=== PATIENT | female | born 1960 | race Caucasian/White ===

== ENCOUNTER 2018-05-18 17:13 | Emergency (ER) | payer OTHER, SELFPAY ==
[2018-05-18 17:30] VITALS: PULSE 84; RESP 16; TEMP 36.8; O2SAT 96
--- NOTE | 2018-05-18 17:41 | DI.REPORT_ITS ---
SYMPTOM/DIAGNOSIS: SWALLOWED FOREIGN BODY/BOTTLE CAP CHEST X-RAY: Frontal and lateral views. Heart size and pulmonary vasculature are within normal limits. The lungs are clear. No effusions or pneumothoraces are identified. No radiopaque foreign bodies are seen. There are degenerative changes in the spine. IMPRESSION: No acute abnormality. No radiopaque foreign body identified.
--- NOTE | 2018-05-18 18:08 | DI.REPORT_ITS ---
SYMPTOM/DIAGNOSIS: S/P SWALLOWED METAL TAB OF SODA CAN. R/O ACUTE FOREIGN BODY FLAT PLATE ABDOMEN: The visualized lung bases are clear. There is a moderate amount of retained stool in the colon. No evidence of bowel obstruction or organomegaly. There are surgical clips in the right upper quadrant of the abdomen. Degenerative changes are seen in the spine. No radiopaque foreign bodies are present. IMPRESSION: No evidence of an acute abdomen. No evidence of a radiopaque foreign body.
--- NOTE | 2018-05-18 18:08 | DI.REPORT_ITS ---
SYMPTOM/DIAGNOSIS: S/P SWALLOWED METAL TAB, R/O ACUTE FOREIGN BODY SOFT TISSUE NECK: Frontal and lateral views. No priors. The airway appears patent and normal in size. No radiopaque foreign bodies are seen. The epiglottis appears unremarkable. No free air is seen in the soft tissues. Moderate degenerative changes are seen in the cervical spine particularly at C5, 6 through C7-T1. IMPRESSION: No acute abnormality. No evidence of a radiopaque foreign body in the soft tissues of the neck.
--- NOTE | 2018-05-18 18:18 | DI.VRAD_ITS ---
EXAM: XR Chest, 2 Views EXAM DATE/TIME: 05/18/2018 5:42 PM CLINICAL HISTORY: 57 years old, female; Screening exam; Other screening; Patient HX: Swallowed foreign body/bottle cap TECHNIQUE: XR of the chest, 2 views. COMPARISON: CR - CHEST 2 VIEWS PA,LAT 2017-03-10 09:43 FINDINGS: Lungs: Normal. No consolidation. Pleural space: Normal. No pneumothorax. Heart/Mediastinum: Normal. No cardiomegaly. Upper abdomen: The right colon is between the right hemidiaphragm and liver consistent with colonic interposition. Bones/joints: Mild thoracic spondylosis. Soft tissues: No obvious radiopaque foreign body. IMPRESSION: No obvious radiopaque foreign body. Dictated and Authenticated by: Finn John MD. Ordering:KATHY HUNTER MD
--- NOTE | 2018-05-18 18:18 | ED.GENADUL ---
Disposition Clinical Impression: Swallowed foreign body Disposition: HOME Condition: Stable Instructions: Foreign Body Ingestion (ED) Additional Instructions: Drink plenty of fluids and get plenty of rest. Take your regular medications as directed. Follow-up with your primary care doctor within the next week. Return to the emergency department with any worsening or new concerning symptoms. Medical Decision Making - Radiology Data Radiology results: report reviewed, image reviewed Soft Tissue Neck x-ray: Negative Chest x-ray: Negative Abdomen x-ray: Negative. Mild to moderate retained feces. - Medical Decision Making 57-year-old female presents with mild irritation in throat and mild abdominal pain since swallowing a metal tab from a soda can last night at 8 PM. Patient has been eating and drinking without difficulty. Patient states she had a bowel movement this morning at 630am but did not see the foreign body. 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 Normal ENT exam. Lungs clear to auscultation. Abdomen soft and nontender. Will send for neck, chest and abdominal x-rays to rule out retained foreign body. 1930: X-rays reviewed and negative for foreign body. Patient currently is denying any sore throat, abdominal pain, nausea or vomiting. Patient states she feels good to go home. It was discussed with patient that she may have passed the metal tab this morning with her bowel movement. As patient appears nontoxic and in no acute distress, okay to discharge home. It was discussed with patient that she should return immediately if she has any worsening or new concerning symptoms. History of Present Illness - General Chief complaint: ThroatFB Stated complaint: UNKNOWN Time Seen by Provider: 05/18/18 17:40 Source: patient Mode of arrival: ambulatory Limitations: no limitations - History of Present Illness Initial comments: Patient is a 57-year-old female who presents with irritation in throat and mild abdominal pain since last night after swallowing a metal tab off a soda can. 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 She has been able to eat and drink. She denies any vomiting. - Related Data Aspirin 81 mg CH DAILY 12/15/12 Bupropion HCl [Bupropion Xl] 300 mg PO DAILY #90 tab-cap 03/25/17 Metformin HCl 850 mg PO BID #180 tab-cap 03/25/17 Proventil Hfa 2 puff IH Q4H PRN #1 inhaler 04/15/17 Magnesium Oxide [Magnesium] 400 mg PO DAILY 05/09/17 Nitroglycerin 0.4 mg SL ONCE #25 tab-cap 05/09/17 Nystatin/Triamcin [Mycolog II Ointment] 15 gm TP TID #15 gram 05/09/17 Atorvastatin Calcium 60 mg PO DAILY #135 tab-cap 05/13/17 Pantoprazole Sodium 40 mg PO DAILY AM #90 tab-cap 05/13/17 Lisinopril 5 mg PO DAILY #90 tab-cap 05/28/17 Clobetasol 0.05% Oint. [Temovate 0.05% Oint] 15 gm TP HS twice weekly #15 gm 10/18/17 Clotrimazole 1 hussain VG BID #90 script 12/30/17 Meclizine HCl 25 mg PO TID PRN #60 tab-cap 12/30/17 Estradiol [Vagifem] 10 mcg VG as directed #45 tab 01/01/18 Ibuprofen 600 mg PO TID PRN #90 tab 01/20/18 Gabapentin 300 mg PO TID #270 tab-cap 02/10/18 Sertraline HCl 25 mg PO DAILY #90 tab 02/10/18 Allergies Allergy/AdvReac Type Severity Reaction Status Date / Time Latex, Natural Rubber Allergy Intermediate Skin Rash Unverified 05/18/18 17:34 silicone Allergy Intermediate Rash Unverified 05/18/18 17:34 oxycodone AdvReac Intermediate SICK TO Unverified 05/18/18 17:34 STOMACH Review of Systems Constitutional: denies: chills, fever Eyes: denies: eye pain ENT: denies: ear pain, dental pain Respiratory: denies: cough, shortness of breath Cardiovascular: denies: chest pain, dyspnea on exertion Gastrointestinal: abdominal pain. denies: nausea, vomiting Genitourinary: denies: urgency, dysuria, frequency Musculoskeletal: denies: back pain Skin: denies: rash, lesions Neurological: denies: headache, weakness, numbness Past Medical History - Past Medical History Medical history: diabetes, GERD, hyperlipidemia, arthritis, hypertension Obesity, Kidney stone Surgical history: , hysterectomy, other, cholecystectomy - Social History Smoking status: never smoker Alcohol use: rarely Drug use: none General Exam - General Limitations: no limitations General appearance: alert, in no apparent distress - Eye Eye exam: Present: EOMI - ENT ENT exam: Present: normal orophraynx, mucous membranes moist, TM's normal bilaterally, other (no abrasions, foreign body, or bleeding noted ) - Neck Neck exam: Present: normal inspection. Absent: lymphadenopathy - Respiratory Respiratory exam: Present: normal lung sounds bilaterally. Absent: respiratory distress, wheezes, rales, rhonchi, stridor - Cardiovascular Cardiovascular Exam: Present: regular rate, normal rhythm. Absent: bradycardia, tachycardia - GI/Abdominal GI/Abdominal exam: Present: soft, normal bowel sounds, other (Morbidly obese). Absent: distended, tenderness, guarding, rebound, rigid - Neurological Exam Neurological exam: Present: alert, oriented X3 - Psychiatric Psychiatric exam: Present: normal affect - Skin Skin exam: Present: warm, dry, intact Course Vital Signs - 24 hr 05/18/18 17:30 Temperature 98.2 F Pulse 84 Respiratory 16 Rate Pulse Oximetry 96
--- NOTE | 2018-05-18 18:19 | DI.VRAD_ITS ---
EXAM: XR Soft Tissue Neck CLINICAL HISTORY: 57 years old, female; Pain; Neck pain and throat pain; Patient HX: Swallowed metal tab TECHNIQUE: Frontal and lateral views of the soft tissues of the neck. COMPARISON: No relevant prior studies available. FINDINGS: Airway: Unremarkable. No abnormal narrowing. Bones/joints: Unremarkable. Soft tissues: No radiopaque foreign body. Compression. Normal epiglottis. Other findings: Moderate to severe multilevel degenerative changes including degenerative disc disease, spondylosis and facet degenerative changes. IMPRESSION: No acute findings. Dictated and Authenticated by: Finn John MD. Ordering:GRACIELA HILL MD
--- NOTE | 2018-05-18 18:19 | DI.VRAD_ITS ---
EXAM: XR Abdomen, 1 View EXAM DATE/TIME: 05/18/2018 6:07 PM CLINICAL HISTORY: 57 years old, female; Pain; Other: Chest/neck discomfort; Patient HX: Swallowed metal tab/foreign body TECHNIQUE: Frontal supine view of the abdomen/pelvis. COMPARISON: CT - RENAL COLIC WO CONTRAST 2015-09-04 16:17 FINDINGS: Gastrointestinal tract: Mild to moderate retained feces. Organs: Surgical clips in the gallbladder fossa consistent with cholecystectomy. Vasculature: There are one or more calcified pelvic phleboliths. Bones/joints: Mild to moderate multilevel degenerative changes including degenerative disc disease, spondylosis and facet degenerative changes. IMPRESSION: Mild to moderate retained feces. Dictated and Authenticated by: Finn John MD. Ordering:GRACIELA HILL MD
== END 2018-05-18 20:30 | disposition home or self-care (01) ==
PROVIDERS: Emergency Provider Physician Assistant; PCP Nurse Practitioner
DX: T18.9XXA Foreign body of alimentary tract, part unspecified, initial encounter (principal); I10 Essential (primary) hypertension; E11.9 Type 2 diabetes mellitus without complications; Z79.84 Long term (current) use of oral hypoglycemic drugs
CPT/HCPCS: 99284; 70360; 71046; 74018; 99283

== ENCOUNTER → 2018-06-04 08:20 | Outpatient (CLI) | payer OTHER, SELFPAY ==
[2018-06-04 08:49] LABS: Abs Immature Grans 0.01 k/cumm (0.0-0.09); Absolute Basophil Count 0.02 k/cumm (0.0-0.2); Absolute Eosinophil Count 0.08 k/cumm (0.0-0.7); Absolute Lymphocyte Count 1.11 k/cumm (1.2-3.4); Absolute Monocyte Count 0.55 k/cumm (0.11-0.7); Absolute Neutrophil Count 3.22 k/cumm (1.2-6.7); Basophils % 0.4; Eosinophils % 1.6; HGB 12.6 g/dL (12.0-15.5); Immature Grans % 0.2; Lymphocytes % 22.2; Mean Corp. HGB Concentration 31.5 g/dL (32.0-36.0); Mean Corpuscular Hemoglobin 29.2 pg (27.0-33.0); Mean Corpuscular Volume 92.6 fL (80-95); Mean Platelet Volume 9.2 fL (8.0-11.0); Neutrophils % 64.6; Platelet Count 273 x1000/uL (130-400); RBC 4.32 m/cumm (4.00-5.20); RBC Distribution Width 13.9 % (11.7-14.6); White Blood Cell Count 4.99 k/cumm (4.4-10.8)
[2018-06-04 09:11] LABS: Hemoglobin A1C 6.6 % (4.5-6.2)
[2018-06-04 09:55] LABS: ALT 27 U/L (12-78); AST 26 U/L (15-37); Albumin 3.5 g/dL (3.4-5.0); Alkaline Phosphatase 186 U/L (46-116); Anion Gap 8.2 mmol/L (3-11); BUN 15 mg/dL (7-18); Bilirubin, Total 0.7 mg/dL (0.2-1.0); CO2 26.8 mmol/L (21.0-32.0); CREATININE 0.85 mg/dL (0.55-1.02); Calcium 8.8 mg/dL (8.5-10.1); Chloride 106 mmol/L (98-107); Cholesterol 160 mg/dL (50-200); Glucose 106 mg/dL (70-100); HDL Cholesterol 52 mg/dL (40-60); LDL CHOLESTEROL 90 mg/dL (<100); Potassium 4.2 mmol/L (3.5-5.1); Sodium 141 mmol/L (136-145); Total Protein 7.3 g/dL (6.4-8.2); Triglyceride 136 mg/dL (30-150)
== END ==
PROVIDERS: PCP Nurse Practitioner; Visit Provider Nurse Practitioner
DX: E11.49 Type 2 diabetes mellitus with other diabetic neurological complication (principal); E78.5 Hyperlipidemia, unspecified; I10 Essential (primary) hypertension
CPT/HCPCS: 36415; 80053; 80061; 83721; 83036; 85025

== ENCOUNTER → 2018-06-10 15:14 | Outpatient (REF) | payer OTHER, SELFPAY ==
[2018-06-10 15:40] LABS: COMMENT (LAB VIEW ONLY) 72.97 mg/dL; Microalb ug/mg Crea 4.5 ug/mg Cr
== END ==
LOC: LBN 15:14
PROVIDERS: PCP Nurse Practitioner; Visit Provider Nurse Practitioner
DX: E11.49 Type 2 diabetes mellitus with other diabetic neurological complication (principal)
CPT/HCPCS: 82043; 82570

== ENCOUNTER 2018-08-01 23:19 | Emergency (ER) | payer OTHER, SELFPAY ==
[2018-08-01 23:25] VITALS: BP 160/81; PULSE 88; RESP 20; TEMP 36.6; O2SAT 99
--- NOTE | 2018-08-01 23:53 | ED.GENADUL_ITS ---
Discharge Plan Disposition Patient Disposition: HOME Condition: Fair Discharge Details Chief Complaint: FacialProb Clinical Impression: Contact dermatitis Primary Care Provider: Dedra Arambula ED Provider: Bhavya Camarena Home Meds and New Rx's Prescriptions: Continue magnesium oxide 400 MG tablet 400 mg PO DAILY RF: 0 nystatin-triamcinolone 15 GM ointment 15 gm Topical TID Qty: 15 RF: 3 lisinopril 5 MG tablet 5 mg PO DAILY Qty: 90 RF: 3 clotrimazole 45 GM cream 1 hussain VG BID Qty: 90 RF: 3 meclizine 25 MG tablet,chewable 25 mg PO TID PRNQty: 60 RF: 1 estradiol [Vagifem] 10 MCG tablet 10 mcg VG as directed Qty: 45 RF: 2 ibuprofen 600 MG tablet 600 mg PO TID PRNQty: 90 RF: 0 gabapentin 300 MG capsule 300 mg PO TID Qty: 270 RF: 3 sertraline 25 MG tablet 25 mg PO DAILY Qty: 90 RF: 3 metformin 850 MG tablet 850 mg PO BID Qty: 180 RF: 3 pantoprazole 40 MG tablet,delayed release (DR/EC) 40 mg PO DAILY AM Qty: 90 RF: 3 atorvastatin 40 MG tablet 60 mg PO DAILY Qty: 135 RF: 3 bupropion HCl 300 MG tablet extended release 24 hr 300 mg PO DAILY Qty: 90 RF: 3 PROVENTIL HFA 18 GM HFA.AER.AD 2 puff Inhalation Q4H PRN Qty: 1 RF: 2 nitroglycerin 0.4 mg tablet, sublingual 0.4 mg Sublingual Q5M PRN (Reason: chest pain) Qty: 25 RF: 5 aspirin 81 MG tablet,chewable 81 mg CH DAILY RF: 0 Discharge Instructions Instructions: Dermatitis (ED) Additional Instructions: Exam today is consistent with contact dermatitis, appears like you have had localized reaction. Take Benadryl once home to help with symptomatic management. May try hydrocortisone cream for itch. If you develop fevers/ chills, increased pain, spreading of the rash or other new/worsening symptoms please seek care urgently once again. If symptoms have not improved next week, please follow up with PCP. Referrals: Dedra Arambula, ULISES [Primary Care Provider] - Medical Decision Making Patient presents today with c/c of erythema and swelling to the left side of her face. She reports minimal discmfort. STates that the area is itchy. Began a few hours prior to arrival. States that initially it grew in size but has slowed its growth. No known new exposures. No trauma. No TMJ pain, good ROM. Ear without abnormality. Patient has a blanchable area of skin irritation with 2 areas of focal swelling. No fluctuance. Not warm on exam. Does not appear toxic, does not appear consistent with infectious source. History and exam most consistent with contact dermatitis. No known new exposure. May also be bite but patient does not believe she was bitten, has been inside at work since the onset of symptoms. ADvised that as it is so soon since onset of symptoms, this may be just developing. She was given strict return precautions. Advised on topical options to help with itch as well as antihistamines. Discussed new/ worsening symptoms and when to seek care urgently once again. All of her questions and concerns were addressed, she is in agreement iwth this plan. Advised f/u with PCP next week if this persists. HPI General Mode of arrival: ambulatory . Date/Time Provider Initiated Documentation: 08/01/18 23:27 . Limitations to Documentation: no limitations . Information obtained by: patient . History of Present Illness 57 year old F presents to the emergency department with the chief complaint of left sided facial bumps, described as mild, with intensity rated at 3. Quality is described as aching, and is localized to the face. Patient reports no radiation. Patient started experiencing this hour(s) (7) and it has been constant. No relieving factors improve symptom(s), No exacerbating factors reported . Patient notes no other symptoms. and rash; denies cough, fever/chills and headaches. Patient did receive the following treatments prior to arrival, NSAID Related Data Home Medications Medication Instructions Recorded Confirmed aspirin 81 mg CH DAILY 12/15/12 08/01/18 magnesium oxide 400 mg PO DAILY 05/09/17 08/01/18 nystatin-triamcinolone 15 gm TOPICAL TID #15 gm 05/09/17 08/01/18 lisinopril 5 mg PO DAILY #90 tab-cap 05/28/17 08/01/18 clotrimazole 1 hussain VG BID #90 script 12/30/17 meclizine 25 mg PO TID PRN #60 tab-cap 12/30/17 08/01/18 estradiol [Vagifem] 10 mcg VG as directed #45 tab 01/01/18 08/01/18 ibuprofen 600 mg PO TID PRN #90 tab 01/20/18 08/01/18 gabapentin 300 mg PO TID #270 tab-cap 02/10/18 08/01/18 sertraline 25 mg PO DAILY #90 tab 02/10/18 08/01/18 metformin 850 mg PO BID #180 tab-cap 05/20/18 08/01/18 pantoprazole 40 mg PO DAILY AM #90 tab-cap 05/28/18 08/01/18 atorvastatin 60 mg PO DAILY #135 tab-cap 06/10/18 08/01/18 bupropion HCl 300 mg PO DAILY #90 tab-cap 06/10/18 08/01/18 nitroglycerin 0.4 mg sublingual 0.4 mg SUBLINGUAL Q5M PRN #25 07/31/18 08/01/18 tablet tab-cap Previous Rx's Medication Instructions Recorded clotrimazole 1 hussain VG BID #90 script 12/30/17 estradiol [Vagifem] 10 mcg VG as directed #45 tab 01/01/18 gabapentin 300 mg PO TID #270 tab-cap 02/10/18 sertraline 25 mg PO DAILY #90 tab 02/10/18 metformin 850 mg PO BID #180 tab-cap 05/20/18 pantoprazole 40 mg PO DAILY AM #90 tab-cap 05/28/18 atorvastatin 60 mg PO DAILY #135 tab-cap 06/10/18 bupropion HCl 300 mg PO DAILY #90 tab-cap 06/10/18 nitroglycerin 0.4 mg sublingual 0.4 mg SUBLINGUAL Q5M PRN #25 07/31/18 tablet tab-cap Allergies Allergy/AdvReac Type Severity Reaction Status Date / Time Latex, Natural Rubber Allergy Intermediate Skin Rash Unverified 08/01/18 23:29 silicone Allergy Intermediate Rash Unverified 08/01/18 23:29 oxycodone AdvReac Intermediate SICK TO Unverified 08/01/18 23:29 STOMACH General Stated Complaint: FacialProb RISHABH: 4 Review of Systems Constitutional Reports as per HPI, Denies chills, Denies fever(s) and Denies headache(s) Eyes Denies eye discharge ENT Reports as per HPI, Denies otalgia, Reports facial pain (localized facial pain on the left side of her face), Denies headache(s), Denies mouth pain, Denies nasal congestion, Denies nasal discharge, Denies sinus pressure and Denies sore throat Cardiovascular Denies chest pain Respiratory Denies cough Integumentary/Breasts Reports as per HPI Neurologic Denies headache(s) PFSH Family History Mother Neoplasm Father Myocardial infarction Medical History Asthma HTN (hypertension) Type 2 diabetes mellitus Social History Smoking/Tobacco Use Status: Never Surgical History section (~1980) Cholecystectomy Extraction of cataract Hysterectomy, Total Laparoscopic Exam Const General: cooperative, healthy appearing, comfortable, no acute distress, well developed and well groomed Nutritional Appearance: well nourished and overweight Orientation: alert and awake HENTN Head: normal to inspection, normocephalic and atraumatic Ears: hearing grossly normal bilaterally, external ears normal and TM's normal bilaterally General nose exam: external nose normal and nares normal Face and sinus: abnormal facial exam (patient has 1.5x1 cm area of mild erythema. Blanchable. Two small raised areas. No fluctuance. No discomfort with palpation. TMJ normal), sinuses nontender, face symmetric, no abrasions, no tenderness and No dry mucous membranes Mouth: oral mucosae normal, lip normal, tongue normal, oropharynx normal, moist mucous membranes, normal lip, No mouth trauma and no muffled voice Throat: posterior oropharynx normal Eyes General: appearance normal, both eyes and all related structures Resp Effort & Inspection: normal respiratory effort, able to speak in complete sentences and no respiratory distress Auscultation: clear to auscultation bilaterally, no rales, no rhonchi and no wheezes Cardio Rate: regular rate Rhythm: regular rhythm Heart Sounds: S1 normal and S2 normal Skin General skin exam: erythema (as above) Neuro General: alert and awake Cognition: normal cognition Speech: speech normal Gait: normal gait Psych Appearance: grossly normal and well kempt Mental Status: mental status grossly normal Speech and Movement: speech and movement normal Course Vital Signs Temperature 36.6 C 08/01/18 23:25 Pulse 88 08/01/18 23:25 Respiratory Rate 20 10/19/18 23:25 Blood Pressure 160/81 H 08/01/18 23:25 Pulse Oximetry 99 08/01/18 23:25 Temperature 36.6 C 08/01/18 23:25 Temperature Source Temporal Artery Scan 08/01/18 23:25 Pulse 88 08/01/18 23:25 Respiratory Rate 20 08/01/18 23:25 Respiratory Effort Non-Labored 08/01/18 23:32 Blood Pressure 160/81 H 08/01/18 23:25 Blood Pressure Position Sitting 08/01/18 23:25 Pulse Oximetry 99 08/01/18 23:25 Oxygen Delivery Method Room Air 08/01/18 23:25 Oxygen Flow Rate 0 08/01/18 23:25 Pain Level 3 08/01/18 23:32
[2018-08-01 23:54] VITALS: PULSE 88; RESP 20; TEMP 36.6; O2SAT 99
== END 2018-08-01 23:56 | disposition home or self-care (01) ==
LOC: ER 23:55
PROVIDERS: Emergency Provider Physician Assistant; PCP Nurse Practitioner
DX: L25.9 Unspecified contact dermatitis, unspecified cause (principal); E11.9 Type 2 diabetes mellitus without complications; Z79.84 Long term (current) use of oral hypoglycemic drugs; I10 Essential (primary) hypertension
CPT/HCPCS: 99282

== ENCOUNTER 2018-10-15 16:17 | Observation (INO) | payer OTHER, SELFPAY ==
[2018-10-15] VITALS (59 sets, daily range): BP systolic 114–205; BP diastolic 70–133; PULSE 70–105; RESP 14–30; TEMP 36.6–36.8; O2SAT 93–98
--- NOTE | 2018-10-15 16:40 | DI.RAD_ITS ---
SYMPTOM/DIAGNOSIS: CHEST PRESSURE PA AND LATERAL CHEST: Comparison is made with 05/18/18. The heart size and pulmonary vasculature are within normal limits and stable. The lungs are clear and well expanded. No effusions or pneumothoraces are identified. The bones are intact. IMPRESSION: No acute pulmonary process.
--- NOTE | 2018-10-15 16:40 | W.ED.GENAD ---
Discharge Plan Disposition Patient Disposition: [facility] INPATIENT Condition: Good Discharge Details Chief Complaint: Chest Pain Clinical Impression: Chest pain Primary Care Provider: Dedra Arambula ED Provider: Elmer Amaral Home Meds and New Rx's Prescriptions: No Action methylprednisolone [Medrol (Sigifredo)] 4 mg tablets,dose pack See Rx Instructions .Route .COMPLEX Qty: 21 RF: 0 cyclobenzaprine 10 mg tablet 10 mg PO TID PRN (Reason: muscle spasm) Qty: 30 RF: 0 magnesium oxide 400 MG tablet 400 mg PO DAILY RF: 0 nystatin-triamcinolone 15 GM ointment 15 gm Topical TID Qty: 15 RF: 3 lisinopril 5 MG tablet 5 mg PO DAILY Qty: 90 RF: 3 clotrimazole 45 GM cream 1 hussain VG BID Qty: 90 RF: 3 meclizine 25 MG tablet,chewable 25 mg PO TID PRNQty: 60 RF: 1 estradiol [Vagifem] 10 MCG tablet 10 mcg VG as directed Qty: 45 RF: 2 ibuprofen 600 MG tablet 600 mg PO TID PRNQty: 90 RF: 0 gabapentin 300 MG capsule 300 mg PO TID Qty: 270 RF: 3 sertraline 25 MG tablet 25 mg PO DAILY Qty: 90 RF: 3 metformin 850 MG tablet 850 mg PO BID Qty: 180 RF: 3 pantoprazole 40 MG tablet,delayed release (DR/EC) 40 mg PO DAILY AM Qty: 90 RF: 3 atorvastatin 40 MG tablet 60 mg PO DAILY Qty: 135 RF: 3 bupropion HCl 300 MG tablet extended release 24 hr 300 mg PO DAILY Qty: 90 RF: 3 PROVENTIL HFA 18 GM HFA.AER.AD 2 puff Inhalation Q4H PRN Qty: 1 RF: 2 nitroglycerin 0.4 mg tablet, sublingual 0.4 mg Sublingual Q5M PRN (Reason: chest pain) Qty: 25 RF: 5 aspirin 81 MG tablet,chewable 81 mg CH DAILY RF: 0 Medical Decision Making <Tylor Gallagher MD - Last Filed: 10/15/18 19:47> 57-year-old female presents from inpatient [employer] where she was working and developed substernal chest pressure. She has had a history of same in the past, and has had unremarkable workups. She states to me that she has been under great deal of stress due to recent illness of her and some other stressors in the home. Differential diagnosis includes acute stress reaction, esophageal spasm, acute coronary syndrome. She is afebrile, well-appearing but anxious. Exam is reassuring. She is given a small amount of Ativan Screening EKG, chest x-ray, laboratory obtained. Initial CBC and chemistries with troponin are reassuring. Will observe on a playground monitor with repeat troponin at [address] see Dr[address] Amaral's note regarding final impression and disposition once the repeat troponin has been resulted. Lab Data Lab results reviewed: Yes I reviewed the patient's lab results. Laboratory Results - last 24 hr 10/15/18 10/15/18 16:50 16:50 WBC 6.44 RBC 4.48 Hgb 13.4 Hct 40.9 MCV 91.3 MCH 29.9 MCHC 32.8 RDW 13.9 Plt Count 292 MPV 9.4 Immature Gran % 0.0 Neutrophils % 54.6 Lymphocytes % 33.2 Monocytes % 7.8 Eosinophils % 3.6 Basophils % 0.8 Absolute Neutrophils 3.52 Absolute Lymphocytes 2.14 Absolute Monocytes 0.50 Absolute Eosinophils 0.23 Absolute Basophils 0.05 Sodium 144 Potassium 3.3 L Chloride 105 Carbon Dioxide 27.5 Anion Gap 11.5 H BUN 14 Creatinine 0.88 Estimated GFR/1.73 m2 >= 60.00 Glucose 115 H Calcium 9.4 Magnesium 1.7 L Total Bilirubin 0.8 AST 26 ALT 30 Alkaline Phosphatase 178 H Troponin I 0.02 Total Protein 7.8 Albumin 3.6 ECG Data Attestation: I personally reviewed and interpreted this ECG (s) as follows: Interpretation: Normal sinus rhythm, rate of 95, QRS is narrow, no ST segment elevation <Elmer Amaral, - Last Filed: 10/15/18 21:11> The case was signed out to me my my colleague Dr. Iker Gallagher. We are pending second troponin at that time. Repeat troponin has come back at 0.03, which is within normal limits, however an increase from her initial troponin 0 0.02. I did go in and review again with the patient, she has a past medical history of diabetes, hypertension, obesity, strong family history of cardiac disease at 60 for her father which is 1 year away from her. She does not smoke though. With her clinical symptoms, and her troponin her heart score is in the moderate risk category with recommendation for further cardiac evaluation. I did go back and discuss the situation with the patient, I discussed potential third troponin versus admission, and the patient does feel very nervous and would like to stay overnight. I think this is very reasonable as the patient is an employee of [employer], she has a heart score of 5 putting her in the moderate risk category, and has a mild increase in her troponin. I discussed the case with Dr. Yasir chris, he agrees with the assessment and plan. The patient will be admitted for continued serial troponins, provocative stress testing tomorrow and further workup. I have extensively reviewed the treatment plan with the patient. I have addressed all patient concerns at this time. I have also discussed the plan with the admitting physician and they agree with the current assessment and plan and have agreed to assume responsibility for the patient. All parties demonstrate verbal understanding and agreement with our assessment and plan at this time. HPI <Tylor Gallagher MD - Last Filed: 10/15/18 19:47> General Mode of arrival: wheelchair. Date/Time Provider Initiated Documentation: 10/15/18 16:27. Limitations to Documentation: no limitations. Information obtained by: patient. History of Present Illness 57 year old F presents to the emergency department with the chief complaint of Substernal chest pressure, described as moderate, Quality is described as dull, and is localized to the chest. Patient reports no radiation. Patient started experiencing this minute(s) and it has been other (Improving). No relieving factors improve symptom(s), No exacerbating factors reported . Patient notes no other symptoms. and cough; denies fever/chills. 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 She did not have diaphoresis, no syncope, no shortness of breath. She admits to a great deal of personal and social stress due to recent illness of her . No lower extremity pain or swelling. No prolonged travel. Related Data Home Medications Medication Instructions Recorded Confirmed aspirin 81 mg CH DAILY 12/15/12 10/15/18 magnesium oxide 400 mg PO DAILY 05/09/17 10/15/18 nystatin-triamcinolone 15 gm TOPICAL TID #15 gm 05/09/17 10/15/18 lisinopril 5 mg PO DAILY #90 tab-cap 05/28/17 10/15/18 clotrimazole 1 hussain VG BID #90 script 12/30/17 10/15/18 meclizine 25 mg PO TID PRN #60 tab-cap 12/30/17 10/15/18 estradiol [Vagifem] 10 mcg VG as directed #45 tab 01/01/18 10/15/18 ibuprofen 600 mg PO TID PRN #90 tab 01/20/18 10/15/18 gabapentin 300 mg PO TID #270 tab-cap 02/10/18 10/15/18 sertraline 25 mg PO DAILY #90 tab 02/10/18 10/15/18 metformin 850 mg PO BID #180 tab-cap 05/20/18 10/15/18 pantoprazole 40 mg PO DAILY AM #90 tab-cap 05/28/18 10/15/18 atorvastatin 60 mg PO DAILY #135 tab-cap 06/10/18 10/15/18 bupropion HCl 300 mg PO DAILY #90 tab-cap 06/10/18 10/15/18 nitroglycerin 0.4 mg sublingual 0.4 mg SUBLINGUAL Q5M PRN #25 07/31/18 10/15/18 tablet tab-cap cyclobenzaprine 10 mg tablet 10 mg PO TID PRN #30 tab 08/04/18 10/15/18 methylprednisolone 4 mg tablets in See Rx Instructions .ROUTE 08/04/18 10/15/18 a dose pack .COMPLEX #21 dose pk Previous Rx's Medication Instructions Recorded clotrimazole 1 hussain VG BID #90 script 12/30/17 estradiol [Vagifem] 10 mcg VG as directed #45 tab 01/01/18 gabapentin 300 mg PO TID #270 tab-cap 02/10/18 sertraline 25 mg PO DAILY #90 tab 02/10/18 metformin 850 mg PO BID #180 tab-cap 05/20/18 pantoprazole 40 mg PO DAILY AM #90 tab-cap 05/28/18 atorvastatin 60 mg PO DAILY #135 tab-cap 06/10/18 bupropion HCl 300 mg PO DAILY #90 tab-cap 06/10/18 nitroglycerin 0.4 mg sublingual 0.4 mg SUBLINGUAL Q5M PRN #25 07/31/18 tablet tab-cap cyclobenzaprine 10 mg tablet 10 mg PO TID PRN #30 tab 08/04/18 methylprednisolone 4 mg tablets in See Rx Instructions .ROUTE 08/04/18 a dose pack .COMPLEX #21 dose pk Allergies Allergy/AdvReac Type Severity Reaction Status Date / Time Latex, Natural Rubber Allergy Intermediate Skin Rash Verified 10/15/18 16:39 silicone Allergy Intermediate Rash Verified 10/15/18 16:39 oxycodone AdvReac Intermediate SICK TO Verified 10/15/18 16:39 STOMACH General Stated Complaint: Chest Pain RISHABH: 2 Review of Systems <Tylor Gallagher MD - Last Filed: 10/15/18 19:47> Review of Systems 8 systems reviewed and otherwise - [facility] <Tylor Gallagher MD - Last Filed: 10/15/18 19:47> Medical History Asthma HTN (hypertension) Type 2 diabetes mellitus Surgical History section (~1980) Cholecystectomy Extraction of cataract Hysterectomy, Total Laparoscopic Family History Mother Neoplasm Father Myocardial infarction Social History Smoking/Tobacco Use Status: Never Exam <Tylor Gallagher MD - Last Filed: 10/15/18 19:47> Narrative Exam Narrative: GEN: awake, alert, oriented 3. Pleasant, well groomed, interactive, anxious. HEAD: Normocephalic, atraumatic ENT: Mucous membranes moist, oropharynx unremarkable, External ear exam unremarkable EYES: PERRL, EOMI NECK: Full ROM, no GAYLA, no menigismus CHEST/RESP: Nontender, clear to auscultation bilateral, no wheeze/rhonchi/rales CARDIOVASCULAR: RRR, no murmur, rub pramod. 2+ Rad pulse bilateral ABDOMEN: Soft, obese, nontender, no mass. +Bowel sounds EXT: Full ROM, no edema, no rash Neuro: Grossly normal neurologic exam, conversant, interactive. Psych: Speech fluent, thoughts congruent, affect is Course <Tylor Gallagher MD - Last Filed: 10/15/18 19:47> Vital Signs Temperature 36.6 C 10/15/18 16:23 Pulse 96 H 10/15/18 16:23 Respiratory Rate 18 10/15/18 16:23 Blood Pressure 171/104 H 10/15/18 16:23 Pulse Oximetry 97 10/15/18 16:23 Temperature 36.6 C 10/15/18 16:23 Temperature Source Temporal Artery Scan 10/15/18 16:23 Pulse 96 H 10/15/18 16:23 Respiratory Rate 18 10/15/18 16:23 Respiratory Effort Non-Labored 10/15/18 16:23 Blood Pressure 171/104 H 10/15/18 16:23 Blood Pressure Position Supine 10/15/18 16:23 Pulse Oximetry 97 10/15/18 16:23 Oxygen Delivery Method Room Air 10/15/18 16:23 Oxygen Flow Rate 0 10/15/18 16:23
--- NOTE | 2018-10-15 16:44 | ED.GENADUL_ITS ---
Discharge Plan Disposition Patient Disposition: [facility] INPATIENT Condition: Good Discharge Details Chief Complaint: Chest Pain Clinical Impression: Chest pain Primary Care Provider: Dedra Arambula ED Provider: Elmer Amaral Home Meds and New Rx's Prescriptions: No Action methylprednisolone [Medrol (Sigifredo)] 4 mg tablets,dose pack See Rx Instructions .Route .COMPLEX Qty: 21 RF: 0 cyclobenzaprine 10 mg tablet 10 mg PO TID PRN (Reason: muscle spasm) Qty: 30 RF: 0 magnesium oxide 400 MG tablet 400 mg PO DAILY RF: 0 nystatin-triamcinolone 15 GM ointment 15 gm Topical TID Qty: 15 RF: 3 lisinopril 5 MG tablet 5 mg PO DAILY Qty: 90 RF: 3 clotrimazole 45 GM cream 1 hussain VG BID Qty: 90 RF: 3 meclizine 25 MG tablet,chewable 25 mg PO TID PRNQty: 60 RF: 1 estradiol [Vagifem] 10 MCG tablet 10 mcg VG as directed Qty: 45 RF: 2 ibuprofen 600 MG tablet 600 mg PO TID PRNQty: 90 RF: 0 gabapentin 300 MG capsule 300 mg PO TID Qty: 270 RF: 3 sertraline 25 MG tablet 25 mg PO DAILY Qty: 90 RF: 3 metformin 850 MG tablet 850 mg PO BID Qty: 180 RF: 3 pantoprazole 40 MG tablet,delayed release (DR/EC) 40 mg PO DAILY AM Qty: 90 RF: 3 atorvastatin 40 MG tablet 60 mg PO DAILY Qty: 135 RF: 3 bupropion HCl 300 MG tablet extended release 24 hr 300 mg PO DAILY Qty: 90 RF: 3 PROVENTIL HFA 18 GM HFA.AER.AD 2 puff Inhalation Q4H PRN Qty: 1 RF: 2 nitroglycerin 0.4 mg tablet, sublingual 0.4 mg Sublingual Q5M PRN (Reason: chest pain) Qty: 25 RF: 5 aspirin 81 MG tablet,chewable 81 mg CH DAILY RF: 0 Medical Decision Making <Tylor Gallagher MD - Last Filed: 10/15/18 19:47> 57-year-old female presents from inpatient [employer] where she was working and developed substernal chest pressure. She has had a history of same in the past, and has had unremarkable workups. She states to me that she has been under great deal of stress due to recent illness of her and some other stressors in the home. Differential diagnosis includes acute stress reaction, esophageal spasm, acute coronary syndrome. She is afebrile, well-appearing but anxious. Exam is reassuring. She is given a small amount of Ativan Screening EKG, chest x-ray, laboratory obtained. Initial CBC and chemistries with troponin are reassuring. Will observe on a cardiac cath technologist with repeat troponin at [address] Please see Dr. Amaral's note regarding final impression and disposition once the repeat troponin has been resulted. Lab Data Lab results reviewed: Yes I reviewed the patient's lab results. Laboratory Results - last 24 hr 10/15/18 10/15/18 16:50 16:50 WBC 6.44 RBC 4.48 Hgb 13.4 Hct 40.9 MCV 91.3 MCH 29.9 MCHC 32.8 RDW 13.9 Plt Count 292 MPV 9.4 Immature Gran % 0.0 Neutrophils % 54.6 Lymphocytes % 33.2 Monocytes % 7.8 Eosinophils % 3.6 Basophils % 0.8 Absolute Neutrophils 3.52 Absolute Lymphocytes 2.14 Absolute Monocytes 0.50 Absolute Eosinophils 0.23 Absolute Basophils 0.05 Sodium 144 Potassium 3.3 L Chloride 105 Carbon Dioxide 27.5 Anion Gap 11.5 H BUN 14 Creatinine 0.88 Estimated GFR/1.73 m2 >= 60.00 Glucose 115 H Calcium 9.4 Magnesium 1.7 L Total Bilirubin 0.8 AST 26 ALT 30 Alkaline Phosphatase 178 H Troponin I 0.02 Total Protein 7.8 Albumin 3.6 ECG Data Attestation: I personally reviewed and interpreted this ECG (s) as follows: Interpretation: Normal sinus rhythm, rate of 95, QRS is narrow, no ST segment elevation <Elmer Amaral, - Last Filed: 10/15/18 21:11> The case was signed out to me my my colleague Dr. Iker Gallagher. We are pending second troponin at that time. Repeat troponin has come back at 0.03, which is within normal limits, however an increase from her initial troponin 0 0.02. I did go in and review again with the patient, she has a past medical history of diabetes, hypertension, obesity, strong family history of cardiac disease at 60 for her father which is 1 year away from her. She does not smoke though. With her clinical symptoms, and her troponin her heart score is in the moderate risk category with recommendation for further cardiac evaluation. I did go back and discuss the situation with the patient, I discussed potential third troponin versus admission, and the patient does feel very nervous and would like to stay overnight. I think this is very reasonable as the patient is an employee of [employer], she has a heart score of 5 putting her in the moderate risk category, and has a mild increase in her troponin. I discussed the case with Dr. Yasir chris, he agrees with the assessment and plan. The patient will be admitted for continued serial troponins, provocative stress testing tomorrow and further workup. I have extensively reviewed the treatment plan with the patient. I have addressed all patient concerns at this time. I have also discussed the plan with the admitting physician and they agree with the current assessment and plan and have agreed to assume responsibility for the patient. All parties demonstrate verbal understanding and agreement with our assessment and plan at this time. HPI <Tylor Gallagher MD - Last Filed: 10/15/18 19:47> General Mode of arrival: wheelchair . Date/Time Provider Initiated Documentation: 10/15/18 16:27 . Limitations to Documentation: no limitations . Information obtained by: patient . History of Present Illness 57 year old F presents to the emergency department with the chief complaint of Substernal chest pressure, described as moderate, Quality is described as dull, and is localized to the chest. Patient reports no radiation. Patient started experiencing this minute(s) and it has been other (Improving). No relieving factors improve symptom(s), No exacerbating factors reported . Patient notes no other symptoms. and cough; denies fever/chills. 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 She did not have diaphoresis, no syncope, no shortness of breath. She admits to a great deal of personal and social stress due to recent illness of her . No lower extremity pain or swelling. No prolonged travel. Related Data Home Medications Medication Instructions Recorded Confirmed aspirin 81 mg CH DAILY 12/15/12 10/15/18 magnesium oxide 400 mg PO DAILY 05/09/17 10/15/18 nystatin-triamcinolone 15 gm TOPICAL TID #15 gm 05/09/17 10/15/18 lisinopril 5 mg PO DAILY #90 tab-cap 05/28/17 10/15/18 clotrimazole 1 hussain VG BID #90 script 12/30/17 10/15/18 meclizine 25 mg PO TID PRN #60 tab-cap 12/30/17 10/15/18 estradiol [Vagifem] 10 mcg VG as directed #45 tab 01/01/18 10/15/18 ibuprofen 600 mg PO TID PRN #90 tab 01/20/18 10/15/18 gabapentin 300 mg PO TID #270 tab-cap 02/10/18 10/15/18 sertraline 25 mg PO DAILY #90 tab 02/10/18 10/15/18 metformin 850 mg PO BID #180 tab-cap 05/20/18 10/15/18 pantoprazole 40 mg PO DAILY AM #90 tab-cap 05/28/18 10/15/18 atorvastatin 60 mg PO DAILY #135 tab-cap 06/10/18 10/15/18 bupropion HCl 300 mg PO DAILY #90 tab-cap 06/10/18 10/15/18 nitroglycerin 0.4 mg sublingual 0.4 mg SUBLINGUAL Q5M PRN #25 07/31/18 10/15/18 tablet tab-cap cyclobenzaprine 10 mg tablet 10 mg PO TID PRN #30 tab 08/04/18 10/15/18 methylprednisolone 4 mg tablets in See Rx Instructions .ROUTE 08/04/18 10/15/18 a dose pack .COMPLEX #21 dose pk Previous Rx's Medication Instructions Recorded clotrimazole 1 hussain VG BID #90 script 12/30/17 estradiol [Vagifem] 10 mcg VG as directed #45 tab 01/01/18 gabapentin 300 mg PO TID #270 tab-cap 02/10/18 sertraline 25 mg PO DAILY #90 tab 02/10/18 metformin 850 mg PO BID #180 tab-cap 05/20/18 pantoprazole 40 mg PO DAILY AM #90 tab-cap 05/28/18 atorvastatin 60 mg PO DAILY #135 tab-cap 06/10/18 bupropion HCl 300 mg PO DAILY #90 tab-cap 06/10/18 nitroglycerin 0.4 mg sublingual 0.4 mg SUBLINGUAL Q5M PRN #25 07/31/18 tablet tab-cap cyclobenzaprine 10 mg tablet 10 mg PO TID PRN #30 tab 08/04/18 methylprednisolone 4 mg tablets in See Rx Instructions .ROUTE 08/04/18 a dose pack .COMPLEX #21 dose pk Allergies Allergy/AdvReac Type Severity Reaction Status Date / Time Latex, Natural Rubber Allergy Intermediate Skin Rash Verified 10/15/18 16:39 silicone Allergy Intermediate Rash Verified 10/15/18 16:39 oxycodone AdvReac Intermediate SICK TO Verified 10/15/18 16:39 STOMACH General Stated Complaint: Chest Pain RISHABH: 2 Review of Systems <Tylor Gallagher MD - Last Filed: 10/15/18 19:47> Review of Systems 8 systems reviewed and otherwise - [facility] <Tylor Gallagher MD - Last Filed: 10/15/18 19:47> Medical History Asthma HTN (hypertension) Type 2 diabetes mellitus Surgical History section (~1980) Cholecystectomy Extraction of cataract Hysterectomy, Total Laparoscopic Family History Mother Neoplasm Father Myocardial infarction Social History Smoking/Tobacco Use Status: Never Exam <Tylor Gallagher MD - Last Filed: 10/15/18 19:47> Narrative Exam Narrative: GEN: awake, alert, oriented 3. Pleasant, well groomed, interactive, anxious. HEAD: Normocephalic, atraumatic ENT: Mucous membranes moist, oropharynx unremarkable, External ear exam unremarkable EYES: PERRL, EOMI NECK: Full ROM, no GAYLA, no menigismus CHEST/RESP: Nontender, clear to auscultation bilateral, no wheeze/rhonchi/rales CARDIOVASCULAR: RRR, no murmur, rub pramod. 2+ Rad pulse bilateral ABDOMEN: Soft, obese, nontender, no mass. +Bowel sounds EXT: Full ROM, no edema, no rash Neuro: Grossly normal neurologic exam, conversant, interactive. Psych: Speech fluent, thoughts congruent, affect is Course <Tylor Gallagher MD - Last Filed: 10/15/18 19:47> Vital Signs Temperature 36.6 C 10/15/18 16:23 Pulse 96 H 10/15/18 16:23 Respiratory Rate 18 10/15/18 16:23 Blood Pressure 171/104 H 10/15/18 16:23 Pulse Oximetry 97 10/15/18 16:23 Temperature 36.6 C 10/15/18 16:23 Temperature Source Temporal Artery Scan 10/15/18 16:23 Pulse 96 H 10/15/18 16:23 Respiratory Rate 18 10/15/18 16:23 Respiratory Effort Non-Labored 10/15/18 16:23 Blood Pressure 171/104 H 10/15/18 16:23 Blood Pressure Position Supine 10/15/18 16:23 Pulse Oximetry 97 10/15/18 16:23 Oxygen Delivery Method Room Air 10/15/18 16:23 Oxygen Flow Rate 0 10/15/18 16:23
[2018-10-15] MEDS: Normal Saline 1,000 ML 125 ML IV ×2 (17:00→22:11)
[2018-10-15] MEDS: LORazepam 2 MG/ML VIAL 0.5 MG IVP (17:00)
[2018-10-15 17:03] LABS: Absolute Basophil Count 0.05 k/cumm (0.0-0.2); Absolute Eosinophil Count 0.23 k/cumm (0.0-0.7); Absolute Lymphocyte Count 2.14 k/cumm (1.2-3.4); Absolute Neutrophil Count 3.52 k/cumm (1.2-6.7); Basophils % 0.8; Eosinophils % 3.6; HCT 40.9 % (36.0-46.0); HGB 13.4 g/dL (12.0-15.5); Lymphocytes % 33.2; Mean Corp. HGB Concentration 32.8 g/dL (32.0-36.0); Mean Corpuscular Hemoglobin 29.9 pg (27.0-33.0); Mean Corpuscular Volume 91.3 fL (80-95); Mean Platelet Volume 9.4 fL (8.0-11.0); Monocytes % 7.8; Neutrophils % 54.6; Platelet Count 292 x1000/uL (130-400); RBC 4.48 m/cumm (4.00-5.20); RBC Distribution Width 13.9 % (11.7-14.6); White Blood Cell Count 6.44 k/cumm (4.4-10.8)
[2018-10-15 17:17] LABS: ALT 30 U/L (12-78); AST 26 U/L (15-37); Albumin 3.6 g/dL (3.4-5.0); Alkaline Phosphatase 178 U/L (46-116); Anion Gap 11.5 mmol/L (3-11); BUN 14 mg/dL (7-18); Bilirubin, Total 0.8 mg/dL (0.2-1.0); CO2 27.5 mmol/L (21.0-32.0); CREATININE 0.88 mg/dL (0.55-1.02); Calcium 9.4 mg/dL (8.5-10.1); Chloride 105 mmol/L (98-107); Glucose 115 mg/dL (70-100); Magnesium 1.7 mg/dL (1.8-2.4); Potassium 3.3 mmol/L (3.5-5.1); Sodium 144 mmol/L (136-145); Total Protein 7.8 g/dL (6.4-8.2); Troponin I 0.02 ng/mL (0.00-0.06)
--- NOTE | 2018-10-15 17:20 | DI.VRAD_ITS ---
EXAM: XR Chest, 2 Views EXAM DATE/TIME: 10/15/2018 5:05 PM CLINICAL HISTORY: 57 years old, female; Signs and symptoms; Other: Chest pressure TECHNIQUE: XR of the chest, 2 views. COMPARISON: [place] CHEST 2 VIEWS PA,LAT 05/18/2018 5:49 PM FINDINGS: Lungs: There is mild elevation of the right hemidiaphragm. Pleural space: Unremarkable. No pleural effusion. No pneumothorax. Heart/Mediastinum: The cardiomediastinal contours are unchanged. There is bilateral hilar prominence. However, this is unchanged from 2017. Upper abdomen: Loops of gas-filled bowel are seen under the right hemidiaphragm, similar to prior exam. Bones/joints: Skeletal degenerative changes. IMPRESSION: 1. No focal consolidation or pneumothorax. Other unchanged findings as above. If symptoms remain concerning, consider alternative imaging modalities. Dictated and Authenticated by: Trish Nance MD. Ordering:TRACEY Snider MD
[2018-10-15 20:27] LABS: Troponin I 0.03 ng/mL (0.00-0.06)
[2018-10-15] MEDS: Potassium Chloride 10 MEQ TABCR 40 MEQ PO (22:24)
--- NOTE | 2018-10-15 22:26 | W.PM.HP.N ---
Date of service: 10/15/18 Time of Service: 22:27 Assessment and Plan (1) Chest pain: Current visit: No Status: Acute Atypical chest pain in that her discomfort is not precipitated by physical exertion. Although she admits that she gets dyspneic with moderate physical activity. Chest pain was temporally associated with elevations in her blood pressure and symptoms of palpitations. Given her multiple risk factors for coronary artery disease unstable angina needs to be ruled out. If her final troponins are negative and I will plan for her to proceed with a chemical stress test in the morning. If this is negative then I think primary risk factors need to be worked on including better blood pressure control as well as control of her diabetes mellitus. I will check a glycohemoglobin A1c and lipid profile in the morning. I have ordered potassium and magnesium supplementation and will repeat her levels in the morning to see if her potassium and magnesium have been corrected prior to proceeding with the stress test. I also think that she has significant anxiety factors that may need further evaluation and treatment as an outpatient. Also GI workup would be considered if her stress test is negative. History of Present Illness Chief Complaint: chest pain Narrative: 57-year-old female with a past medical history significant for hypertension, diabetes mellitus type 2, hyperlipidemia as well as previous negative stress test 2 years ago. 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 She also described feelings of palpitations. This occurred while she was at work however at the time she was not doing any physical labor but was playing on her tablet computer. She admits that she has been under a lot of stress lately due to her 's recent hospitalization for pneumonia as well as a number of stressors at work. She states that she had a workup couple years ago that included a chemical stress test which was negative. She states that usually her blood pressures under good control but today while she was having discomfort blood pressure went up to a systolic pressure 200 but ordinarily her blood pressure is well controlled. She has multiple risk factors for coronary artery disease including family history of coronary artery disease and her father had a massive heart attack in his 60s, personal history of hypertension diabetes mellitus and hyperlipidemia. She is a non-smoker. Evaluation in the emergency room included serial troponin levels which were negative at 0.02 and a repeat level of 0.03. Initial EKG showed no acute ischemic changes. Rhythm is been sinus rhythm. She says the chest discomfort was improved after taking a sublingual nitroglycerin tablet that had previously been prescribed to her by the emergency room. She is now admitted to a telemetry bed for overnight monitoring and repeat troponin levels and chemical stress testing in the morning with Lexiscan if her enzymes are negative. 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 (Chronic) Asthma (Chronic) Osteoarthritis of knee (Chronic 07/21/14) Chronic hypertension (Chronic) Morbid obesity with body mass index of 40.0-49.9 (Chronic) GERD (gastroesophageal reflux disease) (Chronic) Anxiety disorder (Chronic) Asthma HTN (hypertension) Type 2 diabetes mellitus Surgical History History of surgery (Chronic) 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) History of total bilateral knee replacement (TKR) (Resolved) section (~1980) Cholecystectomy Extraction of cataract Hysterectomy, Total Laparoscopic Social History Smoking/Tobacco Use Status: Never History History 1 Para 1 Hx # Term Pregnancies 1 Multiple births Hx # Pregnancies Ectopic pregnancies AB induced Hx Number of Living Children AB spontaneous Meds Home Medications Medication Instructions Recorded Confirmed Type aspirin 81 mg CH DAILY 12/15/12 10/15/18 History magnesium oxide 400 mg PO DAILY 05/09/17 10/15/18 History nystatin-triamcinolone 15 gm TOPICAL TID #15 gm 05/09/17 10/15/18 History lisinopril 5 mg PO DAILY #90 tab-cap 05/28/17 10/15/18 History clotrimazole 1 hussain VG BID #90 script 12/30/17 10/15/18 Rx meclizine 25 mg PO TID PRN #60 tab-cap 12/30/17 10/15/18 History estradiol [Vagifem] 10 mcg VG as directed #45 tab 01/01/18 10/15/18 Rx ibuprofen 600 mg PO TID PRN #90 tab 01/20/18 10/15/18 History gabapentin 300 mg PO TID #270 tab-cap 02/10/18 10/15/18 Rx sertraline 25 mg PO DAILY #90 tab 02/10/18 10/15/18 Rx metformin 850 mg PO BID #180 tab-cap 05/20/18 10/15/18 Rx pantoprazole 40 mg PO DAILY AM #90 tab-cap 05/28/18 10/15/18 Rx Proventil Hfa 2 puff INHALATION Q4H PRN #1 06/10/18 10/15/18 Clinic inhaler atorvastatin 60 mg PO DAILY #135 tab-cap 06/10/18 10/15/18 Rx bupropion HCl 300 mg PO DAILY #90 tab-cap 06/10/18 10/15/18 Rx nitroglycerin 0.4 mg sublingual 0.4 mg SUBLINGUAL Q5M PRN #25 07/31/18 10/15/18 Rx tablet tab-cap cyclobenzaprine 10 mg tablet 10 mg PO TID PRN #30 tab 08/04/18 10/15/18 Rx Allergies Allergy/AdvReac Type Severity Reaction Status Date / Time Latex, Natural Rubber Allergy Intermediate Skin Rash Verified 10/15/18 16:39 silicone Allergy Intermediate Rash Verified 10/15/18 16:39 oxycodone AdvReac Intermediate SICK TO Verified 10/15/18 16:39 STOMACH Exam Const General: cooperative, no acute distress and well developed Nutritional Appearance: obese Orientation: alert, awake and oriented x3 Neck Neck: normal visual inspection, full ROM, no lymphadenopathy, trachea midline and no JVD Thyroid: thyroid normal Carotids: normal carotid upstroke Lymphatic: no lymphadenopathy noted Chest Chest: normal inspection of the chest and normal palpation of entire chest wall Resp Effort & Inspection: normal respiratory effort and able to speak in complete sentences Auscultation: clear to auscultation bilaterally Cardio Jugular venous pressure: no JVD Palpation: normal PMI Rate: regular rate Rhythm: regular rhythm Heart Sounds: S1 normal, S2 normal, normal, physiologic split S2, no gallops, no murmurs and no rubs Bruits: no abdominal aortic bruits and no carotid bruits Pulses: normal peripheral pulses GI Inspection: normal to inspection and obesity Palpation: soft, no hepatosplenomegaly, no guarding, no masses and tender in the epigastrum (mild w/out rebound tenderness nor guarding) Percussion: normal to percussion Auscultation: normal bowel sounds Skin General skin exam: no rashes or lesions noted Neuro General: alert, awake and oriented x3 Cognition: normal cognition Speech: speech normal Motor: muscle tone normal throughout, strength 5/5 throughout and no movement abnormalities noted Extrem General: normal to inspection, full ROM and normal capillary refill Psych Appearance: grossly normal and well kempt Mental Status: mental status grossly normal Speech and Movement: speech and movement normal Mood: congruent mood Affect: normal affect Attitude: cooperative Thought Process: normal Thought Content: normal Insight: insight good Judgment: judgment good Results Imaging Chest x-ray: report reviewed and image reviewed EKG: image reviewed (Normal sinus rhythm at a rate of 95 bpm with no acute ischemic ST or T wave changes) Labs : 10/15/18 16:50 10/16/18 06:55 Laboratory Results - last 24 hr 10/15/18 10/15/18 10/15/18 16:50 16:50 20:00 WBC 6.44 RBC 4.48 Hgb 13.4 Hct 40.9 MCV 91.3 MCH 29.9 MCHC 32.8 RDW 13.9 Plt Count 292 MPV 9.4 Immature Gran % 0.0 Neutrophils % 54.6 Lymphocytes % 33.2 Monocytes % 7.8 Eosinophils % 3.6 Basophils % 0.8 Absolute Neutrophils 3.52 Absolute Lymphocytes 2.14 Absolute Monocytes 0.50 Absolute Eosinophils 0.23 Absolute Basophils 0.05 Sodium 144 Potassium 3.3 L Chloride 105 Carbon Dioxide 27.5 Anion Gap 11.5 H BUN 14 Creatinine 0.88 Estimated GFR/1.73 m2 >= 60.00 Glucose 115 H Calcium 9.4 Magnesium 1.7 L Total Bilirubin 0.8 AST 26 ALT 30 Alkaline Phosphatase 178 H Troponin I 0.02 0.03 Total Protein 7.8 Albumin 3.6 Last Vital Signs Temp 36.8 C 10/15/18 21:52 Pulse 90 10/15/18 22:15 Resp 20 10/15/18 22:02 BP 147/89 H 10/15/18 22:15 Pulse Ox 94 L 10/15/18 22:15
[2018-10-15] MEDS: MAGNESIUM SULFATE 2 GM/50 ML BAG IVPB (22:27)
[2018-10-15] MEDS: Enoxaparin 40 MG/0.4 ML SYR SC (22:28)
[2018-10-15] MEDS: Mylanta Suspension 30 ML CUP PO ×2 (22:36→23:17)
[2018-10-16] VITALS (8 sets, daily range): BP systolic 111–139; BP diastolic 63–88; PULSE 66–76; RESP 17–20; TEMP 36.4–37.1; O2SAT 94–99
[2018-10-16 00:32] LABS: Troponin I < 0.02 ng/mL (0.00-0.06)
[2018-10-16] MEDS: Pantoprazole 40 MG TABCR PO (05:26)
[2018-10-16 07:33] LABS: Anion Gap 8.8 mmol/L (3-11); BUN 11 mg/dL (7-18); CO2 24.2 mmol/L (21.0-32.0); CREATININE 0.69 mg/dL (0.55-1.02); Calcium 8.1 mg/dL (8.5-10.1); Chloride 109 mmol/L (98-107); Glucose 94 mg/dL (70-100); Sodium 142 mmol/L (136-145)
--- NOTE | 2018-10-16 08:23 | PDOC.CMIN ---
- If Service Date Differs Date of service: 10/16/18 Time of Service: 08:23 Care Management Initial Assess REASON FOR HOSPITALIZATION:: Chest pain. PAST MEDICAL HISTORY/PAST SURGICAL HISTORY:: Anxiety disorder, asthma, diabetic peripheral neuropathy associated with type II DM, HTN. Surgical hx: section, cholecystectomy, extraction of cataract, bilateral knee replacement, hysterectomy. PREVIOUS FUNCTIONAL STATUS/SOCIAL/FAMILY SUPPORTS:: Kathrine resides in [place] with her , Reggie, and their adult daughter and grand daughter. She is employed at [employer]. Kathrine is independent with her ADLs and transportation and has no reservations about returning home when medically ready. CURRENT FUNCTIONAL STATUS:: Kathrine is sitting in bed eating lunch when CM visits. Her , Reggie, is at bedside. Reggie was just recently discharged from [facility] on 10/10 following an admission for COPD exacerbation and CAP. Kathrine denies chest pain and pressure and does not appear to be in any distress. She is scheduled for a stress test, and as cardiology is unavailable at the hospital today, she will have the test on Saturday and then discharge home. ADVANCE DIRECTIVES:: On file at [facility]. Health Care Agent: Beverly Moreno. Has patient been provided with information about the portal?: Yes Did the patient sign up for the portal?: Yes CODE STATUS:: Full Code INSURANCE COVERAGE / FINANCIAL ISSUES:: [employer] CURRENT HOME/COMMUNITY SERVICES/EQUIPMENT:: No current home or community services. No equipment. PRIMARY CARE PHYSICIAN:: Dedra Arambula NP. POTENTIAL DISCHARGE NEEDS:: Follow up appointment with PCP. PATIENT/FAMILY EDUCATION NEEDS:: Discharge education, any limitations, and follow up plan of care. Ask Me Three discussion. ANTICIPATED BARRIERS TO DISCHARGE:: No anticipated barriers to discharge. TRANSPORTATION:: Kathrine will transport via private vehicle with her , Reggie. PLAN:: Kathrine will discharge home when medically ready per MD. Anticipate patient will discharge with no services and follow up with her PCP. CM will continue to offer support to patient, family, and care team regarding discharge planning and disposition.
--- NOTE | 2018-10-16 08:30 | RESPIRATORY ---
Patient declines MDI, denies SOB
--- NOTE | 2018-10-16 08:30 | INITIAL_ITS ---
- If Service Date Differs Date of service: 10/16/18 Time of Service: 08:23 Care Management Initial Assess REASON FOR HOSPITALIZATION:: Chest pain. PAST MEDICAL HISTORY/PAST SURGICAL HISTORY:: Anxiety disorder, asthma, diabetic peripheral neuropathy associated with type II DM, HTN. Surgical hx: section, cholecystectomy, extraction of cataract, bilateral knee replacement, hysterectomy. PREVIOUS FUNCTIONAL STATUS/SOCIAL/FAMILY SUPPORTS:: Kathrine resides in [place] with her , Reggie, and their adult daughter and grand daughter. She is employed at [employer]. Kathrine is independent with her ADLs and transportation and has no reservations about returning home when medically ready. CURRENT FUNCTIONAL STATUS:: Kathrine is sitting in bed eating lunch when CM visits. Her , Reggie, is at bedside. Reggie was just recently discharged from [facility] on 10/10 following an admission for COPD exacerbation and CAP. Kathrine denies chest pain and pressure and does not appear to be in any distress. She is scheduled for a stress test, and as cardiology is unavailable at the hospital today, she will have the test on Saturday and then discharge home. ADVANCE DIRECTIVES:: On file at [facility]. Health Care Agent: Beverly Moreno. Has patient been provided with information about the portal?: Yes Did the patient sign up for the portal?: Yes CODE STATUS:: Full Code INSURANCE COVERAGE / FINANCIAL ISSUES:: [employer] CURRENT HOME/COMMUNITY SERVICES/EQUIPMENT:: No current home or community services. No equipment. PRIMARY CARE PHYSICIAN:: Dedra Arambula NP. POTENTIAL DISCHARGE NEEDS:: Follow up appointment with PCP. PATIENT/FAMILY EDUCATION NEEDS:: Discharge education, any limitations, and follow up plan of care. Ask Me Three discussion. ANTICIPATED BARRIERS TO DISCHARGE:: No anticipated barriers to discharge. TRANSPORTATION:: Kathrine will transport via private vehicle with her , Reggie. PLAN:: Kathrine will discharge home when medically ready per MD. Anticipate patient will discharge with no services and follow up with her PCP. CM will continue to offer support to patient, family, and care team regarding discharge planning and disposition.
[2018-10-16] MEDS: Normal Saline 1,000 ML 125 ML IV ×2 (08:31→16:26)
[2018-10-16] MEDS: buPROPion-XL 150 MG TABCR 300 MG PO (09:00)
[2018-10-16] MEDS: Sertraline 25 MG TAB PO (09:00)
[2018-10-16] MEDS: Aspirin 81 MG CHEW CH (09:00)
[2018-10-16] MEDS: Lisinopril 5 MG TAB PO (09:00)
[2018-10-16] MEDS: Gabapentin 300 MG CAP PO ×3 (09:00→20:24)
[2018-10-16] MEDS: Magnesium Oxide 400 MG TAB PO ×2 (09:00→20:24)
[2018-10-16 13:59] LABS: Cholesterol 178 mg/dL (50-200); HDL Cholesterol 37 mg/dL (40-60); LDL CHOLESTEROL 119 mg/dL (<100); Magnesium 2.1 mg/dL (1.8-2.4); TSH (W/Ref FT4) 1.78 uIU/mL (0.358-3.74); Triglyceride 166 mg/dL (30-150)
--- NOTE | 2018-10-16 14:54 | W.PM.PROGNOT ---
Date of Service Date of service: 10/16/18 Time of Service: 14:54 Assessment and Plan (1) Chest pressure: Current visit: Yes Status: Acute Essentially ruled out with serial CBM's. Stress testing not available today - will ensure this test is performed tomorrow. Further plans pending results. (2) Hyperlipidemia: Current visit: Yes Status: Chronic Continue high potency statin. (3) Diabetes mellitus: Current visit: Yes Status: Chronic Hold Metformin. Continue ISS. (4) GERD (gastroesophageal reflux disease): Current visit: Yes Status: Chronic Continue PPI. (5) DVT prophylaxis: Current visit: Yes Status: Acute Continue SC Lovenox. Subjective Interval history since last seen: 57-year-old woman with a past medical history significant for hypertension, DM, obesity, and dyslipidemia, admitted from [facility] Emergency Department on 10/15 with complaint of chest pain. 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 She was on her tablet computer and at lunch when she saw a coworker pass by that she has had prior personal issues with. She began experiencing tightness in her chest. There was no reported radiation to her neck jaw or arms, and no exertional component to her symptoms. She also described feelings of palpitations. She admits that she has been under a lot of stress lately due to her 's recent hospitalization for pneumonia as well as a number of stressors at work. She reports a nuclear stress test that was interpreted as negative approximately 2 years ago. She has multiple risk factors for CAD including family history of coronary artery disease and her father who had an MT in his 60s, as well as personal history of HTN, DM, and dyslipidemia. She is a non-smoker. The patient has had no abnormalities on telemetry overnight. She ruled out for ACS with serial Cardiac Biomarkers. She has also remained asymptomatic. She was scheduled for a nuclear stress test, but unfortunately this test is not available today. The patient would prefer to wait until stress testing is completed prior to leaving the hospital. No other events reported. She remains afebrile Exam Narrative Exam Narrative: General: Patient appears comfortable, AAOX3, NAD Neck: Supple CV: Regular, nontachycardic, S1S2, No rubs, murmurs, or gallops. Pulmonary: Clear to auscultation bilaterally, no crackles, wheezing, or rhonchi Abdomen: + Bowel Sounds, soft, nontender, nondistended Vascular: No lower extremity edema Neurologic: CN II-XII grossly intact. No focal deficits. Psych: Normal mood and affect. Objective Objective Clinical Data: Abnormal lab results 10/15/18 10/16/18 10/16/18 Range/Units 16:50 06:55 06:55 Potassium 3.3 L (3.5-5.1) mmol/L Chloride 109 H (98-107) mmol/L Anion Gap 11.5 H (3-11) mmol/L Glucose 115 H (70-100) mg/dL Calcium 8.1 L (8.5-10.1) mg/dL Magnesium 1.7 L (1.8-2.4) mg/dL Alkaline Phosphatase 178 H (46-116) U/L Triglycerides 166 H (30-150) mg/dL LDL Cholesterol Direct 119 H (<100) mg/dL HDL Cholesterol 37 L (40-60) mg/dL Vital Signs Temperature 36.7 C 10/16/18 12:05 Temperature Source Tympanic 10/16/18 12:05 Pulse 70 10/16/18 12:05 Pulse Rhythm Regular 10/16/18 08:05 Pulse 85 10/15/18 21:20 Respiratory Rate 20 10/16/18 12:05 Respiratory Effort Non-Labored 10/16/18 08:05 Respiratory Depth Normal 10/16/18 08:05 Respiratory Pattern Normal 10/16/18 08:05 Blood Pressure 135/88 10/16/18 12:05 Blood Pressure Mean 114 10/15/18 21:16 Blood Pressure Position Supine 10/15/18 16:23 Pulse Oximetry 97 10/16/18 12:05 Oxygen Delivery Method Room Air 10/16/18 12:05 Oxygen Flow Rate 0 10/16/18 12:05 Pain Level 0 10/16/18 12:05 Intake & Output 10/15/18 10/16/18 10/16/18 23:59 11:59 23:59 Intake Total 677.084 / 430.611 1941.833 / 1900.833 240 / 1900.833 Output Total 1500 / 2350 850 / 2350 Balance 677.084 / 677.084 160.833 / -449.167 -610 / -449.167 Weight 110.2 kg 110.3 kg Intake: IV 677.084 / 076.794 3937.833 / 1020.833 Oral 640 / 880 240 / 880 Output: Urine 1500 / 2350 850 / 2350 Other: Urine Color Yellow Pale Straw Urine Appearance Clear Clear Urine Odor Normal Stool Size Large Stool Characteristics Liquid Brown Voiding Methods Toilet Toilet Laboratory Results WBC 6.44 k/cumm (4.4-10.8) 10/15/18 16:50 RBC 4.48 m/cumm (4.00-5.20) 10/15/18 16:50 Hgb 13.4 g/dL (12.0-15.5) 10/15/18 16:50 Hct 40.9 % (36.0-46.0) 10/15/18 16:50 MCV 91.3 fL (80-95) 10/15/18 16:50 MCH 29.9 pg (27.0-33.0) 10/15/18 16:50 MCHC 32.8 g/dL (32.0-36.0) 10/15/18 16:50 RDW 13.9 % (11.7-14.6) 10/15/18 16:50 Plt Count 292 x1000/uL (130-400) 10/15/18 16:50 MPV 9.4 fL (8.0-11.0) 10/15/18 16:50 Immature Gran % 0.0 10/15/18 16:50 Neutrophils % 54.6 10/15/18 16:50 Lymphocytes % 33.2 10/15/18 16:50 Monocytes % 7.8 10/15/18 16:50 Eosinophils % 3.6 10/15/18 16:50 Basophils % 0.8 10/15/18 16:50 Absolute Neutrophils 3.52 k/cumm (1.2-6.7) 10/15/18 16:50 Absolute Lymphocytes 2.14 k/cumm (1.2-3.4) 10/15/18 16:50 Absolute Monocytes 0.50 k/cumm (0.11-0.7) 10/15/18 16:50 Absolute Eosinophils 0.23 k/cumm (0.0-0.7) 10/15/18 16:50 Absolute Basophils 0.05 k/cumm (0.0-0.2) 10/15/18 16:50 Sodium 142 mmol/L (136-145) 10/16/18 06:55 Potassium 4.0 mmol/L (3.5-5.1) D 10/16/18 06:55 Chloride 109 mmol/L (98-107) H 10/16/18 06:55 Carbon Dioxide 24.2 mmol/L (21.0-32.0) 10/16/18 06:55 Anion Gap 8.8 mmol/L (3-11) 10/16/18 06:55 BUN 11 mg/dL (7-18) 10/16/18 06:55 Creatinine 0.69 mg/dL (0.55-1.02) 10/16/18 06:55 Estimated GFR/1.73 m2 >= 60.00 (mL/min/1.73m2) 10/16/18 06:55 Glucose 94 mg/dL (70-100) 10/16/18 06:55 Calcium 8.1 mg/dL (8.5-10.1) L 10/16/18 06:55 Magnesium 2.1 mg/dL (1.8-2.4) 10/16/18 06:55 Total Bilirubin 0.8 mg/dL (0.2-1.0) 10/15/18 16:50 AST 26 U/L (15-37) 10/15/18 16:50 ALT 30 U/L (12-78) 10/15/18 16:50 Alkaline Phosphatase 178 U/L (46-116) H 10/15/18 16:50 Troponin I < 0.02 ng/mL (0.00-0.06) 10/16/18 00:10 Total Protein 7.8 g/dL (6.4-8.2) 10/15/18 16:50 Albumin 3.6 g/dL (3.4-5.0) 10/15/18 16:50 Triglycerides 166 mg/dL (30-150) H 10/16/18 06:55 Total Cholesterol 178 mg/dL (50-200) 10/16/18 06:55 LDL Cholesterol Direct 119 mg/dL (<100) H 10/16/18 06:55 HDL Cholesterol 37 mg/dL (40-60) L 10/16/18 06:55 TSH 1.78 uIU/mL (0.358-3.74) 10/16/18 06:55 Objective Narrative Objective Narrative: C age 3 years XR Chest, 2 Views EXAM DATE/TIME: 10/15/2018 5:05 PM CLINICAL HISTORY: 57 years old, female; Signs and symptoms; Other: Chest pressure TECHNIQUE: XR of the chest, 2 views. COMPARISON: SC CHEST 2 VIEWS PA,LAT 05/18/2018 5:49 PM FINDINGS: Lungs: There is mild elevation of the right hemidiaphragm. Pleural space: Unremarkable. No pleural effusion. No pneumothorax. Heart/Mediastinum: The cardiomediastinal contours are unchanged. There is bilateral hilar prominence. However, this is unchanged from 2017. Upper abdomen: Loops of gas-filled bowel are seen under the right hemidiaphragm, similar to prior exam. Bones/joints: Skeletal degenerative changes. IMPRESSION: 1. No focal consolidation or pneumothorax. Other unchanged findings as above. If symptoms remain concerning, consider alternative imaging modalities.
--- NOTE | 2018-10-16 15:00 | PGE_ITS ---
Date of Service Date of service: 10/16/18 Time of Service: 14:54 Assessment and Plan (1) Chest pressure: Current visit: Yes Status: Acute Essentially ruled out with serial CBM's. Stress testing not available today - will ensure this test is performed tomorrow. Further plans pending results. (2) Hyperlipidemia: Current visit: Yes Status: Chronic Continue high potency statin. (3) Diabetes mellitus: Current visit: Yes Status: Chronic Hold Metformin. Continue ISS. (4) GERD (gastroesophageal reflux disease): Current visit: Yes Status: Chronic Continue PPI. (5) DVT prophylaxis: Current visit: Yes Status: Acute Continue SC Lovenox. Subjective Interval history since last seen: 57-year-old woman with a past medical history significant for hypertension, DM, obesity, and dyslipidemia, admitted from [facility] Emergency Department on 10/15 with complaint of chest pain. 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 She was on her tablet computer and at lunch when she saw a coworker pass by that she has had prior personal issues with. She began experiencing tightness in her chest. There was no reported radiation to her neck jaw or arms, and no exertional component to her symptoms. She also described feelings of palpitations. She admits that she has been under a lot of stress lately due to her 's recent hospitalization for pneumonia as well as a number of stressors at work. She reports a nuclear stress test that was interpreted as negative approximately 2 years ago. She has multiple risk factors for CAD including family history of coronary artery disease and her father who had an OR in his 60s, as well as personal history of HTN, DM, and dyslipidemia. She is a non-smoker. The patient has had no abnormalities on telemetry overnight. She ruled out for ACS with serial Cardiac Biomarkers. She has also remained asymptomatic. She was scheduled for a nuclear stress test, but unfortunately this test is not available today. The patient would prefer to wait until stress testing is compl eted prior to leaving the hospital. No other events reported. She remains afebrile Exam Narrative Exam Narrative: General: Patient appears comfortable, AAOX3, NAD Neck: Supple CV: Regular, nontachycardic, S1S2, No rubs, murmurs, or gallops. Pulmonary: Clear to auscultation bilaterally, no crackles, wheezing, or rhonchi Abdomen: + Bowel Sounds, soft, nontender, nondistended Vascular: No lower extremity edema Neurologic: CN II-XII grossly intact. No focal deficits. Psych: Normal mood and affect. Objective Objective Clinical Data: Abnormal lab results 10/15/18 10/16/18 10/16/18 Range/Units 16:50 06:55 06:55 Potassium 3.3 L (3.5-5.1) mmol/L Chloride 109 H (98-107) mmol/L Anion Gap 11.5 H (3-11) mmol/L Glucose 115 H (70-100) mg/dL Calcium 8.1 L (8.5-10.1) mg/dL Magnesium 1.7 L (1.8-2.4) mg/dL Alkaline Phosphatase 178 H (46-116) U/L Triglycerides 166 H (30-150) mg/dL LDL Cholesterol Direct 119 H (<100) mg/dL HDL Cholesterol 37 L (40-60) mg/dL Vital Signs Temperature 36.7 C 10/16/18 12:05 Temperature Source Tympanic 10/16/18 12:05 Pulse 70 10/16/18 12:05 Pulse Rhythm Regular 10/16/18 08:05 Pulse 85 10/15/18 21:20 Respiratory Rate 20 10/16/18 12:05 Respiratory Effort Non-Labored 10/16/18 08:05 Respiratory Depth Normal 10/16/18 08:05 Respiratory Pattern Normal 10/16/18 08:05 Blood Pressure 135/88 10/16/18 12:05 Blood Pressure Mean 114 10/15/18 21:16 Blood Pressure Position Supine 10/15/18 16:23 Pulse Oximetry 97 10/16/18 12:05 Oxygen Delivery Method Room Air 10/16/18 12:05 Oxygen Flow Rate 0 10/16/18 12:05 Pain Level 0 10/16/18 12:05 Intake & Output 10/15/18 10/16/18 10/16/18 23:59 11:59 23:59 Intake Total 677.084 / 756.105 7542.833 / 1900.833 240 / 1900.833 Output Total 1500 / 2350 850 / 2350 Balance 677.084 / 677.084 160.833 / -449.167 -610 / -449.167 Weight 110.2 kg 110.3 kg Intake: IV 677.084 / 629.061 4422.833 / 1020.833 Oral 640 / 880 240 / 880 Output: Urine 1500 / 2350 850 / 2350 Other: Urine Color Yellow Pale Straw Urine Appearance Clear Clear Urine Odor Normal Stool Size Large Stool Characteristics Liquid Brown Voiding Methods Toilet Toilet Laboratory Results WBC 6.44 k/cumm (4.4-10.8) 10/15/18 16:50 RBC 4.48 m/cumm (4.00-5.20) 10/15/18 16:50 Hgb 13.4 g/dL (12.0-15.5) 10/15/18 16:50 Hct 40.9 % (36.0-46.0) 10/15/18 16:50 MCV 91.3 fL (80-95) 10/15/18 16:50 MCH 29.9 pg (27.0-33.0) 10/15/18 16:50 MCHC 32.8 g/dL (32.0-36.0) 10/15/18 16:50 RDW 13.9 % (11.7-14.6) 10/15/18 16:50 Plt Count 292 x1000/uL (130-400) 10/15/18 16:50 MPV 9.4 fL (8.0-11.0) 10/15/18 16:50 Immature Gran % 0.0 10/15/18 16:50 Neutrophils % 54.6 10/15/18 16:50 Lymphocytes % 33.2 10/15/18 16:50 Monocytes % 7.8 10/15/18 16:50 Eosinophils % 3.6 10/15/18 16:50 Basophils % 0.8 10/15/18 16:50 Absolute Neutrophils 3.52 k/cumm (1.2-6.7) 10/15/18 16:50 Absolute Lymphocytes 2.14 k/cumm (1.2-3.4) 10/15/18 16:50 Absolute Monocytes 0.50 k/cumm (0.11-0.7) 10/15/18 16:50 Absolute Eosinophils 0.23 k/cumm (0.0-0.7) 10/15/18 16:50 Absolute Basophils 0.05 k/cumm (0.0-0.2) 10/15/18 16:50 Sodium 142 mmol/L (136-145) 10/16/18 06:55 Potassium 4.0 mmol/L (3.5-5.1) D 10/16/18 06:55 Chloride 109 mmol/L (98-107) H 10/16/18 06:55 Carbon Dioxide 24.2 mmol/L (21.0-32.0) 10/16/18 06:55 Anion Gap 8.8 mmol/L (3-11) 10/16/18 06:55 BUN 11 mg/dL (7-18) 10/16/18 06:55 Creatinine 0.69 mg/dL (0.55-1.02) 10/16/18 06:55 Estimated GFR/1.73 m2 >= 60.00 (mL/min/1.73m2) 10/16/18 06:55 Glucose 94 mg/dL (70-100) 10/16/18 06:55 Calcium 8.1 mg/dL (8.5-10.1) L 10/16/18 06:55 Magnesium 2.1 mg/dL (1.8-2.4) 10/16/18 06:55 Total Bilirubin 0.8 mg/dL (0.2-1.0) 10/15/18 16:50 AST 26 U/L (15-37) 10/15/18 16:50 ALT 30 U/L (12-78) 10/15/18 16:50 Alkaline Phosphatase 178 U/L (46-116) H 10/15/18 16:50 Troponin I < 0.02 ng/mL (0.00-0.06) 10/16/18 00:10 Total Protein 7.8 g/dL (6.4-8.2) 10/15/18 16:50 Albumin 3.6 g/dL (3.4-5.0) 10/15/18 16:50 Triglycerides 166 mg/dL (30-150) H 10/16/18 06:55 Total Cholesterol 178 mg/dL (50-200) 10/16/18 06:55 LDL Cholesterol Direct 119 mg/dL (<100) H 10/16/18 06:55 HDL Cholesterol 37 mg/dL (40-60) L 10/16/18 06:55 TSH 1.78 uIU/mL (0.358-3.74) 10/16/18 06:55 Objective Narrative Objective Narrative: C age 3 years XR Chest, 2 Views EXAM DATE/TIME: 10/15/2018 5:05 PM CLINICAL HISTORY: 57 years old, female; Signs and symptoms; Other: Chest pressure TECHNIQUE: XR of the chest, 2 views. COMPARISON: SC CHEST 2 VIEWS PA,LAT 05/18/2018 5:49 PM FINDINGS: Lungs: There is mild elevation of the right hemidiaphragm. Pleural space: Unremarkable. No pleural effusion. No pneumothorax. Heart/Mediastinum: The cardiomediastinal contours are unchanged. There is bilateral hilar prominence. However, this is unchanged from 2017. Upper abdomen: Loops of gas-filled bowel are seen under the right hemidiaphragm, similar to prior exam. Bones/joints: Skeletal degenerative changes. IMPRESSION: 1. No focal consolidation or pneumothorax. Other unchanged findings as above. If symptoms remain concerning, consider alternative imaging modalities.
--- NOTE | 2018-10-16 15:26 | CHAPLAIN ---
Kathrine told me she'll be staying tonight to have follow up stress tests tomorrow. She states that she has been under stress at home and at work. She was here last night, and said she slept well. She lives with her , Reggie, who was recently a patient here for COPD exacerbation, her daughter and her daughter's twin sons. I will visit again tomorrow.
[2018-10-16] MEDS: Acetaminophen 325 MG TAB 650 MG PO (17:58)
[2018-10-16] MEDS: Atorvastatin 20 MG TAB 60 MG PO (20:23)
[2018-10-16] MEDS: Enoxaparin 40 MG/0.4 ML SYR SC (20:24)
[2018-10-17] VITALS (8 sets, daily range): BP systolic 161–164; BP diastolic 80–93; PULSE 59–81; RESP 16–18; TEMP 36.4–36.6; O2SAT 95–97
[2018-10-17] MEDS: Normal Saline 1,000 ML 125 ML IV ×2 (01:15→07:43)
--- NOTE | 2018-10-17 07:35 | RESPIRATORY ---
Patient declines MDI, Denies SOB
[2018-10-17 07:37] LABS: Hemoglobin A1C 6.7 % (4.5-6.2)
[2018-10-17] MEDS: buPROPion-XL 150 MG TABCR 300 MG PO (07:41)
[2018-10-17] MEDS: Gabapentin 300 MG CAP PO (07:41)
[2018-10-17] MEDS: Magnesium Oxide 400 MG TAB PO (07:42)
[2018-10-17] MEDS: Pantoprazole 40 MG TABCR PO (07:42)
[2018-10-17] MEDS: metFORMIN 850 MG TAB PO (07:42)
[2018-10-17] MEDS: Sertraline 25 MG TAB PO (07:42)
[2018-10-17] MEDS: Aspirin 81 MG CHEW CH (07:42)
--- NOTE | 2018-10-17 08:25 | PDOC.CMPRO ---
- If Service Date Differs Date of service: 10/17/18 Time of Service: 08:25 Care Management Progress Note S/O: Kathrine was sitting in bed eating breakfast when CM visits this morning. She is engaged in conversation, makes good eye contact, and is talkative. Kathrine is scheduled for a stress test this morning and is awaiting her family who would like to be here for her test. Kathrine denies chest pain and pressure. Her BP is elevated in comparison with her baseline though Kathrine believes it is due to anxiety related to her upcoming test. A: 57 year old female admitted with chest pain. P: Kathrine will discharge home when medically ready per MD. Anticipate patient will discharge with no services and follow up with her PCP. Kathrine will transport via private vehicle with her , Reggie. CM will continue to offer support to patient, family, and care team regarding discharge planning and disposition.
--- NOTE | 2018-10-17 11:15 | MERGEMPI_ITS ---
*[facility]* *[facility]* [address] [place] [address] Myocardial Perfusion Imaging - SPECT Regadenosgarry Date of study: 10/17/2018 *PATIENT PRESENTATION* Height: 154.9cm (61in) Blood Pressure: Weight: 106.4kg (234lb) BSA: 2.2m^2 Referring physician: Flavio Bates Ordering physician: Flavio Bates Impressions: Normal study after pharmacologic stress. Summary: 1. Myocardial perfusion imaging: No myocardial perfusion defects noted. 2. The calculated left ventricular ejection fraction after stress: 69%. LV global systolic function is normal. No left ventricular regional motion abnormality. Indication: R07.9. History: PMH: Asthma. Risk factors: FATHER FROM A HEART ATTACK. Family history of coronary artery disease. Hypertension. Diabetes mellitus. Obesity. Dyslipidemia. ALLERGIES: LATEX. OXYCODONE. MEDICATIONS: ASPIRIN 81 MG DAILY. ATORVASTATIN 60 MG DAILY. BUPROPION HCL 300 MG DAILY. CLYCLOBENZAPRINE 10 MG TID PRN. GABAPENTIN 300 MG TID. LISINOPRIL 5 MG DAILY. MAGNESIUM OXIDE 400 MG DAILY. MECLIZINE 25 MG TID PRN. METFORMIN 850 MG TWICE A DAY. NITROGLYCERIN 0.4 MG PRN. PANTOPRAZOLE 40 MG DAILY. PROVENTIL HFA 2 PUFFS Q 4 HOURS PRN. SERTRALINE 25 MG DAILY. Imaging Technique: Protocol: Regadenoson. Acquisition: Gated SPECT; 1 day - rest/stress. The patient was imaged in the supine position. Attenuation correction used. Isotope administration: - Rest. Tc[99m]-sestamibi. Dose: 10.6mCi. Injection time: 11:20 AM. Injection to stress time: 00:45. - Stress. Tc[99m]-sestamibi. Dose: 30.1mCi. Injection time: 03:30 PM. 1-2 min before end of exercise Baseline ECG: SINUS RHYTHM. HR 73 BPM. Stress protocol: +--------+---+ + + !Stage !HR !BP (mmHg) !Comments ! +--------+---+ + + !Baseline!73 !150/82 (105)! ! +--------+---+ + + !1 min !103!152/80 (104)!Inject Regadenoson.! +--------+---+ + + !2 min !102! ! ! +--------+---+ + + !3 min !94 !148/76 (100)! ! +--------+---+ + + !6 min !86 !152/78 (103)! ! +--------+---+ + + * Stress results: The rate-pressure product for the peak heart rate and blood pressure was 16836yn Hg/min. Stress ECG: STRESS TEST ENDED IN 6 MINUTES & 45 SECONDS. PT EXPERIENCED NO SIGNIFICANT SIDE EFFECTS FROM LEXISCAN. NORMAL HEART RATE AND NORMAL BLOOD PRESSURE RESPONSE TO LEXISCAN INJECTION. NO ECTOPY NO ANGINA NO SIGNIFICANT ST SEGMENT CHANGES. Myocardial perfusion: Imaging information: gated. Left ventricular size is normal. No myocardial perfusion defects noted. Ventricular Function (Wall Motion): The calculated left ventricular ejection fraction after stress: 69%. LV global systolic function is normal. No left ventricular regional motion abnormality. Study data: Lali Trammell MD supervised and was readily available during the procedure. This study was interpreted by [facility]. Study status: Routine. Consent: The risks, benefits, and alternatives to the procedure were explained to the patient and informed consent was obtained. Procedure: Initial setup. A baseline ECG was recorded. Surface ECG leads and manual cuff blood pressure measurements were monitored. Heart sounds: Normal. Lung sounds: Normal. Regadenoson stress test. Stress testing was performed, with regadenoson by intravenous bolus, for a total dose of 0.4mgover 10.00sec, followed by a 5ml saline flush. The infusion was terminated due to per protocol. Study completion: All catheters inserted during the procedure were removed. The patient tolerated the procedure well and was discharged from the lab. Discharge: The patient left the laboratory in stable condition. Birthdate: Patient birthdate: 1960. Sex: Gender: female. Study date: Study date: 10/17/2018. Study time: 11:15 AM. Signature Documentation: - The imaging portion of this study was interpreted by Nuclear Shade Maker Lali Trammell MD. - The imaging portion of this study was interpreted by Nuclear Radiologist Celio Toledo MD. - The Stress ECG portion of this study was interpreted by Lali Trammell MD. Electronically signed by Lali Trammell 10/17/2018 16:10
[2018-10-17] MEDS: Nystatin POWDER 60 GM JAR TP (13:28)
[2018-10-17] MEDS: Regadenoson 0.4 MG/5 ML SYR IVP (15:23)
--- NOTE | 2018-10-17 15:38 | CHAPLAIN ---
Kathrine was resting in bed when I visited. She is waiting to have more tests today, and is anxious about this. The tests are delayed which makes her more anxious. 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 She hopes this will decrease her stress.
--- NOTE | 2018-10-17 17:21 | PHARADMIT ---
Admission Pharmacy Clinical Review CHEST PAIN Code Status Full Code Current Weight Wgt-110.5 kg Renally Cleared and Narrow Therapeutic Index Meds CrCl~ 57.13 m/min Meds-OK QTc Value / Action Taken QTC-440 NA BP Control, Fever BP-161/80 Tmax- 36.8C Electrolytes reviewed Na- 142 K+4.0 Mag- 2.1 DVT Prophylaxis Lovenox,ASA Opiate Usage / Scheduled Bowel Regimen Ordered No Yes Plt/SCr for Heparin / Enoxaparin Plts-292 SCr-0.69 INR for Warfarin NA H/H stable, WBC/Bands H&H-13.9/40.9 WBC- 6.44 Antibiotic appropriateness NONE Cultures and Sensitivities NONE Surgical ABX d/c within 24 hr na DM control / Insulin Dosing BG-94 WsA4b-2.7 Metformin,Aspart Heart Failure (Check EF%) (WELLINGTON's, B-Block, Diuretics) Lisinopril, NTG IV to PO Switch No Home Meds Reviewed Yes Home Meds Not Ordered PatOwn-Vagifem,Lotrimin Comments [id number] ALD-119 TRIG-166 Troponins-negative
--- NOTE | 2018-10-17 17:26 | DSE_ITS ---
Date of service: 10/17/18 Time of Service: 17:22 DS: Diagnosis Discharge Diagnosis (1) Chest pain: Status: Acute Discharge Plan Disposition Patient Disposition: HOME Condition: Good Discharge Details Reason For Visit: CHEST PAIN Admit Date/Time: 10/15/18 21:12 Admit Provider: Gilson Mac Attending Provider: Gilson Mac Primary Care Provider: Dedra Arambula Hospital Course Hospital Course: Kathrine Zaragoza is a 57-year-old female with a past medical history significant for hypertension, diabetes mellitus type 2, hyperlipidemia as well as previous negative stress test 2 years ago. 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 She developed acute substernal chest pain that she described as sharp burning in quality without radiation to her neck jaw or arms. She also described feelings of palpitations. This occurred while she was at work but not during physical exertion. She admits that she has been under a lot of stress lately due to her 's recent hospitalization for pneumonia as well as a number of stressors at work. She reported that she typically has good blood pressure control but she did have some elevated blood pressures while in the hospital. It was decided not to change her blood pressure medications at this time, however, she will need to follow up with her PCP and have her blood pressure reassessed. She does have multiple risk factors for coronary artery disease including family history of coronary artery disease and her father had a massive heart attack in his 60s, personal history of hypertension diabetes mellitus and hyperlipidemia. She is a non-smoker. In the ED, she had a normal chest x-ray. Her troponins were 0.02-0.03 and <0.02. Her electrolytes were replaced. She went on to have a stress test which was normal. LVEF after exercise was 69%. She remained in NSR with occasional PVCs with rates in the 60s on telemetry. She feels that this episode of chest discomfort is directly related to her stress at work. She has been in touch with Human Resources who will continue to work with her after discharge. She will follow up with her PCP. Home Meds and New Rx's Prescriptions: New nystatin 100,000 unit/gram Powder 60 g Topical BID Qty: 0 RF: 0 Continued cyclobenzaprine 10 mg tablet 10 mg PO TID PRN (Reason: muscle spasm) Qty: 30 RF: 0 magnesium oxide 400 MG tablet 400 mg PO DAILY RF: 0 nystatin-triamcinolone 15 GM ointment 15 gm Topical TID Qty: 15 RF: 3 lisinopril 5 MG tablet 5 mg PO DAILY Qty: 90 RF: 3 clotrimazole 45 GM cream 1 hussain VG BID Qty: 90 RF: 3 meclizine 25 MG tablet,chewable 25 mg PO TID PRNQty: 60 RF: 1 estradiol [Vagifem] 10 MCG tablet 10 mcg VG as directed Qty: 45 RF: 2 ibuprofen 600 MG tablet 600 mg PO TID PRNQty: 90 RF: 0 gabapentin 300 MG capsule 300 mg PO TID Qty: 270 RF: 3 sertraline 25 MG tablet 25 mg PO DAILY Qty: 90 RF: 3 metformin 850 MG tablet 850 mg PO BID Qty: 180 RF: 3 pantoprazole 40 MG tablet,delayed release (DR/EC) 40 mg PO DAILY AM Qty: 90 RF: 3 atorvastatin 40 MG tablet 60 mg PO DAILY Qty: 135 RF: 3 bupropion HCl 300 MG tablet extended release 24 hr 300 mg PO DAILY Qty: 90 RF: 3 PROVENTIL HFA 18 GM HFA.AER.AD 2 puff Inhalation Q4H PRN Qty: 1 RF: 2 nitroglycerin 0.4 mg tablet, sublingual 0.4 mg Sublingual Q5M PRN (Reason: chest pain) Qty: 25 RF: 5 aspirin 81 MG tablet,chewable 81 mg CH DAILY RF: 0 Discharge Instructions Instructions: Chest Pain (DC) Additional Instructions: Take it easy when you go home. Continue to work with HR. Take your usual medications. Your blood pressure has been high at times, follow up with your PCP about your hypertension. Take care! Stand Alone Forms: Nursing Discharge Form Referrals: Dedra Arambula NP [Primary Care Provider] - 10/28/18 11:30 am Activity:: Activity as Tolerated Equipment/Supplies:: No Equipment Needed Diet:: Heart healthy and carb counting diet Discharge Orders Discharge Orders: Discharge Order (Routine); Ordered 10/17/18 Ordered By: Nadiya Simmons Exam Narrative Exam Narrative: General: sitting up in bed, eating dinner, in no acute distress. HEENT: normocephalic, atraumatic. Pupils equal and round. Neck: supple. Cardiovascular: regular rate and rhythm. Respiratory: Respirations even and unlabored. Extremities: No clubbing, cyanosis, or edema. DS: Data Vitals/I&O Vitals and I&O: Vital Signs Temperature 36.6 C 10/17/18 17:14 Temperature Source Tympanic 10/17/18 17:14 Pulse 63 10/17/18 17:14 Pulse Rhythm Regular 10/17/18 07:50 Pulse 85 10/15/18 21:20 Respiratory Rate 18 10/17/18 17:14 Respiratory Effort Non-Labored 10/17/18 07:50 Respiratory Depth Normal 10/17/18 07:50 Respiratory Pattern Normal 10/17/18 07:50 Blood Pressure 161/80 H 10/17/18 17:14 Blood Pressure Mean 114 10/15/18 21:16 Blood Pressure Position Supine 10/15/18 16:23 Pulse Oximetry 95 10/17/18 17:14 Oxygen Delivery Method Room Air 10/17/18 17:14 Oxygen Flow Rate 0 10/17/18 17:14 Pain Level 1 10/16/18 18:58 Intake & Output 10/16/18 10/17/18 10/17/18 23:59 11:59 23:59 Intake Total 2280.416 / 3941.249 2746.251 / 3510.834 764.583 / 3510.834 Output Total 3100 / 4600 2450 / 2450 Balance -819.584 / -658.751 296.251 / 1060.834 764.583 / 1060.834 Weight 110.5 kg Intake: IV 1560.416 / 2581.249 1156.251 / 1920.834 764.583 / 1920.834 Oral 720 / 1360 1590 / 1590 Output: Urine 3100 / 4600 2450 / 2450 Other: Urine Color Yellow Pale Yellow Urine Appearance Clear Clear Urine Odor Normal Stool Characteristics Formed Voiding Methods Toilet Toilet Completed studies during hospitalization [Text1]: 10/15/18: PA AND LATERAL CHEST: Comparison is made with 05/18/18. The heart size and pulmonary vasculature are within normal limits and stable. The lungs are clear and well expanded. No effusions or pneumothoraces are identified. The bones are intact. IMPRESSION: No acute pulmonary process. Impressions: Normal study after pharmacologic stress. Summary: 1. Myocardial perfusion imaging: No myocardial perfusion defects noted. 2. The calculated left ventricular ejection fraction after stress: 69%. LV global systolic function is normal. No left ventricular regional motion abnormality. 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 (Chronic) Asthma (Chronic) Osteoarthritis of knee (Chronic 07/21/14) Chronic hypertension (Chronic) Morbid obesity with body mass index of 40.0-49.9 (Chronic) GERD (gastroesophageal reflux disease) (Chronic) Anxiety disorder (Chronic) Asthma HTN (hypertension) Type 2 diabetes mellitus Surgical History History of surgery (Chronic) 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) History of total bilateral knee replacement (TKR) (Resolved) section (~1980) Cholecystectomy Extraction of cataract Hysterectomy, Total Laparoscopic Social History Smoking/Tobacco Use Status: Never History History 1 Para 1 Hx # Term Pregnancies 1 Multiple births Hx # Pregnancies Ectopic pregnancies AB induced Hx Number of Living Children AB spontaneous
== END 2018-10-17 15:27 | disposition home or self-care (01) ==
LOC: ER 21:11 → MS 10-16 09:08
PROVIDERS: Emergency Medicine; Admitting Provider Internal Medicine; Emergency Provider Student in an Organized Health Care Education/Training Program; PCP Nurse Practitioner; Visit Provider Internal Medicine
DX: I10 Essential (primary) hypertension; E11.9 Type 2 diabetes mellitus without complications; E78.5 Hyperlipidemia, unspecified; R07.89 Other chest pain; Z79.84 Long term (current) use of oral hypoglycemic drugs
CPT/HCPCS: 36415; 78452; 80048; 80053; 80061; 83721; 93005; 96361; 96374; 99219; 99232; 99239; 99285; J1650; 71046; 83036; 83735; 84443; 84484; 85025; 93010; 93017; 99217; 99225; G0378; J2060; J2785; J7509

== ENCOUNTER 2018-10-28 13:04 | Outpatient (CLI) | payer OTHER, SELFPAY ==
[2018-10-28 14:51] LABS: ESR 47 MM/HR (0-30)
[2018-10-29 15:39] LABS: Rheumatoid Factor <8 IU/mL (<12.5)
[2018-10-30 13:54] LABS: ANA Interpretation Negative (NEGAT)
== END 2018-10-28 13:24 ==
PROVIDERS: PCP Nurse Practitioner; Visit Provider Nurse Practitioner
DX: M25.549 Pain in joints of unspecified hand (principal)
CPT/HCPCS: 36415; 85652; 86038; 86431

== ENCOUNTER 2018-11-02 17:46 | Emergency (ER) | payer OTHER, SELFPAY ==
[2018-11-02 17:48] VITALS: BP 155/80; PULSE 85; RESP 12; TEMP 36.6; O2SAT 97
--- NOTE | 2018-11-02 18:13 | W.ED.GENAD ---
Discharge Plan Disposition Patient Disposition: HOME Condition: Stable Discharge Details Chief Complaint: FlankPain Clinical Impression: UTI (urinary tract infection), Lumbar strain Primary Care Provider: Dedra Arambula ED Provider: Estefani Pan Home Meds and New Rx's Prescriptions: New cephalexin [Keflex] 500 mg capsule 500 mg PO BID 7 Days Qty: 14 RF: 0 Continued cyanocobalamin (vitamin B-12) 1,000 mcg capsule 1,000 mcg PO DAILY RF: 0 cholecalciferol (vitamin D3) 1,000 unit capsule 1,000 unit PO DAILY RF: 0 magnesium oxide 400 MG tablet 400 mg PO DAILY RF: 0 lisinopril 5 MG tablet 5 mg PO DAILY Qty: 90 RF: 3 meclizine 25 MG tablet,chewable 25 mg PO TID PRNQty: 60 RF: 1 estradiol [Vagifem] 10 MCG tablet 10 mcg VG as directed Qty: 45 RF: 2 ibuprofen 600 MG tablet 600 mg PO TID PRNQty: 90 RF: 0 gabapentin 300 MG capsule 300 mg PO TID Qty: 270 RF: 3 sertraline 25 MG tablet 25 mg PO DAILY Qty: 90 RF: 3 metformin 850 MG tablet 850 mg PO BID Qty: 180 RF: 3 pantoprazole 40 MG tablet,delayed release (DR/EC) 40 mg PO DAILY AM Qty: 90 RF: 3 atorvastatin 40 MG tablet 60 mg PO DAILY Qty: 135 RF: 3 bupropion HCl 300 MG tablet extended release 24 hr 300 mg PO DAILY Qty: 90 RF: 3 PROVENTIL HFA 18 GM HFA.AER.AD 2 puff Inhalation Q4H PRN Qty: 1 RF: 2 nitroglycerin 0.4 mg tablet, sublingual 0.4 mg Sublingual Q5M PRN (Reason: chest pain) Qty: 25 RF: 5 aspirin 81 MG tablet,chewable 81 mg CH DAILY RF: 0 nystatin 100,000 unit/gram Powder 60 g Topical BID Qty: 0 RF: 0 Discharge Instructions Instructions: Urinary Tract Infection in Women (ED), Low Back Strain (ED) Additional Instructions: Take the antibiotics until finished. Alternate Tylenol and Motrin as needed and directed for pain. Take your muscle relaxer that you have at home for pain. Alternate ice and heat to the affected area several times daily for 20 minutes at a time. Follow-up with your primary care doctor in 1 week for reevaluation. Return immediately to emergency department any worsening or new concerning symptoms. Discharge Data Discharge Physician: Estefani Pan Medical Decision Making 57-year-old female with history of diabetes, GERD, hypertension, high cholesterol, obesity and depression who presents with right-sided lower back pain, urinary frequency, urgency and hesitancy with some nausea for the past 2 weeks. She does admit to a history of fall onto her back 2 weeks ago. No cauda equina symptoms. No fever or abdominal pain. She has a history of kidney stones but states this does not feel similar. Vitals within normal limits. Afebrile. Patient appears nontoxic and in no acute distress. Abdomen soft nontender. No CVA tenderness. Patient of the right lumbar paraspinal region. No focal deficits. Neurovascularly intact. Differential diagnosis includes lumbar muscle strain/spasm and also secondary UTI versus pyelonephritis. As her right lower back pain is worse with movement and tender to the touch and present since a fall, this appears more musculoskeletal rather than associated with a kidney infection. Patient was offered lumbar spine x-ray or CT abdomen and pelvis but she declines at this time. Will check a urinalysis, and lab work due to patient's comorbidities to assess kidney function. Patient is currently working on her shift here at the hospital. We will give a dose of ibuprofen. 1920 --labs reviewed. Normal white blood cell count and renal function. Urinalysis notes 3-5 WBCs, trace leukocyte esterase but no nitrite and moderate epithelial cells with rare bacteria. Sample may be contaminated, however with patient's urinary symptoms, will treat with antibiotics. As patient has no CVA tenderness, her back pain appears muscular skeletal, she has no fever, white blood cell count and a urine sample that may be contaminated, I do not feel like this is pyelonephritis. Pt states she feels better after motrin. Will give 1 dose of Keflex here and prescription for home. Patient instructed to follow-up with primary care doctor return here at any time if worse. Medical Records Medical records reviewed: Yes I reviewed the patient's medical records. Lab Data Lab results reviewed: Yes I reviewed the patient's lab results. Laboratory Tests Range/Units 11/02/18 11/02/18 11/02/18 17:53 18:27 18:27 WBC (4.4-10.8) k/cumm 5.70 RBC (4.00-5.20) m/cumm 4.09 Hgb (12.0-15.5) g/dL 12.3 Hct (36.0-46.0) % 38.1 MCV (80-95) fL 93.2 MCH (27.0-33.0) pg 30.1 MCHC (32.0-36.0) g/dL 32.3 RDW (11.7-14.6) % 13.8 Plt Count (130-400) x1000/uL 268 MPV (8.0-11.0) fL 9.2 Immature Gran % 0.4 Neutrophils % 47.6 Lymphocytes % 37.5 Monocytes % 9.3 Eosinophils % 4.7 Basophils % 0.5 Absolute Neutrophils (1.2-6.7) k/cumm 2.71 Absolute Lymphocytes (1.2-3.4) k/cumm 2.14 Absolute Monocytes (0.11-0.7) k/cumm 0.53 Absolute Eosinophils (0.0-0.7) k/cumm 0.27 Absolute Basophils (0.0-0.2) k/cumm 0.03 Sodium (136-145) mmol/L 143 Potassium (3.5-5.1) mmol/L 3.5 Chloride (98-107) mmol/L 106 Carbon Dioxide (21.0-32.0) mmol/L 25.6 Anion Gap (3-11) mmol/L 11.4 H BUN (7-18) mg/dL 14 Creatinine (0.55-1.02) mg/dL 0.86 Estimated GFR/1.73 m2 (mL/min/1.73m2) >= 60.00 Glucose (70-100) mg/dL 142 H Calcium (8.5-10.1) mg/dL 9.1 Total Bilirubin (0.2-1.0) mg/dL 0.7 AST (15-37) U/L 25 ALT (12-78) U/L 23 Alkaline Phosphatase (46-116) U/L 162 H Total Protein (6.4-8.2) g/dL 7.3 Albumin (3.4-5.0) g/dL 3.3 L Urine Color (Yellow) Yellow Urine Clarity Clear Urine pH (5-8) 5.5 Ur Specific [place] (1.005-1.025) >= 1.030 H Urine Protein (Negative) mg/dL Negative Urine Ketones (Negative) mg/dL Trace H Urine Blood (Negative) Negative Urine Nitrite (Negative) Negative Urine Bilirubin (Negative) Negative Urine Urobilinogen (Up TO 0.2) EU/dL 1.0 H Ur Leukocyte Esterase (Negative) Trace H Urine RBC (0-2) 0-2 Urine WBC (0-5) HPF 3-5 Ur Epithelial Cells (Negative) HPF Moderate Urine Crystals (Negative) HPF Mod calcium oxalate Urine Bacteria (Negative) HPF Rare Urine Casts (Negative) LPF Negative Urine Mucus (Negative) Negative Ur Culture Indicated? No/sq. contamination Urine Glucose (Negative) mg/dL Negative HPI General Mode of arrival: ambulatory. Date/Time Provider Initiated Documentation: 11/02/18 17:53. Limitations to Documentation: no limitations. Information obtained by: patient. HPI Narrative: Pt is a 57yo F w/ a h/o DM, HTN, HLD, obesity, depression, GERD who presents for R sided lower back pain, urinary frequency, urgency and hesitancy for the past 2 weeks. Pt states she did have a fall approximately 3 weeks ago when she slipped and fell at home onto her right buttock. She states she has had some right-sided lower back pain since then. She states her back pain is worse with movement and tender to the touch. Patient also admits to some nausea but denies any vomiting. She denies any fever, abdominal pain, urinary or fecal incontinence, saddle anesthesia, leg weakness or numbness. Patient states she has a history of kidney infection and states this may be similar. She also states she has a history of kidney stones but states this does not feel like that. Patient states she has been taking ibuprofen for pain in the last dose was this morning. Related Data Home Medications Medication Instructions Recorded Confirmed aspirin 81 mg CH DAILY 12/15/12 11/02/18 magnesium oxide 400 mg PO DAILY 05/09/17 11/02/18 lisinopril 5 mg PO DAILY #90 tab-cap 05/28/17 11/02/18 meclizine 25 mg PO TID PRN #60 tab-cap 12/30/17 11/02/18 estradiol [Vagifem] 10 mcg VG as directed #45 tab 01/01/18 11/02/18 ibuprofen 600 mg PO TID PRN #90 tab 01/20/18 11/02/18 gabapentin 300 mg PO TID #270 tab-cap 02/10/18 11/02/18 sertraline 25 mg PO DAILY #90 tab 02/10/18 11/02/18 metformin 850 mg PO BID #180 tab-cap 05/20/18 11/02/18 pantoprazole 40 mg PO DAILY AM #90 tab-cap 05/28/18 11/02/18 atorvastatin 60 mg PO DAILY #135 tab-cap 06/10/18 11/02/18 bupropion HCl 300 mg PO DAILY #90 tab-cap 06/10/18 11/02/18 nitroglycerin 0.4 mg sublingual 0.4 mg SUBLINGUAL Q5M PRN #25 07/31/18 11/02/18 tablet tab-cap nystatin 60 g TOPICAL BID #0 g 10/17/18 11/02/18 cholecalciferol (vitamin D3) 1,000 1,000 unit PO DAILY 10/28/18 11/02/18 unit capsule cyanocobalamin (vitamin B-12) 1,000 mcg PO DAILY 10/28/18 11/02/18 1,000 mcg capsule cephalexin [Keflex] 500 mg PO BID 7 Days #14 cap 11/02/18 Previous Rx's Medication Instructions Recorded estradiol [Vagifem] 10 mcg VG as directed #45 tab 01/01/18 gabapentin 300 mg PO TID #270 tab-cap 02/10/18 sertraline 25 mg PO DAILY #90 tab 02/10/18 metformin 850 mg PO BID #180 tab-cap 05/20/18 pantoprazole 40 mg PO DAILY AM #90 tab-cap 05/28/18 atorvastatin 60 mg PO DAILY #135 tab-cap 06/10/18 bupropion HCl 300 mg PO DAILY #90 tab-cap 06/10/18 nitroglycerin 0.4 mg sublingual 0.4 mg SUBLINGUAL Q5M PRN #25 07/31/18 tablet tab-cap nystatin 60 g TOPICAL BID #0 g 10/17/18 cephalexin [Keflex] 500 mg PO BID 7 Days #14 cap 11/02/18 Allergies Allergy/AdvReac Type Severity Reaction Status Date / Time Latex, Natural Rubber Allergy Intermediate Skin Rash Verified 11/02/18 17:51 silicone Allergy Intermediate Rash Verified 11/02/18 17:51 oxycodone AdvReac Intermediate SICK TO Verified 11/02/18 17:51 STOMACH General Stated Complaint: FlankPain RISHABH: 3 Review of Systems Review of Systems All systems reviewed & are unremarkable except as noted in HPI and below Constitutional Reports as per HPI, Denies chills and Denies fever(s) Eyes Denies blurry vision ENT Denies dizziness, Denies sore throat and Denies throat swelling Cardiovascular Denies chest pain and Denies dyspnea Respiratory Denies dyspnea Gastrointestinal Denies abdominal pain, Denies diarrhea, Reports nausea and Denies vomiting Genitourinary Denies hematuria, Reports urinary frequency, Denies dysuria, Reports flank pain, Reports urinary hesitancy and Reports urinary urgency Musculoskeletal Reports back pain and Denies numbness Integumentary/Breasts Denies lesions and Denies rash Neurologic Denies dizziness and Denies numbness Allergic/Immunologic Denies throat swelling PFSH Medical History Adult BMI > 30 (Chronic) Atypical squamous cells of undetermined significance (ASC-US) on cervical Pap smear (Chronic 07/30/16) Depressive disorder (Chronic 05/02/12) Hyperlipidemia (Chronic 11/29/11) Papanicolaou smear of cervix with positive high risk human papilloma virus (HPV) test (Chronic 07/30/16) Recurrent UTI (Chronic 10/01/17) 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 (Chronic) Asthma (Chronic) Osteoarthritis of knee (Chronic 07/21/14) Chronic hypertension (Chronic) Morbid obesity with body mass index of 40.0-49.9 (Chronic) GERD (gastroesophageal reflux disease) (Chronic) Anxiety disorder (Chronic) Asthma HTN (hypertension) Type 2 diabetes mellitus Surgical History History of surgery (Chronic) 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) History of total bilateral knee replacement (TKR) (Resolved) section (~1980) Cholecystectomy Extraction of cataract Hysterectomy, Total Laparoscopic Social History Smoking/Tobacco Use Status: Never History History 1 Para 1 Hx # Term Pregnancies 1 Multiple births Hx # Pregnancies Ectopic pregnancies AB induced Hx Number of Living Children AB spontaneous Exam Const General: cooperative, healthy appearing and no acute distress [facility] Head: normal to inspection Face and sinus: normal facial exam Eyes General: appearance normal, both eyes and all related structures EOM: EOM intact bilaterally Neck Neck: normal visual inspection and No submandibular swelling Lymphatic: no lymphadenopathy noted Chest Chest: normal inspection of the chest and no tenderness Resp Effort & Inspection: normal respiratory effort and able to speak in complete sentences Auscultation: clear to auscultation bilaterally Cardio Rate: regular rate Rhythm: regular rhythm GI Inspection: normal to inspection Palpation: soft, not firm, not rigid and nontender Auscultation: normal bowel sounds Back/Spine/Pelvis Back: no CVA tenderness Thoracic/Lumbar Spine: straight leg raise negative bilaterally, paraspinal tenderness (R lumbar paraspinal region ) and lumbar spinal tenderness (minimal tenderness, w/o evidence of trauma) Skin General skin exam: no rashes or lesions noted Neuro General: alert, awake and oriented x3 Cognition: normal cognition Speech: speech normal Motor: muscle tone normal throughout and strength 5/5 throughout Sensory Exam: no sensory deficits noted DTR's: Rt Patellar: 0, Lt Patellar: 0, Rt Ankle: 1+ and Lt Ankle: 1+ Plantar Reflexes: Equivocal: bilateral Extrem General: normal to inspection, full ROM, normal capillary refill, no calf tenderness bilaterally and no edema Right lower extremity: foot Details: vascular exam Details: dorsalis pedis pulse present and posterior tibial pulse present Left lower extremity: foot Details: vascular exam Details: dorsalis pedis pulse present and posterior tibial pulse present Psych Appearance: grossly normal Mental Status: mental status grossly normal Speech and Movement: speech and movement normal Affect: normal affect Course Vital Signs Temperature 97.9 F 11/02/18 17:48 Pulse 85 11/02/18 17:48 Respiratory Rate 12 11/02/18 17:48 Blood Pressure 155/80 H 11/02/18 17:48 Pulse Oximetry 97 11/02/18 17:48 Temperature 97.9 F 11/02/18 17:48 Temperature Source Temporal Artery Scan 11/02/18 17:48 Pulse 85 11/02/18 17:48 Respiratory Rate 12 11/02/18 17:48 Respiratory Effort Non-Labored 11/02/18 17:50 Blood Pressure 155/80 H 11/02/18 17:48 Blood Pressure Position Sitting 11/02/18 17:48 Pulse Oximetry 97 11/02/18 17:48 Oxygen Delivery Method Room Air 11/02/18 17:48 Oxygen Flow Rate 0 11/02/18 17:48 Pain Level 9 11/02/18 17:48
[2018-11-02] MEDS: Ibuprofen 600 MG TAB PO (18:28)
[2018-11-02 18:41] LABS: Abs Immature Grans 0.02 k/cumm (0.0-0.09); Absolute Basophil Count 0.03 k/cumm (0.0-0.2); Absolute Eosinophil Count 0.27 k/cumm (0.0-0.7); Absolute Lymphocyte Count 2.14 k/cumm (1.2-3.4); Absolute Monocyte Count 0.53 k/cumm (0.11-0.7); Absolute Neutrophil Count 2.71 k/cumm (1.2-6.7); Basophils % 0.5; Eosinophils % 4.7; HCT 38.1 % (36.0-46.0); HGB 12.3 g/dL (12.0-15.5); Immature Grans % 0.4; Lymphocytes % 37.5; Mean Corp. HGB Concentration 32.3 g/dL (32.0-36.0); Mean Corpuscular Hemoglobin 30.1 pg (27.0-33.0); Mean Corpuscular Volume 93.2 fL (80-95); Mean Platelet Volume 9.2 fL (8.0-11.0); Monocytes % 9.3; Neutrophils % 47.6; Platelet Count 268 x1000/uL (130-400); RBC 4.09 m/cumm (4.00-5.20); RBC Distribution Width 13.8 % (11.7-14.6)
[2018-11-02 18:44] LABS: Bilirubin Negative (Negative); Blood Negative (Negative); Clarity Clear; Glucose Negative (Negative); Ketones Trace mg/dL (Negative); Leukocyte Esterase Trace (Negative); Nitrite Negative (Negative); Specific Gravity >= 1.030 (1.005-1.025); pH 5.5 (5-8)
[2018-11-02 18:48] LABS: ALT 23 U/L (12-78); AST 25 U/L (15-37); Albumin 3.3 g/dL (3.4-5.0); Alkaline Phosphatase 162 U/L (46-116); Anion Gap 11.4 mmol/L (3-11); BUN 14 mg/dL (7-18); Bilirubin, Total 0.7 mg/dL (0.2-1.0); CO2 25.6 mmol/L (21.0-32.0); CREATININE 0.86 mg/dL (0.55-1.02); Calcium 9.1 mg/dL (8.5-10.1); Chloride 106 mmol/L (98-107); Glucose 142 mg/dL (70-100); Potassium 3.5 mmol/L (3.5-5.1); Sodium 143 mmol/L (136-145); Total Protein 7.3 g/dL (6.4-8.2)
[2018-11-02 19:09] LABS: Epithelial Cells Moderate HPF (Negative); RBC 0-2 (0-2)
[2018-11-02 19:10] LABS: Bacteria Rare HPF (Negative); C & S Indicated? No/Sq. Contamination; Casts Negative LPF (Negative); Crystals Mod Calcium Oxalate HPF (Negative); Mucus Negative (Negative)
--- NOTE | 2018-11-02 19:24 | NUR.NOTE ---
Nursing Note: Pertinent report given to irving Osborne evening shift RN.
[2018-11-02] MEDS: Cephalexin 500 MG CAP PO (19:35)
[2018-11-02 20:00] VITALS: BP 155/80; PULSE 85; RESP 12; TEMP 36.6; O2SAT 97
== END 2018-11-02 19:36 | disposition home or self-care (01) ==
PROVIDERS: Emergency Provider Physician Assistant; PCP Nurse Practitioner
DX: N39.0 Urinary tract infection, site not specified (principal); S39.012A Strain of muscle, fascia and tendon of lower back, initial encounter; X58.XXXA Exposure to other specified factors, initial encounter; E11.9 Type 2 diabetes mellitus without complications; Z79.84 Long term (current) use of oral hypoglycemic drugs; I10 Essential (primary) hypertension
CPT/HCPCS: 36415; 80053; 99283; 81003; 81015; 85025

== ENCOUNTER 2018-11-14 14:21 | Outpatient (CLI) | payer OTHER, SELFPAY ==
[2018-11-14] MEDS: Inhaler, Assist Device 1 EACH MC (17:19)
[2018-11-14] MEDS: Albuterol HFA 18 GM 200 PUFF INH IH (17:19)
--- NOTE | 2018-11-18 14:37 | PFT_ITS ---
PULMONARY FUNCTION TEST DATE OF SERVICE: November 14, 2018 REQUESTING PROVIDER: Dedra Arambula N.P. Spirometry shows no evidence of obstructive airways disease. There is some, but not significant, bronchodilator response. Lung volumes show no evidence of restriction. Diffusion capcacity minimally elevated, which is elevated when corrected to alveolar volume. Airways resistance normal. IMPRESSION: While there is no evidence of obstructive or restrictive lung disease, there is almost significant bronchodilator response and there is also elevated diffusion capacity. This constellation of findings can be seen with asthma, therefore if the diagnosis of asthma is in question, proceeding with methacholine challenge testing may prove to be useful. When this study was compared to previous ones from 07/21/15 and 08/04/15, the patient has an overall 300 cc's decline in FVC, but there was a marked improvement from 07/21/15 to 08/04/15 and from that time there is an overall 680 cc's decline in FVC. FEV1 has undergone the same pattern and there is an overall 550 cc's decline from the best measurement, which occurred on 08/04/15. PATITO/adele
== END 2018-11-14 14:41 ==
PROVIDERS: PCP Nurse Practitioner; Visit Provider Nurse Practitioner
DX: J45.909 Unspecified asthma, uncomplicated (principal)

== ENCOUNTER 2018-12-02 23:21 | Emergency (ER) | payer OTHER, SELFPAY ==
[2018-12-02 23:25] VITALS: BP 149/79; PULSE 93; RESP 20; TEMP 36.1; O2SAT 96
[2018-12-02] MEDS: Lidocaine 5% Patch 1 PATCH TP (23:40)
--- NOTE | 2018-12-02 23:46 | ED.GENADUL_ITS ---
Discharge Plan Disposition Patient Disposition: HOME Condition: Good Discharge Details Chief Complaint: Nk/Back Pain Clinical Impression: Right sided sciatica Primary Care Provider: Dedra Arambula ED Provider: Celio Stout Marshall Meds and New Rx's Prescriptions: Continued cyanocobalamin (vitamin B-12) 1,000 mcg capsule 1,000 mcg PO DAILY RF: 0 cholecalciferol (vitamin D3) 1,000 unit capsule 1,000 unit PO DAILY RF: 0 lisinopril 5 mg tablet 5 mg PO DAILY Qty: 90 RF: 3 meclizine 25 mg tablet,chewable 25 mg PO TID PRN (Reason: dizziness) Qty: 60 RF: 3 magnesium oxide 400 MG tablet 400 mg PO DAILY RF: 0 estradiol [Vagifem] 10 MCG tablet 10 mcg VG as directed Qty: 45 RF: 2 ibuprofen 600 MG tablet 600 mg PO TID PRNQty: 90 RF: 0 gabapentin 300 MG capsule 300 mg PO TID Qty: 270 RF: 3 sertraline 25 MG tablet 25 mg PO DAILY Qty: 90 RF: 3 metformin 850 MG tablet 850 mg PO BID Qty: 180 RF: 3 pantoprazole 40 MG tablet,delayed release (DR/EC) 40 mg PO DAILY AM Qty: 90 RF: 3 atorvastatin 40 MG tablet 60 mg PO DAILY Qty: 135 RF: 3 bupropion HCl 300 MG tablet extended release 24 hr 300 mg PO DAILY Qty: 90 RF: 3 PROVENTIL HFA 18 GM HFA.AER.AD 2 puff Inhalation Q4H PRN Qty: 1 RF: 2 nitroglycerin 0.4 mg tablet, sublingual 0.4 mg Sublingual Q5M PRN (Reason: chest pain) Qty: 25 RF: 5 aspirin 81 MG tablet,chewable 81 mg CH DAILY RF: 0 nystatin 100,000 unit/gram Powder 60 g Topical BID Qty: 0 RF: 0 Discharge Instructions Instructions: Sciatica (ED) Additional Instructions: Contact your primary care for follow-up and possibly earlier referral to physical therapy. Return to emergency department for any neurologic changes, inability to ambulate, other concerns. Referrals: Dedra Arambula, [employer] [Primary Care Provider] - Medical Decision Making Patient presenting with sciatic pain which she has had previously. She is already on nonsteroidals, gabapentin and per her report muscle relaxer although it is not in her med list. She has been referred to physical therapy. She is neurologically intact. There has been no new injury. Can offer a Lidoderm patch and see if this helps at all. Follow-up with primary care and possibly get earlier referral to physical therapy. Return to ED if neurologic changes, inability to ambulate, other concerns. HPI General Mode of arrival: ambulatory . Date/Time Provider Initiated Documentation: 12/02/18 23:26 . Limitations to Documentation: no limitations . Information obtained by: patient . HPI Narrative: Patient presents to ED after her shift here at the hospital to be evaluated for right back pain that radiates down her leg. She has had this previously. She has been diagnosed with sciatica. She has been referred to physical therapy which she goes to in December. It had not been bothering her that much until the last couple of days. She has not had any new symptoms. She has not had any new injuries. She has no bladder or bowel dysfunction. She has no numbness or weakness. She is already on ibuprofen and gabapentin and reports having muscle relaxer at home as well. She was just wondering if there was anything else that could be done for her before going home after her shift. Related Data Home Medications Medication Instructions Recorded Confirmed aspirin 81 mg CH DAILY 12/15/12 12/02/18 magnesium oxide 400 mg PO DAILY 05/09/17 12/02/18 estradiol [Vagifem] 10 mcg VG as directed #45 tab 01/01/18 12/02/18 ibuprofen 600 mg PO TID PRN #90 tab 01/20/18 12/02/18 gabapentin 300 mg PO TID #270 tab-cap 02/10/18 12/02/18 sertraline 25 mg PO DAILY #90 tab 02/10/18 12/02/18 metformin 850 mg PO BID #180 tab-cap 05/20/18 12/02/18 pantoprazole 40 mg PO DAILY AM #90 tab-cap 05/28/18 12/02/18 atorvastatin 60 mg PO DAILY #135 tab-cap 06/10/18 12/02/18 bupropion HCl 300 mg PO DAILY #90 tab-cap 06/10/18 12/02/18 nitroglycerin 0.4 mg sublingual 0.4 mg SUBLINGUAL Q5M PRN #25 07/31/18 12/02/18 tablet tab-cap nystatin 60 g TOPICAL BID #0 g 10/17/18 12/02/18 cholecalciferol (vitamin D3) 1,000 1,000 unit PO DAILY 10/28/18 12/02/18 unit capsule cyanocobalamin (vitamin B-12) 1,000 mcg PO DAILY 10/28/18 12/02/18 1,000 mcg capsule lisinopril 5 mg tablet 5 mg PO DAILY #90 tab-cap 11/12/18 12/02/18 meclizine 25 mg chewable tablet 25 mg PO TID PRN #60 tab-cap 11/12/18 12/02/18 Previous Rx's Medication Instructions Recorded estradiol [Vagifem] 10 mcg VG as directed #45 tab 01/01/18 gabapentin 300 mg PO TID #270 tab-cap 02/10/18 sertraline 25 mg PO DAILY #90 tab 02/10/18 metformin 850 mg PO BID #180 tab-cap 05/20/18 pantoprazole 40 mg PO DAILY AM #90 tab-cap 05/28/18 atorvastatin 60 mg PO DAILY #135 tab-cap 06/10/18 bupropion HCl 300 mg PO DAILY #90 tab-cap 06/10/18 nitroglycerin 0.4 mg sublingual 0.4 mg SUBLINGUAL Q5M PRN #25 07/31/18 tablet tab-cap nystatin 60 g TOPICAL BID #0 g 10/17/18 lisinopril 5 mg tablet 5 mg PO DAILY #90 tab-cap 11/12/18 meclizine 25 mg chewable tablet 25 mg PO TID PRN #60 tab-cap 11/12/18 Allergies Allergy/AdvReac Type Severity Reaction Status Date / Time Latex, Natural Rubber Allergy Intermediate Skin Rash Verified 12/02/18 23:27 silicone Allergy Intermediate Rash Verified 12/02/18 23:27 oxycodone AdvReac Intermediate SICK TO Verified 12/02/18 23:27 STOMACH General Stated Complaint: Nk/Back Pain RISHABH: 4 Review of Systems Constitutional Denies weakness Gastrointestinal Denies abdominal pain, Denies diarrhea, Denies nausea and Denies vomiting Genitourinary Denies dysuria, Denies pelvic pain, Denies urinary incontinence, Denies urinary hesitancy and Denies urinary urgency Musculoskeletal Reports back pain, Denies numbness, Reports radiating pain into limb and Denies tingling Neurologic Denies focal weakness, Denies numbness, Reports radicular pain, Denies sensory deficit, Denies tingling, Denies paresthesias and Denies weakness [facility] Medical History Adult BMI > 30 (Chronic) Atypical squamous cells of undetermined significance (ASC-US) on cervical Pap smear (Chronic 07/30/16) Depressive disorder (Chronic 05/02/12) Hyperlipidemia (Chronic 11/29/11) Papanicolaou smear of cervix with positive high risk human papilloma virus (HPV) test (Chronic 07/30/16) Recurrent UTI (Chronic 10/01/17) 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 (Chronic) Asthma (Chronic) Osteoarthritis of knee (Chronic 07/21/14) Chronic hypertension (Chronic) Morbid obesity with body mass index of 40.0-49.9 (Chronic) GERD (gastroesophageal reflux disease) (Chronic) Anxiety disorder (Chronic) Asthma HTN (hypertension) Type 2 diabetes mellitus Surgical History History of surgery (Chronic) 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) History of total bilateral knee replacement (TKR) (Resolved) section (~1980) Cholecystectomy Extraction of cataract Hysterectomy, Total Laparoscopic Social History Smoking and Tabacco status: Never History History 1 Para 1 Hx # Term Pregnancies 1 Multiple births Hx # Pregnancies Ectopic pregnancies AB induced Hx Number of Living Children AB spontaneous Exam Const General: cooperative, comfortable and no acute distress Nutritional Appearance: obese morbidly obese Orientation: alert and oriented x3 Back/Spine/Pelvis Thoracic/Lumbar Spine: pain with thoraco-lumbar ROM, No thoracic spinal tenderness, No lumbar spinal tenderness and other (muscle tenderness right low lumbar area) Neuro General: alert, oriented x3, gait normal, no focal motor deficits and CN's II-XI intact bilaterally Sensory Exam: no sensory deficits noted Course Vital Signs Temperature 97 F L 12/02/18 23:25 Pulse 93 H 12/02/18 23:25 Respiratory Rate 20 12/02/18 23:25 Blood Pressure 149/79 H 12/02/18 23:25 Pulse Oximetry 96 12/02/18 23:25 Temperature 97 F L 12/02/18 23:25 Temperature Source Skin 12/02/18 23:25 Pulse 93 H 12/02/18 23:25 Respiratory Rate 20 12/02/18 23:25 Respiratory Effort Non-Labored 12/02/18 23:27 Blood Pressure 149/79 H 12/02/18 23:25 Blood Pressure Position Sitting 12/02/18 23:25 Pulse Oximetry 96 12/02/18 23:25 Oxygen Delivery Method Room Air 12/02/18 23:25 Oxygen Flow Rate 0 12/02/18 23:25 Pain Level 8 12/02/18 23:30
== END 2018-12-02 23:51 | disposition home or self-care (01) ==
PROVIDERS: Emergency Provider Emergency Medicine; PCP Nurse Practitioner
DX: M54.41 Lumbago with sciatica, right side (principal)
CPT/HCPCS: 99283

== ENCOUNTER 2018-12-08 01:38 | Outpatient (CLI) | payer OTHER, SELFPAY ==
[2018-12-08 10:30] LABS: ALT 23 U/L (12-78); AST 26 U/L (15-37); Albumin 3.5 g/dL (3.4-5.0); Alkaline Phosphatase 163 U/L (46-116); Anion Gap 8.5 mmol/L (3-11); BUN 14 mg/dL (7-18); Bilirubin, Total 0.7 mg/dL (0.2-1.0); CO2 27.5 mmol/L (21.0-32.0); CREATININE 0.73 mg/dL (0.55-1.02); Calcium 8.5 mg/dL (8.5-10.1); Chloride 106 mmol/L (98-107); Cholesterol 171 mg/dL (50-200); Glucose 124 mg/dL (70-100); HDL Cholesterol 42 mg/dL (40-60); LDL CHOLESTEROL 84 mg/dL (<100); Sodium 142 mmol/L (136-145); Total Protein 6.9 g/dL (6.4-8.2); Triglyceride 265 mg/dL (30-150)
== END 2018-12-08 01:58 ==
PROVIDERS: PCP Nurse Practitioner; Visit Provider Nurse Practitioner
DX: E78.5 Hyperlipidemia, unspecified (principal); I10 Essential (primary) hypertension
CPT/HCPCS: 36415; 80053; 80061; 83721

== ENCOUNTER 2018-12-09 08:38 | Outpatient (RCR) | payer SELFPAY | END 2018-12-11 23:59 | disposition home or self-care (01) | LOC: CR 08:38 | PROVIDERS: PCP Nurse Practitioner; Visit Provider Family Medicine | DX: Z51.89 Encounter for other specified aftercare (principal) ==

== ENCOUNTER 2018-12-17 09:44 | Emergency (ER) | payer OTHER, SELFPAY ==
[2018-12-17 09:53] VITALS: BP 163/87; PULSE 80; RESP 16; TEMP 36.7; O2SAT 97
--- NOTE | 2018-12-17 10:21 | DI.RAD_ITS ---
SYMPTOMS/DIAGNOSIS: TRAUMA, RT RIB PAIN RIGHT RIBS AND PA AND LATERAL CHEST: Comparison 10/15/18. The heart size and pulmonary vasculature are within normal limits. The lungs are clear and well expanded. No effusions or pneumothoraces are identified. Degenerative changes are seen in the spine. There is no evidence of a right rib fracture. No pneumothorax or pleural effusion is present. IMPRESSION: No acute pulmonary process. No evidence of a right rib fracture or pneumothorax.
--- NOTE | 2018-12-17 10:36 | ED.GENADUL_ITS ---
Discharge Plan Disposition Patient Disposition: HOME Condition: Stable Discharge Details Chief Complaint: Chest/Rib Clinical Impression: Contusion of rib Primary Care Provider: Dedra Arambula ED Provider: Garima Altamirano Home Meds and New Rx's Prescriptions: New lidocaine [Lidoderm] 5 % adhesive patch,medicated 1 patch TP DAILY Qty: 15 RF: 0 Continued Lyrica 50 mg capsule 50 mg PO BID Qty: 60 RF: 0 clotrimazole 1 % cream 1 applic TP TID Qty: 28.35 RF: 1 cyanocobalamin (vitamin B-12) 1,000 mcg capsule 1,000 mcg PO DAILY RF: 0 cholecalciferol (vitamin D3) 1,000 unit capsule 1,000 unit PO DAILY RF: 0 lisinopril 5 mg tablet 5 mg PO DAILY Qty: 90 RF: 3 meclizine 25 mg tablet,chewable 25 mg PO TID PRN (Reason: dizziness) Qty: 60 RF: 3 magnesium oxide 400 MG tablet 400 mg PO DAILY RF: 0 estradiol [Vagifem] 10 MCG tablet 10 mcg VG as directed Qty: 45 RF: 2 ibuprofen 600 MG tablet 600 mg PO TID PRNQty: 90 RF: 0 sertraline 25 MG tablet 25 mg PO DAILY Qty: 90 RF: 3 metformin 850 MG tablet 850 mg PO BID Qty: 180 RF: 3 pantoprazole 40 MG tablet,delayed release (DR/EC) 40 mg PO DAILY AM Qty: 90 RF: 3 atorvastatin 40 MG tablet 60 mg PO DAILY Qty: 135 RF: 3 bupropion HCl 300 MG tablet extended release 24 hr 300 mg PO DAILY Qty: 90 RF: 3 PROVENTIL HFA 18 GM HFA.AER.AD 2 puff Inhalation Q4H PRN Qty: 1 RF: 2 nitroglycerin 0.4 mg tablet, sublingual 0.4 mg Sublingual Q5M PRN (Reason: chest pain) Qty: 25 RF: 5 aspirin 81 MG tablet,chewable 81 mg CH DAILY RF: 0 nystatin 100,000 unit/gram Powder 60 g Topical BID Qty: 0 RF: 0 Discharge Instructions Instructions: How to Use an Incentive Spirometer (ED), Rib Contusion (ED) Additional Instructions: Please return immediately to the emergency department if you develop any new or worsening symptoms or if you become otherwise concerned. It is extremely important that you make an appointment to be seen in follow-up for this visit as soon as possible by your primary care doctor. Referrals: Dedra Arambula NP [Primary Care Provider] - Discharge Data Discharge Date/Time-TO BE ENTERED AT DEPARTURE: 12/17/18 13:32 Medical Decision Making Kathrine Zaragoza is a 58 y/o woman with history of diabetes, hypertension, hyperlipidemia, obesity, asthma who presented to the emergency department with right-sided chest pain after falling forward from one step to the ground 5 days ago. On exam patient is well and nontoxic appearing, walking about the ED without issue, reproducible pain from second to fourth rib anteriorly on the right. Normal work of breathing, lungs clear to auscultation bilaterally. Concern for rib contusion versus fracture, possible pneumothorax. Exam otherwise unremarkable. Exam/history is not consistent with ACS, PE, pneumonia, sepsis, acute aortic pathology, other acute emergent life-threatening pathology. Plan for chest x-ray, rib films, screening EKG, lidocaine patch. EKG interpreted by myself, shows SR at 77, nl axis, no acute ischemic changes, non-diagnostic EKG. Chest x-ray visualized and interpreted by myself in conjunction with radiology: RIGHT RIBS AND PA AND LATERAL CHEST: Comparison 10/15/18. The heart size and pulmonary vasculature are within normal limits. The lungs are clear and well expanded. No effusions or pneumothoraces are identified. Degenerative changes are seen in the spine. There is no evidence of a right rib fracture. No pneumothorax or pleural effusion is present. IMPRESSION: No acute pulmonary process. No evidence of a right rib fracture or pneumothorax. Suspect rib contusion. I had a lengthy discussion with the patient regarding return to emergency department precautions, home care including use of incentive spirometer, and importance of outpatient follow-up with her PCP. Patient verbalized understanding of the plan and was amenable. All questions were answered. Medical Records Medical records reviewed: Yes I reviewed the patient's medical records. Imaging Data Radiologic Study: Attestation: I personally reviewed and interpreted this imaging study as follows: HPI General Mode of arrival: ambulatory . Date/Time Provider Initiated Documentation: 12/17/18 09:55 . Limitations to Documentation: no limitations . Information obtained by: patient, family, RN notes reviewed and old records reviewed . HPI Narrative: Kathrine Zaragoza is a 58 year-old woman with history of asthma, hypertension, diabetes, hyperlipidemia, obesity presenting to the emergency department with chest pain. Patient reports that she fell 5 days ago, after tripping on a step and falling to the floor (fell from one step onto the ground). Patient reports that she fell forward landing on her forearms, but also hit her right chest on the ground. Patient reports that since the fall she has had right anterior chest pain that is worse with deep breathing, or rotation of her torso, or palpation. Pain is not changed by exertion. She has had a feeling of not being all to take a deep breath secondary to pain but no shortness of breath. No cough. No other pain or injury. Patient reports that otherwise she feels well in her usual state of health. No recent illness. No rash or skin wound. Has been eating and drinking as usual. Related Data Home Medications Medication Instructions Recorded Confirmed aspirin 81 mg CH DAILY 12/15/12 12/17/18 magnesium oxide 400 mg PO DAILY 05/09/17 12/17/18 estradiol [Vagifem] 10 mcg VG as directed #45 tab 01/01/18 12/17/18 ibuprofen 600 mg PO TID PRN #90 tab 01/20/18 12/17/18 sertraline 25 mg PO DAILY #90 tab 02/10/18 12/17/18 metformin 850 mg PO BID #180 tab-cap 05/20/18 12/17/18 pantoprazole 40 mg PO DAILY AM #90 tab-cap 05/28/18 12/17/18 atorvastatin 60 mg PO DAILY #135 tab-cap 06/10/18 12/17/18 bupropion HCl 300 mg PO DAILY #90 tab-cap 06/10/18 12/17/18 nitroglycerin 0.4 mg sublingual 0.4 mg SUBLINGUAL Q5M PRN #25 07/31/18 12/17/18 tablet tab-cap nystatin 60 g TOPICAL BID #0 g 10/17/18 12/17/18 cholecalciferol (vitamin D3) 1,000 1,000 unit PO DAILY 10/28/18 12/17/18 unit capsule cyanocobalamin (vitamin B-12) 1,000 mcg PO DAILY 10/28/18 12/17/18 1,000 mcg capsule lisinopril 5 mg tablet 5 mg PO DAILY #90 tab-cap 11/12/18 12/17/18 meclizine 25 mg chewable tablet 25 mg PO TID PRN #60 tab-cap 11/12/18 12/17/18 clotrimazole 1 % topical cream 1 applic TP TID #28.35 gm 12/09/18 12/17/18 pregabalin 50 mg capsule 50 mg PO BID #60 cap 12/09/18 12/17/18 lidocaine [Lidoderm] 1 patch TP DAILY #15 each 12/17/18 Previous Rx's Medication Instructions Recorded estradiol [Vagifem] 10 mcg VG as directed #45 tab 01/01/18 sertraline 25 mg PO DAILY #90 tab 02/10/18 metformin 850 mg PO BID #180 tab-cap 05/20/18 pantoprazole 40 mg PO DAILY AM #90 tab-cap 05/28/18 atorvastatin 60 mg PO DAILY #135 tab-cap 06/10/18 bupropion HCl 300 mg PO DAILY #90 tab-cap 06/10/18 nitroglycerin 0.4 mg sublingual 0.4 mg SUBLINGUAL Q5M PRN #25 07/31/18 tablet tab-cap nystatin 60 g TOPICAL BID #0 g 10/17/18 lisinopril 5 mg tablet 5 mg PO DAILY #90 tab-cap 11/12/18 meclizine 25 mg chewable tablet 25 mg PO TID PRN #60 tab-cap 11/12/18 clotrimazole 1 % topical cream 1 applic TP TID #28.35 gm 12/09/18 pregabalin 50 mg capsule 50 mg PO BID #60 cap 12/09/18 lidocaine [Lidoderm] 1 patch TP DAILY #15 each 12/17/18 Allergies Allergy/AdvReac Type Severity Reaction Status Date / Time Latex, Natural Rubber Allergy Intermediate Skin Rash Verified 12/17/18 09:56 silicone Allergy Intermediate Rash Verified 12/17/18 09:56 oxycodone AdvReac Intermediate SICK TO Verified 12/17/18 09:56 STOMACH General Stated Complaint: Chest/Rib RISHABH: 3 Review of Systems Review of Systems Constitutional: denies fevers Eyes: denies eye pain ENT: denies facial pain, dental pain, sore throat Cardiovascular: Reports chest pain Respiratory: denies SOB, cough GI: denies abdominal pain, vomiting, diarrhea : denies flank pain MSK: denies back pain, neck pain, myalgias, reports chronic sciatic leg pain unchanged from baseline Skin: denies rash Neuro: denies headaches, numbness, weakness PFSH Medical History Adult BMI > 30 (Chronic) Atypical squamous cells of undetermined significance (ASC-US) on cervical Pap smear (Chronic 07/30/16) Depressive disorder (Chronic 05/02/12) Hyperlipidemia (Chronic 11/29/11) Papanicolaou smear of cervix with positive high risk human papilloma virus (HPV) test (Chronic 07/30/16) Recurrent UTI (Chronic 10/01/17) 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 (Chronic) Asthma (Chronic) Osteoarthritis of knee (Chronic 07/21/14) Chronic hypertension (Chronic) Morbid obesity with body mass index of 40.0-49.9 (Chronic) GERD (gastroesophageal reflux disease) (Chronic) Anxiety disorder (Chronic) Asthma HTN (hypertension) Type 2 diabetes mellitus Social History Smoking/Tobacco Use Status: Never Alcohol Intake: never Drug use: Never Household members: spouse, children and other Number of Children: 1 number of grandchildren: 2 Seatbelt use: always Do you feel safe in your relationship?: Yes History History 1 Para 1 Hx # Term Pregnancies 1 Multiple births Hx # Pregnancies Ectopic pregnancies AB induced Hx Number of Living Children AB spontaneous Exam Narrative Exam Narrative: Constitutional: well and [id number], pleasant, conversing normally HENT: head atraumatic/normocephalic/normal inspection, mucous membranes moist Eyes: conjunctiva normal, sclera normal, pupils 3mm b/l Neck: no stridor, normal ROM, trachea midline Chest: normal inspection, tenderness to palpation right anterior chest second through fourth rib, reproduces pain, no crepitus, no deformity, no overlying skin changes Resp: normal work of breathing, LCTAB Cardio: normal rate, normal rhythm, no murmur appreciated Back: normal inspection, no rash Skin: warm, dry, normal color, no rash Neuro: alert, not altered, grossly non-focal, normal tone Ext: no edema, no posterior calf tenderness palpation Psych: normal mood, normal affect, normal behavior Course Vital Signs Temperature 36.7 C 12/17/18 09:53 Pulse 80 12/17/18 09:53 Respiratory Rate 16 12/17/18 09:53 Blood Pressure 163/87 H 12/17/18 09:53 Pulse Oximetry 97 12/17/18 09:53 Temperature 36.7 C 12/17/18 09:53 Temperature Source Temporal Artery Scan 12/17/18 09:53 Pulse 80 12/17/18 09:53 Respiratory Rate 16 12/17/18 09:53 Respiratory Effort Non-Labored 12/17/18 09:55 Blood Pressure 163/87 H 12/17/18 09:53 Blood Pressure Position Sitting 12/17/18 09:53 Pulse Oximetry 97 12/17/18 09:53 Pain Level 8 12/17/18 09:53
[2018-12-17] MEDS: Lidocaine 5% Patch 1 PATCH (10:53)
[2018-12-17 13:34] VITALS: BP 163/87; PULSE 80; RESP 16; TEMP 36.7; O2SAT 97
== END 2018-12-17 13:32 | disposition home or self-care (01) ==
PROVIDERS: Emergency Provider Student in an Organized Health Care Education/Training Program; PCP Nurse Practitioner
DX: S20.211A Contusion of right front wall of thorax, initial encounter (principal); W10.8XXA Fall (on) (from) other stairs and steps, initial encounter; E11.9 Type 2 diabetes mellitus without complications; I10 Essential (primary) hypertension
CPT/HCPCS: 93005; 99285; 71046; 71100; 93010; 99284

== ENCOUNTER 2018-12-25 13:19 | Outpatient (RCR) | payer OTHER, SELFPAY | END 2019-01-11 23:59 | disposition home or self-care (01) | LOC: CR 13:19 | PROVIDERS: PCP Nurse Practitioner; Visit Provider Family Medicine | DX: Z51.89 Encounter for other specified aftercare (principal) ==

== ENCOUNTER 2019-01-13 03:28 | Outpatient (RCR) | payer SELFPAY ==
--- NOTE | 2019-03-10 09:50 | PR3E_ITS ---
58 year old female referred to our 8 week diabetes exercise program in November 2018 by primary care provider. Patient was scheduled for 8 exercise sessions from 12/16/18 - 01/08/19, of which she attended 3 sessions, then did not return. Patient had joined program and started same time as her daughter. Both attended 3 sessions together; both stopped attending thereafter. The patient is being discharged from the Diabetes Program. We will assist her again in the future, with a physicians referral, should she need more structure in developing an exercise routine/habits
== END 2019-02-10 23:59 | disposition home or self-care (01) ==
LOC: CR 03:28
PROVIDERS: PCP Nurse Practitioner; Visit Provider Family Medicine
DX: Z51.89 Encounter for other specified aftercare (principal)

== ENCOUNTER 2019-03-07 21:38 | Emergency (ER) | payer OTHER, SELFPAY ==
[2019-03-07 21:52] VITALS: BP 162/94; PULSE 88; RESP 18; TEMP 36.5; O2SAT 98
--- NOTE | 2019-03-07 22:01 | ED.GENADUL_ITS ---
Discharge Plan Disposition Patient Disposition: HOME Condition: Improving Discharge Details Chief Complaint: RashLesion Clinical Impression: Hives Primary Care Provider: Dedra Arambula ED Provider: Tylor Gallagher Home Meds and New Rx's Prescriptions: New prednisone 20 mg tablet 40 mg PO DAILY 4 Days Qty: 8 RF: 0 ranitidine HCl 150 mg capsule 150 mg PO DAILY Qty: 14 RF: 0 Continued Lyrica 50 mg capsule 50 mg PO BID Qty: 60 RF: 0 meclizine 25 mg tablet,chewable 25 mg PO TID PRN (Reason: dizziness) Qty: 60 RF: 3 sertraline 25 MG tablet 25 mg PO DAILY Qty: 90 RF: 3 metformin 850 MG tablet 850 mg PO BID Qty: 180 RF: 3 pantoprazole 40 MG tablet,delayed release (DR/EC) 40 mg PO DAILY AM Qty: 90 RF: 3 nitroglycerin 0.4 mg tablet, sublingual 0.4 mg Sublingual Q5M PRN (Reason: chest pain) Qty: 25 RF: 5 nystatin 100,000 unit/gram Powder 60 g Topical BID Qty: 0 RF: 0 No Action clotrimazole 1 % cream 1 applic TP TID Qty: 28.35 RF: 1 estradiol [Vagifem] 10 mcg tablet 10 mcg VG as directed Qty: 45 RF: 2 cyanocobalamin (vitamin B-12) 1,000 mcg capsule 1,000 mcg PO DAILY RF: 0 cholecalciferol (vitamin D3) 1,000 unit capsule 1,000 unit PO DAILY RF: 0 lisinopril 5 mg tablet 5 mg PO DAILY Qty: 90 RF: 3 cetirizine [Zyrtec] 10 mg tablet 10 mg PO DAILY Qty: 30 RF: 2 magnesium oxide 400 MG tablet 400 mg PO DAILY RF: 0 ibuprofen 600 MG tablet 600 mg PO TID PRNQty: 90 RF: 0 atorvastatin 40 MG tablet 60 mg PO DAILY Qty: 135 RF: 3 bupropion HCl 300 MG tablet extended release 24 hr 300 mg PO DAILY Qty: 90 RF: 3 PROVENTIL HFA 18 GM HFA.AER.AD 2 puff Inhalation Q4H PRN Qty: 1 RF: 2 aspirin 81 MG tablet,chewable 81 mg CH DAILY RF: 0 Discharge Instructions Instructions: Urticaria (ED) Additional Instructions: Add Zantac 150 mg daily while you have a rash. Prednisone as prescribed. Follow-up with regular doctor for recheck. Return for any acute concerns Continue all regular medications. Medical Decision Making 58-year-old female presents with recurrent urticarial type lesions that are pruritic and present on both upper extremities. States she did have similar rash previously which improved with prednisone. She does have diabetes. She is otherwise stable. There is no clear inciting agent. We will place her on the low-dose of prednisone for 5 days. We will add Zantac as I believe this antihistamine properties will be of some help. She is stable for discharge to home. HPI General Mode of arrival: ambulatory . Date/Time Provider Initiated Documentation: 03/07/19 21:43 . Limitations to Documentation: no limitations . Information obtained by: patient . History of Present Illness 58 year old F presents to the emergency department with the chief complaint of Hives, recurrent, described as moderate and similar to prior episodes, Quality is described as dull and constant, and is localized to the left, right and upper extremity. Patient reports no radiation. Patient started experiencing this day(s) and it has been intermittent. No relieving factors improve symptom(s), No exacerbating factors reported . Patient notes no other symptoms.. Patient did receive the following treatments prior to arrival, other (Benadryl cream) Related Data Home Medications Medication Instructions Recorded Confirmed aspirin 81 mg CH DAILY 12/15/12 02/26/19 magnesium oxide 400 mg PO DAILY 05/09/17 02/26/19 ibuprofen 600 mg PO TID PRN #90 tab 01/20/18 02/26/19 sertraline 25 mg PO DAILY #90 tab 02/10/18 03/07/19 metformin 850 mg PO BID #180 tab-cap 05/20/18 03/07/19 pantoprazole 40 mg PO DAILY AM #90 tab-cap 05/28/18 03/07/19 atorvastatin 60 mg PO DAILY #135 tab-cap 06/10/18 02/26/19 bupropion HCl 300 mg PO DAILY #90 tab-cap 06/10/18 02/26/19 nitroglycerin 0.4 mg sublingual 0.4 mg SUBLINGUAL Q5M PRN #25 07/31/18 03/07/19 tablet tab-cap nystatin 60 g TOPICAL BID #0 g 10/17/18 03/07/19 cholecalciferol (vitamin D3) 1,000 1,000 unit PO DAILY 10/28/18 02/26/19 unit capsule cyanocobalamin (vitamin B-12) 1,000 mcg PO DAILY 10/28/18 02/26/19 1,000 mcg capsule lisinopril 5 mg tablet 5 mg PO DAILY #90 tab-cap 11/12/18 02/26/19 meclizine 25 mg chewable tablet 25 mg PO TID PRN #60 tab-cap 11/12/18 03/07/19 clotrimazole 1 % topical cream 1 applic TP TID #28.35 gm 12/09/18 02/26/19 pregabalin 50 mg capsule 50 mg PO BID #60 cap 12/09/18 03/07/19 estradiol 10 mcg vaginal tablet 10 mcg VG as directed #45 tab 01/20/19 02/26/19 cetirizine 10 mg tablet 10 mg PO DAILY #30 tab 02/10/19 02/26/19 prednisone 40 mg PO DAILY 4 Days #8 tab 03/07/19 ranitidine HCl 150 mg PO DAILY #14 cap 03/07/19 Previous Rx's Medication Instructions Recorded sertraline 25 mg PO DAILY #90 tab 02/10/18 metformin 850 mg PO BID #180 tab-cap 05/20/18 pantoprazole 40 mg PO DAILY AM #90 tab-cap 05/28/18 atorvastatin 60 mg PO DAILY #135 tab-cap 06/10/18 bupropion HCl 300 mg PO DAILY #90 tab-cap 06/10/18 nitroglycerin 0.4 mg sublingual 0.4 mg SUBLINGUAL Q5M PRN #25 07/31/18 tablet tab-cap nystatin 60 g TOPICAL BID #0 g 10/17/18 lisinopril 5 mg tablet 5 mg PO DAILY #90 tab-cap 11/12/18 meclizine 25 mg chewable tablet 25 mg PO TID PRN #60 tab-cap 11/12/18 clotrimazole 1 % topical cream 1 applic TP TID #28.35 gm 12/09/18 pregabalin 50 mg capsule 50 mg PO BID #60 cap 12/09/18 estradiol 10 mcg vaginal tablet 10 mcg VG as directed #45 tab 01/20/19 cetirizine 10 mg tablet 10 mg PO DAILY #30 tab 04/30/19 prednisone 40 mg PO DAILY 4 Days #8 tab 03/07/19 ranitidine HCl 150 mg PO DAILY #14 cap 03/07/19 Allergies Allergy/AdvReac Type Severity Reaction Status Date / Time Latex, Natural Rubber Allergy Intermediate Skin Rash Verified 03/07/19 21:51 silicone Allergy Intermediate Rash Verified 03/07/19 21:51 oxycodone AdvReac Intermediate SICK TO Verified 03/07/19 21:51 STOMACH General Stated Complaint: RashLesion RISHABH: 5 Review of Systems Review of Systems No difficulty with breathing, change to voice, drooling. 8 systems reviewed and otherwise negative. 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 (Chronic) Asthma (Chronic) Osteoarthritis of knee (Chronic 07/21/14) Chronic hypertension (Chronic) Morbid obesity with body mass index of 40.0-49.9 (Chronic) GERD (gastroesophageal reflux disease) (Chronic) Anxiety disorder (Chronic) Asthma HTN (hypertension) Type 2 diabetes mellitus Surgical History History of surgery (Chronic) 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) History of total bilateral knee replacement (TKR) (Resolved) section (~1980) Cholecystectomy Extraction of cataract Hysterectomy, Total Laparoscopic Family History Mother Neoplasm Stroke Father Myocardial infarction Social History Smoking/Tobacco Use Status: Never Alcohol Intake: never Drug use: Never Household members: spouse, children and other Number of Children: 1 number of grandchildren: 2 Seatbelt use: always Do you feel safe at home: Yes Do you feel safe in your relationship?: Yes History History 1 Para 1 Hx # Term Pregnancies 1 Multiple births Hx # Pregnancies Ectopic pregnancies AB induced Hx Number of Living Children AB spontaneous Exam Narrative Exam Narrative: GEN: awake, alert, oriented 3. Pleasant, well groomed, interactive. HEAD: Normocephalic, atraumatic ENT: Mucous membranes moist, oropharynx unremarkable, External ear exam unremarkable EYES: PERRL, EOMI NECK: Full ROM, no GAYLA, no menigismus CHEST/RESP: Nontender, clear to auscultation bilateral, no wheeze/rhonchi/rales CARDIOVASCULAR: RRR, no murmur, rub pramod. 2+ Rad pulse bilateral ABDOMEN: Soft, nontender, no mass. +Bowel sounds EXT: Full ROM, no edema, blanching, erythematous wheals present on bilateral upper extremity volar surface Neuro: Grossly normal neurologic exam, conversant, interactive. Psych: Speech fluent, thoughts congruent, affect normal Course Vital Signs Temperature 36.5 C 03/07/19 21:52 Pulse 88 03/07/19 21:52 Respiratory Rate 18 03/07/19 21:52 Blood Pressure 162/94 H 03/07/19 21:52 Pulse Oximetry 98 03/07/19 21:52 Temperature 36.5 C 03/07/19 21:52 Pulse 88 03/07/19 21:52 Respiratory Rate 18 03/07/19 21:52 Blood Pressure 162/94 H 03/07/19 21:52 Blood Pressure Position Sitting 03/07/19 21:52 Pulse Oximetry 98 03/07/19 21:52 Oxygen Delivery Method Room Air 03/07/19 21:52 Oxygen Flow Rate 0 03/07/19 21:52
[2019-03-07] MEDS: predniSONE 20 MG TAB 40 MG PO (22:31)
== END 2019-03-07 22:34 | disposition home or self-care (01) ==
PROVIDERS: Emergency Provider Emergency Medicine; PCP Nurse Practitioner
DX: L50.8 Other urticaria (principal); E11.40 Type 2 diabetes mellitus with diabetic neuropathy, unspecified; Z79.84 Long term (current) use of oral hypoglycemic drugs; I10 Essential (primary) hypertension
CPT/HCPCS: 99283; J7512

== ENCOUNTER 2019-03-20 09:13 | Emergency (ER) | payer OTHER, SELFPAY ==
[2019-03-20 09:17] VITALS: BP 180/87; PULSE 76; RESP 18; TEMP 36.6; O2SAT 97
--- NOTE | 2019-03-20 09:43 | ED.GENADUL_ITS ---
Discharge Plan Disposition Patient Disposition: HOME Condition: Stable Discharge Details Chief Complaint: Nk/Back Pain Clinical Impression: Back pain Primary Care Provider: Dedra Arambula ED Provider: Prasad Pelaez Home Meds and New Rx's Prescriptions: Continued Lyrica 50 mg capsule 50 mg PO BID Qty: 60 RF: 0 clotrimazole 1 % cream 1 applic TP TID Qty: 28.35 RF: 1 estradiol [Vagifem] 10 mcg tablet 10 mcg VG as directed Qty: 45 RF: 2 cyanocobalamin (vitamin B-12) 1,000 mcg capsule 1,000 mcg PO DAILY RF: 0 cholecalciferol (vitamin D3) 1,000 unit capsule 1,000 unit PO DAILY RF: 0 lisinopril 5 mg tablet 5 mg PO DAILY Qty: 90 RF: 3 meclizine 25 mg tablet,chewable 25 mg PO TID PRN (Reason: dizziness) Qty: 60 RF: 3 cetirizine [Zyrtec] 10 mg tablet 10 mg PO DAILY Qty: 30 RF: 2 ranitidine HCl 150 mg capsule 150 mg PO DAILY Qty: 30 RF: 3 magnesium oxide 400 MG tablet 400 mg PO DAILY RF: 0 ibuprofen 600 MG tablet 600 mg PO TID PRNQty: 90 RF: 0 sertraline 25 MG tablet 25 mg PO DAILY Qty: 90 RF: 3 metformin 850 MG tablet 850 mg PO BID Qty: 180 RF: 3 pantoprazole 40 MG tablet,delayed release (DR/EC) 40 mg PO DAILY AM Qty: 90 RF: 3 atorvastatin 40 MG tablet 60 mg PO DAILY Qty: 135 RF: 3 bupropion HCl 300 MG tablet extended release 24 hr 300 mg PO DAILY Qty: 90 RF: 3 PROVENTIL HFA 18 GM HFA.AER.AD 2 puff Inhalation Q4H PRN Qty: 1 RF: 2 nitroglycerin 0.4 mg tablet, sublingual 0.4 mg Sublingual Q5M PRN (Reason: chest pain) Qty: 25 RF: 5 aspirin 81 MG tablet,chewable 81 mg CH DAILY RF: 0 nystatin 100,000 unit/gram Powder 60 g Topical BID Qty: 0 RF: 0 Discharge Instructions Instructions: Back Pain (ED) Additional Instructions: Please follow-up with your primary care provider at 315 today for reassessment of your back pain. Referrals: Dedra Arambula NP [Primary Care Provider] - 03/20/19 3:15 pm (Please follow-up with your primary care provider for further treatment of your back pain) Discharge Data Discharge Date/Time-TO BE ENTERED AT DEPARTURE: 03/20/19 10:02 Medical Decision Making Patient presenting to the emergency department for chief complaint of back pain. Patient states that she woke up yesterday morning and noted some lower back pain and discomfort. Due to her being at the hospital for a another issue she decided to come to the emergency department for evaluation. Patient denies any symptoms of emergent back pain and states that she has had similar pain in the past. Physical exam is unremarkable except for some lumbar tenderness to both the spine and soft tissue without any step-off deformity mass erythema or other specific findings. Patient is a high utilizer of the emergency department and prior to my evaluation patient was identified and care plan states that she should call her primary care provider first. Patient had not contacted her primary care provider so staff had contacted them again prior to my evaluation and primary care provider stated that they could see patient later this afternoon. Patient was evaluated for emergency back pain and no signs of cauda equina, central cord syndrome, epidural abscess, or other emergency findings. Given this I feel the patient is safe to follow-up with primary care for treatment of back pain. Given that they were able to see her this afternoon she was given a lidocaine patch and 650 of acetaminophen. HPI General Mode of arrival: ambulatory . Date/Time Provider Initiated Documentation: 03/20/19 09:20 . Limitations to Documentation: no limitations . Information obtained by: patient and RN notes reviewed . History of Present Illness 58 year old F presents to the emergency department with the chief complaint of back pain, described as severe, with intensity rated at 9. Quality is described as sharp, and is localized to the back. Patient reports no radiation. Patient started experiencing this day(s) (1) and it has been constant. No relieving factors improve symptom(s), No exacerbating factors reported . Patient notes no other symptoms.. Patient did receive the following treatments prior to arrival, NSAID (IBU 600 mg @0630) Related Data Home Medications Medication Instructions Recorded Confirmed aspirin 81 mg CH DAILY 12/15/12 03/20/19 magnesium oxide 400 mg PO DAILY 05/09/17 03/20/19 ibuprofen 600 mg PO TID PRN #90 tab 01/20/18 03/20/19 sertraline 25 mg PO DAILY #90 tab 02/10/18 03/20/19 metformin 850 mg PO BID #180 tab-cap 05/20/18 03/20/19 pantoprazole 40 mg PO DAILY AM #90 tab-cap 05/28/18 03/20/19 atorvastatin 60 mg PO DAILY #135 tab-cap 06/10/18 03/20/19 bupropion HCl 300 mg PO DAILY #90 tab-cap 06/10/18 03/20/19 nitroglycerin 0.4 mg sublingual 0.4 mg SUBLINGUAL Q5M PRN #25 07/31/18 03/20/19 tablet tab-cap nystatin 60 g TOPICAL BID #0 g 10/17/18 03/20/19 cholecalciferol (vitamin D3) 1,000 1,000 unit PO DAILY 10/28/18 03/20/19 unit capsule cyanocobalamin (vitamin B-12) 1,000 mcg PO DAILY 10/28/18 03/20/19 1,000 mcg capsule lisinopril 5 mg tablet 5 mg PO DAILY #90 tab-cap 11/12/18 03/20/19 meclizine 25 mg chewable tablet 25 mg PO TID PRN #60 tab-cap 11/12/18 03/20/19 clotrimazole 1 % topical cream 1 applic TP TID #28.35 gm 12/09/18 03/20/19 pregabalin 50 mg capsule 50 mg PO BID #60 cap 12/09/18 03/20/19 estradiol 10 mcg vaginal tablet 10 mcg VG as directed #45 tab 01/20/19 03/20/19 cetirizine 10 mg tablet 10 mg PO DAILY #30 tab 02/10/19 03/20/19 ranitidine 150 mg capsule 150 mg PO DAILY #30 cap 03/17/19 03/20/19 Previous Rx's Medication Instructions Recorded sertraline 25 mg PO DAILY #90 tab 02/10/18 metformin 850 mg PO BID #180 tab-cap 05/20/18 pantoprazole 40 mg PO DAILY AM #90 tab-cap 05/28/18 atorvastatin 60 mg PO DAILY #135 tab-cap 06/10/18 bupropion HCl 300 mg PO DAILY #90 tab-cap 06/10/18 nitroglycerin 0.4 mg sublingual 0.4 mg SUBLINGUAL Q5M PRN #25 07/31/18 tablet tab-cap nystatin 60 g TOPICAL BID #0 g 10/17/18 lisinopril 5 mg tablet 5 mg PO DAILY #90 tab-cap 11/12/18 meclizine 25 mg chewable tablet 25 mg PO TID PRN #60 tab-cap 11/12/18 clotrimazole 1 % topical cream 1 applic TP TID #28.35 gm 12/09/18 pregabalin 50 mg capsule 50 mg PO BID #60 cap 12/09/18 estradiol 10 mcg vaginal tablet 10 mcg VG as directed #45 tab 01/20/19 cetirizine 10 mg tablet 10 mg PO DAILY #30 tab 02/10/19 ranitidine 150 mg capsule 150 mg PO DAILY #30 cap 03/17/19 Allergies Allergy/AdvReac Type Severity Reaction Status Date / Time Latex, Natural Rubber Allergy Intermediate Skin Rash Verified 03/20/19 09:21 silicone Allergy Intermediate Rash Verified 03/20/19 09:21 oxycodone AdvReac Intermediate SICK TO Verified 03/20/19 09:21 STOMACH General Stated Complaint: Nk/Back Pain RISHABH: 4 Review of Systems Constitutional Denies chills and Denies fever(s) Cardiovascular Denies chest pain and Denies dyspnea on exertion Respiratory Denies cough and Denies dyspnea on exertion Gastrointestinal Denies abdominal pain, Denies change in bowel habits, Denies diarrhea, Denies nausea and Denies vomiting Genitourinary Denies urinary incontinence Musculoskeletal Reports as per HPI and Reports back pain Neurologic Denies sensory deficit [facility] Medical History Adult BMI > 30 (Chronic) Atypical squamous cells of undetermined significance (ASC-US) on cervical Pap smear (Chronic 07/30/16) Depressive disorder (Chronic 05/02/12) Hyperlipidemia (Chronic 11/29/11) Papanicolaou smear of cervix with positive high risk human papilloma virus (HPV) test (Chronic 07/30/16) Recurrent UTI (Chronic 10/01/17) 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 (Ch ronic) Asthma (Chronic) Osteoarthritis of knee (Chronic 07/21/14) Chronic hypertension (Chronic) Morbid obesity with body mass index of 40.0-49.9 (Chronic) GERD (gastroesophageal reflux disease) (Chronic) Anxiety disorder (Chronic) Asthma HTN (hypertension) Type 2 diabetes mellitus Surgical History History of surgery (Chronic) 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) History of total bilateral knee replacement (TKR) (Resolved) section (~1980) Cholecystectomy Extraction of cataract Hysterectomy, Total Laparoscopic Family History Mother Neoplasm Stroke Father Myocardial infarction Social History Smoking/Tobacco Use Status: Never Alcohol Intake: current Alcohol Intake frequency: holidays/special occasions only Drug use: Never Household members: spouse, children and other Number of Children: 1 number of grandchildren: 2 Seatbelt use: always Do you feel safe at home: Yes Do you feel safe in your relationship?: Yes History History 1 Para 1 Hx # Term Pregnancies 1 Multiple births Hx # Pregnancies Ectopic pregnancies AB induced Hx Number of Living Children AB spontaneous Exam Const General: cooperative and no acute distress Nutritional Appearance: obese Orientation: alert, awake and oriented x3 Neck Neck: normal visual inspection, full ROM and no meningeal signs Resp Effort & Inspection: normal respiratory effort Auscultation: clear to auscultation bilaterally Cardio Rate: regular rate Rhythm: regular rhythm Heart Sounds: S1 normal and S2 normal GI Palpation: no hepatosplenomegaly, no aortic enlargement, no masses and no pulsatile masses Back/Spine/Pelvis Back: no CVA tenderness Thoracic/Lumbar Spine: No mass, pain with thoraco-lumbar ROM, paraspinal tenderness, thoraco-lumbar ROM limited, No thoraco-lumbar spasm, No thoracic spinal tenderness and lumbar spinal tenderness Pelvis: no pain with anterior-posterior compression and no pain with lateral compression Neuro General: alert, awake and oriented x3 DTR's: Rt Patellar: 2+, Lt Patellar: 2+, Rt Ankle: 2+ and Lt Ankle: 2+ Course Vital Signs Temperature 36.6 C 03/20/19 09:17 Pulse 76 03/20/19 09:17 Respiratory Rate 18 03/20/19 09:17 Blood Pressure 180/87 H 03/20/19 09:17 Pulse Oximetry 97 03/20/19 09:17 Temperature 36.6 C 03/20/19 09:17 Temperature Source Skin 03/20/19 09:17 Pulse 76 03/20/19 09:17 Respiratory Rate 18 03/20/19 09:17 Blood Pressure 180/87 H 03/20/19 09:17 Blood Pressure Position Sitting 03/20/19 09:17 Pulse Oximetry 97 03/20/19 09:17 Oxygen Delivery Method Room Air 03/20/19 09:17 Oxygen Flow Rate 0 03/20/19 09:17 Pain Level 9 03/20/19 09:26
[2019-03-20] MEDS: Acetaminophen 325 MG TAB 650 MG PO (09:55)
[2019-03-20] MEDS: Lidocaine 5% Patch 1 PATCH TP (09:55)
[2019-03-20 09:58] VITALS: BP 162/84; PULSE 74; RESP 16; TEMP 37; O2SAT 97
== END 2019-03-20 10:02 | disposition home or self-care (01) ==
PROVIDERS: Emergency Provider Nurse Practitioner Family; PCP Nurse Practitioner
DX: M54.5 Low back pain (principal); E11.40 Type 2 diabetes mellitus with diabetic neuropathy, unspecified; Z79.84 Long term (current) use of oral hypoglycemic drugs; I10 Essential (primary) hypertension
CPT/HCPCS: 99283

== ENCOUNTER 2019-05-26 07:39 | Day surgery (SDC) | payer OTHER, SELFPAY ==
[2019-05-26 08:08] VITALS: BP 158/103; PULSE 81; RESP 16; TEMP 36; O2SAT 99
[2019-05-26] MEDS: Lactated Ringers 1,000 ML 80 ML IV (08:25)
--- NOTE | 2019-05-26 10:49 | W.PM.DSUDISC ---
Discharge Plan Disposition Patient Disposition: HOME Condition: Good Discharge Details Reason For Visit: Colonoscopy Attending Provider: Yisel Garnett Primary Care Provider: Dedra Arambula Home Meds and New Rx's Prescriptions: Continued Lyrica 50 mg capsule 50 mg PO BID Qty: 60 RF: 0 clotrimazole 1 % cream 1 applic TP TID Qty: 28.35 RF: 1 estradiol [Vagifem] 10 mcg tablet 10 mcg VG as directed Qty: 45 RF: 2 cyanocobalamin (vitamin B-12) 1,000 mcg capsule 1,000 mcg PO DAILY RF: 0 cholecalciferol (vitamin D3) 1,000 unit capsule 1,000 unit PO DAILY RF: 0 lisinopril 5 mg tablet 5 mg PO DAILY Qty: 90 RF: 3 meclizine 25 mg tablet,chewable 25 mg PO TID PRN (Reason: dizziness) Qty: 60 RF: 3 cetirizine [Zyrtec] 10 mg tablet 10 mg PO DAILY Qty: 30 RF: 2 ranitidine HCl 150 mg capsule 150 mg PO DAILY Qty: 30 RF: 3 magnesium oxide 400 MG tablet 400 mg PO DAILY RF: 0 ibuprofen 600 MG tablet 600 mg PO TID PRNQty: 90 RF: 0 sertraline 25 MG tablet 25 mg PO DAILY Qty: 90 RF: 3 metformin 850 MG tablet 850 mg PO BID Qty: 180 RF: 3 pantoprazole 40 MG tablet,delayed release (DR/EC) 40 mg PO DAILY AM Qty: 90 RF: 3 atorvastatin 40 MG tablet 60 mg PO DAILY Qty: 135 RF: 3 bupropion HCl 300 MG tablet extended release 24 hr 300 mg PO DAILY Qty: 90 RF: 3 PROVENTIL HFA 18 GM HFA.AER.AD 2 puff Inhalation Q4H PRN Qty: 1 RF: 2 nitroglycerin 0.4 mg tablet, sublingual 0.4 mg Sublingual Q5M PRN (Reason: chest pain) Qty: 25 RF: 5 aspirin 81 MG tablet,chewable 81 mg CH DAILY RF: 0 nystatin 100,000 unit/gram Powder 60 g Topical BID PRNQty: 0 RF: 0 Discharge Instructions Additional Instructions: Findings: Your colonoscopy looked normal. Random biopsies were performed. My office will contact you with results. Follow up: If the biopsies are normal, we will proceed with testing for celiac disease. Several of your medication may cause loose stool including the magnesium, metformin and pantoprazole. Plan for routine screening colonoscopy in 10 years or sooner if symptoms occur. Please call if you develop: fevers >101.5 Nausea or Vomiting Abdominal pain that is not transient DAY SURGERY UNIT POST COLONOSCOPY INSTRUCTIONS 1. Because there will be medication in your system for the next 24 hours, you may feel a little sleepy. Your coordination will be affected. Therefore: a. Do not drive or operate dangerous equipment for 24 hours. b. Do not drink alcohol beverages for 24 hours (not even beer). c. Plan to go home and rest for the day. 2. Generally there are no restrictions on your activity after a day or so has gone by, but you may feel a bit fatigued for a few days. 3 After you arrive home you may have a light meal and return to a normal diet as you can tolerate it without feeling sick to your stomach. 4. After surgery, you may feel pain or discomfort. This should be only transient, but if it persists please contact your doctor. 5. If there are any questions regarding the findings of your procedure, please feel free to contact your doctor. 6. If you are unable to contact your doctor with a problem, contact the hospital at [phone]. 7. Continue all your regular medications unless directed otherwise. I understand the above instructions and have no questions. Signature of Patient or Responsible Adult Escort Date/Time Name of Responsible Adult Escort Signature of Nurse Date/Time Activity:: Activity as Tolerated Diet:: As Tolerated Discharge Orders Discharge Orders: Discharge Order (Routine); Ordered 05/26/19 Ordered By: Yisel Garnett DS: Diagnosis Discharge Diagnosis (1) Normal colonoscopy: Status: Acute (2) S/P colonoscopy:
--- NOTE | 2019-05-26 11:08 | BOWEL_PTH ---
PATIENT: Kathrine Zaragoza LOC: [facility] U#:[id number] AGE/SX: 58/F ROOM: RE05/26/[address]: Yisel Garnett MD : 1960 BED: DIS: 05/26/2019 SPEC #: [id number] RECD: 05/26/19 12:39 STATUS: SAVANNAH REQ #: [id number] HOLLAND: 05/26/19 11:[address]: Yisel Garnett DEPT: Surgical Specimen RECD BY: Payal Espino ENTERED: 05/26/19 12:39 SP TYPE: Bowel OTHR DR: Dedra Arambula APRN Tissues: 1 - BIOPSY BOWEL Procedures: GROSS AND MICRO LEVEL 4 Comments: [id number]
[2019-05-26 12:00] VITALS: BP 141/77; PULSE 74; RESP 16; TEMP 36.1; O2SAT 97
--- NOTE | 2019-05-26 14:44 | COLE_ITS ---
DATE OF PROCEDURE: May 26, 2019 PREOPERATIVE DIAGNOSIS: Fecal incontinence. POSTOPERATIVE DIAGNOSIS: Normal colon. PROCEDURE: Colonoscopy with random biopsies. SURGEON: Yisel Garnett M.D. ANESTHESIA: Monitored Anesthesia Care. INDICATIONS: This is a 58-year-old woman who presents with about a month history of difficulty contr olling her stools. She has not had a prior colonoscopy. She will have leakage about 3 to 4 times a day without warning. She has a maternal aunt with colon cancer and a sister with Crohn's disease. PROCEDURE: She was placed in the left lateral decubitus position. Propofol was titrated to sedation . Digital rectal examination revealed no abnormalities. The scope was advanced to the cecum with a small amount of abdominal pressure required. The ileocecal valve and appendiceal orifice were clearl y identified. Her prep was good. The scope was slowly withdrawn with no abnormalities seen within t he ascending, transverse, descending, sigmoid colon or rectum, including on retroflex view. The cade ent had average-appearing internal and external hemorrhoids. Random biopsies were performed througho ut to evaluate for microscopic colitis. She tolerated the procedure well and was stable to recovery. She will need a follow-up screening colonoscopy in ten years or sooner if symptoms indicate. If he r biopsies are normal we will proceed with testing for Celiac disease. Medication side effect could also be a factor, as well as post cholecystectomy status. My office will contact her with biopsy res ults. cc: Dedra Arambula N.P.
== END 2019-05-26 12:16 | disposition home or self-care (01) ==
PROVIDERS: PCP Nurse Practitioner; Visit Provider Surgery
PROC: 0DJD8ZZ Inspection of Lower Intestinal Tract, Via Natural or Artificial Opening Endoscopic (ICD-10-PCS; CPT 45378; principal; 2019-05-26 09:45)
DX: R15.9 Full incontinence of feces (principal); Z80.0 Family history of malignant neoplasm of digestive organs; K64.4 Residual hemorrhoidal skin tags; K64.8 Other hemorrhoids; Z83.79 Family history of other diseases of the digestive system; I10 Essential (primary) hypertension; E11.42 Type 2 diabetes mellitus with diabetic polyneuropathy
CPT/HCPCS: 45380; 88305

== ENCOUNTER 2019-06-02 07:02 | Outpatient (CLI) | payer OTHER, SELFPAY ==
[2019-06-03 13:21] LABS: IgA 214 mg/dL (85-499); Interpretation SEE COMMENTS; Tissue Transglutaminase IgA <1.2 U/mL (<4.0)
== END 2019-06-02 07:22 ==
PROVIDERS: PCP Nurse Practitioner; Visit Provider Surgery
DX: R19.7 Diarrhea, unspecified (principal)
CPT/HCPCS: 36415; 82784; 83516

== ENCOUNTER 2019-06-22 11:10 | Outpatient (REF) | payer OTHER, SELFPAY ==
--- NOTE | 2019-06-22 10:15 | PAPFT_PTH ---
PATIENT: Kathrine Zaragoza LOC: [facility] U#:[id number] AGE/SX: 58/F ROOM: RE06/22/[address]: Dominic Nunez MD : 1960 BED: DIS: 06/22/2019 SPEC #: [id number] RECD: 06/22/19 12:46 STATUS: SAVANNAH REQ #: [id number] HOLLAND: 06/22/19 10:[address]: Dominic Nunez DEPT: [facility] Cytology RECD BY: Payal Espino ENTERED: 06/22/19 12:46 SP TYPE: PAPFT GISSELLE DR: Dedra Arambula APRN Tissues: 1 - CX/ENDOCX FOR PAP SMEARS Procedures: PAP THIN PREP/UVM Screening Comments: [id number] (UNSATISFACTORY FOR EVALUATION
== END 2019-06-22 11:30 ==
LOC: LBN 11:10
PROVIDERS: PCP Nurse Practitioner; Visit Provider Obstetrics & Gynecology
DX: Z12.4 Encounter for screening for malignant neoplasm of cervix (principal); Z11.51 Encounter for screening for human papillomavirus (HPV); R87.615 Unsatisfactory cytologic smear of cervix
CPT/HCPCS: 88142; 87624

== ENCOUNTER 2019-07-01 00:54 | Outpatient (CLI) | payer OTHER, SELFPAY ==
--- NOTE | 2019-07-01 15:00 | DI.MAMMO_ITS ---
EXAM: MG MAMMO SCREENING CLINICAL HISTORY: Screening,z12.39 TECHNIQUE: Bilateral full field digital CC and MLO mammographic images were obtained with 3D tomosyn thesis and utilizing computer aided detection (CAD). COMPARISON: Screening Bilat Mammo from 07/08/2017 FINDINGS: The breasts are of moderate density with fairly symmetrical distribution of fibroglandular tissue. N o dominant mass or clumped microcalcification is identified in either breast. Current examination is compared with previous examinations including June 2017 and there has been no gross interval ch gurmeet in comparison with the previous studies. No specific evidence of malignancy at this time. IMPRESSION: Routine screening examinations are suggested at yearly intervals in this age group according to the A CS ACR guidelines. Category 1. Breast density,category B. BI-RADS Cat 1 - Negative Breast Density - Category B - Scattered areas of fibroglandular density
== END 2019-07-01 01:14 ==
PROVIDERS: PCP Nurse Practitioner; Visit Provider Obstetrics & Gynecology
DX: Z12.31 Encounter for screening mammogram for malignant neoplasm of breast (principal)
CPT/HCPCS: 77063; 77067

== ENCOUNTER 2019-07-28 21:43 | Outpatient (REF) | payer OTHER, SELFPAY ==
[2019-07-28 18:38] LABS: HCT 41.1 % (36.0-46.0); HGB 13.5 g/dL (12.0-15.5); Mean Corp. HGB Concentration 32.8 g/dL (32.0-36.0); Mean Corpuscular Volume 91.3 fL (80-95); Platelet Count 290 x1000/uL (130-400); RBC Distribution Width 13.3 % (11.7-14.6); White Blood Cell Count 4.55 k/cumm (4.4-10.8)
[2019-07-28 19:01] LABS: Hemoglobin A1C 6.8 % (4.5-6.2)
[2019-07-28 19:23] LABS: ALT 32 U/L (14-59); AST 33 U/L (15-37); Albumin 3.6 g/dL (3.4-5.0); Alkaline Phosphatase 168 U/L (46-116); Anion Gap 13.3 mmol/L (3-11); BUN 16 mg/dL (7-18); CO2 22.7 mmol/L (21.0-32.0); Calcium 8.5 mg/dL (8.5-10.1); Chloride 107 mmol/L (98-107); Glucose 153 mg/dL (70-100); Sodium 143 mmol/L (136-145); Total Protein 7.1 g/dL (6.4-8.2)
[2019-07-28 23:36] LABS: Calculated LDL 137 mg/dL; Cholesterol 214 mg/dL (50-200); HDL Cholesterol 49 mg/dL (40-60); Triglyceride 141 mg/dL (30-150)
== END 2019-07-28 22:03 ==
LOC: LBN 21:43
PROVIDERS: PCP Nurse Practitioner; Visit Provider Nurse Practitioner
DX: I10 Essential (primary) hypertension (principal); E11.9 Type 2 diabetes mellitus without complications; R07.9 Chest pain, unspecified; E66.01 Morbid (severe) obesity due to excess calories
CPT/HCPCS: 80053; 80061; 85027; 83036

== ENCOUNTER 2019-12-25 13:28 | Emergency (ER) | payer OTHER, SELFPAY ==
[2019-12-25] VITALS (51 sets, daily range): BP systolic 117–196; BP diastolic 55–109; PULSE 70–119; RESP 9–25; TEMP 37; O2SAT 85–99
--- NOTE | 2019-12-25 13:26 | W.ED.GENAD ---
Discharge Plan Disposition Patient Disposition: HOME Condition: Good Discharge Details Chief Complaint: Chest Pain Clinical Impression: Chest wall pain, Stress Primary Care Provider: Unknown,Unknown ED Provider: Estefani Pan Home Meds and New Rx's Prescriptions: Continued pregabalin [Lyrica] 50 mg capsule 50 mg PO BID Qty: 60 RF: 0 clotrimazole 1 % cream 1 applic TP TID Qty: 28.35 RF: 1 estradiol [Vagifem] 10 mcg tablet 10 mcg VG as directed Qty: 45 RF: 2 cyanocobalamin (vitamin B-12) 1,000 mcg capsule 1,000 mcg PO DAILY RF: 0 cholecalciferol (vitamin D3) 1,000 unit capsule 1,000 unit PO DAILY RF: 0 lisinopril 5 mg tablet 5 mg PO DAILY Qty: 90 RF: 3 meclizine 25 mg tablet,chewable 25 mg PO TID PRN (Reason: dizziness) Qty: 60 RF: 3 cetirizine [Zyrtec] 10 mg tablet 10 mg PO DAILY Qty: 30 RF: 2 ibuprofen 600 MG tablet 600 mg PO TID PRNQty: 90 RF: 0 sertraline 25 MG tablet 25 mg PO DAILY Qty: 90 RF: 3 metformin 850 MG tablet 850 mg PO BID Qty: 180 RF: 3 pantoprazole 40 MG tablet,delayed release (DR/EC) 40 mg PO DAILY AM Qty: 90 RF: 3 atorvastatin 40 MG tablet 60 mg PO DAILY Qty: 135 RF: 3 bupropion HCl 300 MG tablet extended release 24 hr 300 mg PO DAILY Qty: 90 RF: 3 PROVENTIL HFA 18 GM HFA.AER.AD 2 puff Inhalation Q4H PRN Qty: 1 RF: 2 nitroglycerin 0.4 mg tablet, sublingual 0.4 mg Sublingual Q5M PRN (Reason: chest pain) Qty: 25 RF: 5 nystatin 100,000 unit/gram powder 1 applic TP TID Qty: 30 RF: 0 aspirin 81 MG tablet,chewable 81 mg CH DAILY RF: 0 nystatin 100,000 unit/gram Powder 60 g Topical BID PRNQty: 0 RF: 0 Discharge Instructions Instructions: Anxiety (ED), Chest Wall Pain (ED) Additional Instructions: Alternate tylenol and motrin as needed and directed for pain. Use your Lidoderm patch they have at home as needed and directed. Call your primary care doctor on Saturday to schedule a follow-up appointment for reevaluation in the next 1 to 2 weeks. Return to the emergency department if you develop any worsening or new concerning symptoms. Stand Alone Forms: Work Release Discharge Data Discharge Date/Time-TO BE ENTERED AT DEPARTURE: 12/25/19 16:10 Discharge Physician: Estefani Pan Medical Decision Making 1315 -- 59-year-old female with history of morbid obesity, asthma, diabetes, hypertension, anxiety, vertigo, GERD who presents with intermittent chest pressure, shortness of breath and dizziness since last night. She states the episode started again today while she was mopping upstairs. BP at home last night and today elevated. Review of records note that patient had a very similar episode in July associated with anxiety. Patient has a lot of stressors at home. EKG on arrival notes a rate of 113, sinus with no acute ST ischemic changes. She has anterior chest tenderness which she states is due to mopping on the floor. She appears tearful at times. Heart rate 100s. Differential diagnosis includes anxiety, musculoskeletal, ACS, pneumonia, PE. History and presentation not consistent with dissection. We will check screening labs and CT chest. Will give a dose of Ativan, Lidoderm patch and Toradol and reassess. 1445 --labs and imaging reviewed and unremarkable. CT chest negative. Patient reassessed -she states she feels much better. She now states her symptoms started after a coworker said something to make her feel bad . She states that soon as she asked a coworker check her blood pressure, another coworker said to her now she is probably not coming to work tomorrow . Patient and daughter state that this does appear consistent with her previous anxiety and panic attack before. Vitals within normal limits including heart rate and blood pressure. 1800 --repeat troponin negative. Repeat EKG unchanged. Heart score 3 which is low risk. Patient denies any acute complaints and feels good to go home. She requests a work note for the weekend. Advised to follow up with the primary care doctor for re-evaluation. Usual and customary return precautions given prior to discharge. Medical Records Medical records reviewed: Yes I reviewed the patient's medical records. Imaging Data Radiologic Study: Radiologist's impression: CT CHEST PE CTA CLINICAL HISTORY: TACHYCARDIA, CP, SOB, R/O PE. TECHNIQUE: Imaging Protocol: Axial CT angiography was performed with multislice acquisition and multiplanar and/or 3D reconstructions. CONTRAST MATERIAL: Intravenous: Omnipaque 350 Contrast volume:100 mL COMPARISON: CHEST FOR PE, ABD PELVIS W from 03/10/2017 FINDINGS: Pulmonary Arteries: No evidence of filling defect to suggest pulmonary emboli. Tracheobronchial tree: Patent where visualized. Mediastinum and Snow: No dominant adenopathy or fluid collection. Pulmonary parenchyma: No consolidation or dominant measurable mass. No architectural distortion. Pleura: No effusion or pneumothorax. Heart: The heart is not dilated. Mild coronary artery calcification. No pericardial effusion. Aorta: Thoracic aorta non-dilated. Atherosclerosis. Upper abdomen: Unremarkable. Bones: Degenerative changes. IMPRESSION: No evidence of pulmonary embolism, thoracic aortic dissection or aneurysm. Lab Data Lab results reviewed: Yes I reviewed the patient's lab results. ECG Data Attestation: I personally reviewed and interpreted this ECG (s) as follows: Interpretation: #1 -- Rate of 113, sinus, questionable less than [address] elevation in V2 which is seen in previous EKG. MN 168. QTc 439. QRS 86. #2 -- Rate of 81, sinus, less than [address] elevation in V2 which is seen in previous EKG. T wave inversion in lead III seen in previous EKG. MN 196. QTc 439. QRS 84. HPI General Mode of arrival: ambulatory. Date/Time Provider Initiated Documentation: 12/25/19 13:41. Limitations to Documentation: no limitations. Information obtained by: patient. HPI Narrative: Patient is a 59-year-old female with a history of morbid obesity, diabetes, GERD, hypertension, hyperlipidemia presents to the ED for chest pain, shortness of breath and dizziness since last night. Patient states she was in the shower last night when she felt lightheaded with chest tightness and shortness of breath. She states her daughter took her blood pressure and it was elevated. She states she took a puff of her inhaler as well as a nitro and her symptoms improved. 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 A staff member took her blood pressure and it was elevated. Patient states her chest pressure was initially 9/10 and is currently 4/10. She denies any fever, cough, abdominal pain, nausea, vomiting. She does admit to occasional right leg pain but denies any recent surgery or travel. Related Data Home Medications Medication Instructions Recorded Confirmed aspirin 81 mg CH DAILY 12/15/12 12/25/19 ibuprofen 600 mg PO TID PRN #90 tab 01/20/18 12/25/19 sertraline 25 mg PO DAILY #90 tab 02/10/18 12/25/19 metformin 850 mg PO BID #180 tab-cap 05/20/18 12/25/19 pantoprazole 40 mg PO DAILY AM #90 tab-cap 05/28/18 12/25/19 atorvastatin 60 mg PO DAILY #135 tab-cap 06/10/18 12/25/19 bupropion HCl 300 mg PO DAILY #90 tab-cap 06/10/18 12/25/19 nitroglycerin 0.4 mg sublingual 0.4 mg SUBLINGUAL Q5M PRN #25 07/31/18 12/25/19 tablet tab-cap cholecalciferol (vitamin D3) 25 1,000 unit PO DAILY 10/28/18 12/25/19 mcg (1,000 unit) capsule cyanocobalamin (vitamin B-12) 1,000 mcg PO DAILY 10/28/18 12/25/19 1,000 mcg capsule lisinopril 5 mg tablet 5 mg PO DAILY #90 tab-cap 11/12/18 12/25/19 meclizine 25 mg chewable tablet 25 mg PO TID PRN #60 tab-cap 11/12/18 12/25/19 clotrimazole 1 % topical cream 1 applic TP TID #28.35 gm 12/09/18 12/25/19 pregabalin 50 mg capsule 50 mg PO BID #60 cap 12/09/18 12/25/19 estradiol 10 mcg vaginal tablet 10 mcg VG as directed #45 tab 01/20/19 12/25/19 cetirizine 10 mg tablet 10 mg PO DAILY #30 tab 02/10/19 12/25/19 nystatin 60 g TOPICAL BID PRN #0 g 05/22/19 12/25/19 nystatin 100,000 unit/gram topical 1 applic TP TID #30 gm 07/02/19 12/25/19 powder Previous Rx's Medication Instructions Recorded sertraline 25 mg PO DAILY #90 tab 02/10/18 metformin 850 mg PO BID #180 tab-cap 05/20/18 pantoprazole 40 mg PO DAILY AM #90 tab-cap 05/28/18 atorvastatin 60 mg PO DAILY #135 tab-cap 06/10/18 bupropion HCl 300 mg PO DAILY #90 tab-cap 06/10/18 nitroglycerin 0.4 mg sublingual 0.4 mg SUBLINGUAL Q5M PRN #25 07/31/18 tablet tab-cap lisinopril 5 mg tablet 5 mg PO DAILY #90 tab-cap 11/12/18 meclizine 25 mg chewable tablet 25 mg PO TID PRN #60 tab-cap 11/12/18 clotrimazole 1 % topical cream 1 applic TP TID #28.35 gm 12/09/18 pregabalin 50 mg capsule 50 mg PO BID #60 cap 12/09/18 estradiol 10 mcg vaginal tablet 10 mcg VG as directed #45 tab 01/20/19 cetirizine 10 mg tablet 10 mg PO DAILY #30 tab 02/10/19 nystatin 60 g TOPICAL BID PRN #0 g 05/22/19 nystatin 100,000 unit/gram topical 1 applic TP TID #30 gm 07/02/19 powder Allergies Allergy/AdvReac Type Severity Reaction Status Date / Time Latex, Natural Rubber Allergy Intermediate Skin Rash Verified 12/25/19 13:19 silicone Allergy Intermediate Rash Verified 12/25/19 13:19 oxycodone AdvReac Intermediate SICK TO Verified 12/25/19 13:19 STOMACH General Stated Complaint: Chest Pain RISHABH: 3 Review of Systems All systems reviewed & are unremarkable except as noted in HPI and below Constitutional Constitutional: Reports as per HPI, Denies chills and Denies fever(s) Eyes Eyes: Denies blurry vision ENT Ears, Nose, Mouth, and Throat: Denies dizziness, Denies sore throat and Denies throat swelling Cardiovascular Cardiovascular: Reports chest pain and Reports dyspnea Respiratory Respiratory: Denies cough and Reports dyspnea Gastrointestinal Gastrointestinal: Denies abdominal pain, Denies diarrhea and Denies vomiting Genitourinary Genitourinary: Denies hematuria and Denies dysuria Musculoskeletal Musculoskeletal: Denies back pain and Denies numbness Integumentary/Breasts Skin/Breast: Denies lesions and Denies rash Neurologic Neurologic: Denies dizziness, Denies localized weakness and Denies numbness Allergic/Immunologic Allergic/Immunologic: Denies throat swelling FOR[facility]LY [facility] Medical History Adult BMI > 30 (Chronic) Anxiety disorder (Chronic) Asthma (Chronic) Asthma Atypical squamous cells of undetermined significance (ASC-US) on cervical Pap smear (Chronic 07/30/16) Chronic hypertension (Chronic) Depressive disorder (Chronic 05/02/12) Diabetic peripheral neuropathy associated with type 2 diabetes mellitus (Chronic) GERD (gastroesophageal reflux disease) (Chronic) HTN (hypertension) Hyperlipidemia (Chronic 11/29/11) LIPITOR 80MG CAUSED MUSCLE CRAMPS, 40MG NOT AT GOAL, TRYING 60MG 02/2013 Morbid obesity with body mass index of 40.0-49.9 (Chronic) Osteoarthritis of knee (Chronic 07/21/14) Papanicolaou smear of cervix with positive high risk human papilloma virus (HPV) test (Chronic 07/30/16) Recurrent UTI (Chronic 10/01/17) 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 Naresh Cooper Social History Smoking/Tobacco Use Status: Never Alcohol Intake: current Alcohol Intake frequency: holidays/special occasions only Alcohol type: wine Drug use: Never Substance use type: does not use Details: t-3, one glass of wine Household members: spouse, children and other Number of Children: 1 number of grandchildren: 2 Seatbelt use: always Do you feel safe at home: Yes Do you feel safe in your relationship?: Yes History History 1 Para 1 Hx # Term Pregnancies 1 Multiple births Hx # Pregnancies Ectopic pregnancies AB induced Hx Number of Living Children AB spontaneous Exam Const General: cooperative, no acute distress and other (tearful at times) Orientation: alert, awake and oriented x3 HENMT Head: normal to inspection Face and sinus: normal facial exam Eyes General: appearance normal, both eyes and all related structures EOM: EOM intact bilaterally Neck Neck: normal visual inspection and No submandibular swelling Lymphatic: no lymphadenopathy noted Chest Chest: normal inspection of the chest and no tenderness Resp Effort & Inspection: normal respiratory effort and able to speak in complete sentences Auscultation: clear to auscultation bilaterally Cardio Rate: regular rate Rhythm: regular rhythm GI Inspection: normal to inspection and obesity Palpation: soft, not firm, not rigid and nontender Auscultation: normal bowel sounds Skin General skin exam: no rashes or lesions noted Neuro General: patient alert, patient awake and patient oriented x3 Cognition: normal cognition Speech: speech normal Motor: muscle tone normal throughout Sensory Exam: no sensory deficits noted Extrem General: normal to inspection, full ROM, capillary refill normal, no calf tenderness bilaterally and no edema Psych Appearance: grossly normal Mental Status: mental status grossly normal Speech and Movement: speech and movement normal Affect: normal affect Course Vital Signs Vital signs: Vital Signs Temperature 98.6 F 12/25/19 13:12 Pulse 119 H 12/25/19 13:12 Respiratory Rate 18 12/25/19 13:12 Blood Pressure 196/109 H 12/25/19 13:12 Pulse Oximetry 96 12/25/19 13:12 Temperature 98.6 F 12/25/19 13:12 Temperature Source Temporal Artery Scan 12/25/19 13:12 Pulse 119 H 12/25/19 13:12 Respiratory Rate 18 12/25/19 13:15 Respiratory Effort 12/25/19 13:15 Respiratory Depth Normal 12/25/19 13:15 Respiratory Pattern Normal 12/25/19 13:15 Blood Pressure 196/109 H 12/25/19 13:12 Blood Pressure Position Supine 12/25/19 13:12 Pulse Oximetry 96 12/25/19 13:12 Oxygen Delivery Method Room Air 12/25/19 13:12 Oxygen Flow Rate 0 12/25/19 13:12 Pain Level 4 12/25/19 13:12
--- NOTE | 2019-12-25 13:30 | DI.CT_ITS ---
EXAM: CT CHEST PE CTA CLINICAL HISTORY: TACHYCARDIA, CP, SOB, R/O PE. TECHNIQUE: Imaging Protocol: Axial CT angiography was performed with multislice acquisition and mul tiplanar and/or 3D reconstructions. CONTRAST MATERIAL: Intravenous: Omnipaque 350 Contrast volume:100 mL COMPARISON: CHEST FOR PE, ABD PELVIS W from 03/10/2017 FINDINGS: Pulmonary Arteries: No evidence of filling defect to suggest pulmonary emboli. Tracheobronchial tree: Patent where visualized. Mediastinum and Snow: No dominant adenopathy or fluid collection. Pulmonary parenchyma: No consolidation or dominant measurable mass. No architectural distortion. Pleura: No effusion or pneumothorax. Heart: The heart is not dilated. Mild coronary artery calcification. No pericardial effusion. Aorta: Thoracic aorta non-dilated. Atherosclerosis. Upper abdomen: Unremarkable. Bones: Degenerative changes. IMPRESSION: No evidence of pulmonary embolism, thoracic aortic dissection or aneurysm. Findings were discussed with the Emergency Department on the date of the examination. DATA REPOSITORY: All CT scans at this facility are submitted to the National Radiology Data Registry (NRDR) Dose Index Registry (DIR) with the [employer] (A[employer]). RADIATION OPTIMIZATION: All CT scans at this facility use at least one of these dose optimization te chniques: automated exposure control; mA and/or kV adjustment per patient size (includes targeted exa ms where dose is matched to clinical indication); or iterative reconstruction.
[2019-12-25 13:34] LABS: Abs Immature Grans 0.04 k/cumm (0.0-0.09); Absolute Basophil Count 0.03 k/cumm (0.0-0.2); Absolute Eosinophil Count 0.09 k/cumm (0.0-0.7); Absolute Lymphocyte Count 1.82 k/cumm (1.2-3.4); Absolute Monocyte Count 0.76 k/cumm (0.11-0.7); Absolute Neutrophil Count 6.49 k/cumm (1.2-6.7); Basophils % 0.3; HCT 44.8 % (36.0-46.0); HGB 14.9 g/dL (12.0-15.5); Immature Grans % 0.4 %; Lymphocytes % 19.7; Mean Corp. HGB Concentration 33.3 g/dL (32.0-36.0); Mean Corpuscular Hemoglobin 30.7 pg (27.0-33.0); Mean Corpuscular Volume 92.2 fL (80-95); Mean Platelet Volume 9.1 fL (8.0-11.0); Monocytes % 8.2; Neutrophils % 70.4; Platelet Count 352 x1000/uL (130-400); RBC 4.86 m/cumm (4.00-5.20); RBC Distribution Width 13.3 % (11.7-14.6); White Blood Cell Count 9.23 k/cumm (4.4-10.8)
[2019-12-25 13:50] LABS: ALT 46 U/L (14-59); AST 37 U/L (15-37); Albumin 3.7 g/dL (3.4-5.0); Alkaline Phosphatase 181 U/L (46-116); Anion Gap 10.3 mmol/L (3-11); BUN 19 mg/dL (7-18); CO2 25.7 mmol/L (21.0-32.0); CREATININE 0.98 mg/dL (0.55-1.02); Calcium 9.2 mg/dL (8.5-10.1); Chloride 102 mmol/L (98-107); Glucose 223 mg/dL (74-106); Magnesium 1.8 mg/dL (1.8-2.4); Potassium 3.8 mmol/L (3.5-5.1); Sodium 138 mmol/L (136-145); Total Protein 8.1 g/dL (6.4-8.2)
[2019-12-25 13:52] LABS: Troponin I < 0.05 ng/Ml (<0.06)
[2019-12-25] MEDS: Normal Saline 1,000 ML 1000 ML IV (13:57)
[2019-12-25] MEDS: Lidocaine 5% Patch 1 PATCH TP (13:58)
[2019-12-25] MEDS: Ketorolac 30 MG/ML VIAL IVP (13:58)
[2019-12-25] MEDS: LORazepam 2 MG/ML VIAL 0.5 MG IVP (13:58)
[2019-12-25 14:17] LABS: PTT Activated 22.4 sec (21.0-31.4); Prothrombin Time 9.9 sec (9.3-11.0)
[2019-12-25] MEDS: Omnipaque 350 MG/ML 100 ML BTL IJ (14:38)
[2019-12-25 17:15] LABS: Troponin I < 0.05 ng/Ml (<0.06)
== END 2019-12-25 16:10 | disposition home or self-care (01) ==
PROVIDERS: Emergency Provider Physician Assistant
DX: R07.89 Other chest pain (principal); R43.9 Unspecified disturbances of smell and taste; I10 Essential (primary) hypertension; E11.9 Type 2 diabetes mellitus without complications; Z79.84 Long term (current) use of oral hypoglycemic drugs; F41.9 Anxiety disorder, unspecified
CPT/HCPCS: 36415; 71275; 80053; 93005; 96361; 96374; 96375; 99285; 83735; 84484; 85025; 85610; 85730; 93010; J1885; J2060; J3490

== ENCOUNTER 2020-02-19 10:27 | Emergency (ER) | payer OTHER, SELFPAY ==
[2020-02-19 10:31] VITALS: BP 179/84; PULSE 79; RESP 20; TEMP 36.4; O2SAT 97
[2020-02-19 10:35] VITALS: RESP 16
--- NOTE | 2020-02-19 10:37 | ED.GENADUL_ITS ---
Discharge Plan Disposition Patient Disposition: HOME Condition: Improving Discharge Details Chief Complaint: Chest Pain Clinical Impression: GERD (gastroesophageal reflux disease) Primary Care Provider: Dedra Arambula ED Provider: Tylor Gallagher Home Meds and New Rx's Prescriptions: New sucralfate [Carafate] 1 gram tablet 1 gm PO BID 21 Days Qty: 42 RF: 0 Continued pregabalin [Lyrica] 50 mg capsule 50 mg PO BID Qty: 60 RF: 0 clotrimazole 1 % cream 1 applic TP TID Qty: 28.35 RF: 1 estradiol [Vagifem] 10 mcg tablet 10 mcg VG as directed Qty: 45 RF: 2 cyanocobalamin (vitamin B-12) 1,000 mcg capsule 1,000 mcg PO DAILY RF: 0 cholecalciferol (vitamin D3) 1,000 unit capsule 1,000 unit PO DAILY RF: 0 lisinopril 5 mg tablet 5 mg PO DAILY Qty: 90 RF: 3 meclizine 25 mg tablet,chewable 25 mg PO TID PRN (Reason: dizziness) Qty: 60 RF: 3 cetirizine [Zyrtec] 10 mg tablet 10 mg PO DAILY Qty: 30 RF: 2 ibuprofen 600 MG tablet 600 mg PO TID PRNQty: 90 RF: 0 sertraline 25 MG tablet 25 mg PO DAILY Qty: 90 RF: 3 metformin 850 MG tablet 850 mg PO BID Qty: 180 RF: 3 pantoprazole 40 MG tablet,delayed release (DR/EC) 40 mg PO DAILY AM Qty: 90 RF: 3 atorvastatin 40 MG tablet 60 mg PO DAILY Qty: 135 RF: 3 bupropion HCl 300 MG tablet extended release 24 hr 300 mg PO DAILY Qty: 90 RF: 3 PROVENTIL HFA 18 GM HFA.AER.AD 2 puff Inhalation Q4H PRN Qty: 1 RF: 2 nitroglycerin 0.4 mg tablet, sublingual 0.4 mg Sublingual Q5M PRN (Reason: chest pain) Qty: 25 RF: 5 nystatin 100,000 unit/gram powder 1 applic TP TID Qty: 30 RF: 0 aspirin 81 MG tablet,chewable 81 mg CH DAILY RF: 0 nystatin 100,000 unit/gram Powder 60 g Topical BID PRNQty: 0 RF: 0 Discharge Instructions Instructions: Gastroesophageal Reflux Disease (ED) Additional Instructions: Out of an abundance of caution we will refer you for outpatient coronavirus testing at 1:15 PM in the ER parking lot tent. Results will be sent to your primary care, Dedra Arambula. Continue your regularly prescribed medications and please take Carafate as prescribed for 3 weeks. Avoid fatty, fried, tomato-based sauces in foods towards the afternoon and evening hours. Avoid eating 2 hours prior to bedtime and you may benefit from sleeping with the head of the bed elevated 2-3 pillows. Return if you develop a fever, difficulty breathing, or any other acute concerns. 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 She states that after eating a meatball cinnamon grinder last night for dinner, while recumbent in bed she developed intermittent episodes of sharp left-sided chest discomfort. Persisted through the night intermittently. She notes that she developed a cough yesterday while at work has seemed to improve. She is not had a fever, production of sputum, no recent travel or known sick contacts. She currently is without any discomfort. Her exam reveals left upper quadrant to epigastric tenderness on exam. She has had a cholecystectomy in the past. Differential diagnosis includes gastritis, must exclude ACS, would consider duodenal ulcer, and consideration of pancreatitis. Records reviewed and including essentially normal stress test in October 2018. Patient IV access established, screening laboratories obtained referred for chest x-ray, given GI cocktail by mouth. Laboratories are reassuring. Magnesium is slightly low and supplemented in ER. Chest x-ray without acute findings. Following period of observation, administration of the GI cocktail, the patient was improved. As she had a cough yesterday, worse in the hospital, out of an abundance of caution we will proceed with outpatient COVID-[address] her on 3 weeks of Carafate in addition to her prescribed Protonix. She understands homecare. Lab Data Lab results reviewed: Yes I reviewed the patient's lab results. Labs: Laboratory Results - last 24 hr 02/19/20 02/19/20 10:49 10:49 WBC 5.16 RBC 4.16 Hgb 13.0 Hct 39.3 MCV 94.5 MCH 31.3 MCHC 33.1 RDW 13.1 Plt Count 297 MPV 9.4 Immature Gran % 0.4 Neutrophils % 53.3 Lymphocytes % 31.6 Monocytes % 8.3 Eosinophils % 5.8 Basophils % 0.6 Absolute Neutrophils 2.75 Absolute Lymphocytes 1.63 Absolute Monocytes 0.43 Absolute Eosinophils 0.30 Absolute Basophils 0.03 Sodium 139 Potassium 3.8 Chloride 104 Carbon Dioxide 27.0 Anion Gap 8.0 BUN 15 Creatinine 0.71 Estimated GFR/1.73 m2 >= 60.00 Glucose 124 H Calcium 8.8 Magnesium 1.7 L Total Bilirubin 0.8 AST 36 ALT 43 Alkaline Phosphatase 173 H Troponin I < 0.05 Total Protein 7.2 Albumin 3.3 L Lipase 157 ECG Data Attestation: I personally reviewed and interpreted this ECG (s) as follows: Interpretation: Normal sinus rhythm, rate of 74, the QRS is narrow, there is nonspecific ST segment flattening in inferior leads, no ST segment elevation, QTc 430. HPI General Mode of arrival: ambulatory . Date/Time Provider Initiated Documentation: 02/19/20 10:31 . Limitations to Documentation: no limitations . Information obtained by: patient . History of Present Illness 59 year old F presents to the emergency department with the chief complaint of Intermittent left-sided chest pain since last night after dinner, described as moderate, Quality is described as sharp, and is localized to the chest and left. Patient reports no radiation. Patient started experiencing this minute(s) and it has been intermittent and now resolved. No relieving factors improve symptom(s), No exacerbating factors reported . Patient notes cough and other (No vomiting); denies shortness of breath and syncope. Related Data Home Medications Medication Instructions Recorded Confirmed aspirin 81 mg CH DAILY 12/15/12 12/25/19 ibuprofen 600 mg PO TID PRN #90 tab 01/20/18 02/19/20 sertraline 25 mg PO DAILY #90 tab 02/10/18 02/19/20 metformin 850 mg PO BID #180 tab-cap 05/20/18 02/19/20 pantoprazole 40 mg PO DAILY AM #90 tab-cap 05/28/18 02/19/20 atorvastatin 60 mg PO DAILY #135 tab-cap 06/10/18 02/19/20 bupropion HCl 300 mg PO DAILY #90 tab-cap 06/10/18 02/19/20 nitroglycerin 0.4 mg sublingual 0.4 mg SUBLINGUAL Q5M PRN #25 07/31/18 02/19/20 tablet tab-cap cholecalciferol (vitamin D3) 25 1,000 unit PO DAILY 10/28/18 02/19/20 mcg (1,000 unit) capsule cyanocobalamin (vitamin B-12) 1,000 mcg PO DAILY 10/28/18 02/19/20 1,000 mcg capsule lisinopril 5 mg tablet 5 mg PO DAILY #90 tab-cap 11/12/18 02/19/20 meclizine 25 mg chewable tablet 25 mg PO TID PRN #60 tab-cap 11/12/18 02/19/20 clotrimazole 1 % topical cream 1 applic TP TID #28.35 gm 12/09/18 02/19/20 pregabalin 50 mg capsule 50 mg PO BID #60 cap 12/09/18 02/19/20 estradiol 10 mcg vaginal tablet 10 mcg VG as directed #45 tab 01/20/19 02/19/20 cetirizine 10 mg tablet 10 mg PO DAILY #30 tab 02/10/19 02/19/20 nystatin 60 g TOPICAL BID PRN #0 g 05/22/19 02/19/20 nystatin 100,000 unit/gram topical 1 applic TP TID #30 gm 07/02/19 02/19/20 powder sucralfate [Carafate] 1 gm PO BID 21 Days #42 tab 02/19/20 Previous Rx's Medication Instructions Recorded sertraline 25 mg PO DAILY #90 tab 02/10/18 metformin 850 mg PO BID #180 tab-cap 05/20/18 pantoprazole 40 mg PO DAILY AM #90 tab-cap 05/28/18 atorvastatin 60 mg PO DAILY #135 tab-cap 06/10/18 bupropion HCl 300 mg PO DAILY #90 tab-cap 06/10/18 nitroglycerin 0.4 mg sublingual 0.4 mg SUBLINGUAL Q5M PRN #25 07/31/18 tablet tab-cap lisinopril 5 mg tablet 5 mg PO DAILY #90 tab-cap 11/12/18 meclizine 25 mg chewable tablet 25 mg PO TID PRN #60 tab-cap 11/12/18 clotrimazole 1 % topical cream 1 applic TP TID #28.35 gm 12/09/18 pregabalin 50 mg capsule 50 mg PO BID #60 cap 12/09/18 estradiol 10 mcg vaginal tablet 10 mcg VG as directed #45 tab 01/20/19 cetirizine 10 mg tablet 10 mg PO DAILY #30 tab 02/10/19 nystatin 60 g TOPICAL BID PRN #0 g 05/22/19 nystatin 100,000 unit/gram topical 1 applic TP TID #30 gm 07/02/19 powder sucralfate [Carafate] 1 gm PO BID 21 Days #42 tab 02/19/20 Allergies Allergy/AdvReac Type Severity Reaction Status Date / Time Latex, Natural Rubber Allergy Intermediate Skin Rash Verified 02/19/20 10:36 silicone Allergy Intermediate Rash Verified 02/19/20 10:36 oxycodone AdvReac Intermediate SICK TO Verified 02/19/20 10:36 STOMACH General Stated Complaint: Chest Pain RISHABH: 3 Review of Systems Narrative: 6 systems reviewed and otherwise negative [facility] Medical History Adult BMI > 30 (Chronic) Anxiety disorder (Chronic) Asthma (Chronic) Asthma Atypical squamous cells of undetermined significance (ASC-US) on cervical Pap smear (Chronic 07/30/16) Chronic hypertension (Chronic) Depressive disorder (Chronic 05/02/12) Diabetic peripheral neuropathy associated with type 2 diabetes mellitus (Chronic) GERD (gastroesophageal reflux disease) (Chronic) HTN (hypertension) Hyperlipidemia (Chronic 11/29/11) LIPITOR 80MG CAUSED MUSCLE CRAMPS, 40MG NOT AT GOAL, TRYING 60MG 02/2013 Morbid obesity with body mass index of 40.0-49.9 (Chronic) Osteoarthritis of knee (Chronic 07/21/14) Papanicolaou smear of cervix with positive high risk human papilloma virus (HPV) test (Chronic 07/30/16) Recurrent UTI (Chronic 10/01/17) 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 Naresh Cooper Surgical History section (~1980) Cholecystectomy Extraction of cataract B/L History of surgery (Chronic) 1980. Lap cholecystectomy iin 2004. Left TKA iun Sept 2010 Bilateral cataract extraction and rell implantation. History of total bilateral knee replacement (TKR) (Resolved) bilateral Hysterectomy, Total Laparoscopic 2017 S/P colonoscopy (Acute) 05/26/19 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) Family History Mother Neoplasm Stroke Father , [place] Myocardial infarction Social History Smoking/Tobacco Use Status: Never Alcohol Intake: current Alcohol Intake frequency: holidays/special occasions only Alcohol type: wine Drug use: Never Substance use type: does not use Details: t-3, one glass of wine Household members: spouse, children and other Number of Children: 1 number of grandchildren: 2 Seatbelt use: always Do you feel safe at home: Yes Do you feel safe in your relationship?: Yes History History 1 Para 1 Hx # Term Pregnancies 1 Multiple births Hx # Pregnancies Ectopic pregnancies AB induced Hx Number of Living Children AB spontaneous Exam Narrative Exam Narrative: GEN: awake, alert, oriented 3. Pleasant, well groomed, interactive. HEAD: Normocephalic, atraumatic ENT: Mucous membranes moist, oropharynx unremarkable, External ear exam unremarkable EYES: PERRL, EOMI NECK: Full ROM, no GAYLA, no menigismus CHEST/RESP: Nontender, clear to auscultation bilateral, no wheeze/rhonchi/rales CARDIOVASCULAR: RRR, no murmur, rub pramod. 2+ Rad pulse bilateral ABDOMEN: Soft, tender in the left upper quadrant to mid abdomen, no mass. +Bowel sounds EXT: Full ROM, no edema, no rash Neuro: Grossly normal neurologic exam, conversant, interactive. Psych: Speech fluent, thoughts congruent, affect normal Course Vital Signs Vital signs: Vital Signs Temperature 36.4 C L 02/19/20 10:31 Pulse 79 02/19/20 10:31 Respiratory Rate 20 02/19/20 10:31 Blood Pressure 179/84 H 02/19/20 10:31 Pulse Oximetry 97 02/19/20 10:31 Temperature 36.4 C L 02/19/20 10:31 Temperature Source Temporal Artery Scan 02/19/20 10:31 Pulse 79 02/19/20 10:31 Respiratory Rate 20 02/19/20 10:31 Blood Pressure 179/84 H 02/19/20 10:31 Blood Pressure Position Sitting 02/19/20 10:31 Pulse Oximetry 97 02/19/20 10:31 Oxygen Delivery Method Room Air 02/19/20 10:31 Oxygen Flow Rate 0 02/19/20 10:31 Pain Level 3 02/19/20 10:31
--- NOTE | 2020-02-19 10:45 | DI.RAD_ITS ---
EXAM: XR PORTABLE CHEST AP CLINICAL HISTORY: Slight cough, left-sided chest pain TECHNIQUE: 2D digital imaging was performed. COMPARISON: CR Ribs R w/ Chest from 12/17/2018 FINDINGS: The heart size is within normal limits. The aorta is mildly tortuous but not dilated. Leads overlie the chest. The lungs are well inflated and clear. No infiltrate, effusion or pneumothorax is seen. There are degenerative changes of both shoulders. Degenerative disc changes are seen in the spine. IMPRESSION: No acute abnormality.
[2020-02-19 11:07] LABS: Abs Immature Grans 0.02 k/cumm (0.0-0.09); Absolute Basophil Count 0.03 k/cumm (0.0-0.2); Absolute Lymphocyte Count 1.63 k/cumm (1.2-3.4); Absolute Monocyte Count 0.43 k/cumm (0.11-0.7); Absolute Neutrophil Count 2.75 k/cumm (1.2-6.7); Basophils % 0.6; Eosinophils % 5.8; HCT 39.3 % (36.0-46.0); Immature Grans % 0.4 %; Lymphocytes % 31.6; Mean Corp. HGB Concentration 33.1 g/dL (32.0-36.0); Mean Corpuscular Hemoglobin 31.3 pg (27.0-33.0); Mean Corpuscular Volume 94.5 fL (80-95); Mean Platelet Volume 9.4 fL (8.0-11.0); Monocytes % 8.3; Neutrophils % 53.3; Platelet Count 297 x1000/uL (130-400); RBC 4.16 m/cumm (4.00-5.20); RBC Distribution Width 13.1 % (11.7-14.6); White Blood Cell Count 5.16 k/cumm (4.4-10.8)
[2020-02-19 11:20] LABS: ALT 43 U/L (14-59); AST 36 U/L (15-37); Albumin 3.3 g/dL (3.4-5.0); Alkaline Phosphatase 173 U/L (46-116); BUN 15 mg/dL (7-18); Bilirubin, Total 0.8 mg/dL (0.2-1.0); CREATININE 0.71 mg/dL (0.55-1.02); Calcium 8.8 mg/dL (8.5-10.1); Chloride 104 mmol/L (98-107); Glucose 124 mg/dL (74-106); Lipase 157 U/L (73-393); Magnesium 1.7 mg/dL (1.8-2.4); Potassium 3.8 mmol/L (3.5-5.1); Sodium 139 mmol/L (136-145); Total Protein 7.2 g/dL (6.4-8.2)
[2020-02-19 11:21] LABS: Troponin I < 0.05 ng/Ml (<0.06)
[2020-02-19] MEDS: MAGNESIUM SULFATE 1 GM/100 ML BAG IVPB (11:38)
[2020-02-19 12:42] VITALS: BP 160/76; PULSE 78; RESP 16; TEMP 36.8; O2SAT 97
== END 2020-02-19 12:43 | disposition home or self-care (01) ==
PROVIDERS: Emergency Provider Emergency Medicine; PCP Nurse Practitioner Family
DX: K21.9 Gastro-esophageal reflux disease without esophagitis (principal); R10.13 Epigastric pain; E83.42 Hypomagnesemia; E11.9 Type 2 diabetes mellitus without complications; Z79.84 Long term (current) use of oral hypoglycemic drugs; I10 Essential (primary) hypertension
CPT/HCPCS: 36415; 80053; 83690; 93005; 96365; 99285; 71045; 83735; 84484; 85025; 93010; 99284; J3475

== ENCOUNTER 2020-02-19 11:55 | Outpatient (CLI) | payer OTHER, SELFPAY ==
[2020-02-22 15:44] LABS: COVID-19 RT-PCR UVMMC Result Negative (Negative)
== END 2020-02-19 12:15 ==
PROVIDERS: Emergency Medicine; PCP Nurse Practitioner Family; Visit Provider Nurse Practitioner
DX: Z11.59 Encounter for screening for other viral diseases (principal)
CPT/HCPCS: U0003

== ENCOUNTER 2020-04-04 01:32 | Outpatient (CLI) | payer OTHER, SELFPAY ==
--- NOTE | 2020-04-04 14:00 | DIABASSESS_ITS ---
DESCRIPTION/ASSESSMENT: Ktahrine has been referred for MNT for diabetes/weight management. Wt today 244 lbs, 62 inches, BMI 45. Has lost 15 lbs in last month by decreasing caloric intake. PMH: morbid obesity, HTN. Meds include metformin 1000 mg BID. Blood sugars reported as <130 mg/dl post prandial. She checks her BS twice daily. Diet recall indicates well balanced diet but high reliance on high glycemic foods such as potatoes, white bread, waffles, pasta She does not have consistent exercise program but has started to walk with her daughter. Kathrine would like to continue to lose weight, goal weight is 195 lbs. Estimated Needs: 1500 kcal, 80-90 g protein, 60-70 g fat Intervention: Provided education on DM including Hyper/hypoglycemia s/s with action plan for each scenario. Definition and types of CHO with examples, CHO counting, DASH diet materials, 1500 kcal DM meal planning and label reading literature. Provided a blood sugar and food record chart and materials to reiterate CHO counting techniques. Reviewed desirable BG levels with patient with food choices and portions for optimal outcomes. For weight management, educated Kathrine on how to follow lower carb, higher protein diet with focus on lean protein, non starchy vegetables, complex carbs. Encouraged use of [employer] hussain to log meal plan, calculate nutrient intake. Also, recommended walking 7 miles per week if allowed by PCP. Plan: follow up monthly with goal weight loss of 5 lbs/4 weeks- next appt to be scheduled by Kathrine follow 1500 kcal ADA diet- use [employer]USSA[employer] to log meals follow up weekly with group underwriter via email re: concerns/questions Individual DSME/T 1 units billed TIME IN:1400 OUT: 1430 No DM group education series being offered at this time.
== END 2020-04-04 01:52 ==
PROVIDERS: PCP Nurse Practitioner Family; Visit Provider Nurse Practitioner Family
DX: E11.9 Type 2 diabetes mellitus without complications (principal); I10 Essential (primary) hypertension; E66.8 Other obesity; Z71.3 Dietary counseling and surveillance
CPT/HCPCS: G0108

== ENCOUNTER 2020-05-18 16:58 | Emergency (ER) | payer OTHER, SELFPAY ==
--- NOTE | 2020-05-18 17:02 | W.ED.GENAD ---
Discharge Plan Disposition Patient Disposition: HOME Condition: Good Discharge Details Chief Complaint: Orthopedic Clinical Impression: Injury of great toe Primary Care Provider: Kia Hassan ED Provider: Bhavya Camarena Home Meds and New Rx's Prescriptions: Continued pregabalin [Lyrica] 50 mg capsule 50 mg PO BID Qty: 60 RF: 0 cyanocobalamin (vitamin B-12) 1,000 mcg capsule 1,000 mcg PO DAILY RF: 0 cholecalciferol (vitamin D3) 1,000 unit capsule 1,000 unit PO DAILY RF: 0 lisinopril 5 mg tablet 5 mg PO DAILY Qty: 90 RF: 3 meclizine 25 mg tablet,chewable 25 mg PO TID PRN (Reason: dizziness) Qty: 60 RF: 3 ibuprofen 600 MG tablet 600 mg PO TID PRNQty: 90 RF: 0 sertraline 25 MG tablet 25 mg PO DAILY Qty: 90 RF: 3 metformin 850 MG tablet 850 mg PO BID Qty: 180 RF: 3 pantoprazole 40 MG tablet,delayed release (DR/EC) 40 mg PO DAILY AM Qty: 90 RF: 3 atorvastatin 40 MG tablet 60 mg PO DAILY Qty: 135 RF: 3 bupropion HCl 300 MG tablet extended release 24 hr 300 mg PO DAILY Qty: 90 RF: 3 PROVENTIL HFA 18 GM HFA.AER.AD 2 puff Inhalation Q4H PRN Qty: 1 RF: 2 nitroglycerin 0.4 mg tablet, sublingual 0.4 mg Sublingual Q5M PRN (Reason: chest pain) Qty: 25 RF: 5 nystatin 100,000 unit/gram powder 1 applic TP TID Qty: 30 RF: 0 aspirin 81 MG tablet,chewable 81 mg CH DAILY RF: 0 cetirizine [Zyrtec] 10 mg tablet 10 mg PO DAILY PRNRF: 0 nystatin 100,000 unit/gram Powder 60 g Topical BID PRNQty: 0 RF: 0 Discharge Instructions Instructions: Arthralgia (ED) Additional Instructions: Your x-rays are reassuring today. No evidence of fracture. Encourage rest, ice, elevation. Tylenol and/or ibuprofen as needed for discomfort. Please follow-up with primary care in the next 2 weeks if pain is not improving. If you develop other new or worsening symptoms please seek care urgently once again. 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 She reports approximate 3 hours prior to arrival she stubbed her toe on a tent stake and since that time is been having pain. Noted ecchymosis and swelling. States that she has been elevating and took ibuprofen. States her pain is maximal with movement. She denies other injury extremity incident. On exam, patient is resting comfortably. Was able to ambulate into the department without difficulty. She does have ecchymosis and discomfort with palpation over the proximal aspect of the great toe. She has brisk capillary refill and sensation is intact. We will augment her ibuprofen with Tylenol and obtain x-ray to evaluate for potential fracture. XR reviewed by radiologist: FINDINGS: Bones/joints: Osseous anatomic alignment is well preserved. No acutely displaced fracture or dislocation. Joint spaces are well preserved. Soft tissues: No significant soft tissue swelling. IMPRESSION: Negative for acute skeletal pathology. Discussed this findings with the patient. Advised likely contusion. Encourage rest, ice, elevation. Tylenol and ibuprofen as needed for discomfort. I advised she wear a hard soled shoe as this should help with her discomfort. She is given return precautions. Advise follow-up with primary care in 2 weeks if pain is not improving. All her questions and concerns were addressed and she is agreement this plan. She will return with any new or worsening symptoms. HPI General Mode of arrival: ambulatory. Date/Time Provider Initiated Documentation: 05/18/20 17:02. Limitations to Documentation: no limitations. Information obtained by: patient and RN notes reviewed. History of Present Illness 59 year old F presents to the emergency department with the chief complaint of left great toe pain after stubbing on tent stake, described as moderate, with intensity rated at 7. Quality is described as aching, and is localized to the lower extremity. Patient reports no radiation. Patient started experiencing this hour(s) (3) and it has been constant. Immobilization improves symptom(s), Movement worsens symptoms . Patient notes no other symptoms.. Patient did receive the following treatments prior to arrival, NSAID Related Data Home Medications Medication Instructions Recorded Confirmed aspirin 81 mg CH DAILY 12/15/12 05/18/20 ibuprofen 600 mg PO TID PRN #90 tab 01/20/18 05/18/20 sertraline 25 mg PO DAILY #90 tab 02/10/18 05/18/20 metformin 850 mg PO BID #180 tab-cap 05/20/18 05/18/20 pantoprazole 40 mg PO DAILY AM #90 tab-cap 05/28/18 05/18/20 atorvastatin 60 mg PO DAILY #135 tab-cap 06/10/18 05/18/20 bupropion HCl 300 mg PO DAILY #90 tab-cap 06/10/18 05/18/20 nitroglycerin 0.4 mg sublingual 0.4 mg SUBLINGUAL Q5M PRN #25 07/31/18 05/18/20 tablet tab-cap cholecalciferol (vitamin D3) 25 1,000 unit PO DAILY 10/28/18 05/18/20 mcg (1,000 unit) capsule cyanocobalamin (vitamin B-12) 1,000 mcg PO DAILY 10/28/18 05/18/20 1,000 mcg capsule lisinopril 5 mg tablet 5 mg PO DAILY #90 tab-cap 11/12/18 05/18/20 meclizine 25 mg chewable tablet 25 mg PO TID PRN #60 tab-cap 11/12/18 05/18/20 pregabalin 50 mg capsule 50 mg PO BID #60 cap 12/09/18 05/18/20 nystatin 60 g TOPICAL BID PRN #0 g 05/22/19 05/18/20 nystatin 100,000 unit/gram topical 1 applic TP TID #30 gm 07/02/19 05/18/20 powder cetirizine [Zyrtec] 10 mg PO DAILY PRN 05/18/20 05/18/20 Previous Rx's Medication Instructions Recorded sertraline 25 mg PO DAILY #90 tab 02/10/18 metformin 850 mg PO BID #180 tab-cap 05/20/18 pantoprazole 40 mg PO DAILY AM #90 tab-cap 05/28/18 atorvastatin 60 mg PO DAILY #135 tab-cap 06/10/18 bupropion HCl 300 mg PO DAILY #90 tab-cap 06/10/18 nitroglycerin 0.4 mg sublingual 0.4 mg SUBLINGUAL Q5M PRN #25 07/31/18 tablet tab-cap lisinopril 5 mg tablet 5 mg PO DAILY #90 tab-cap 11/12/18 meclizine 25 mg chewable tablet 25 mg PO TID PRN #60 tab-cap 11/12/18 pregabalin 50 mg capsule 50 mg PO BID #60 cap 12/09/18 nystatin 60 g TOPICAL BID PRN #0 g 05/22/19 nystatin 100,000 unit/gram topical 1 applic TP TID #30 gm 07/02/19 powder Allergies Allergy/AdvReac Type Severity Reaction Status Date / Time Latex, Natural Rubber Allergy Intermediate Skin Rash Verified 05/18/20 17:09 silicone Allergy Intermediate Rash Verified 05/18/20 17:09 oxycodone AdvReac Intermediate SICK TO Verified 05/18/20 17:09 STOMACH General RISHABH: 3 Review of Systems Constitutional Constitutional: Reports as per HPI, Denies chills, Denies fever(s), Denies headache(s) and Denies weakness ENT Ears, Nose, Mouth, and Throat: Denies headache(s) Cardiovascular Cardiovascular: Reports as per HPI Respiratory Respiratory: Reports as per HPI and Denies cough Musculoskeletal Musculoskeletal: Reports as per HPI and Denies tingling Integumentary/Breasts Skin/Breast: Reports as per HPI, Denies rash and Denies wounds Neurologic Neurologic: Reports as per HPI, Denies headache(s), Denies tingling, Denies paresthesias and Denies weakness [facility] Medical History Adult BMI > 30 (Chronic) Anxiety disorder (Chronic) Asthma (Chronic) Asthma Atypical squamous cells of undetermined significance (ASC-US) on cervical Pap smear (Chronic 07/30/16) Chronic hypertension (Chronic) Depressive disorder (Chronic 05/02/12) Diabetic peripheral neuropathy associated with type 2 diabetes mellitus (Chronic) GERD (gastroesophageal reflux disease) (Chronic) HTN (hypertension) Hyperlipidemia (Chronic 11/29/11) LIPITOR 80MG CAUSED MUSCLE CRAMPS, 40MG NOT AT GOAL, TRYING 60MG 02/2013 Morbid obesity with body mass index of 40.0-49.9 (Chronic) Osteoarthritis of knee (Chronic 07/21/14) Papanicolaou smear of cervix with positive high risk human papilloma virus (HPV) test (Chronic 07/30/16) Recurrent UTI (Chronic 10/01/17) 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 Naresh Cooper Surgical History section (~1980) Cholecystectomy Extraction of cataract B/L History of surgery (Chronic) 1980. Lap cholecystectomy iin 2004. Left TKA iun Jun 2010 Bilateral cataract extraction and rell implantation. History of total bilateral knee replacement (TKR) (Resolved) bilateral Hysterectomy, Total Laparoscopic 2017 S/P colonoscopy (Acute) 05/26/19 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) Family History Mother Neoplasm Stroke Father , [place] Myocardial infarction Social History Smoking/Tobacco Use Status: Never Alcohol Intake: current Alcohol Intake frequency: holidays/special occasions only Alcohol type: wine Drug use: Never Substance use type: does not use Household members: spouse, children and other Number of Children: 1 number of grandchildren: 2 Seatbelt use: always Do you feel safe at home: Yes Do you feel safe in your relationship?: Yes History History 1 Para 1 Hx # Term Pregnancies 1 Multiple births Hx # Pregnancies Ectopic pregnancies AB induced Hx Number of Living Children AB spontaneous Exam Const General: cooperative, healthy appearing, comfortable, no acute distress, well developed and well groomed Nutritional Appearance: well nourished and obese Orientation: alert and awake Resp Effort & Inspection: normal respiratory effort, able to speak in complete sentences and no respiratory distress Cardio Rate: regular rate Rhythm: regular rhythm Skin General skin exam: ecchymosis (left great toe) Neuro General: patient alert and patient awake Cognition: normal cognition Speech: speech normal Gait: normal gait Motor: muscle tone normal throughout Sensory Exam: no sensory deficits noted Extrem Left lower extremity: normal capillary refill, ankle Details: normal to inspection and foot Details: normal capillary refill, tenderness Location: of the great toe Location: at the MTP joint and at the proximal phalanx; not of any other digit, not of the calcaneus, not of the lateral foot, not of the medial foot, not of the mid foot and not of the base of the 5th metatarsal, no edema, ecchymosis (great toe) and vascular exam Details: dorsalis pedis pulse present and normal capillary refill; ROM of toes abnormal (limited ROM of great toe secondary to pain), no unusual warmth, no abrasions, no lacerations, no crepitus and no puncture wound Psych Appearance: grossly normal and well kempt Mental Status: mental status grossly normal Speech and Movement: speech and movement normal
[2020-05-18 17:04] VITALS: BP 164/90; PULSE 88; RESP 16; TEMP 36.5; O2SAT 98
[2020-05-18] MEDS: Acetaminophen 500 MG TAB 1000 MG PO (17:21)
--- NOTE | 2020-05-18 17:30 | DI.RAD_ITS ---
EXAM: XR TOE LT GREAT CLINICAL HISTORY: caught tent stake TECHNIQUE: COMPARISON: CR RIGHT FOOT COMPLETE from 05/10/2013 FINDINGS: Three views were obtained. There are degenerative changes of the joints of the midfoot and forefoot. No acute fracture is seen. IMPRESSION:
--- NOTE | 2020-05-18 17:38 | DI.VRAD_ITS ---
PROCEDURE INFORMATION: Exam: XR Left Toe(s) Exam date and time: 05/18/2020 5:26 PM Age: 59 years old Clinical indication: Other: Caught tent stake TECHNIQUE: Imaging protocol: XR Left toes. Views: Minimum 2 views. COMPARISON: CR LEFT FOOT COMPLETE 01/03/2017 2:17 PM FINDINGS: Bones/joints: Osseous anatomic alignment is well preserved. No acutely displaced fracture or dislocation. Joint spaces are well preserved. Soft tissues: No significant soft tissue swelling. IMPRESSION: Negative for acute skeletal pathology. Dictated and Authenticated by: Rafi Caraballo MD. Ordering:EASTON Latif MD
== END 2020-05-18 17:50 | disposition home or self-care (01) ==
PROVIDERS: Emergency Provider Physician Assistant; PCP Nurse Practitioner Family
DX: S90.112A Contusion of left great toe without damage to nail, initial encounter (principal); W22.8XXA Striking against or struck by other objects, initial encounter; E11.9 Type 2 diabetes mellitus without complications; Z79.84 Long term (current) use of oral hypoglycemic drugs; I10 Essential (primary) hypertension
CPT/HCPCS: 99284; 73660; 99283

== ENCOUNTER 2020-06-03 01:08 | Outpatient (CLI) | payer OTHER, SELFPAY ==
[2020-06-03 08:43] LABS: COMMENT (LAB VIEW ONLY) 233.32 mg/dL; Microalb ug/mg Crea 5.9 ug/mg Cr
[2020-06-03 08:49] LABS: Anion Gap 10.8 mmol/L (3-11); BUN 21 mg/dL (7-18); CO2 24.2 mmol/L (21.0-32.0); CREATININE 0.75 mg/dL (0.55-1.02); Calculated LDL 172 mg/dL (<100); Chloride 105 mmol/L (98-107); Cholesterol 248 mg/dL (<200); Glucose 170 mg/dL (74-106); HDL Cholesterol 51 mg/dL (40-60); Potassium 4.4 mmol/L (3.5-5.1); Sodium 140 mmol/L (136-145); Triglyceride 128 mg/dL (<150)
[2020-06-03 09:01] LABS: Hemoglobin A1C 6.9 % (3.8-5.6)
== END 2020-06-03 01:28 ==
PROVIDERS: PCP Nurse Practitioner Family; Visit Provider Nurse Practitioner Family
DX: Z00.00 Encounter for general adult medical examination without abnormal findings (principal); E11.9 Type 2 diabetes mellitus without complications; I10 Essential (primary) hypertension; R25.2 Cramp and spasm; F32.9 Major depressive disorder, single episode, unspecified; J45.40 Moderate persistent asthma, uncomplicated
CPT/HCPCS: 36415; 80048; 80061; 82043; 82570; 83036

== ENCOUNTER 2020-06-06 09:51 | Emergency (ER) | payer OTHER, SELFPAY ==
[2020-06-06 09:59] VITALS: BP 178/95; PULSE 96; RESP 20; TEMP 37; O2SAT 96
[2020-06-06 10:54] LABS: Abs Immature Grans 0.02 10^3/uL (0.0-0.06); Absolute Basophil Count 0.03 10^3/uL (0.0-0.2); Absolute Eosinophil Count 0.08 10^3/uL (0.0-0.7); Absolute Lymphocyte Count 1.17 10^3/uL (1.2-3.4); Absolute Monocyte Count 0.52 10^3/uL (0.1-0.8); Absolute Neutrophil Count 2.56 10^3/uL (1.2-6.7); Basophils % 0.7; Eosinophils % 1.8; HCT 44.2 % (36.0-46.0); HGB 14.3 g/dL (11.2-15.7); Immature Grans % 0.5; Lymphocytes % 26.7; MCH 30.6 pg (27.0-33.0); MCHC 32.4 % (32.0-36.0); MCV 94.4 fL (80-95); MPV 9.5 fL (8.0-11.0); Monocytes % 11.9; Neutrophils % 58.4; Nucleated RBC 0 %; Platelet Count 243 10^3/uL (130-400); RBC 4.68 10^6/uL (3.93-5.22); RDW 12.5 % (11.7-14.6); RDW-SD 43.3 fL; WBC 4.38 10^3/uL (4.4-10.8)
--- NOTE | 2020-06-06 11:21 | ED.GENADUL_ITS ---
Discharge Plan Disposition Patient Disposition: HOME Condition: Stable Discharge Details Chief Complaint: RespSymp Clinical Impression: Upper respiratory infection, acute Primary Care Provider: Kia Hassan ED Provider: Johnathon Altamirano Home Meds and New Rx's Prescriptions: Continued pregabalin [Lyrica] 50 mg capsule 50 mg PO BID Qty: 60 RF: 0 cyanocobalamin (vitamin B-12) 1,000 mcg capsule 1,000 mcg PO DAILY RF: 0 cholecalciferol (vitamin D3) 1,000 unit capsule 1,000 unit PO DAILY RF: 0 lisinopril 5 mg tablet 5 mg PO DAILY Qty: 90 RF: 3 meclizine 25 mg tablet,chewable 25 mg PO TID PRN (Reason: dizziness) Qty: 60 RF: 3 ibuprofen 600 MG tablet 600 mg PO TID PRNQty: 90 RF: 0 sertraline 25 MG tablet 25 mg PO DAILY Qty: 90 RF: 3 metformin 850 MG tablet 850 mg PO BID Qty: 180 RF: 3 pantoprazole 40 MG tablet,delayed release (DR/EC) 40 mg PO DAILY AM Qty: 90 RF: 3 atorvastatin 40 MG tablet 60 mg PO DAILY Qty: 135 RF: 3 bupropion HCl 300 MG tablet extended release 24 hr 300 mg PO DAILY Qty: 90 RF: 3 PROVENTIL HFA 18 GM HFA.AER.AD 2 puff Inhalation Q4H PRN Qty: 1 RF: 2 nitroglycerin 0.4 mg tablet, sublingual 0.4 mg Sublingual Q5M PRN (Reason: chest pain) Qty: 25 RF: 5 nystatin 100,000 unit/gram powder 1 applic TP TID Qty: 30 RF: 0 aspirin 81 MG tablet,chewable 81 mg CH DAILY RF: 0 cetirizine [Zyrtec] 10 mg tablet 10 mg PO DAILY PRNRF: 0 nystatin 100,000 unit/gram Powder 60 g Topical BID PRNQty: 0 RF: 0 Discharge Instructions Additional Instructions: Please allow for plenty of rest and drink plenty of fluids to stay hydrated. Quarantine at home until COVID-19 test results are negative and you are able to discuss with your primary care physician. Please contact your primary care physician to arrange follow-up. Return to the ER for any worsening or new concerning symptoms. Stand Alone Forms: PENDING COVID-19 TESTING Referrals: Occupational Medicine [Outside] Kia Hassan [Primary Care Provider] - Discharge Data Discharge Date/Time-TO BE ENTERED AT DEPARTURE: 06/06/20 12:00 Medical Decision Making 1125 --59-year-old female here with fever and upper respiratory illness including cough and sore throat since yesterday. Patient also with loss of sense of smell and taste. 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 is sick with similar symptoms since yesterday and recent exposure to grandchild who had respiratory illness. Consider COVID-19. Will send COVID-19 screening. Patient advised of need to quarantine. Patient borderline tachycardic. Saturating well. IV fluid bolus was given. Screening labs reviewed and nondiagnostic. HPI General Mode of arrival: ambulatory . Date/Time Provider Initiated Documentation: 06/06/20 10:08 . Limitations to Documentation: no limitations . Information obtained by: patient . HPI Narrative: 49-year-old female with history of multiple medical problems including asthma, presents with chief complaint of fever. Patient notes febrile illness started yesterday. Fevers have been mild to moderate. She did have some associated chills. Patient took ibuprofen which helped his fever. She has associated sore throat and loss of taste and smell. Symptoms started yesterday and have persisted. is sick with similar also started yesterday. Grandchild was sick with respiratory illness recently. No recent travel or exposure to known COVID-19 positive patient. 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 No shortness of breath. Related Data Home Medications Medication Instructions Recorded Confirmed aspirin 81 mg CH DAILY 12/15/12 06/06/20 ibuprofen 600 mg PO TID PRN #90 tab 01/20/18 06/06/20 sertraline 25 mg PO DAILY #90 tab 02/10/18 06/06/20 metformin 850 mg PO BID #180 tab-cap 05/20/18 06/06/20 pantoprazole 40 mg PO DAILY AM #90 tab-cap 05/28/18 06/06/20 atorvastatin 60 mg PO DAILY #135 tab-cap 06/10/18 06/06/20 bupropion HCl 300 mg PO DAILY #90 tab-cap 06/10/18 06/06/20 nitroglycerin 0.4 mg sublingual 0.4 mg SUBLINGUAL Q5M PRN #25 07/31/18 06/06/20 tablet tab-cap cholecalciferol (vitamin D3) 25 1,000 unit PO DAILY 10/28/18 06/06/20 mcg (1,000 unit) capsule cyanocobalamin (vitamin B-12) 1,000 mcg PO DAILY 10/28/18 06/06/20 1,000 mcg capsule lisinopril 5 mg tablet 5 mg PO DAILY #90 tab-cap 11/12/18 06/06/20 meclizine 25 mg chewable tablet 25 mg PO TID PRN #60 tab-cap 11/12/18 06/06/20 pregabalin 50 mg capsule 50 mg PO BID #60 cap 12/09/18 06/06/20 nystatin 60 g TOPICAL BID PRN #0 g 05/22/19 06/06/20 nystatin 100,000 unit/gram topical 1 applic TP TID #30 gm 07/02/19 06/06/20 powder cetirizine [Zyrtec] 10 mg PO DAILY PRN 05/18/20 06/06/20 Previous Rx's Medication Instructions Recorded sertraline 25 mg PO DAILY #90 tab 02/10/18 metformin 850 mg PO BID #180 tab-cap 05/20/18 pantoprazole 40 mg PO DAILY AM #90 tab-cap 05/28/18 atorvastatin 60 mg PO DAILY #135 tab-cap 06/10/18 bupropion HCl 300 mg PO DAILY #90 tab-cap 06/10/18 nitroglycerin 0.4 mg sublingual 0.4 mg SUBLINGUAL Q5M PRN #25 07/31/18 tablet tab-cap lisinopril 5 mg tablet 5 mg PO DAILY #90 tab-cap 11/12/18 meclizine 25 mg chewable tablet 25 mg PO TID PRN #60 tab-cap 11/12/18 pregabalin 50 mg capsule 50 mg PO BID #60 cap 12/09/18 nystatin 60 g TOPICAL BID PRN #0 g 05/22/19 nystatin 100,000 unit/gram topical 1 applic TP TID #30 gm 07/02/19 powder Allergies Allergy/AdvReac Type Severity Reaction Status Date / Time Latex, Natural Rubber Allergy Intermediate Skin Rash Verified 06/06/20 10:02 silicone Allergy Intermediate Rash Verified 06/06/20 10:02 oxycodone AdvReac Intermediate SICK TO Verified 06/06/20 10:02 STOMACH General Stated Complaint: RespSymp RISHABH: 2 Review of Systems All systems reviewed & are unremarkable except as noted in HPI and below Constitutional Constitutional: Reports fever(s) ENT Ears, Nose, Mouth, and Throat: Reports sore throat Cardiovascular Cardiovascular: Denies dyspnea Respiratory Respiratory: Reports cough and Denies dyspnea [facility] Medical History Adult BMI > 30 (Chronic) Anxiety disorder (Chronic) Asthma (Chronic) Asthma Atypical squamous cells of undetermined significance (ASC-US) on cervical Pap smear (Chronic 07/30/16) Chronic hypertension (Chronic) Depressive disorder (Chronic 05/02/12) Diabetic peripheral neuropathy associated with type 2 diabetes mellitus (Chronic) GERD (gastroesophageal reflux disease) (Chronic) HTN (hypertension) Hyperlipidemia (Chronic 11/29/11) LIPITOR 80MG CAUSED MUSCLE CRAMPS, 40MG NOT AT GOAL, TRYING 60MG 02/2013 Morbid obesity with body mass index of 40.0-49.9 (Chronic) Osteoarthritis of knee (Chronic 07/21/14) Papanicolaou smear of cervix with positive high risk human papilloma virus (HPV) test (Chronic 07/30/16) Recurrent UTI (Chronic 10/01/17) 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 Naresh Cooper Surgical History section (~1980) Cholecystectomy Extraction of cataract B/L History of surgery (Chronic) 1980. Lap cholecystectomy iin [place] 2004. Left TKA iun Jun 2010 Bilateral cataract extraction and rell implantation. History of total bilateral knee replacement (TKR) (Resolved) bilateral Hysterectomy, Total Laparoscopic 2017 S/P colonoscopy (Acute) 05/26/19 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) Family History Mother Neoplasm Stroke Father , [place] Myocardial infarction Social History Smoking/Tobacco Use Status: Never Alcohol Intake: current Alcohol Intake frequency: holidays/special occasions only Alcohol type: wine Drug use: Never Substance use type: does not use Household members: spouse, children and other Number of Children: 1 number of grandchildren: 2 Seatbelt use: always Do you feel safe at home: Yes Do you feel safe in your relationship?: Yes History History 1 Para 1 Hx # Term Pregnancies 1 Multiple births Hx # Pregnancies Ectopic pregnancies AB induced Hx Number of Living Children AB spontaneous Exam Const General: cooperative and no acute distress HENMT Mouth: moist mucous membranes Throat: posterior oropharynx abnormal erythema (Mild); no edema and no exudates Eyes Conjunctivae: normal conjunctivae Sclera: normal sclerae Neck Neck: trachea midline and supple Resp Auscultation: clear to auscultation bilaterally, no rales, no rhonchi and no wheezes Cardio Rate: regular rate and not tachycardic Rhythm: regular rhythm GI Palpation: soft, not firm, no guarding, no masses, not rigid and nontender Skin General skin exam: no rashes or lesions noted Neuro General: patient alert, patient awake and tone normal Extrem General: no edema Psych Appearance: grossly normal Mental Status: mental status grossly normal Course Vital Signs Vital signs: Vital Signs Temperature 37 C 06/06/20 09:59 Pulse 96 H 06/06/20 09:59 Respiratory Rate 20 06/06/20 09:59 Blood Pressure 178/95 H 06/06/20 09:59 Pulse Oximetry 96 06/06/20 09:59 Temperature 37 C 06/06/20 09:59 Temperature Source Skin 06/06/20 09:59 Pulse 96 H 06/06/20 09:59 Respiratory Rate 20 06/06/20 09:59 Respiratory Effort Non-Labored 06/06/20 10:56 Respiratory Depth Normal 06/06/20 10:56 Blood Pressure 178/95 H 06/06/20 09:59 Blood Pressure Position Sitting 06/06/20 09:59 Pulse Oximetry 96 06/06/20 09:59 Oxygen Delivery Method Room Air 06/06/20 09:59 Oxygen Flow Rate 0 06/06/20 09:59 Pain Level 5 06/06/20 09:59 Lab/Test Results Lab/Test Results: 06/06/20 10:56 Tonsil - Left Streptococcus Screen (ELPIDIO) - Pending Laboratory Tests Range/Units 06/06/20 06/06/20 10:15 10:27 WBC (4.4-10.8) 10^3/uL 4.38 L RBC (3.93-5.22) 10^6/uL 4.68 Hgb (11.2-15.7) g/dL 14.3 Hct (36.0-46.0) % 44.2 MCV (80-95) fL 94.4 MCH (27.0-33.0) pg 30.6 MCHC (32.0-36.0) % 32.4 RDW (11.7-14.6) % 12.5 Plt Count (130-400) 10^3/uL 243 MPV (8.0-11.0) fL 9.5 Immature Gran % 0.5 Neutrophils % 58.4 Lymphocytes % 26.7 Monocytes % 11.9 Eosinophils % 1.8 Basophils % 0.7 Nucleated RBC % % 0 Absolute Neutrophils (1.2-6.7) 10^3/uL 2.56 Absolute Lymphocytes (1.2-3.4) 10^3/uL 1.17 L Absolute Monocytes (0.1-0.8) 10^3/uL 0.52 Absolute Eosinophils (0.0-0.7) 10^3/uL 0.08 Absolute Basophils (0.0-0.2) 10^3/uL 0.03 COVID-19 PCR Cancelled Nasopharyn COVID-19 PCR Cancelled Ref Test Perform Site Cancelled POC Strep Test-JOAN(Rapid) Start: 06/06/20 10:18 Freq: .Rapid Strep Test Status: Active Protocol: Document 06/06/20 10:55 (Rec: 06/06/20 10:56 [id number]) Strep test-JOAN(Rapid)-POC POC-Strep test-JOAN (Rapid) Negative POC-Strep test-JOAN (Rapid) Negative
[2020-06-06 11:25] LABS: ALT 37 U/L (14-59); AST 30 U/L (15-37); Albumin 3.6 g/dL (3.4-5.0); Alkaline Phosphatase 155 U/L (46-116); Anion Gap 7.8 mmol/L (3-11); BUN 9 mg/dL (7-18); CO2 28.2 mmol/L (21.0-32.0); CREATININE 0.64 mg/dL (0.55-1.02); Calcium 8.8 mg/dL (8.5-10.1); Chloride 104 mmol/L (98-107); Glucose 134 mg/dL (74-106); Sodium 140 mmol/L (136-145); Total Protein 7.8 g/dL (6.4-8.2)
[2020-06-06 11:45] VITALS: BP 151/73; PULSE 79; RESP 18; TEMP 36.7; O2SAT 98
[2020-06-08 05:50] LABS: SARS-CoV-2 RNA Undetected (Undetected); SARS-CoV-2 Specimen Source Nasopharynx
--- NOTE | 2020-06-08 09:06 | NUR.NOTE ---
message left for pt to call regarding test results Nursing Note:
== END 2020-06-06 12:00 | disposition home or self-care (01) ==
PROVIDERS: Emergency Provider Student in an Organized Health Care Education/Training Program; PCP Nurse Practitioner Family
DX: J06.9 Acute upper respiratory infection, unspecified (principal); Z03.818 Encounter for observation for suspected exposure to other biological agents ruled out; I10 Essential (primary) hypertension; E11.42 Type 2 diabetes mellitus with diabetic polyneuropathy; Z79.84 Long term (current) use of oral hypoglycemic drugs
CPT/HCPCS: 80053; 87880; 99282; U0003; 85025; 87081

== ENCOUNTER 2021-01-04 09:11 | Emergency (ER) | payer OTHER, SELFPAY ==
[2021-01-04] VITALS (22 sets, daily range): BP systolic 134–189; BP diastolic 65–99; PULSE 70–90; RESP 16; TEMP 36.4; O2SAT 97–100
--- NOTE | 2021-01-04 09:45 | RT.EKG_ITS ---
APPROVED REPORT Exam: Resting ECG Patient Location: E HR:74 bpm ECG Measurements Heart Rate 74 AXIS VT 178 P 20 QRSd 74 QRS 8 QT 387 T 14 QTc 432 Conclusion Sinus rhythm...normal P axis, V-rate 60- 99 Low voltage, precordial leads...precordial leads <1.0mV
[2021-01-04 10:05] LABS: Abs Immature Grans 0.02 10^3/uL (0.0-0.06); Absolute Basophil Count 0.05 10^3/uL (0.0-0.2); Absolute Lymphocyte Count 1.45 10^3/uL (1.2-3.4); Absolute Monocyte Count 0.35 10^3/uL (0.1-0.8); Absolute Neutrophil Count 2.33 10^3/uL (1.2-6.7); Basophils % 1.1; Eosinophils % 4.5; HCT 40.4 % (36.0-46.0); HGB 13.3 g/dL (11.2-15.7); Immature Grans % 0.5; MCH 30.9 pg (27.0-33.0); MCHC 32.9 % (32.0-36.0); MPV 9.3 fL (8.0-11.0); Neutrophils % 52.9; Nucleated RBC 0 %; Platelet Count 248 10^3/uL (130-400); RDW 12.7 % (11.7-14.6); RDW-SD 43.9 fL
--- NOTE | 2021-01-04 10:07 | W.ED.GENAD ---
Discharge Plan Disposition Patient Disposition: HOME Condition: Stable Discharge Details Clinical Impression: Pleuritic chest pain Primary Care Provider: Kia Hassan ED Provider: Johnathon Altamirano Home Meds and New Rx's Prescriptions: Continued pregabalin [Lyrica] 50 mg capsule 50 mg PO BID Qty: 60 RF: 0 cyanocobalamin (vitamin B-12) 1,000 mcg capsule 1,000 mcg PO DAILY RF: 0 cholecalciferol (vitamin D3) 1,000 unit capsule 1,000 unit PO DAILY RF: 0 lisinopril 5 mg tablet 5 mg PO DAILY Qty: 90 RF: 3 meclizine 25 mg tablet,chewable 25 mg PO TID PRN (Reason: dizziness) Qty: 60 RF: 3 ibuprofen 600 MG tablet 600 mg PO TID PRNQty: 90 RF: 0 sertraline 25 MG tablet 25 mg PO DAILY Qty: 90 RF: 3 metformin 850 MG tablet 850 mg PO BID Qty: 180 RF: 3 pantoprazole 40 MG tablet,delayed release (DR/EC) 40 mg PO DAILY AM Qty: 90 RF: 3 atorvastatin 40 MG tablet 60 mg PO DAILY Qty: 135 RF: 3 bupropion HCl 300 MG tablet extended release 24 hr 300 mg PO DAILY Qty: 90 RF: 3 PROVENTIL HFA 18 GM HFA.AER.AD 2 puff Inhalation Q4H PRN Qty: 1 RF: 2 nitroglycerin 0.4 mg tablet, sublingual 0.4 mg Sublingual Q5M PRN (Reason: chest pain) Qty: 25 RF: 5 nystatin 100,000 unit/gram powder 1 applic TP TID Qty: 30 RF: 0 aspirin 81 MG tablet,chewable 81 mg CH DAILY RF: 0 cetirizine [Zyrtec] 10 mg tablet 10 mg PO DAILY PRNRF: 0 nystatin 100,000 unit/gram Powder 60 g Topical BID PRNQty: 0 RF: 0 Discharge Instructions Instructions: Chest Pain (ED) Additional Instructions: Please take ibuprofen over the counter. Take 600mg by mouth every 6 hours as needed for pain over the next 3 days. Please take acetaminophen (tylenol) - 650mg every 6 hours by mouth as needed for pain. Please contact your primary care physician to arrange follow-up. Return to the ER for any worsening or new concerning symptoms. Referrals: Kia Hassan [Primary Care Provider] - Discharge Data Discharge Date/Time-TO BE ENTERED AT DEPARTURE: 01/04/21 13:24 Medical Decision Making 1015?60-year-old female with history of diabetes, hypertension, here with pleuritic chest pain that started 2 days ago and has persisted. Patient saturating well in no respiratory distress. Lungs are clear to auscultation bilaterally. She does have elevated blood pressure today. Consider acute life-threatening pulmonary embolism versus pneumothorax versus musculoskeletal etiology. Plan to obtain CT of the chest. Screening ECG was reviewed and interpreted by me: Please see report, sinus rhythm 74 bpm, no STEMI, ECG is nondiagnostic. Presentation is not consistent with typical ACS but will send troponin. 1311 --CT of the chest was interpreted by radiology: IMPRESSION: 1. Suboptimal bolus contrast injection. No obvious pulmonary emboli. No evidence of pulmonary infarction.. 2. No pulmonary infiltrates nor pleural effusions. No intrathoracic adenopathy. Sign rib I spoke to Dr. Ta who noted he was sending studies to [facility] for second opinion given contrast limitation. Dr. Ta called back emergency department and noted CT was negative after reviewed by [facility]. Results were reviewed with the patient. Plan for outpatient follow-up. Suspect musculoskeletal etiology. Disposition decision was made weighing the risks and benefits of hospitalization versus outpatient treatment, the risk for further decompensation, and the patient's wishes. The patient was stable and requested discharge. Prior to discharge, my usual and customary return precautions were reviewed with the patient - this included follow-up instructions and reason to return to the emergency department if condition worsens, does not improve as expected, or other new concerns arise. HPI General Mode of arrival: ambulatory. Date/Time Provider Initiated Documentation: 01/04/21 09:48. Limitations to Documentation: no limitations. Information obtained by: patient. HPI Narrative: 50-year-old female with history of hypertension, diabetes, obesity, here with chief complaint of chest pain. Patient notes pleuritic left posterior chest pain persistent over the past 2 days. Pain is only present when she takes a deep breath. Pain is moderate. Sharp. No associated shortness of breath. No associated leg swelling or calf pain. No associated nausea or diaphoresis. Related Data Home Medications Medication Instructions Recorded Confirmed aspirin 81 mg CH DAILY 12/15/12 01/04/21 ibuprofen 600 mg PO TID PRN #90 tab 01/20/18 01/04/21 sertraline 25 mg PO DAILY #90 tab 02/10/18 01/04/21 metformin 850 mg PO BID #180 tab-cap 05/20/18 01/04/21 pantoprazole 40 mg PO DAILY AM #90 tab-cap 05/28/18 01/04/21 atorvastatin 60 mg PO DAILY #135 tab-cap 06/10/18 01/04/21 bupropion HCl 300 mg PO DAILY #90 tab-cap 06/10/18 01/04/21 nitroglycerin 0.4 mg sublingual 0.4 mg SUBLINGUAL Q5M PRN #25 07/31/18 01/04/21 tablet tab-cap cholecalciferol (vitamin D3) 25 1,000 unit PO DAILY 10/28/18 01/04/21 mcg (1,000 unit) capsule cyanocobalamin (vitamin B-12) 1,000 mcg PO DAILY 10/28/18 01/04/21 1,000 mcg capsule lisinopril 5 mg tablet 5 mg PO DAILY #90 tab-cap 11/12/18 01/04/21 meclizine 25 mg chewable tablet 25 mg PO TID PRN #60 tab-cap 11/12/18 01/04/21 pregabalin 50 mg capsule 50 mg PO BID #60 cap 12/09/18 01/04/21 nystatin 60 g TOPICAL BID PRN #0 g 05/22/19 01/04/21 nystatin 100,000 unit/gram topical 1 applic TP TID #30 gm 07/02/19 01/04/21 powder cetirizine [Zyrtec] 10 mg PO DAILY PRN 05/18/20 06/06/20 Previous Rx's Medication Instructions Recorded sertraline 25 mg PO DAILY #90 tab 02/10/18 metformin 850 mg PO BID #180 tab-cap 05/20/18 pantoprazole 40 mg PO DAILY AM #90 tab-cap 05/28/18 atorvastatin 60 mg PO DAILY #135 tab-cap 06/10/18 bupropion HCl 300 mg PO DAILY #90 tab-cap 06/10/18 nitroglycerin 0.4 mg sublingual 0.4 mg SUBLINGUAL Q5M PRN #25 07/31/18 tablet tab-cap lisinopril 5 mg tablet 5 mg PO DAILY #90 tab-cap 11/12/18 meclizine 25 mg chewable tablet 25 mg PO TID PRN #60 tab-cap 11/12/18 pregabalin 50 mg capsule 50 mg PO BID #60 cap 12/09/18 nystatin 60 g TOPICAL BID PRN #0 g 05/22/19 nystatin 100,000 unit/gram topical 1 applic TP TID #30 gm 07/02/19 powder Allergies Allergy/AdvReac Type Severity Reaction Status Date / Time Latex, Natural Rubber Allergy Intermediate Skin Rash Verified 01/04/21 09:20 silicone Allergy Intermediate Rash Verified 01/04/21 09:20 oxycodone AdvReac Intermediate SICK TO Verified 01/04/21 09:20 STOMACH General Stated Complaint: Nk/Back Pain RISHABH: 3 Review of Systems All systems reviewed & are unremarkable except as noted in HPI and below Constitutional Constitutional: Denies fever(s) Cardiovascular Cardiovascular: Reports as per HPI Respiratory Respiratory: Reports as per HPI [facility] Medical History (Updated 01/04/21 @ 13:13 by Johnathon Altamirano MD) Adult BMI > 30 Anxiety disorder Asthma Asthma Atypical squamous cells of undetermined significance (ASC-US) on cervical Pap smear (07/30/16) Chronic hypertension Depressive disorder (05/02/12) Diabetic peripheral neuropathy associated with type 2 diabetes mellitus GERD (gastroesophageal reflux disease) HTN (hypertension) Hyperlipidemia (11/29/11) LIPITOR 80MG CAUSED MUSCLE CRAMPS, 40MG NOT AT GOAL, TRYING 60MG 02/2013 Morbid obesity with body mass index of 40.0-49.9 Osteoarthritis of knee (07/21/14) Papanicolaou smear of cervix with positive high risk human papilloma virus (HPV) test (07/30/16) Recurrent UTI (10/01/17) Type 2 diabetes mellitus Type II diabetes mellitus with neurological manifestations HbA1c goal 7 12/15/[address] Naresh Cooper Surgical History section (~1980) Cholecystectomy Extraction of cataract B/L History of surgery 1980. Lap cholecystectomy iin [place] 2004. Left TKA iun Jun 2010 Bilateral cataract extraction and rell implantation. History of total bilateral knee replacement (TKR) bilateral Hysterectomy, Total Laparoscopic 2017 S/P colonoscopy 05/26/19 Status post total knee replacement using cement (07/21/14) Family History Mother Neoplasm Stroke Father , [place] Myocardial infarction Social History Smoking/Tobacco Use Status: Never Smoking risk assessment performed?: Yes Alcohol Intake: current Alcohol Intake frequency: holidays/special occasions only Alcohol type: wine Drug use: Never Substance use type: does not use Household members: spouse, children and other Number of Children: 1 number of grandchildren: 2 Seatbelt use: always Do you feel safe at home: Yes Do you feel safe in your relationship?: Yes History History 1 Para 1 Hx # Term Pregnancies 1 Multiple births Hx # Pregnancies Ectopic pregnancies AB induced Hx Number of Living Children AB spontaneous Exam Const General: cooperative and no acute distress HENMT Mouth: moist mucous membranes Eyes Conjunctivae: normal conjunctivae Sclera: normal sclerae Neck Neck: trachea midline and supple Resp Auscultation: clear to auscultation bilaterally, no rales, no rhonchi and no wheezes Cardio Rate: regular rate and not tachycardic Rhythm: regular rhythm GI Palpation: soft, not firm, no guarding, no masses, not rigid and nontender Skin General skin exam: no rashes or lesions noted Neuro General: patient alert, patient awake, patient oriented x3 and tone normal Extrem General: no calf tenderness and no edema Psych Appearance: grossly normal Mental Status: mental status grossly normal Speech and Movement: speech and movement normal Course Vital Signs Vital signs: Vital Signs Temperature 36.4 C L 01/04/21 09:17 Pulse 90 01/04/21 09:17 Respiratory Rate 16 01/04/21 09:17 Blood Pressure 175/99 H 01/04/21 09:17 Pulse Oximetry 98 01/04/21 09:17 Temperature 36.4 C L 01/04/21 09:17 Temperature Source Skin 01/04/21 09:17 Pulse 90 01/04/21 09:17 Respiratory Rate 16 01/04/21 09:17 Respiratory Effort Non-Labored 01/04/21 09:17 Blood Pressure 175/99 H 01/04/21 09:17 Blood Pressure Position Sitting 01/04/21 09:17 Pulse Oximetry 98 01/04/21 09:17 Pain Level 8 01/04/21 09:24 Lab/Test Results Lab/Test Results: Laboratory Tests Range/Units 01/04/21 10:00 WBC (4.4-10.8) 10^3/uL 4.40 RBC (3.93-5.22) 10^6/uL 4.30 Hgb (11.2-15.7) g/dL 13.3 Hct (36.0-46.0) % 40.4 MCV (80-95) fL 94.0 MCH (27.0-33.0) pg 30.9 MCHC (32.0-36.0) % 32.9 RDW (11.7-14.6) % 12.7 Plt Count (130-400) 10^3/uL 248 MPV (8.0-11.0) fL 9.3 Immature Gran % 0.5 Neutrophils % 52.9 Lymphocytes % 33.0 Monocytes % 8.0 Eosinophils % 4.5 Basophils % 1.1 Nucleated RBC % % 0 Absolute Neutrophils (1.2-6.7) 10^3/uL 2.33 Absolute Lymphocytes (1.2-3.4) 10^3/uL 1.45 Absolute Monocytes (0.1-0.8) 10^3/uL 0.35 Absolute Eosinophils (0.0-0.7) 10^3/uL 0.20 Absolute Basophils (0.0-0.2) 10^3/uL 0.05
[2021-01-04 10:27] LABS: ALT 33 U/L (14-59); AST 23 U/L (15-37); Albumin 3.2 g/dL (3.4-5.0); Alkaline Phosphatase 176 U/L (46-116); Anion Gap 8.5 mmol/L (3-11); BUN 16 mg/dL (7-18); Bilirubin, Total 0.7 mg/dL (0.2-1.0); CO2 25.5 mmol/L (21.0-32.0); CREATININE 0.7 mg/dL (0.55-1.02); Calcium 8.6 mg/dL (8.5-10.1); Chloride 106 mmol/L (98-107); Glucose 159 mg/dL (74-106); Magnesium 1.9 mg/dL (1.8-2.4); Potassium 3.9 mmol/L (3.5-5.1); Sodium 140 mmol/L (136-145); Total Protein 7.4 g/dL (6.4-8.2)
[2021-01-04 10:28] LABS: Troponin I < 0.05 ng/mL (<0.06)
[2021-01-04] MEDS: Normal Saline - Diluent 50 ML VIAL IV (10:55)
[2021-01-04] MEDS: Omnipaque 350 MG/ML 100 ML BTL IJ (10:56)
--- NOTE | 2021-01-04 10:58 | DI.CT_ITS ---
EXAM: CT CHEST PE CTA CLINICAL HISTORY: pleuritic chest pain left since yesterday. TECHNIQUE: Imaging Protocol: CT angiography of the chest was performed using pulmonary embolus danny col. Multi planar reconstructions were performed. CONTRAST MATERIAL: Intravenous: Omnipaque 350 Contrast volume: 100 cc COMPARISON: CT CT CHEST PE CTA from 12/25/2019 FINDINGS: CHEST: PULMONARY ARTERIES: Suboptimal injection. However, there are no obvious intraluminal filling defects to suggest acute pulmonary emboli. LUNGS: There are no infiltrates nor evidence of pulmonary infarction.. There are no pleural effusions . MEDIASTINUM: There is no hilar nor mediastinal adenopathy. Visualized thyroid unremarkable. CARDIAC: Heart size is normal. There is no pericardial effusion.Caliber thoracic aorta is within nor mal limits. The left vertebral artery is noted to be originating as an independent vessel off of the aortic arch in this patient.. No evidence of aortic dissection. There is no evidence of shift of the interventricular septum. PARTIALLY VISUALIZED UPPERMOST ABDOMEN: No obvious findings OSSEOUS: No significant osseous lesions.. IMPRESSION: 1. Suboptimal bolus contrast injection. No obvious pulmonary emboli. No evidence of pulmonary infarct ion.. 2. No pulmonary infiltrates nor pleural effusions. No intrathoracic adenopathy. Sign rib RADIATION DOSE DELIVERED: LINK-TO-SR Total DLP DATA REPOSITORY: All CT scans at this facility are submitted to the National Radiology Data Registry (NRDR) Dose Index Registry (DIR) with the [employer] (ACR). RADIATION OPTIMIZATION: All CT scans at this facility use at least one of these dose optimization te chniques: automated exposure control; mA and/or kV adjustment per patient size (includes targeted exa ms where dose is matched to clinical indication); or iterative reconstruction.
--- NOTE | 2021-01-04 12:14 | DI.VRAD_ITS ---
PROCEDURE INFORMATION: Exam: CT Angiography Chest With Contrast Exam date and time: 01/04/2021 10:55 AM Age: 60 years old Clinical indication: Patient HX: Chest pain with SOB, left thoracic pain upon breathing. TECHNIQUE: Imaging protocol: Computed tomographic angiography of the chest with contrast. 3D rendering (Not supervised by radiologist): MIP and/or 3D reconstructed images were created by the technologist. Radiation optimization: All CT scans at this facility use at least one of these dose optimization techniques: automated exposure control; mA and/or kV adjustment per patient size (includes targeted exams where dose is matched to clinical indication); or iterative reconstruction. Contrast material: OMNIPAQUE 350; Contrast volume: 100 ml; Contrast route: INTRAVENOUS (IV); COMPARISON: CT CHEST PE CTA 12/25/2019 2:42 PM FINDINGS: Pulmonary arteries: No pulmonary emboli. Aorta: No aortic aneurysm. No aortic dissection. Lungs: Unremarkable. No consolidation. No masses. Pleural spaces: Unremarkable. No pneumothorax. No pleural effusion. Heart: No cardiomegaly. No pericardial effusion. Lymph nodes: No significant adenopathy. Bones/joints: No acute findings. Soft tissues: Unremarkable. IMPRESSION: No acute findings. Dictated and Authenticated by: Alex Jacob MD. Ordering:WILLIE Diego MD
== END 2021-01-04 13:24 | disposition home or self-care (01) ==
PROVIDERS: Emergency Provider Student in an Organized Health Care Education/Training Program; PCP Nurse Practitioner Family
DX: R07.1 Chest pain on breathing (principal)
CPT/HCPCS: 71275; 80053; 93005; 99285; 83735; 84484; 85025; 93010; 99283; J3490

== ENCOUNTER 2021-04-21 13:30 | Outpatient (REF) | payer MEDICAID, SELFPAY ==
[2021-04-21 15:49] LABS: Abs Immature Grans 0.04 10^3/uL (0.0-0.06); Absolute Basophil Count 0.05 10^3/uL (0.0-0.2); Absolute Eosinophil Count 0.44 10^3/uL (0.0-0.7); Absolute Lymphocyte Count 1.64 10^3/uL (1.2-3.4); Absolute Monocyte Count 0.44 10^3/uL (0.1-0.8); Eosinophils % 8.8; HGB 13.8 g/dL (11.2-15.7); Immature Grans % 0.8; Lymphocytes % 32.7; MCH 30.3 pg (27.0-33.0); MCHC 32.1 % (32.0-36.0); MCV 94.5 fL (80-95); MPV 9.6 fL (8.0-11.0); Monocytes % 8.8; Neutrophils % 47.9; Nucleated RBC 0 %; Platelet Count 281 10^3/uL (130-400); RBC 4.55 10^6/uL (3.93-5.22); RDW 12.7 % (11.7-14.6); RDW-SD 44.1 fL; WBC 5.01 10^3/uL (4.4-10.8)
[2021-04-21 15:53] LABS: Bilirubin Negative (Negative); Blood Negative (Negative); Clarity Clear (Clear); Glucose Negative (Negative); Ketones Negative (Negative); Leukocyte Esterase Small (Negative); Nitrite Negative (Negative)
[2021-04-21 16:07] LABS: Bacteria Few HPF (Negative); C & S Indicated? Yes; Casts Negative LPF (Negative); Crystals Negative HPF (Negative); Epithelial Cells Negative HPF (Negative); Mucus Negative (Negative); RBC 0-2 HPF (0-2)
[2021-04-21 16:14] LABS: ALT 53 U/L (14-59); AST 41 U/L (15-37); Albumin 3.7 g/dL (3.4-5.0); Alkaline Phosphatase 178 U/L (46-116); Anion Gap 10.4 mmol/L (3-11); BUN 10 mg/dL (7-18); Bilirubin, Total 1.1 mg/dL (0.2-1.0); CO2 26.6 mmol/L (21.0-32.0); CREATININE 0.8 mg/dL (0.55-1.02); Calcium 9.1 mg/dL (8.5-10.1); Chloride 106 mmol/L (98-107); Glucose 124 mg/dL (74-106); Potassium 4.6 mmol/L (3.5-5.1); Sodium 143 mmol/L (136-145); Total Protein 7.1 g/dL (6.4-8.2)
== END 2021-04-21 13:31 | disposition home or self-care (01) ==
LOC: LBN 13:30
PROVIDERS: PCP Nurse Practitioner Family; Visit Provider Physician Assistant Medical
DX: R23.3 Spontaneous ecchymoses (principal); R82.998 Other abnormal findings in urine
CPT/HCPCS: 80053; 81003; 81015; 85025; 87086

== ENCOUNTER 2021-05-09 03:38 | Outpatient (CLI) | payer MEDICAID, SELFPAY ==
[2021-05-09 12:26] LABS: Bilirubin Negative (Negative); Blood Negative (Negative); Clarity Clear (Clear); Glucose Negative (Negative); Ketones Negative (Negative); Leukocyte Esterase Negative (Negative); Nitrite Negative (Negative); Specific Gravity 1.015 (1.005-1.025); pH 6.5 (5-8)
[2021-05-09 12:32] LABS: Abs Immature Grans 0.04 10^3/uL (0.0-0.06); Absolute Basophil Count 0.06 10^3/uL (0.0-0.2); Absolute Eosinophil Count 0.35 10^3/uL (0.0-0.7); Absolute Monocyte Count 0.46 10^3/uL (0.1-0.8); Absolute Neutrophil Count 2.63 10^3/uL (1.2-6.7); Basophils % 1.1; Eosinophils % 6.7; HCT 42.4 % (36.0-46.0); HGB 13.9 g/dL (11.2-15.7); Immature Grans % 0.8; Lymphocytes % 32.4; MCH 30.6 pg (27.0-33.0); MCHC 32.8 % (32.0-36.0); MCV 93.4 fL (80-95); MPV 8.8 fL (8.0-11.0); Monocytes % 8.8; Neutrophils % 50.2; Nucleated RBC 0 %; Platelet Count 300 10^3/uL (130-400); RBC 4.54 10^6/uL (3.93-5.22); RDW 12.3 % (11.7-14.6); RDW-SD 42.5 fL; WBC 5.24 10^3/uL (4.4-10.8)
[2021-05-09 13:34] LABS: Albumin 3.6 g/dL (3.4-5.0); BUN 8 mg/dL (7-18); CREATININE 0.8 mg/dL (0.55-1.02); Calcium 8.7 mg/dL (8.5-10.1); Glucose 129 mg/dL (74-106); Total Protein 7.3 g/dL (6.4-8.2)
[2021-05-09 13:35] LABS: ALT 45 U/L (14-59); AST 31 U/L (15-37); Alkaline Phosphatase 204 U/L (46-116); Anion Gap 8.6 mmol/L (3-11); Bilirubin, Total 0.8 mg/dL (0.2-1.0); CO2 27.4 mmol/L (21.0-32.0); Chloride 105 mmol/L (98-107); Potassium 4.3 mmol/L (3.5-5.1); Sodium 141 mmol/L (136-145)
== END 2021-05-09 03:39 | disposition home or self-care (01) ==
PROVIDERS: PCP Nurse Practitioner Family; Visit Provider Physician Assistant Medical
DX: R23.3 Spontaneous ecchymoses (principal); R82.998 Other abnormal findings in urine
CPT/HCPCS: 36415; 80053; 81003; 85025

== ENCOUNTER 2021-06-21 02:00 | Outpatient (CLI) | payer MEDICAID, SELFPAY ==
--- NOTE | 2021-06-21 | DI.US_ITS ---
Exam(s) US ABDOMEN EXAM: US ABDOMEN CLINICAL HISTORY: ELEVATED LIVER FUNCTION TESTS,R94.5 TECHNIQUE: Ultrasound of complete upper abdomen performed using standard protocol. COMPARISON: Prior chest CT scans were reviewed FINDINGS: There is no ascites evident. LIVER: Liver is hyperechoic indicating steatosis. No obvious discrete focal hepatic lesions identifi ed GALLBLADDER/BILIARY: Gallbladder surgically absent. The common hepatic duct isslightly dilated, measuring 7mm at the level of hanane hepatis. PANCREAS: There is no evidence of pancreatic mass nor dilatation of the pancreatic duct. SPLEEN: The spleen is not enlarged and there are no intrasplenic lesions evident. KIDNEYS:Kidneys exhibit normal size with no evidence of solid mass, calculus, nor hydronephrosis. No cortical cysts evident. ABDOMINAL AORTA: Not visualized due to overlying bowel gas. IVC: Not well visualized due to overlying bowel gas. IMPRESSION: 1. The gallbladder surgically absent. Common hepatic duct is slightly prominent in size, probably r elated to post cholecystectomy status 2. Hepatic steatosis. Correlation with appropriate hepatic blood work is recommended 3. There is no ascites. IVC and aorta were not able to be visualized on this study. DATA REPOSITORY:
== END 2021-06-21 02:20 ==
PROVIDERS: PCP Physician Assistant; Visit Provider Physician Assistant
DX: R94.5 Abnormal results of liver function studies (principal); Z90.49 Acquired absence of other specified parts of digestive tract; K76.0 Fatty (change of) liver, not elsewhere classified
CPT/HCPCS: 76700

== ENCOUNTER 2021-11-14 20:17 | Outpatient (REF) | payer MEDICAID, SELFPAY ==
[2021-11-14 16:35] LABS: Hemoglobin A1C 8.5 % (<5.7)
[2021-11-14 16:41] LABS: ALT 38 U/L (14-59); AST 26 U/L (15-37); Albumin 3.6 g/dL (3.4-5.0); Alkaline Phosphatase 187 U/L (46-116); Anion Gap 8.6 mmol/L (3-11); BUN 15 mg/dL (7-18); Bilirubin, Total 1.5 mg/dL (0.2-1.0); CO2 27.4 mmol/L (21.0-32.0); CREATININE 0.9 mg/dL (0.55-1.02); Calcium 8.7 mg/dL (8.5-10.1); Calculated LDL 115 mg/dL (<100); Chloride 102 mmol/L (98-107); Cholesterol 195 mg/dL (<200); Glucose 184 mg/dL (74-106); HDL Cholesterol 50 mg/dL (40-60); Potassium 4.1 mmol/L (3.5-5.1); Sodium 138 mmol/L (136-145); Total Protein 7.4 g/dL (6.4-8.2); Triglyceride 151 mg/dL (<150)
== END 2021-11-14 20:18 | disposition home or self-care (01) ==
LOC: NCHCN 20:17
PROVIDERS: PCP Physician Assistant; Visit Provider Physician Assistant
DX: E78.5 Hyperlipidemia, unspecified (principal); E11.9 Type 2 diabetes mellitus without complications
CPT/HCPCS: 80053; 80061; 83036

== ENCOUNTER 2021-12-09 10:50 | Emergency (ER) | payer MEDICAID, SELFPAY ==
[2021-12-09 11:08] VITALS: BP 158/99; PULSE 103; RESP 14; TEMP 36.4; O2SAT 97
--- NOTE | 2021-12-09 11:15 | DI.CT_ITS ---
Exam(s) CT THORACIC SPINE RECONS CT CHEST WO EXAM: CT CHEST WO and CT thoracic spine recons CLINICAL HISTORY: chest pain post fall, anterior and posterior. TECHNIQUE: Imaging protocol: Axial computed tomography images were obtained and coronal and sagittal reformatted images were created and reviewed. COMPARISON: CT CT CHEST PE CTA from 01/04/2021 FINDINGS: Tracheobronchial tree: Patent where visualized. Pulmonary parenchyma: No consolidation or dominant measurable mass. No architectural distortion. Mediastinum and Snow: No dominant adenopathy or fluid collection. The esophagus is unremarkable.Small hiatal hernia. Thyroid gland: Unremarkable. Pleura: No effusion or pneumothorax. Heart: The heart is not dilated. No coronary artery calcifications are seen. No pericardial effusion. Aorta: Thoracic aorta non-dilated. Atherosclerosis. Upper abdomen: Status post cholecystectomy. Diffuse fatty infiltration of the liver. Lymph nodes: Within normal limits. Soft tissues: Unremarkable. Bones:Within normal limits for the patient's age. CT reconstructions of the thoracic spine: No acute fractures or subluxations are seen in the thoracic spine. Degenerative changes are seen throughout the thoracic spine. IMPRESSION: 1. No acute pulmonary process. 2. No acute fractures or subluxations in the thoracic spine. RADIATION DOSE DELIVERED: Total DLP Total DLP Total DLP DATA REPOSITORY: All CT scans at this facility are submitted to the National Radiology Data Registry (NRDR) Dose Index Registry (DIR) with the [employer] (ACR). RADIATION OPTIMIZATION: All CT scans at this facility use at least one of these dose optimization te chniques: automated exposure control; mA and/or kV adjustment per patient size (includes targeted exa ms where dose is matched to clinical indication); or iterative reconstruction.
--- NOTE | 2021-12-09 11:15 | DI.CT_ITS ---
Exam(s) CT HEAD CERVICAL SPINE WO EXAM: CT HEAD CERVICAL SPINE WO CLINICAL HISTORY: fall, c6-7 pain. TECHNIQUE: Imaging Protocol: Axial computed tomography images with coronal and sagittal reformatted images were created and reviewed COMPARISON: No exams were available for comparison FINDINGS: CT Head: Ventricles and Extra axial spaces: Normal in size and morphology for the patient's age. Hemorrhage: None. Cerebral parenchyma: No acute territorial infarct. There are areas of decreased attenuation in the w kylah matter most consistent with small vessel ischemic disease. Midline shift: None. Brainstem/Cerebellum: Normal. Calvarium: Normal. Visualized Paranasal sinuses/Mastoids: There is a mucous retention cyst or polyp in the right maxilla ry sinus. The remaining visualized paranasal sinuses and mastoid air cells are clear. Soft Tissues: Unremarkable. CT Cervical Spine: Bones: No acute fracture or subluxation. Degenerative changes are seen in the spine. There is straig htening of the normal cervical lordosis. This may be due to muscle spasm or patient positioning. Soft Tissues: Unremarkable. Lung Apices: Clear. IMPRESSION: 1. No acute intracranial process. 2. No acute fracture or subluxation in the cervical spine. RADIATION DOSE DELIVERED: 1,308.64mGy.cm Total DLP DATA REPOSITORY: All CT scans at this facility are submitted to the National Radiology Data Registry (NRDR) Dose Index Registry (DIR) with the [employer] (ACR). RADIATION OPTIMIZATION: All CT scans at this facility use at least one of these dose optimization te chniques: automated exposure control; mA and/or kV adjustment per patient size (includes targeted exa ms where dose is matched to clinical indication); or iterative reconstruction.
[2021-12-09] MEDS: Cyclobenzaprine 10 MG TAB 5 MG PO (11:33)
[2021-12-09] MEDS: Acetaminophen 325 MG TAB 650 MG PO (11:33)
--- NOTE | 2021-12-09 12:30 | RT.EKG_ITS ---
APPROVED REPORT Exam: Resting ECG Reason for Exam: chest pain Patient Location: E HR:94 bpm ECG Measurements Heart Rate 94 AXIS CA 154 P 31 QRSd 91 QRS 0 QT 376 T 32 QTc 471 Conclusion Sinus rhythm...normal P axis, V-rate 60- 99 normal sinus rhythm, normal axis, non ischemic
--- NOTE | 2021-12-09 12:34 | DI.VRAD_ITS ---
PROCEDURE INFORMATION: Exam: CT Head Without Contrast Exam date and time: 12/09/2021 11:28 AM Age: 61 years old Clinical indication: Other: Fall, c6-c7 pain TECHNIQUE: Imaging protocol: Computed tomography of the head without contrast. Radiation optimization: All CT scans at this facility use at least one of these dose optimization techniques: automated exposure control; mA and/or kV adjustment per patient size (includes targeted exams where dose is matched to clinical indication); or iterative reconstruction. COMPARISON: No relevant prior studies available. FINDINGS: Brain: There is mild ventricular and cortical sulcal prominence consistent with mild central and cortical atrophy. There is no acute hemorrhage mass or shift.There is some nonspecific low attenuation involving the periventricular and subcortical white matter likely representing remote small vessel ischemic change/microangiopathy. There is no evidence of an acute cortical or major vascular territory infarct. No abnormal extra-axial collections are identified. Cerebral ventricles: Mild ventricular prominence likely central atrophy Paranasal sinuses: Small retention cyst inferiorly in the right maxillary antrum. No other significant sinus opacification or fluid level Mastoid air cells: No significant mastoid or middle ear opacification Orbital cavity: No significant orbital abnormality Bones/joints: No acute bony abnormality is identified Soft tissues: Subcutaneous soft tissues are unremarkable IMPRESSION: No acute intracranial findings. PROCEDURE INFORMATION: Exam: CT Cervical Spine Without Contrast Exam date and time: 12/09/2021 11:28 AM Age: 61 years old Clinical indication: Other: Fall, c6-c7 pain TECHNIQUE: Imaging protocol: Computed tomography images of the cervical spine without contrast. Radiation optimization: All CT scans at this facility use at least one of these dose optimization techniques: automated exposure control; mA and/or kV adjustment per patient size (includes targeted exams where dose is matched to clinical indication); or iterative reconstruction. COMPARISON: No relevant prior studies available. FINDINGS: Bones/joints: There is straightening of the cervical lordosis which may be positional or due to spasm. There is no evidence of an acute fracture in the cervical spine. There is no decrease of vertebral body height. There is no acute or destructive bony abnormality Discs/Spinal canal/Neural foramina: There is disc space narrowing in the cervical spine. This is present at multiple levels but appears most prominent at C5-C6, C6-C7, C7-T1. There are disc osteophyte complexes spondylitic changes of the endplates, uncovertebral and facet arthropathy. There is narrowing of the canal/stenosis most prominent at C5-C6. Degenerative changes lead to foraminal narrowing which appears most prominent at C5-C6, and is present to a lesser extent at C6-C7, C7-T1. Vacuum phenomenon is noted laterally on the right at C6-C7. Lungs: No significant abnormality is identified at the visualized lung apices. Soft tissues: There is no evidence of a discrete soft tissue mass in the neck. IMPRESSION: No acute fracture in the cervical spine. Findings consistent with cervical spondylosis, degenerative disc disease. Dictated and Authenticated by: Yisel Shields MD. Ordering:ALEXANDRE Moe MD
--- NOTE | 2021-12-09 12:38 | DI.VRAD_ITS ---
PROCEDURE INFORMATION: Exam: CT Chest Without Contrast; Diagnostic Exam date and time: 12/09/2021 11:28 AM Age: 61 years old Clinical indication: Other: Chest pain post fall, anterior and posterior TECHNIQUE: Imaging protocol: Diagnostic computed tomography of the chest without contrast. 3D rendering (Not supervised by radiologist): MIP and/or 3D reconstructed images were created by the technologist. Radiation optimization: All CT scans at this facility use at least one of these dose optimization techniques: automated exposure control; mA and/or kV adjustment per patient size (includes targeted exams where dose is matched to clinical indication); or iterative reconstruction. COMPARISON: CT CHEST PE CTA 01/04/2021 10:53 AM FINDINGS: Lungs: Unremarkable. No consolidation. No masses. Pleural spaces: Unremarkable. No pneumothorax. No pleural effusion. Heart: The heart is not enlarged. There is calcification of the coronary arteries. Aorta: Unremarkable. No aortic aneurysm. Lymph nodes: Unremarkable. No enlarged lymph nodes. Liver: Fatty liver. Gallbladder and bile ducts: Cholecystectomy. Normal bile ducts. Bones/joints: Chronic degenerative changes are present in the spine. No acute bony abnormality. Soft tissues: Unremarkable. IMPRESSION: No acute abnormalities are seen in the chest. Dictated and Authenticated by: Boogie Gallo MD. Ordering:ALEXANDRE Moe MD
--- NOTE | 2021-12-09 12:42 | DI.VRAD_ITS ---
PROCEDURE INFORMATION: Exam: CT Thoracic Spine Without Contrast Exam date and time: 12/09/2021 11:54 AM Age: 61 years old Clinical indication: Pain in thoracic spine; Patient HX: Fall, thoracic pain TECHNIQUE: Imaging protocol: Computed tomography images of the thoracic spine without contrast. Radiation optimization: All CT scans at this facility use at least one of these dose optimization techniques: automated exposure control; mA and/or kV adjustment per patient size (includes targeted exams where dose is matched to clinical indication); or iterative reconstruction. COMPARISON: CT HEAD CERVICAL SPINE WO 12/09/2021 11:52 AM FINDINGS: Vertebrae: Chronic degenerative changes are present with scattered sclerosis and osteophytes. acute fracture. Normal alignment. Discs/Spinal canal/Neural foramina: No significant disc protrusion. No severe spinal canal stenosis. No significant neural foraminal narrowing. Soft tissues: Unremarkable. IMPRESSION: No acute abnormality. Dictated and Authenticated by: Boogie Gallo MD. Ordering:ALEXANDRE Moe MD
--- NOTE | 2021-12-09 12:43 | ED.GENADUL_ITS ---
Discharge Plan Disposition Patient Disposition: HOME Condition: Stable Discharge Details Clinical Impression: Chest wall muscle strain Primary Care Provider: Foster Belle ED Provider: Payal Granda Home Meds and New Rx's Prescriptions: New cyclobenzaprine 5 mg tablet 5 mg PO TID PRNQty: 10 0RF Continued pregabalin [Lyrica] 50 mg capsule 50 mg PO BID Qty: 60 0RF cyanocobalamin (vitamin B-12) 1,000 mcg capsule 1,000 mcg PO DAILY 0RF cholecalciferol (vitamin D3) 1,000 unit capsule 1,000 unit PO DAILY 0RF lisinopril 5 mg tablet 5 mg PO DAILY Qty: 90 3RF meclizine 25 mg tablet,chewable 25 mg PO TID PRN (Reason: dizziness) Qty: 60 3RF ibuprofen 600 MG tablet 600 mg PO TID PRNQty: 90 0RF Rx Instructions: 1 tab q6 hours PRN. sertraline 25 MG tablet 25 mg PO DAILY Qty: 90 3RF metformin 850 MG tablet 850 mg PO BID Qty: 180 3RF Rx Instructions: FOR DIABETES pantoprazole 40 MG tablet,delayed release (DR/EC) 40 mg PO DAILY AM Qty: 90 3RF Rx Instructions: FOR GERD Take 1 pill daily in the morning at least 30 minutes before first meal atorvastatin 40 MG tablet 60 mg PO DAILY Qty: 135 3RF Rx Instructions: 1.5 tabs daily of 40 mg to total 60 mg for cholesterol bupropion HCl 300 MG tablet extended release 24 hr 300 mg PO DAILY Qty: 90 3RF PROVENTIL HFA 18 GM HFA.AER.AD 2 puff Inhalation Q4H PRN Qty: 1 2RF nitroglycerin 0.4 mg tablet, sublingual 0.4 mg Sublingual Q5M PRN (Reason: chest pain) Qty: 25 5RF aspirin 81 MG tablet,chewable 81 mg CH DAILY 0RF cetirizine [Zyrtec] 10 mg tablet 10 mg PO DAILY PRN0RF nystatin 100,000 unit/gram Powder 60 g Topical BID PRNQty: 0 0RF Discharge Instructions Instructions: Muscle Strain (ED) Additional Instructions: Take Tylenol 650 mg every 6 hours as needed for pain Take Flexeril as needed for muscle discomfort Please continue to take deep inspiration, at least one full inhalation and complete exhalation every 1/2 hour while awake if you do not develop pneumonia Please return earlier should you have new or worsening complaints Your CAT scan today did not show any abnormality which is reassuring Please be reassessed on Saturday or Saturday should you have persistent or worsening symptoms you should return to the emergency room earlier Referrals: Foster Belle [Primary Care Provider] - Discharge Data Discharge Date/Time-TO BE ENTERED AT DEPARTURE: 12/09/21 13:[address] scan of the chest, cervical spine, thoracic spine, head do not show evidence of acute abnormality, no fracture, new pneumothorax, no intracranial injury Patient ambulatory with steady gait, reports mild improvement with 5 mg of Flexeril and Tylenol We will continue to use medications Incentive spirometry recommended does not develop pneumonia Recheck with primary care physician in 24 to 48 hours recommended Early return precautions discussed and patient expressed understanding Medical Records Medical records reviewed: Yes I reviewed the patient's medical records. Lab Data Lab results reviewed: Yes I reviewed the patient's lab results. HPI General Date/Time Provider Initiated Documentation: 12/09/21 11:13 . HPI Narrative: this 61-year-old female presents s/p slip and fall on ice. She landed on her back. She had chest pain, largely pleuritic since that time. She states that she has pain with movement. She denies known head injury or loss of consciousness. She takes a baby aspirin daily. She denies any abdominal pain, nausea, vomiting, lower extremity discomfort. She denies any dizziness or weakness. She denies chest pain in the absence of deep inspiration Related Data Home Medications Medication Instructions Recorded Confirmed aspirin 81 mg chewable tablet 81 mg CH DAILY 12/15/12 12/09/21 ibuprofen 600 mg tablet 600 mg PO TID PRN #90 tab 01/20/18 12/09/21 sertraline 25 mg tablet 25 mg PO DAILY #90 tab 02/10/18 12/09/21 metformin 850 mg tablet 850 mg PO BID #180 tab-cap 05/20/18 12/09/21 pantoprazole 40 mg tablet,delayed 40 mg PO DAILY AM #90 tab-cap 05/28/18 12/09/21 release atorvastatin 40 mg tablet 60 mg PO DAILY #135 tab-cap 06/10/18 12/09/21 bupropion HCl 300 mg 24 hr tablet, 300 mg PO DAILY #90 tab-cap 06/10/18 12/09/21 extended release nitroglycerin 0.4 mg sublingual 0.4 mg SUBLINGUAL Q5M PRN #25 07/31/18 12/09/21 tablet tab-cap cholecalciferol (vitamin D3) 25 1,000 unit PO DAILY 10/28/18 12/09/21 mcg (1,000 unit) capsule cyanocobalamin (vitamin B-12) 1,000 mcg PO DAILY 10/28/18 12/09/21 1,000 mcg capsule lisinopril 5 mg tablet 5 mg PO DAILY #90 tab-cap 11/12/18 12/09/21 meclizine 25 mg chewable tablet 25 mg PO TID PRN #60 tab-cap 11/12/18 12/09/21 pregabalin 50 mg capsule (Lyrica) 50 mg PO BID #60 cap 12/09/18 12/09/21 nystatin 100,000 unit/gram topical 60 g TOPICAL BID PRN #0 g 05/22/19 12/09/21 powder cetirizine 10 mg tablet (Zyrtec) 10 mg PO DAILY PRN 05/18/20 12/09/21 cyclobenzaprine 5 mg tablet 5 mg PO TID PRN #10 tab 12/09/21 Previous Rx's Medication Instructions Recorded sertraline 25 mg tablet 25 mg PO DAILY #90 tab 02/10/18 metformin 850 mg tablet 850 mg PO BID #180 tab-cap 05/20/18 pantoprazole 40 mg tablet,delayed 40 mg PO DAILY AM #90 tab-cap 05/28/18 release atorvastatin 40 mg tablet 60 mg PO DAILY #135 tab-cap 06/10/18 bupropion HCl 300 mg 24 hr tablet, 300 mg PO DAILY #90 tab-cap 06/10/18 extended release nitroglycerin 0.4 mg sublingual 0.4 mg SUBLINGUAL Q5M PRN #25 07/31/18 tablet tab-cap lisinopril 5 mg tablet 5 mg PO DAILY #90 tab-cap 11/12/18 meclizine 25 mg chewable tablet 25 mg PO TID PRN #60 tab-cap 11/12/18 pregabalin 50 mg capsule (Lyrica) 50 mg PO BID #60 cap 12/09/18 nystatin 100,000 unit/gram topical 60 g TOPICAL BID PRN #0 g 05/22/19 powder cyclobenzaprine 5 mg tablet 5 mg PO TID PRN #10 tab 12/09/21 Allergies Allergy/AdvReac Type Severity Reaction Status Date / Time Latex, Natural Rubber Allergy Intermediate Skin Rash Verified 12/09/21 11:11 silicone Allergy Intermediate Rash Verified 12/09/21 11:11 oxycodone AdvReac Intermediate SICK TO Verified 12/09/21 11:11 STOMACH General Stated Complaint: Chest/Rib RISHABH: 3 Review of Systems All systems reviewed & are unremarkable except as noted in HPI and below PFSH All Active Problems Pleuritic chest pain (Acute) Chest wall muscle strain (Acute) Encounter for screening for other viral diseases (Acute) Anxiety disorder (Chronic) Chronic urticaria (Acute) Rash (Acute) History of abnormal cervical Pap smear (Acute) Women's annual routine gynecological examination (Acute) Normal colonoscopy (Acute) Chest pain (Acute) Chest pressure (Acute) DVT prophylaxis (Acute) Middle insomnia (Chronic 04/28/15) Diabetes mellitus (Chronic) Osteoarthritis of knee (Acute 12/21/13) Mixed incontinence (Acute 10/01/17) Menopausal symptoms (Acute 04/28/15) Morbid obesity (Acute 03/12/13) Heartburn (Acute 03/12/13) Essential hypertension (Acute 03/12/13) Disease related peripheral neuropathy (Acute 11/03/13) DM--with intact sensation Candidal skin infection (Acute 12/30/17) Benign paroxysmal positional vertigo (Acute 02/25/13) Meclizine & PT Asthma (Acute 06/02/15) ACT 07/2015 = 15 PFTs with methacholine challenge 07/2015 showed decreased FEV1 with challenge HPV (human papilloma virus) anogenital infection (Acute 07/13/13) Women's Wellness/Rl: 06/2013 Large breasts (Chronic) Viral URI (Acute) Adult BMI > 30 (Chronic) Atypical squamous cells of undetermined significance (ASC-US) on cervical Pap smear (Chronic 07/30/16) Depressive disorder (Chronic 05/02/12) Hyperlipidemia (Chronic 11/29/11) LIPITOR 80MG CAUSED MUSCLE CRAMPS, 40MG NOT AT GOAL, TRYING 60MG 02/2013 Papanicolaou smear of cervix with positive high risk human papilloma virus (HPV) test (Chronic 07/30/16) Recurrent UTI (Chronic 10/01/17) 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 Naresh Cooper Diabetic peripheral neuropathy associated with type 2 diabetes mellitus (Chronic) Asthma (Chronic) Osteoarthritis of knee (Chronic 07/21/14) Chronic hypertension (Chronic) Morbid obesity with body mass index of 40.0-49.9 (Chronic) GERD (gastroesophageal reflux disease) (Chronic) History of surgery (Chronic) 1980. Lap cholecystectomy iin 2004. Left TKA iun Jun 2010 Bilateral cataract extraction and rell implantation. 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) Medical History (Updated 12/09/21 @ 12:46 by LISY Mccollum) Asthma HTN (hypertension) Type 2 diabetes mellitus Surgical History section (~1980) Cholecystectomy Extraction of cataract B/L History of total bilateral knee replacement (TKR) bilateral Hysterectomy, Total Laparoscopic 2017 S/P colonoscopy 05/26/19 Family History Mother Neoplasm Stroke Father , [place] Myocardial infarction Social History Smoking/Tobacco Use Status: Never Smoking risk assessment performed?: Yes Alcohol Intake: current Alcohol Intake frequency: holidays/special occasions only Alcohol type: wine Drug use: Never Substance use type: does not use Household members: spouse, children and other Number of Children: 1 number of grandchildren: 2 Seatbelt use: always Do you feel safe at home: Yes Do you feel safe in your relationship?: Yes History History 1 Para 1 Hx # Term Pregnancies 1 Multiple births Hx # Pregnancies Ectopic pregnancies AB induced Hx Number of Living Children AB spontaneous Exam Const General: cooperative, comfortable and no acute distress HENMT Head: normal to inspection Eyes Pupils: PERRL Neck Other: Paraspinal tenderness without midline tenderness Chest Other: Palpable anterior chest wall tenderness without crepitance Resp Effort & Inspection: normal respiratory effort Auscultation: clear to auscultation bilaterally Cardio Rate: regular rate Rhythm: regular rhythm GI Other: No abdominal tenderness, no CVA tenderness Back/Spine/Pelvis Other: Thoracic spine tenderness, paraspinal, no crepitus, no rashes or visible evidence of trauma Skin General skin exam: no rashes or lesions noted Neuro General: patient alert and patient oriented x3 Cranial Nerves: CN's II-XI intact bilaterally and PERRL Cognition: normal cognition Speech: speech normal Gait: normal gait Motor: strength 5/5 throughout Other: Sensation intact distally Extrem Other: No tenderness to palpation to bilateral lower extremities Neurovascularly intact Psych Appearance: grossly normal and well kempt Course Vital Signs Vital signs: Vital Signs Temperature 36.4 C L 12/09/21 11:08 Pulse 103 H 12/09/21 11:08 Respiratory Rate 14 12/09/21 11:08 Blood Pressure 158/99 H 12/09/21 11:08 Pulse Oximetry 97 12/09/21 11:08 Temperature 36.4 C L 12/09/21 11:08 Temperature Source Temporal Artery Scan 12/09/21 11:08 Pulse 103 H 12/09/21 11:08 Respiratory Rate 14 12/09/21 11:08 Respiratory Effort Non-Labored 12/09/21 11:13 Blood Pressure 158/99 H 12/09/21 11:08 Blood Pressure Position Sitting 12/09/21 11:08 Pulse Oximetry 97 12/09/21 11:08 Oxygen Delivery Method Room Air 12/09/21 11:08 Oxygen Flow Rate 0 12/09/21 11:08 Pain Level 9 12/09/21 11:33
[2021-12-09 13:03] VITALS: BP 136/77; PULSE 98; RESP 16; TEMP 36.6; O2SAT 98
[2021-12-09 13:13] VITALS: BP 136/77; PULSE 98; RESP 16; TEMP 36.6; O2SAT 98
== END 2021-12-09 13:15 | disposition home or self-care (01) ==
PROVIDERS: Emergency Provider Physician Assistant; PCP Physician Assistant
DX: S29.011A Strain of muscle and tendon of front wall of thorax, initial encounter (principal); R07.1 Chest pain on breathing
CPT/HCPCS: 71250; 93005; 99284; 70450; 72125; 93010

== ENCOUNTER 2022-02-05 15:09 | Emergency (ER) | payer MEDICAID, SELFPAY ==
[2022-02-05 15:30] VITALS: BP 126/81; PULSE 99; RESP 16; TEMP 36.8; O2SAT 95
--- NOTE | 2022-02-05 15:45 | DI.RAD_ITS ---
Exam(s) XR KNEE LT 3V AP,LAT,CRISTAL EXAM: XR KNEE LT 3V AP,LAT,CRISTAL CLINICAL HISTORY: fall. TECHNIQUE: 2D digital imaging was performed of the left knee. Three images were obtained. AP, late ral and PA tunnel views were obtained. COMPARISON: CR LEFT KNEE LIMITED 1 OR 2 VIEWS from 06/27/2011 FINDINGS: BONES: No acute fracture is present. No bony destructive lesion is seen. JOINTS: The knee is normally aligned. No joint effusion is seen. The patient has a left total knee re placement. Orthopedic hardware appears stable. SOFT TISSUE: Normal. IMPRESSION: No acute fracture or dislocation. DATA REPOSITORY: RADIATION DOSE DELIVERED:
--- NOTE | 2022-02-05 15:45 | DI.RAD_ITS ---
Exam(s) XR KNEE RT 4V AP,LAT,CRISTAL,PAT EXAM: XR KNEE RT 4V AP,LAT,CRISTAL,PAT CLINICAL HISTORY: fall pain to anterior knee. TECHNIQUE: 2D digital imaging was performed of the right knee. Four views obtained. AP, lateral, Me rchant and PA tunnel views were obtained. COMPARISON: CR RIGHT KNEE 3 VIEWS from 10/11/2016 CR XR KNEE LT 3V AP,LAT,CRISTAL from 02/05/2022 FINDINGS: BONES: No acute fracture is present. No bony destructive lesion is seen. JOINTS: The knee is normally aligned. No joint effusion is seen. The patient has a right total knee r eplacement which appears intact. SOFT TISSUE: Atherosclerosis. IMPRESSION: No acute fracture or dislocation. DATA REPOSITORY: RADIATION DOSE DELIVERED:
--- NOTE | 2022-02-05 16:41 | ED.GENADUL_ITS ---
Discharge Plan Disposition Patient Disposition: HOME Condition: Stable Discharge Details Clinical Impression: Knee injuries Primary Care Provider: Foster Belle ED Provider: Prasad Pelaez Home Meds and New Rx's Prescriptions: No Action pregabalin [Lyrica] 50 mg capsule 50 mg PO BID Qty: 60 0RF cyanocobalamin (vitamin B-12) 1,000 mcg capsule 1,000 mcg PO DAILY 0RF cholecalciferol (vitamin D3) 1,000 unit capsule 1,000 unit PO DAILY 0RF lisinopril 5 mg tablet 5 mg PO DAILY Qty: 90 3RF meclizine 25 mg tablet,chewable 25 mg PO TID PRN (Reason: dizziness) Qty: 60 3RF ibuprofen 600 MG tablet 600 mg PO TID PRNQty: 90 0RF Rx Instructions: 1 tab q6 hours PRN. sertraline 25 MG tablet 25 mg PO DAILY Qty: 90 3RF metformin 850 MG tablet 850 mg PO BID Qty: 180 3RF Rx Instructions: FOR DIABETES pantoprazole 40 MG tablet,delayed release (DR/EC) 40 mg PO DAILY AM Qty: 90 3RF Rx Instructions: FOR GERD Take 1 pill daily in the morning at least 30 minutes before first meal atorvastatin 40 MG tablet 60 mg PO DAILY Qty: 135 3RF Rx Instructions: 1.5 tabs daily of 40 mg to total 60 mg for cholesterol bupropion HCl 300 MG tablet extended release 24 hr 300 mg PO DAILY Qty: 90 3RF PROVENTIL HFA 18 GM HFA.AER.AD 2 puff Inhalation Q4H PRN Qty: 1 2RF nitroglycerin 0.4 mg tablet, sublingual 0.4 mg Sublingual Q5M PRN (Reason: chest pain) Qty: 25 5RF aspirin 81 MG tablet,chewable 81 mg CH DAILY 0RF cetirizine [Zyrtec] 10 mg tablet 10 mg PO DAILY PRN0RF nystatin 100,000 unit/gram Powder 60 g Topical BID PRNQty: 0 0RF cyclobenzaprine 5 mg tablet 5 mg PO TID PRNQty: 10 0RF Discharge Instructions Instructions: Swollen Knee Joint (ED), R.I.C.E. Treatment (ED) Additional Instructions: Please continue to take [id number] pain medication or your normally prescribed medications for pain control. Please rest over the next couple days but continue to perform weightbearing activities then after 2 to 3 days increase your activities to restrengthen your knees. If not improving in the next 1 to 2 weeks follow-up with primary care provider for reassessment. Referrals: Foster Belle [Primary Care Provider] - Discharge Data Discharge Date/Time-TO BE ENTERED AT DEPARTURE: 02/05/22 17:15 Medical Decision Making Patient presenting to the emergency department with chief complaint of mechanical fall. Approximately 2 hours prior to arrival she fell landing mostly on her right anterior knee but also did strike her left knee against the floor. Patient denies any other injury or trauma. Physical exam shows pain to palpation of anterior right patella otherwise diffuse pain bilateral. Patient is obese making exam difficult. Patient does have history of bilateral knee replacement. We will plan on performing radiological imaging for further evaluation given difficult physical exam due to body habitus. Patient does state that she took acetaminophen prior to arrival. Review of imaging along with radiologist interpretation shows no acute signs of fracture or dislocation bilateral. Patient is able to weight-bear with walking sticks. Patient offered Akil bandages which she denied at this point. Patient encouraged to continue conservative management as discussed and follow-up if not improving. After discussion of diagnosis and plan of care patient has no further needs, questions, or concerns and states clear understanding to return to the emergency department for any worsening symptoms. HPI General Mode of arrival: ambulatory . Date/Time Provider Initiated Documentation: 02/05/22 15:59 . Limitations to Documentation: no limitations . Information obtained by: patient and RN notes reviewed . History of Present Illness 61 year old F presents to the emergency department with the chief complaint of Fall with knee injury, described as moderate, with intensity rated at 5. Quality is described as aching, and is localized to the lower extremity. Patient reports no radiation. Patient started experiencing this minute(s) (30) and it has been constant. improves with No relieving factors improve symptom(s), No exacerbating factors reported . Patient notes no other symptoms.. Patient did receive the following treatments prior to arrival, NSAID Related Data Home Medications Medication Instructions Recorded Confirmed aspirin 81 mg chewable tablet 81 mg CH DAILY 12/15/12 02/05/22 ibuprofen 600 mg tablet 600 mg PO TID PRN #90 tab 01/20/18 02/05/22 sertraline 25 mg tablet 25 mg PO DAILY #90 tab 02/10/18 02/05/22 metformin 850 mg tablet 850 mg PO BID #180 tab-cap 05/20/18 02/05/22 pantoprazole 40 mg tablet,delayed 40 mg PO DAILY AM #90 tab-cap 05/28/18 02/05/22 release atorvastatin 40 mg tablet 60 mg PO DAILY #135 tab-cap 06/10/18 02/05/22 bupropion HCl 300 mg 24 hr tablet, 300 mg PO DAILY #90 tab-cap 06/10/18 02/05/22 extended release nitroglycerin 0.4 mg sublingual 0.4 mg SUBLINGUAL Q5M PRN #25 07/31/18 02/05/22 tablet tab-cap cholecalciferol (vitamin D3) 25 1,000 unit PO DAILY 10/28/18 02/05/22 mcg (1,000 unit) capsule cyanocobalamin (vitamin B-12) 1,000 mcg PO DAILY 10/28/18 02/05/22 1,000 mcg capsule lisinopril 5 mg tablet 5 mg PO DAILY #90 tab-cap 11/12/18 02/05/22 meclizine 25 mg chewable tablet 25 mg PO TID PRN #60 tab-cap 11/12/18 02/05/22 pregabalin 50 mg capsule (Lyrica) 50 mg PO BID #60 cap 12/09/18 02/05/22 nystatin 100,000 unit/gram topical 60 g TOPICAL BID PRN #0 g 05/22/19 02/05/22 powder cetirizine 10 mg tablet (Zyrtec) 10 mg PO DAILY PRN 05/18/20 02/05/22 cyclobenzaprine 5 mg tablet 5 mg PO TID PRN #10 tab 12/09/21 02/05/22 Previous Rx's Medication Instructions Recorded sertraline 25 mg tablet 25 mg PO DAILY #90 tab 02/10/18 metformin 850 mg tablet 850 mg PO BID #180 tab-cap 05/20/18 pantoprazole 40 mg tablet,delayed 40 mg PO DAILY AM #90 tab-cap 05/28/18 release atorvastatin 40 mg tablet 60 mg PO DAILY #135 tab-cap 06/10/18 bupropion HCl 300 mg 24 hr tablet, 300 mg PO DAILY #90 tab-cap 06/10/18 extended release nitroglycerin 0.4 mg sublingual 0.4 mg SUBLINGUAL Q5M PRN #25 07/31/18 tablet tab-cap lisinopril 5 mg tablet 5 mg PO DAILY #90 tab-cap 11/12/18 meclizine 25 mg chewable tablet 25 mg PO TID PRN #60 tab-cap 11/12/18 pregabalin 50 mg capsule (Lyrica) 50 mg PO BID #60 cap 12/09/18 nystatin 100,000 unit/gram topical 60 g TOPICAL BID PRN #0 g 05/22/19 powder cyclobenzaprine 5 mg tablet 5 mg PO TID PRN #10 tab 12/09/21 Allergies Allergy/AdvReac Type Severity Reaction Status Date / Time Latex, Natural Rubber Allergy Intermediate Skin Rash Verified 02/05/22 15:35 silicone Allergy Intermediate Rash Verified 02/05/22 15:35 oxycodone AdvReac Intermediate SICK TO Verified 02/05/22 15:35 STOMACH General Stated Complaint: Orthopedic RISHABH: 4 Review of Systems ENT Ears, Nose, Mouth, and Throat: Denies neck pain Cardiovascular Cardiovascular: Denies syncope Musculoskeletal Musculoskeletal: Reports as per HPI, Denies back pain, Denies neck pain, Denies numbness and Denies tingling Integumentary/Breasts Skin/Breast: Denies rash, Denies sores and Denies wounds Neurologic Neurologic: Denies syncope, Denies numbness and Denies tingling PFSH All Active Problems Pleuritic chest pain (Acute) Knee injuries (Acute) Encounter for screening for other viral diseases (Acute) Anxiety disorder (Chronic) Chronic urticaria (Acute) Rash (Acute) History of abnormal cervical Pap smear (Acute) Women's annual routine gynecological examination (Acute) Normal colonoscopy (Acute) Chest pain (Acute) Chest pressure (Acute) DVT prophylaxis (Acute) Middle insomnia (Chronic 04/28/15) Diabetes mellitus (Chronic) Osteoarthritis of knee (Acute 12/21/13) Mixed incontinence (Acute 10/01/17) Menopausal symptoms (Acute 04/28/15) Morbid obesity (Acute 03/12/13) Heartburn (Acute 03/12/13) Essential hypertension (Acute 03/12/13) Disease related peripheral neuropathy (Acute 11/03/13) DM--with intact sensation Candidal skin infection (Acute 12/30/17) Benign paroxysmal positional vertigo (Acute 02/25/13) Meclizine & PT Asthma (Acute 06/02/15) ACT 07/2015 = 15 PFTs with methacholine challenge 07/2015 showed decreased FEV1 with challenge HPV (human papilloma virus) anogenital infection (Acute 07/13/13) Women's Wellness/Rl: 06/2013 Large breasts (Chronic) Viral URI (Acute) Adult BMI > 30 (Chronic) Atypical squamous cells of undetermined significance (ASC-US) on cervical Pap smear (Chronic 07/30/16) Depressive disorder (Chronic 05/02/12) Hyperlipidemia (Chronic 11/29/11) LIPITOR 80MG CAUSED MUSCLE CRAMPS, 40MG NOT AT GOAL, TRYING 60MG 02/2013 Papanicolaou smear of cervix with positive high risk human papilloma virus (HPV) test (Chronic 07/30/16) Recurrent UTI (Chronic 10/01/17) 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 Naresh Cooper Diabetic peripheral neuropathy associated with type 2 diabetes mellitus (Chronic) Asthma (Chronic) Osteoarthritis of knee (Chronic 07/21/14) Chronic hypertension (Chronic) Morbid obesity with body mass index of 40.0-49.9 (Chronic) GERD (gastroesophageal reflux disease) (Chronic) History of surgery (Chronic) 1980. Lap cholecystectomy iin 2004. Left TKA iun Jun 2010 Bilateral cataract extraction and rell implantation. 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) Medical History Asthma HTN (hypertension) Type 2 diabetes mellitus Surgical History section (~1980) Cholecystectomy Extraction of cataract B/L History of total bilateral knee replacement (TKR) bilateral Hysterectomy, Total Laparoscopic 2017 S/P colonoscopy 05/26/19 Family History Mother Neoplasm Stroke Father , [place] Myocardial infarction Social History Smoking/Tobacco Use Status: Never Smoking risk assessment performed?: Yes Alcohol Intake: current Alcohol Intake frequency: holidays/special occasions only Alcohol type: wine Drug use: Never Substance use type: does not use Household members: spouse, children and other Number of Children: 1 number of grandchildren: 2 Seatbelt use: always Do you feel safe at home: Yes Do you feel safe in your relationship?: Yes History History 1 Para 1 Hx # Term Pregnancies 1 Multiple births Hx # Pregnancies Ectopic pregnancies AB induced Hx Number of Living Children AB spontaneous Exam Const General: cooperative, no acute distress and not ill appearing Orientation: alert, awake and oriented x3 Resp Effort & Inspection: normal respiratory effort, able to speak in complete sentences and no respiratory distress Cardio Rate: regular rate Rhythm: regular rhythm Skin General skin exam: no rashes or lesions noted Neuro General: patient alert, patient awake, patient oriented x3, moves all extremities and no focal motor deficits Sensory Exam: no sensory deficits noted Extrem General: normal exam except as noted Right lower extremity: knee Details: tenderness and swelling; Negative for no abrasions, no ecchymosis and no deformity, lower leg Details: normal to inspection; Negative for no tenderness and ankle Details: normal to inspection; Negative for no tenderness Left lower extremity: knee Details: tenderness and swelling; Negative for no abrasions, no lacerations and no ecchymosis, lower leg Details: normal to inspection; Negative for no erythema and no tenderness and ankle Details: normal to inspection; Negative for no tenderness and no swelling Course Vital Signs Vital signs: Vital Signs Temperature 36.8 C 02/05/22 15:30 Pulse 99 H 02/05/22 15:30 Respiratory Rate 16 02/05/22 15:30 Blood Pressure 126/81 02/05/22 15:30 Pulse Oximetry 95 02/05/22 15:30 Temperature 36.8 C 02/05/22 15:30 Temperature Source Temporal Artery Scan 02/05/22 15:30 Pulse 99 H 02/05/22 15:30 Respiratory Rate 16 02/05/22 15:30 Respiratory Effort 02/05/22 15:30 Blood Pressure 126/81 02/05/22 15:30 Blood Pressure Position Sitting 02/05/22 15:30 Pulse Oximetry 95 02/05/22 15:30 Oxygen Delivery Method Nasal Cannula 02/05/22 15:30 Pain Level 5 02/05/22 15:30
== END 2022-02-05 17:15 | disposition home or self-care (01) ==
PROVIDERS: Emergency Provider Nurse Practitioner Family; PCP Physician Assistant
DX: M25.561 Pain in right knee (principal); M25.562 Pain in left knee; W18.39XA Other fall on same level, initial encounter
CPT/HCPCS: 73562; 99283; 73564

== ENCOUNTER → 2022-04-05 02:17 | Outpatient (CLI) | payer MEDICAID, SELFPAY ==
--- NOTE | 2022-04-05 15:00 | DI.MAMMO_ITS ---
Exam(s) MAMMO SCREENING EXAM: MAMMO SCREENING CLINICAL HISTORY: SCREENING, Z12.39 TECHNIQUE: Mammograms were interpreted according to the usual protocol including computer analysis w [employer] CAD system, tomosynthesis and C-view imaging. COMPARISON: 2011 through 2018 FINDINGS: The breasts are composed of mainly fatty density , Breast Density category A. No suspicious masses or suspicious microcalcifications are seen. No skin thickening or abnormal axillary lymph nodes are seen. There has been no significant change from prior exams. IMPRESSION: BI-RADS Category 1, Negative mammogram Yearly screening mammography is recommended. Breast Density - Category A, fatty density. A negative radiographic report should not delay biopsy if a dominant or clinically suspicious mass is present. Up to ten percent of cancers are not identified on mammography. A negative report may reinforce clinical impression. Adenosis and dense breasts may obscure an underlying neoplasm. False positive reports average 6 to 10%. Patient will receive a letter notifying them of these results.
== END ==
PROVIDERS: PCP Physician Assistant; Visit Provider Physician Assistant
DX: Z12.31 Encounter for screening mammogram for malignant neoplasm of breast (principal)
CPT/HCPCS: 77063; 77067

== ENCOUNTER 2022-06-16 17:55 | Emergency (ER) | payer MEDICAID, SELFPAY ==
[2022-06-16 18:01] VITALS: BP 154/80; PULSE 85; RESP 18; TEMP 36.3; O2SAT 99
--- NOTE | 2022-06-16 19:00 | DI.CT_ITS ---
Exam(s) CT HEAD WO EXAM: CT HEAD WO CLINICAL HISTORY: trauma/fall. TECHNIQUE: Imaging Protocol: Axial computed tomography images with coronal and sagittal reformatted images were created and reviewed COMPARISON: No exams were available for comparison FINDINGS: Ventricles and Extra axial spaces: Normal in size and morphology for the patient's age. Hemorrhage: None. Cerebral parenchyma: Mild atrophy. Mild white matter changes consistent with small vessel disease. Midline shift: None. Brainstem/Cerebellum: Normal. Calvarium: Normal. Visualized Paranasal sinuses/Mastoids: Clear. IMPRESSION: No acute abnormality. RADIATION DOSE DELIVERED: 648.67mGy.cm Total DLP 648.67mGy.cm Total DLP DATA REPOSITORY: All CT scans at this facility are submitted to the National Radiology Data Registry (NRDR) Dose Index Registry (DIR) with the [employer] (ACR). RADIATION OPTIMIZATION: All CT scans at this facility use at least one of these dose optimization te chniques: automated exposure control; mA and/or kV adjustment per patient size (includes targeted exa ms where dose is matched to clinical indication); or iterative reconstruction.
--- NOTE | 2022-06-16 19:59 | DI.VRAD_ITS ---
PROCEDURE INFORMATION: Exam: CT Head Without Contrast Exam date and time: 06/16/2022 7:48 PM Age: 61 years old Clinical indication: Other: Trauma/fall TECHNIQUE: Imaging protocol: Computed tomography of the head without contrast. COMPARISON: CT HEAD CERVICAL SPINE WO 12/09/2021 11:52 AM FINDINGS: Brain: No acute intracranial hemorrhage, mass-effect, midline shift, or extra-axial collection is seen. There is patchy white matter hypoattenuation, nonspecific but commonly seen as a chronic sequela of small vessel ischemic disease. The rodriguez white matter differentiation appears preserved. There is symmetric parenchymal volume loss. Cerebral ventricles: The ventricular system and basilar cisterns appear appropriate in size and configuration. Paranasal sinuses: The visualized paranasal sinuses appear well-aerated. Mastoid air cells: The mastoid air cells appear well-aerated. Auditory system: The middle ear cavities appear clear. Orbital cavities: The globes and intraorbital structures appear grossly intact. Bones/joints: The bony calvarium appears intact. No depressed skull fracture is seen. Soft tissues: No gross focal scalp hematoma is seen. IMPRESSION: 1. No acute intracranial hemorrhage or depressed skull fracture. 2. Presumed chronic microvascular ischemic change. 3. Symmetric parenchymal volume loss. Dictated and Authenticated by: Da Francis MD. Ordering:SANTY Parham MD
--- NOTE | 2022-06-16 20:07 | W.ED.GENAD ---
Discharge Plan Disposition Patient Disposition: HOME Condition: Stable Discharge Details Clinical Impression: Closed head injury Primary Care Provider: Foster Belle ED Provider: Prasad Pelaez Home Meds and New Rx's Prescriptions: Continued pregabalin [Lyrica] 50 mg capsule 50 mg PO BID Qty: 60 0RF cyanocobalamin (vitamin B-12) 1,000 mcg capsule 1,000 mcg PO DAILY cholecalciferol (vitamin D3) 1,000 unit capsule 1,000 unit PO DAILY lisinopril 5 mg tablet 5 mg PO DAILY Qty: 90 3RF meclizine 25 mg tablet,chewable 25 mg PO TID PRN (Reason: dizziness) Qty: 60 3RF ibuprofen 600 MG tablet 600 mg PO TID PRNQty: 90 Rx Instructions: 1 tab q6 hours PRN. sertraline 25 MG tablet 25 mg PO DAILY Qty: 90 3RF metformin 850 MG tablet 850 mg PO BID Qty: 180 3RF Rx Instructions: FOR DIABETES pantoprazole 40 MG tablet,delayed release (DR/EC) 40 mg PO DAILY AM Qty: 90 3RF Rx Instructions: FOR GERD Take 1 pill daily in the morning at least 30 minutes before first meal atorvastatin 40 MG tablet 60 mg PO DAILY Qty: 135 3RF Rx Instructions: 1.5 tabs daily of 40 mg to total 60 mg for cholesterol bupropion HCl 300 MG tablet extended release 24 hr 300 mg PO DAILY Qty: 90 3RF PROVENTIL HFA 18 GM HFA.AER.AD 2 puff Inhalation Q4H PRN Qty: 1 2RF nitroglycerin 0.4 mg tablet, sublingual 0.4 mg Sublingual Q5M PRN (Reason: chest pain) Qty: 25 5RF aspirin 81 MG tablet,chewable 81 mg CH DAILY cetirizine [Zyrtec] 10 mg tablet 10 mg PO DAILY PRN nystatin 100,000 unit/gram Powder 60 g Topical BID PRNQty: 0 0RF cyclobenzaprine 5 mg tablet 5 mg PO TID PRNQty: 10 0RF Discharge Instructions Instructions: Head Injury (ED) Additional Instructions: You may continue to take [id number] pain medication as needed for any further headache or discomfort. If you develop any new or significant worsening of symptoms please feel free to return to the emergency department for reassessment and if you are not improving in the next week follow-up with your primary care provider for recheck. Over the next 3 to 4 days please get plenty of rest and stay well-hydrated to allow your head injury to heal. Referrals: Foster Belle [Primary Care Provider] - (As needed for reassessment) Discharge Data Discharge Date/Time-TO BE ENTERED AT DEPARTURE: 06/16/22 20:33 Medical Decision Making Patient presenting to the emergency department chief complaint of fall with head injury. Patient states that she was walking through a retail store and her knees gave out causing her to fall forward striking her forehead against the ground. She initially felt some swelling of that is now resolved and headache and dizziness which also are improving. She did take acetaminophen prior to coming. Physical exam shows no focal findings of concern. Discussed with patient risk versus benefit CT imaging of her head with negative exam. After discussion patient does state some anxiety about not performing imaging and understands the risk involved. CT imaging was performed and shows no acute intracranial findings. Discussed with patient return and follow-up precautions along with standard care for closed head injury. After discussion of diagnosis and plan of care patient has no further needs, questions, or concerns and states clear understanding to return to the emergency department for any worsening symptoms. This documentation was generated using [employer] dictation system, please disregard any oddities of phrase or misspellings. Imaging Data Radiologic Study: Attestation: I personally reviewed and interpreted this imaging study as follows: Imaging: CT Scan Radiologist's impression: FINDINGS: Brain: No acute intracranial hemorrhage, mass-effect, midline shift, or extra-axial collection is seen. There is patchy white matter hypoattenuation, nonspecific but commonly seen as a chronic sequela of small vessel ischemic disease. The rodriguez white matter differentiation appears preserved. There is symmetric parenchymal volume loss. Cerebral ventricles: The ventricular system and basilar cisterns appear appropriate in size and configuration. Paranasal sinuses: The visualized paranasal sinuses appear well-aerated. Mastoid air cells: The mastoid air cells appear well-aerated. Auditory system: The middle ear cavities appear clear. Orbital cavities: The globes and intraorbital structures appear grossly intact. Bones/joints: The bony calvarium appears intact. No depressed skull fracture is seen. Soft tissues: No gross focal scalp hematoma is seen. IMPRESSION: 1. No acute intracranial hemorrhage or depressed skull fracture. 2. Presumed chronic microvascular ische HPI General Mode of arrival: ambulatory. Date/Time Provider Initiated Documentation: 06/16/22 18:20. Limitations to Documentation: no limitations. Information obtained by: patient and RN notes reviewed. History of Present Illness 61 year old F presents to the emergency department with the chief complaint of fall with head injury, described as moderate, with intensity rated at 4. Quality is described as aching, and is localized to the head. Patient reports no radiation. Patient started experiencing this hour(s) (2.5) and it has been constant. No relieving factors improve symptom(s), Other factors that worsen symptoms (knee gave out) . Patient notes no other symptoms.. Patient did receive the following treatments prior to arrival, none Related Data Home Medications Medication Instructions Recorded Confirmed aspirin 81 mg chewable tablet 81 mg CH DAILY 12/15/12 02/05/22 ibuprofen 600 mg tablet 600 mg PO TID PRN #90 tabs 01/20/18 02/05/22 sertraline 25 mg tablet 25 mg PO DAILY #90 tabs 02/10/18 02/05/22 metformin 850 mg tablet 850 mg PO BID #180 tab-caps 05/20/18 02/05/22 pantoprazole 40 mg tablet,delayed 40 mg PO DAILY AM #90 tab-caps 05/28/18 02/05/22 release atorvastatin 40 mg tablet 60 mg PO DAILY #135 tab-caps 06/10/18 02/05/22 bupropion HCl 300 mg 24 hr tablet, 300 mg PO DAILY #90 tab-caps 06/10/18 02/05/22 extended release nitroglycerin 0.4 mg sublingual 0.4 mg sublingual Q5M PRN chest 07/31/18 02/05/22 tablet pain #25 tab-caps cholecalciferol (vitamin D3) 25 1,000 unit PO DAILY 10/28/18 02/05/22 mcg (1,000 unit) capsule cyanocobalamin (vitamin B-12) 1,000 mcg PO DAILY 10/28/18 02/05/22 1,000 mcg capsule lisinopril 5 mg tablet 5 mg PO DAILY #90 tab-caps 11/12/18 02/05/22 meclizine 25 mg chewable tablet 25 mg PO TID PRN dizziness #60 11/12/18 02/05/22 tab-caps pregabalin 50 mg capsule (Lyrica) 50 mg PO BID #60 caps 12/09/18 02/05/22 nystatin 100,000 unit/gram topical 60 g topical BID PRN #0 grams 05/22/19 02/05/22 powder cetirizine 10 mg tablet (Zyrtec) 10 mg PO DAILY PRN 05/18/20 02/05/22 cyclobenzaprine 5 mg tablet 5 mg PO TID PRN #10 tabs 12/09/21 02/05/22 Previous Rx's Medication Instructions Recorded sertraline 25 mg tablet 25 mg PO DAILY #90 tabs 02/10/18 metformin 850 mg tablet 850 mg PO BID #180 tab-caps 05/20/18 pantoprazole 40 mg tablet,delayed 40 mg PO DAILY AM #90 tab-caps 05/28/18 release atorvastatin 40 mg tablet 60 mg PO DAILY #135 tab-caps 06/10/18 bupropion HCl 300 mg 24 hr tablet, 300 mg PO DAILY #90 tab-caps 06/10/18 extended release nitroglycerin 0.4 mg sublingual 0.4 mg sublingual Q5M PRN chest 07/31/18 tablet pain #25 tab-caps lisinopril 5 mg tablet 5 mg PO DAILY #90 tab-caps 11/12/18 meclizine 25 mg chewable tablet 25 mg PO TID PRN dizziness #60 11/12/18 tab-caps pregabalin 50 mg capsule (Lyrica) 50 mg PO BID #60 caps 12/09/18 nystatin 100,000 unit/gram topical 60 g topical BID PRN #0 grams 05/22/19 powder cyclobenzaprine 5 mg tablet 5 mg PO TID PRN #10 tabs 12/09/21 Allergies Allergy/AdvReac Type Severity Reaction Status Date / Time Latex, Natural Rubber Allergy Intermediate Skin Rash Verified 02/05/22 15:35 silicone Allergy Intermediate Rash Verified 02/05/22 15:35 oxycodone AdvReac Intermediate SICK TO Verified 02/05/22 15:35 STOMACH General Stated Complaint: HeadInjury RISHABH: 4 Review of Systems Constitutional Constitutional: Denies body ache(s), Denies chills, Denies fever(s), Denies frequent falls and Reports headache(s) Eyes Eyes: Denies change in vision ENT Ears, Nose, Mouth, and Throat: Reports dizziness, Reports headache(s) and Denies neck pain Cardiovascular Cardiovascular: Denies chest pain and Denies syncope Respiratory Respiratory: Reports system reviewed and no additional complaints, except as documented Gastrointestinal Gastrointestinal: Denies abdominal pain, Denies nausea and Denies vomiting Musculoskeletal Musculoskeletal: Denies abnormal gait, Denies back pain and Denies neck pain Integumentary/Breasts Skin/Breast: Denies wounds Neurologic Neurologic: Reports as per HPI, Denies abnormal gait, Denies confusion, Reports dizziness, Denies syncope, Denies frequent falls, Reports headache(s), Denies localized weakness, Denies memory loss and Denies sensory deficit Psychiatric Psychiatric: Denies confusion and Denies memory loss PFSH All Active Problems Pleuritic chest pain (Acute) Closed head injury (Acute) Encounter for screening for other viral diseases (Acute) Anxiety disorder (Chronic) Chronic urticaria (Acute) Rash (Acute) History of abnormal cervical Pap smear (Acute) Women's annual routine gynecological examination (Acute) Normal colonoscopy (Acute) Chest pain (Acute) Chest pressure (Acute) DVT prophylaxis (Acute) Middle insomnia (Chronic 04/28/15) Diabetes mellitus (Chronic) Osteoarthritis of knee (Acute 12/21/13) Mixed incontinence (Acute 10/01/17) Menopausal symptoms (Acute 04/28/15) Morbid obesity (Acute 03/12/13) Heartburn (Acute 03/12/13) Essential hypertension (Acute 03/12/13) Disease related peripheral neuropathy (Acute 11/03/13) DM--with intact sensation Candidal skin infection (Acute 12/30/17) Benign paroxysmal positional vertigo (Acute 02/25/13) Meclizine & PT Asthma (Acute 06/02/15) ACT 07/2015 = 15 PFTs with methacholine challenge 07/2015 showed decreased FEV1 with challenge HPV (human papilloma virus) anogenital infection (Acute 07/13/13) Women's Wellness/Rl: 06/2013 Large breasts (Chronic) Viral URI (Acute) Adult BMI > 30 (Chronic) Atypical squamous cells of undetermined significance (ASC-US) on cervical Pap smear (Chronic 07/30/16) Depressive disorder (Chronic 05/02/12) Hyperlipidemia (Chronic 11/29/11) LIPITOR 80MG CAUSED MUSCLE CRAMPS, 40MG NOT AT GOAL, TRYING 60MG 02/2013 Papanicolaou smear of cervix with positive high risk human papilloma virus (HPV) test (Chronic 07/30/16) Recurrent UTI (Chronic 10/01/17) 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 Naresh Cooper Diabetic peripheral neuropathy associated with type 2 diabetes mellitus (Chronic) Asthma (Chronic) Osteoarthritis of knee (Chronic 07/21/14) Chronic hypertension (Chronic) Morbid obesity with body mass index of 40.0-49.9 (Chronic) GERD (gastroesophageal reflux disease) (Chronic) History of surgery (Chronic) 1980. Lap cholecystectomy iin 2004. Left TKA iun Jun 2010 Bilateral cataract extraction and rell implantation. 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) Medical History (Updated 06/16/22 @ 20:10 by Prasad Pelaez NP) Asthma HTN (hypertension) Type 2 diabetes mellitus Surgical History section (~1980) Cholecystectomy Extraction of cataract B/L History of total bilateral knee replacement (TKR) bilateral Hysterectomy, Total Laparoscopic 2016 S/P colonoscopy 05/26/19 Family History Mother Neoplasm Stroke Father , [place] Myocardial infarction Social History Smoking/Tobacco Use Status: Never Smoking risk assessment performed?: Yes Alcohol Intake: current Alcohol Intake frequency: holidays/special occasions only Alcohol type: wine Drug use: Never Substance use type: does not use Household members: spouse, children and other Number of Children: 1 number of grandchildren: 2 Seatbelt use: always Do you feel safe at home: Yes Do you feel safe in your relationship?: Yes History History 1 Para 1 Hx # Term Pregnancies 1 Multiple births Hx # Pregnancies Ectopic pregnancies AB induced Hx Number of Living Children AB spontaneous Exam Const General: cooperative, healthy appearing, no acute distress and well groomed Orientation: alert, awake and oriented x3 HENMT Head: normal to inspection Ears: hearing grossly normal bilaterally and TM's normal bilaterally Mouth: oral mucosae normal and moist mucous membranes Throat: posterior oropharynx normal Eyes Visual Sanchez: normal visual sanchez by confrontation Alignment and Position: alignment normal Periorbital: periorbital findings normal Eyelids: eyelids normal Sclera: sclerae normal Cornea: corneas normal Pupils: PERRL EOM: EOM intact bilaterally Neck Neck: normal visual inspection, full ROM, no lymphadenopathy and no meningeal signs Resp Effort & Inspection: normal respiratory effort and able to speak in complete sentences Auscultation: clear to auscultation bilaterally Cardio Rate: regular rate Rhythm: regular rhythm Heart Sounds: S1 normal and S2 normal Neuro General: patient alert, patient awake, patient oriented x3, tone normal, moves all extremities, CN's II-XI intact bilaterally and not confused Cognition: normal cognition Speech: speech normal Motor: muscle tone normal throughout, no movement abnormalities noted and no fasciculations Sensory Exam: no sensory deficits noted Coordination: [id number] test normal, Does not sway with eyes open, rapid alternating movement UE normal and rapid alternating movement LE normal Course Vital Signs Vital signs: Vital Signs Temperature 36.3 C L 06/16/22 18:01 Pulse 85 06/16/22 18:01 Respiratory Rate 18 06/16/22 18:01 Blood Pressure 154/80 H 06/16/22 18:01 Pulse Oximetry 99 06/16/22 18:01 Temperature 36.3 C L 06/16/22 18:01 Pulse 85 06/16/22 18:01 Respiratory Rate 18 06/16/22 18:01 Respiratory Effort Non-Labored 06/16/22 18:08 Respiratory Depth Normal 06/16/22 18:08 Respiratory Pattern Normal 06/16/22 18:08 Blood Pressure 154/80 H 06/16/22 18:01 Blood Pressure Position Sitting 06/16/22 18:01 Pulse Oximetry 99 06/16/22 18:01 Oxygen Delivery Method Room Air 06/16/22 18:01 Oxygen Flow Rate 0 06/16/22 18:01 Pain Level 4 06/16/22 18:01
== END 2022-06-16 20:33 | disposition home or self-care (01) ==
PROVIDERS: Emergency Provider Nurse Practitioner Family; PCP Physician Assistant
DX: S09.90XA Unspecified injury of head, initial encounter (principal); I10 Essential (primary) hypertension; E11.9 Type 2 diabetes mellitus without complications; J45.909 Unspecified asthma, uncomplicated; Z79.84 Long term (current) use of oral hypoglycemic drugs; Z79.82 Long term (current) use of aspirin; W19.XXXA Unspecified fall, initial encounter; W22.8XXA Striking against or struck by other objects, initial encounter; Y93.01 Activity, walking, marching and hiking; Y92.512 Supermarket, store or market as the place of occurrence of the external cause
CPT/HCPCS: 99284; 70450; 99282

== ENCOUNTER → 2022-08-29 11:05 | Outpatient (CLI) | payer MEDICAID, SELFPAY ==
--- NOTE | 2022-08-29 13:09 | DI.RAD_ITS ---
Exam(s) XR LUMBAR SPINE COMPLETE EXAM: XR LUMBAR SPINE COMPLETE CLINICAL HISTORY: LBP, M54.50, MILD PAIN, SYMPTOMS SUGGESTING MILD SPINAL STENOSIS. TECHNIQUE: 2D digital imaging was performed. Five views. COMPARISON: CR LUMBAR SPINE COMPLETE from 05/17/2011 FINDINGS: BONES: No fracture or destructive lesion. Vertebral body heights are maintained. Small endplate oste ophytes are seen. Facet hypertrophy present greater in lower lumbar levels.. DISKS: Mild narrowing L4-5 disc space. Remaining intervertebral disc spaces are maintained. ALIGNMENT: Lumbar spinal alignment is within normal limits. SOFT TISSUE: Right upper quadrant surgical clips. IMPRESSION: Degenerative changes, greatest at L4-5. DATA REPOSITORY: RADIATION DOSE DELIVERED:
== END ==
PROVIDERS: PCP Physician Assistant; Visit Provider Physician Assistant
DX: M47.816 Spondylosis without myelopathy or radiculopathy, lumbar region (principal)
CPT/HCPCS: 72110

== ENCOUNTER 2022-12-24 12:30 | Outpatient (REF) | payer MEDICAID, SELFPAY ==
[2022-12-24 16:39] LABS: COMMENT (LAB VIEW ONLY) 323.44 mg/dL; Microalb ug/mg Crea 7.9 ug/mg Cr
== END 2022-12-24 12:31 | disposition home or self-care (01) ==
LOC: NCHCN 12:30
PROVIDERS: PCP Physician Assistant; Visit Provider Physician Assistant
DX: E11.9 Type 2 diabetes mellitus without complications (principal)
CPT/HCPCS: 82043; 82570

== ENCOUNTER 2022-12-28 00:34 | Outpatient (CLI) | payer MEDICAID, SELFPAY ==
--- NOTE | 2022-12-28 09:30 | DI.DEXA_ITS ---
Exam(s) XR DEXA BONE DENSITY W/WO RAAD EXAM: XR DEXA BONE DENSITY W/WO RAAD CLINICAL HISTORY: POSTMENOPAUSAL STATE, Z78.0 TECHNIQUE: COMPARISON: No exams were available for comparison FINDINGS: Lateral Spine Image: Unremarkable. No compression deformities identified. Left hip: Total T-Score: -1.0 Total Z-Score: 0.2 T- and Z-scores: Within normal limits. Lumbar Spine: Total T-Score: 0.1 Total Z-Score: 1.8 T- and Z-scores: Within normal limits. IMPRESSION: No evidence of osteoporosis.
== END 2022-12-28 00:54 ==
LOC: DI 00:35
PROVIDERS: PCP Physician Assistant; Visit Provider Physician Assistant
DX: Z13.820 Encounter for screening for osteoporosis (principal); Z78.0 Asymptomatic menopausal state
CPT/HCPCS: 77080

== ENCOUNTER 2022-12-31 10:39 | Outpatient (REF) | payer MEDICAID, SELFPAY ==
[2022-12-31 15:28] LABS: HCT 40.4 % (36.0-46.0); HGB 12.9 g/dL (11.2-15.7); MCH 30.1 pg (27.0-33.0); MCHC 31.9 % (32.0-36.0); MCV 94 fL (80-95); MPV 9.7 fL (8.0-11.0); Platelet Count 314 10^3/uL (130-400); RBC 4.29 10^6/uL (3.93-5.22); RDW 13.2 % (11.7-14.6); RDW-SD 45.7 fL; WBC 5.22 10^3/uL (4.4-10.8)
[2022-12-31 16:04] LABS: Hemoglobin A1C 6.5 % (<5.7)
[2022-12-31 16:27] LABS: ALT 27 U/L (14-59); AST 22 U/L (15-37); Albumin 3.6 g/dL (3.4-5.0); Alkaline Phosphatase 172 U/L (46-116); Anion Gap 8.5 mmol/L (3-11); BUN 16 mg/dL (7-18); CO2 29.5 mmol/L (21.0-32.0); CREATININE 0.8 mg/dL (0.55-1.02); Calcium 9.3 mg/dL (8.5-10.1); Calculated LDL 72 mg/dL (<100); Chloride 106 mmol/L (98-107); Cholesterol 152 mg/dL (<200); Estimated GFR 82.23 (mL/min/1.73m2); Glucose 100 mg/dL (74-106); HDL Cholesterol 60 mg/dL (40-60); Potassium 4.3 mmol/L (3.5-5.1); Sodium 144 mmol/L (136-145); Total Protein 7.1 g/dL (6.4-8.2); Triglyceride 100 mg/dL (<150)
[2022-12-31 17:00] LABS: Bilirubin, Total 0.8 mg/dL (0.2-1.0)
== END 2022-12-31 10:40 | disposition home or self-care (01) ==
LOC: NCHCN 10:39
PROVIDERS: PCP Physician Assistant; Visit Provider Physician Assistant
DX: E11.9 Type 2 diabetes mellitus without complications (principal); I10 Essential (primary) hypertension
CPT/HCPCS: 80053; 80061; 85027; 83036

== ENCOUNTER 2023-01-16 09:39 | Outpatient (CLI) | payer MEDICAID, SELFPAY ==
--- NOTE | 2023-01-16 | DI.US_ITS ---
Exam(s) US SOFT TISSUE HEAD OR NECK EXAM: US SOFT TISSUE HEAD OR NECK CLINICAL HISTORY: LOCALIZED NECK SWELLING, R22.1,VISIBLE/PALPABLE SWELLING UNDERSIDE MANDIBLE. TECHNIQUE: Ultrasound was performed using standard protocol. COMPARISON: CT CT HEAD CERVICAL SPINE WO from 12/09/2021 FINDINGS: Sonographic assessment utilizing grayscale and color Doppler imaging was performed and targeted to th e area of clinical concern in the submental region Palpable abnormalities correspond to lymph nodes. The largest measures 8 x 6 x 8 millimeters. The 2 nd largest measures 5 x 3 x 6 millimeters. Normal fatty victor manuel are maintained. Findings are consisten t with reactive lymph nodes. No suspicious mass or fluid collection.. IMPRESSION: Palpable abnormalities in the submental region correspond to small reactive lymph nodes. DATA REPOSITORY:
== END 2023-01-16 09:59 ==
LOC: DI 09:45
PROVIDERS: PCP Physician Assistant; Visit Provider Physician Assistant Medical
DX: R22.1 Localized swelling, mass and lump, neck (principal); R59.0 Localized enlarged lymph nodes
CPT/HCPCS: 76536

== ENCOUNTER 2023-04-24 01:22 | Outpatient (CLI) | payer MEDICAID, SELFPAY ==
--- NOTE | 2023-04-24 | DI.MAMMO_ITS ---
Exam(s) MAMMO SCREENING EXAM: MAMMO SCREENING CLINICAL HISTORY: SCREENING, Z12.39. TECHNIQUE: Bilateral full field digital CC and MLO mammographic images were obtained with 3D tomosyn thesis and utilizing computer aided detection (CAD). COMPARISON: Prior mammograms were reviewed. FINDINGS: There has been no significant change in the appearance and distribution of the fibroglandular tissue which is again noted be mostly fatty. There are no new spiculated masses nor malignant appearing microcalcification groups. There is no significant architectural distortion nor skin thickening-retraction. IMPRESSION: No radiographic evidence of malignancy. BI-RADS Category 1 - Negative Breast Density - Category A - Almost entirely fatty Breast density Category C or D implies that the patient has dense breast tissue. Dense breast tissue can make it harder to find cancer on a mammogram. Dense breast tissue is also associated with an incr eased risk of breast cancer. This information about the result of the mammogram report was provided to the patient to raise their awareness. Use this report when you speak with the patient about their risks for breast cancer, which includes their family history. At that time, you may recommend additional screening tests (Ultrasoun d or MRI) as these tests may add significant information. A negative radiographic report should not delay biopsy if a dominant or clinically suspicious mass is present. Up to ten percent of cancers are not identified on mammography. A negative report may reinforce clinical impression. Adenosis and dense breasts may obscure an underlying neoplasm. False positive reports average 6 to 10%. Patient will receive a letter notifying them of these results.
== END 2023-04-24 01:42 ==
LOC: DI 01:22
PROVIDERS: PCP Physician Assistant; Visit Provider Physician Assistant
DX: Z12.31 Encounter for screening mammogram for malignant neoplasm of breast (principal)
CPT/HCPCS: 77063; 77067

== ENCOUNTER 2023-04-24 13:52 | Emergency (ER) | payer MEDICAID, SELFPAY ==
--- NOTE | 2023-04-24 13:45 | RT.EKG_ITS ---
APPROVED REPORT Exam: Resting ECG Reason for Exam: syncope Patient Location: E HR:82 bpm ECG Measurements Heart Rate 82 AXIS MT 168 P 28 QRSd 78 QRS 0 QT 394 T -3 QTc 461 Conclusion Sinus rhythm...normal P axis, V-rate 60- 99 Appropriate intervals. No concerning ST segement or T wave abnormalities to suggest occluisve ND
[2023-04-24 13:54] VITALS: BP 143/118; PULSE 84; RESP 16; TEMP 36.3; O2SAT 97
--- NOTE | 2023-04-24 14:15 | RT.EKG_ITS ---
APPROVED REPORT Exam: Resting ECG Reason for Exam: presyncope Patient Location: E HR:80 bpm ECG Measurements Heart Rate 80 AXIS IN 177 P 12 QRSd 82 QRS 1 QT 400 T 12 QTc 460 Conclusion Sinus rhythm...normal P axis, V-rate 60- 99 Low voltage, precordial leads...precordial leads <1.0mV Narrow complex normal sinus rhythm at a rate of 80. Normal axis. Intervals within normal limits. M ild T wave inversion in lead III similar to prior. No acute injury pattern. Low voltage similar to prior.
--- NOTE | 2023-04-24 14:15 | DI.RAD_ITS ---
Exam(s) XR PORTABLE CHEST AP EXAM: XR PORTABLE CHEST AP CLINICAL HISTORY: presyncope. TECHNIQUE: 2D digital imaging was performed. COMPARISON: CR XR PORTABLE CHEST AP from 02/19/2020 FINDINGS: Single AP portable view. Heart size is upper normal. The mediastinum is not widened. Right lung is clear. There is a linear oblique density behind the left side of the heart, possibly s ignificant. Recommend nonportable views. IMPRESSION: Left lower lobe finding as above. Recommend nonportable PA and lateral views when clinically possibl e. DATA REPOSITORY: RADIATION DOSE DELIVERED:
[2023-04-24 14:36] LABS: Abs Immature Grans 0.03 10^3/uL (0.0-0.06); Absolute Basophil Count 0.05 10^3/uL (0.0-0.2); Absolute Eosinophil Count 0.45 10^3/uL (0.0-0.7); Absolute Lymphocyte Count 1.41 10^3/uL (1.2-3.4); Absolute Monocyte Count 0.68 10^3/uL (0.1-0.8); Absolute Neutrophil Count 5.02 10^3/uL (1.2-6.7); Basophils % 0.7; Eosinophils % 5.9; HCT 39.9 % (36.0-46.0); HGB 12.8 g/dL (11.2-15.7); Immature Grans % 0.4; Lymphocytes % 18.5; MCH 29.7 pg (27.0-33.0); MCHC 32.1 % (32.0-36.0); MCV 93 fL (80-95); MPV 8.7 fL (8.0-11.0); Monocytes % 8.9; Neutrophils % 65.6; Platelet Count 319 10^3/uL (130-400); RBC 4.31 10^6/uL (3.93-5.22); RDW 13.2 % (11.7-14.6); RDW-SD 44.8 fL; WBC 7.64 10^3/uL (4.4-10.8)
[2023-04-24 15:01] LABS: ALT 31 U/L (14-59); AST 31 U/L (15-37); Albumin 3.6 g/dL (3.4-5.0); Alkaline Phosphatase 158 U/L (46-116); Anion Gap 10.3 mmol/L (3-11); BUN 12 mg/dL (7-18); Bilirubin, Total 1.1 mg/dL (0.2-1.0); CO2 26.7 mmol/L (21.0-32.0); CREATININE 0.9 mg/dL (0.55-1.02); Calcium 8.9 mg/dL (8.5-10.1); Chloride 105 mmol/L (98-107); Estimated GFR 71.39 (mL/min/1.73m2); Glucose 102 mg/dL (74-106); Magnesium 1.9 mg/dL (1.8-2.4); Potassium 3.8 mmol/L (3.5-5.1); Sodium 142 mmol/L (136-145); Total Protein 7.9 g/dL (6.4-8.2); Troponin I < 50 ng/L (<or=60)
--- NOTE | 2023-04-24 15:15 | DI.RAD_ITS ---
Exam(s) XR CHEST 2V PA LATERAL EXAM: XR CHEST 2V PA LATERAL CLINICAL HISTORY: presyncope. TECHNIQUE: 2D digital imaging was performed. COMPARISON: CR XR PORTABLE CHEST AP from 04/24/2023 FINDINGS: 2 views: Heart size is normal. The mediastinum is not widened. No infiltrates nor pleural effusions. Mild increased markings in left lower lobe retrocardiac region appear to be vascular markings. No evidence of pulmonary edema. No pneumothorax. No fractures evident. IMPRESSION: No acute pulmonary findings. DATA REPOSITORY: RADIATION DOSE DELIVERED:
--- NOTE | 2023-04-24 15:23 | W.ED.GENAD ---
Discharge Plan Discharge Details Chief Complaint: Dizzy/Sync Primary Care Provider: Foster Belle ED Provider: Trish Stewart Home Meds and New Rx's Prescriptions: No Action pregabalin [Lyrica] 50 mg capsule 50 mg PO BID Qty: 60 0RF cyanocobalamin (vitamin B-12) 1,000 mcg capsule 1,000 mcg PO DAILY cholecalciferol (vitamin D3) 1,000 unit capsule 1,000 unit PO DAILY lisinopril 5 mg tablet 5 mg PO DAILY Qty: 90 3RF meclizine 25 mg tablet,chewable 25 mg PO TID PRN (Reason: dizziness) Qty: 60 3RF ibuprofen 600 MG tablet 600 mg PO TID PRNQty: 90 Rx Instructions: 1 tab q6 hours PRN. sertraline 25 MG tablet 25 mg PO DAILY Qty: 90 3RF metformin 850 MG tablet 850 mg PO BID Qty: 180 3RF Rx Instructions: FOR DIABETES pantoprazole 40 MG tablet,delayed release (DR/EC) 40 mg PO DAILY AM Qty: 90 3RF Rx Instructions: FOR GERD Take 1 pill daily in the morning at least 30 minutes before first meal atorvastatin 40 MG tablet 60 mg PO DAILY Qty: 135 3RF Rx Instructions: 1.5 tabs daily of 40 mg to total 60 mg for cholesterol bupropion HCl 300 MG tablet extended release 24 hr 300 mg PO DAILY Qty: 90 3RF PROVENTIL HFA 18 GM HFA.AER.AD 2 puff Inhalation Q4H PRN Qty: 1 2RF nitroglycerin 0.4 mg tablet, sublingual 0.4 mg Sublingual Q5M PRN (Reason: chest pain) Qty: 25 5RF aspirin 81 MG tablet,chewable 81 mg CH DAILY cetirizine [Zyrtec] 10 mg tablet 10 mg PO DAILY PRN nystatin 100,000 unit/gram Powder 60 g Topical BID PRNQty: 0 0RF cyclobenzaprine 5 mg tablet 5 mg PO TID PRNQty: 10 0RF Medical Decision Making 62yo F with hx asthma, HTN, DM, presenting for presyncope. During routine mammogram while on the table felt lightheaded and became diaphoretic. Vital signs and physical exam reassuring on arrival, symptoms mostly resolved, well appearing. No chest pain or shortness of breath at any point, low suspicion for PE. Suspect most likely vasovagal symptoms. CBC & CMP reassuring, no anemia, no significant electrolyte abnoramlities. Initial troponin negative. EKG NSR, appropriate intervals, no concerning St segment or T wave abnormalities to suggest occlusive [place]. CXR with density behind the left heart, limited view on portable exam. Will get 2 view. On reassesment remains well appearing without symptoms. Sign out to oncoming provider at 1530, plan to follow up delta troponin and 2 view chest, if reassuring would discharge home to outpatient followup with PCP. Imaging Data Radiologic Study: Imaging: X-Ray Radiologist's impression: IMPRESSION: Left lower lobe finding as above. Recommend nonportable PA and lateral views when clinically possible. HPI General Mode of arrival: wheelchair. Date/Time Provider Initiated Documentation: 04/24/23 14:09. Limitations to Documentation: no limitations. Information obtained by: patient. HPI Narrative: 62yo F with hx asthma, HTN, DM, presenting for presyncope. Was having a routine mammogram which was almost completed when she began to feel unwell, diaphoretic, and like she was going to pass out. No chest pain or shortness of breath. Did not lose consciousness. [place] well this morning and had breakfast as usual. Has had similar symptoms in the past with emotional stress or anxiety. Symptoms have improved and she feels almost back to normal now. She is otherwise in her usual state of health with no fevers, chills, rash, nausea, vomiting, abdominal pain, dysuria, hematuria, numbness, tingling, weakness, or other concerns. Related Data Home Medications Medication Instructions Recorded Confirmed aspirin 81 mg chewable tablet 81 mg CH DAILY 12/15/12 02/05/22 ibuprofen 600 mg tablet 600 mg PO TID PRN #90 tabs 01/20/18 02/05/22 sertraline 25 mg tablet 25 mg PO DAILY #90 tabs 02/10/18 02/05/22 metformin 850 mg tablet 850 mg PO BID #180 tab-caps 05/20/18 02/05/22 pantoprazole 40 mg tablet,delayed 40 mg PO DAILY AM #90 tab-caps 05/28/18 02/05/22 release atorvastatin 40 mg tablet 60 mg PO DAILY #135 tab-caps 06/10/18 02/05/22 bupropion HCl 300 mg 24 hr tablet, 300 mg PO DAILY #90 tab-caps 06/10/18 02/05/22 extended release nitroglycerin 0.4 mg sublingual 0.4 mg sublingual Q5M PRN chest 07/31/18 02/05/22 tablet pain #25 tab-caps cholecalciferol (vitamin D3) 25 1,000 unit PO DAILY 10/28/18 02/05/22 mcg (1,000 unit) capsule cyanocobalamin (vitamin B-12) 1,000 mcg PO DAILY 10/28/18 02/05/22 1,000 mcg capsule lisinopril 5 mg tablet 5 mg PO DAILY #90 tab-caps 11/12/18 02/05/22 meclizine 25 mg chewable tablet 25 mg PO TID PRN dizziness #60 11/12/18 02/05/22 tab-caps pregabalin 50 mg capsule (Lyrica) 50 mg PO BID #60 caps 12/09/18 02/05/22 nystatin 100,000 unit/gram topical 60 g topical BID PRN #0 grams 05/22/19 02/05/22 powder cetirizine 10 mg tablet (Zyrtec) 10 mg PO DAILY PRN 05/18/20 02/05/22 cyclobenzaprine 5 mg tablet 5 mg PO TID PRN #10 tabs 12/09/21 02/05/22 Previous Rx's Medication Instructions Recorded sertraline 25 mg tablet 25 mg PO DAILY #90 tabs 02/10/18 metformin 850 mg tablet 850 mg PO BID #180 tab-caps 05/20/18 pantoprazole 40 mg tablet,delayed 40 mg PO DAILY AM #90 tab-caps 05/28/18 release atorvastatin 40 mg tablet 60 mg PO DAILY #135 tab-caps 06/10/18 bupropion HCl 300 mg 24 hr tablet, 300 mg PO DAILY #90 tab-caps 06/10/18 extended release nitroglycerin 0.4 mg sublingual 0.4 mg sublingual Q5M PRN chest 07/31/18 tablet pain #25 tab-caps lisinopril 5 mg tablet 5 mg PO DAILY #90 tab-caps 11/12/18 meclizine 25 mg chewable tablet 25 mg PO TID PRN dizziness #60 11/12/18 tab-caps pregabalin 50 mg capsule (Lyrica) 50 mg PO BID #60 caps 12/09/18 nystatin 100,000 unit/gram topical 60 g topical BID PRN #0 grams 05/22/19 powder cyclobenzaprine 5 mg tablet 5 mg PO TID PRN #10 tabs 12/09/21 Allergies Allergy/AdvReac Type Severity Reaction Status Date / Time Latex, Natural Rubber Allergy Intermediate Skin Rash Verified 02/05/22 15:35 silicone Allergy Intermediate Rash Verified 02/05/22 15:35 oxycodone AdvReac Intermediate SICK TO Verified 02/05/22 15:35 STOMACH General Stated Complaint: Dizzy/Sync RISHABH: 3 Review of Systems Narrative: see HPI PFSH All Active Problems Pleuritic chest pain (Acute) Encounter for screening for other viral diseases (Acute) Anxiety disorder (Chronic) Chronic urticaria (Acute) Rash (Acute) History of abnormal cervical Pap smear (Acute) Women's annual routine gynecological examination (Acute) Normal colonoscopy (Acute) Chest pain (Acute) Chest pressure (Acute) DVT prophylaxis (Acute) Middle insomnia (Chronic 04/28/15) Diabetes mellitus (Chronic) Osteoarthritis of knee (Acute 12/21/13) Mixed incontinence (Acute 10/01/17) Menopausal symptoms (Acute 04/28/15) Morbid obesity (Acute 03/12/13) Heartburn (Acute 03/12/13) Essential hypertension (Acute 03/12/13) Disease related peripheral neuropathy (Acute 11/03/13) DM--with intact sensation Candidal skin infection (Acute 12/30/17) Benign paroxysmal positional vertigo (Acute 02/25/13) Meclizine & PT Asthma (Acute 06/02/15) ACT 07/2015 = 15 PFTs with methacholine challenge 07/2015 showed decreased FEV1 with challenge HPV (human papilloma virus) anogenital infection (Acute 07/13/13) Women's Wellness/Rl: 06/2013 Large breasts (Chronic) Viral URI (Acute) Adult BMI > 30 (Chronic) Atypical squamous cells of undetermined significance (ASC-US) on cervical Pap smear (Chronic 07/30/16) Depressive disorder (Chronic 05/02/12) Hyperlipidemia (Chronic 11/29/11) LIPITOR 80MG CAUSED MUSCLE CRAMPS, 40MG NOT AT GOAL, TRYING 60MG 02/2013 Papanicolaou smear of cervix with positive high risk human papilloma virus (HPV) test (Chronic 07/30/16) Recurrent UTI (Chronic 10/01/17) 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 Naresh Cooper Diabetic peripheral neuropathy associated with type 2 diabetes mellitus (Chronic) Asthma (Chronic) Osteoarthritis of knee (Chronic 07/21/14) Chronic hypertension (Chronic) Morbid obesity with body mass index of 40.0-49.9 (Chronic) GERD (gastroesophageal reflux disease) (Chronic) History of surgery (Chronic) 1980. Lap cholecystectomy iin 2004. Left TKA iun Jun 2010 Bilateral cataract extraction and rell implantation. 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) Medical History (Updated 07/17/22 @ 00:09 by ABHILASH CHILDS) Asthma HTN (hypertension) Type 2 diabetes mellitus Surgical History section (~1980) Cholecystectomy Extraction of cataract B/L History of total bilateral knee replacement (TKR) bilateral Hysterectomy, Total Laparoscopic 2016 S/P colonoscopy 05/26/19 Family History Mother Neoplasm Stroke Father , [place] Myocardial infarction Social History Smoking/Tobacco Use Status: Never Smoking risk assessment performed?: Yes Alcohol Intake: current Alcohol Intake frequency: holidays/special occasions only Alcohol type: wine Drug use: Never Substance use type: does not use Household members: spouse, children and other Number of Children: 1 number of grandchildren: 2 Seatbelt use: always Do you feel safe at home: Yes Do you feel safe in your relationship?: Yes History History 1 Para 1 Hx # Term Pregnancies 1 Multiple births Hx # Pregnancies Ectopic pregnancies AB induced Hx Number of Living Children AB spontaneous Exam Narrative Exam Narrative: General: Alert, well appearing, well nourished, in no acute distress. Head: Normocephalic, atraumatic Neck: Trachea midline, Neck supple. ENT: MMM. No oropharygeal lesions or exudate. Cardiac: RRR, no murmurs appreciated Resp: No respiratory distress. CTAB. Abd: Soft, non-distended, nontender : No suprapubic tenderness. No CVA tenderness. Extremities: No deformities. No peripheral edema. Neurologic: GCS 15. Moves all extremities freely against gravity Course Vital Signs Vital signs: Vital Signs Temperature 36.3 C L 04/24/23 13:54 Pulse 84 04/24/23 13:54 Respiratory Rate 16 04/24/23 13:54 Blood Pressure 143/118 H 04/24/23 13:54 Pulse Oximetry 97 04/24/23 13:54 Temperature 36.3 C L 04/24/23 13:54 Temperature Source Tympanic 04/24/23 13:54 Pulse 84 04/24/23 13:54 Respiratory Rate 16 04/24/23 13:54 Respiratory Effort Normal 04/24/23 14:16 Respiratory Depth Normal 04/24/23 14:14 Respiratory Pattern Normal 04/24/23 14:14 Blood Pressure 143/118 H 04/24/23 13:54 Pulse Oximetry 97 04/24/23 13:54 Oxygen Delivery Method Room Air 04/24/23 13:54 Oxygen Flow Rate 0 04/24/23 13:54 Pain Level 0 04/24/23 13:54 Lab/Test Results Lab/Test Results: Laboratory Tests Range/Units 04/24/23 04/24/23 14:25 14:25 WBC (4.4-10.8) 10^3/uL 7.64 RBC (3.93-5.22) 10^6/uL 4.31 Hgb (11.2-15.7) g/dL 12.8 Hct (36.0-46.0) % 39.9 MCV (80-95) fL 93 MCH (27.0-33.0) pg 29.7 MCHC (32.0-36.0) % 32.1 RDW (11.7-14.6) % 13.2 Plt Count (130-400) 10^3/uL 319 MPV (8.0-11.0) fL 8.7 Immature Gran % 0.4 Neutrophils % 65.6 Lymphocytes % 18.5 Monocytes % 8.9 Eosinophils % 5.9 Basophils % 0.7 Nucleated RBC % (0.0-0.3) % 0.0 Absolute Neutrophils (1.2-6.7) 10^3/uL 5.02 Absolute Lymphocytes (1.2-3.4) 10^3/uL 1.41 Absolute Monocytes (0.1-0.8) 10^3/uL 0.68 Absolute Eosinophils (0.0-0.7) 10^3/uL 0.45 Absolute Basophils (0.0-0.2) 10^3/uL 0.05 Sodium (136-145) mmol/L 142 Potassium (3.5-5.1) mmol/L 3.8 Chloride (98-107) mmol/L 105 Carbon Dioxide (21.0-32.0) mmol/L 26.7 Anion Gap (3-11) mmol/L 10.3 BUN (7-18) mg/dL 12 Creatinine (0.55-1.02) mg/dL 0.9 Est GFR (CKD-EPI 2020) (mL/min/1.73m2) 71.39 Glucose (74-106) mg/dL 102 Calcium (8.5-10.1) mg/dL 8.9 Magnesium (1.8-2.4) mg/dL 1.9 Total Bilirubin (0.2-1.0) mg/dL 1.1 H AST (15-37) U/L 31 ALT (14-59) U/L 31 Alkaline Phosphatase (46-116) U/L 158 H Troponin I (<or=60) ng/L < 50 Total Protein (6.4-8.2) g/dL 7.9 Albumin (3.4-5.0) g/dL 3.6
[2023-04-24 17:54] LABS: Troponin I < 50 ng/L (<or=60)
[2023-04-24 18:15] VITALS: BP 133/78; PULSE 80; O2SAT 95
== END 2023-04-24 18:14 | disposition home or self-care (01) ==
PROVIDERS: Student in an Organized Health Care Education/Training Program; Emergency Provider Physician Assistant; PCP Physician Assistant
DX: R55 Syncope and collapse (principal); R91.8 Other nonspecific abnormal finding of lung field; I10 Essential (primary) hypertension; E11.9 Type 2 diabetes mellitus without complications; Z79.84 Long term (current) use of oral hypoglycemic drugs; Z79.82 Long term (current) use of aspirin
CPT/HCPCS: 36415; 80053; 93005; 99284; 71045; 71046; 83735; 84484; 85025; 93010; 99283

== ENCOUNTER 2023-05-28 16:37 | Outpatient (REF) | payer MEDICAID, SELFPAY ==
[2023-05-28 20:42] LABS: Bilirubin Small (Negative); Blood Large (Negative); Clarity Cloudy (Clear); Glucose Negative (Negative); Ketones Trace mg/dL (Negative); Leukocyte Esterase Small (Negative); Nitrite Positive (Negative); Specific Gravity >= 1.030 (1.005-1.025); pH 5.5 (5-8)
[2023-05-28 22:03] LABS: C & S Indicated? Yes; WBC >50 HPF (0-5)
== END 2023-05-28 16:38 | disposition home or self-care (01) ==
LOC: NCHCN 16:37
PROVIDERS: PCP Physician Assistant; Visit Provider Physician Assistant
DX: N39.0 Urinary tract infection, site not specified (principal)
CPT/HCPCS: 87077; 81003; 81015; 87086; 87186

== ENCOUNTER 2023-10-12 09:47 | Emergency (ER) | payer MEDICAID, SELFPAY ==
[2023-10-12 10:30] VITALS: BP 206/110; PULSE 85; RESP 18; TEMP 36.7; O2SAT 99
--- NOTE | 2023-10-12 11:35 | W.ED.GENAD ---
Discharge Plan Disposition Patient Disposition: Home Discharge Details Clinical Impression: Cellulitis, Insect bite Primary Care Provider: Foster Belle ED Provider: Payal Granda Home Meds and New Rx's Prescriptions: New mupirocin [Centany] 2 % ointment 1 applic topical BID Qty: 50 0RF cephalexin 500 mg capsule 500 mg PO Q6H 7 Days Qty: 28 0RF Continued pregabalin [Lyrica] 50 mg capsule 50 mg PO BID Qty: 60 0RF cyanocobalamin (vitamin B-12) 1,000 mcg capsule 1,000 mcg PO DAILY cholecalciferol (vitamin D3) 1,000 unit capsule 1,000 unit PO DAILY lisinopril 5 mg tablet 5 mg PO DAILY Qty: 90 3RF meclizine 25 mg tablet,chewable 25 mg PO TID PRN (Reason: dizziness) Qty: 60 3RF ibuprofen 600 MG tablet 600 mg PO TID PRNQty: 90 Rx Instructions: 1 tab q6 hours PRN. sertraline 25 MG tablet 25 mg PO DAILY Qty: 90 3RF metformin 850 MG tablet 850 mg PO BID Qty: 180 3RF Rx Instructions: FOR DIABETES pantoprazole 40 MG tablet,delayed release (DR/EC) 40 mg PO DAILY AM Qty: 90 3RF Rx Instructions: FOR GERD Take 1 pill daily in the morning at least 30 minutes before first meal atorvastatin 40 MG tablet 60 mg PO DAILY Qty: 135 3RF Rx Instructions: 1.5 tabs daily of 40 mg to total 60 mg for cholesterol bupropion HCl 300 MG tablet extended release 24 hr 300 mg PO DAILY Qty: 90 3RF PROVENTIL HFA 18 GM HFA.AER.AD 2 puff Inhalation Q4H PRN Qty: 1 2RF nitroglycerin 0.4 mg tablet, sublingual 0.4 mg Sublingual Q5M PRN (Reason: chest pain) Qty: 25 5RF aspirin 81 MG tablet,chewable 81 mg CH DAILY cetirizine [Zyrtec] 10 mg tablet 10 mg PO DAILY PRN nystatin 100,000 unit/gram Powder 60 g Topical BID PRNQty: 0 0RF cyclobenzaprine 5 mg tablet 5 mg PO TID PRNQty: 10 0RF Discharge Instructions Instructions: Cellulitis (ED) Additional Instructions: Keep wound clean and dry Apply mupirocin 2-3 times a day ointment, take the Keflex as prescribed Yogurt daily while on antibiotic Will plan to take 48 hours for the antibiotic to become effective, warm compresses Wash with soap and water daily Return earlier with fever, chills, spreading redness, or should you develop new or worsening complaints Blood pressure checked by her primary care physician Referrals: Foster Belle [Primary Care Provider] - 3 days Discharge Data Discharge Date/Time-TO BE ENTERED AT DEPARTURE: 10/12/23 11:50 Medical Decision Making 62-year-old female presenting with redness to right lower extremity, approximately quarter sized area of erythema macerated center, will initiate antibiotics, Keflex and mupirocin topically No evidence of abscess, afebrile and nontoxic repeat blood pressure within normal limits Recheck in 48 hours recommended Early return precautions reviewed and patient and expressed understanding HPI General Date/Time Provider Initiated Documentation: 10/12/23 11:11. HPI Narrative: 62-year-old female presenting with report of infection to right lower leg that started last night, thinks she had an insect bite that she scratched. Denies any fever or chills. Denies any redness, blood glucose was 160 prior to arrival per patient States the area is tender denies any additional complaints at this time. Related Data Home Medications Medication Instructions Recorded Confirmed aspirin 81 mg chewable tablet 81 mg CH DAILY 12/15/12 10/12/23 ibuprofen 600 mg tablet 600 mg PO TID PRN #90 tabs 01/20/18 10/12/23 sertraline 25 mg tablet 25 mg PO DAILY #90 tabs 02/10/18 10/12/23 metformin 850 mg tablet 850 mg PO BID #180 tab-caps 05/20/18 10/12/23 pantoprazole 40 mg tablet,delayed 40 mg PO DAILY AM #90 tab-caps 05/28/18 10/12/23 release atorvastatin 40 mg tablet 60 mg (1.5 x 40 mg) PO DAILY #135 06/10/18 10/12/23 tab-caps bupropion HCl 300 mg 24 hr tablet, 300 mg PO DAILY #90 tab-caps 06/10/18 10/12/23 extended release nitroglycerin 0.4 mg sublingual 0.4 mg sublingual Q5M PRN chest 07/31/18 10/12/23 tablet pain #25 tab-caps cholecalciferol (vitamin D3) 25 1,000 unit PO DAILY 10/28/18 10/12/23 mcg (1,000 unit) capsule cyanocobalamin (vitamin B-12) 1,000 mcg PO DAILY 10/28/18 10/12/23 1,000 mcg capsule lisinopril 5 mg tablet 5 mg PO DAILY #90 tab-caps 11/12/18 10/12/23 meclizine 25 mg chewable tablet 25 mg PO TID PRN dizziness #60 11/12/18 10/12/23 tab-caps pregabalin 50 mg capsule (Lyrica) 50 mg PO BID #60 caps 12/09/18 10/12/23 nystatin 100,000 unit/gram topical 60 g topical BID PRN #0 grams 05/22/19 10/12/23 powder cetirizine 10 mg tablet (Zyrtec) 10 mg PO DAILY PRN 05/18/20 10/12/23 cyclobenzaprine 5 mg tablet 5 mg PO TID PRN #10 tabs 12/09/21 10/12/23 cephalexin 500 mg capsule 500 mg PO Q6H 7 days #28 caps 10/12/23 mupirocin 2 % topical ointment 1 applic topical BID #50 grams 10/12/23 (Centany) Previous Rx's Medication Instructions Recorded sertraline 25 mg tablet 25 mg PO DAILY #90 tabs 02/10/18 metformin 850 mg tablet 850 mg PO BID #180 tab-caps 05/20/18 pantoprazole 40 mg tablet,delayed 40 mg PO DAILY AM #90 tab-caps 05/28/18 release atorvastatin 40 mg tablet 60 mg (1.5 x 40 mg) PO DAILY #135 06/10/18 tab-caps bupropion HCl 300 mg 24 hr tablet, 300 mg PO DAILY #90 tab-caps 06/10/18 extended release nitroglycerin 0.4 mg sublingual 0.4 mg sublingual Q5M PRN chest 07/31/18 tablet pain #25 tab-caps lisinopril 5 mg tablet 5 mg PO DAILY #90 tab-caps 11/12/18 meclizine 25 mg chewable tablet 25 mg PO TID PRN dizziness #60 11/12/18 tab-caps pregabalin 50 mg capsule (Lyrica) 50 mg PO BID #60 caps 12/09/18 nystatin 100,000 unit/gram topical 60 g topical BID PRN #0 grams 05/22/19 powder cyclobenzaprine 5 mg tablet 5 mg PO TID PRN #10 tabs 12/09/21 cephalexin 500 mg capsule 500 mg PO Q6H 7 days #28 caps 10/12/23 mupirocin 2 % topical ointment 1 applic topical BID #50 grams 10/12/23 (Centany) Allergies Allergy/AdvReac Type Severity Reaction Status Date / Time Latex, Natural Rubber Allergy Intermediate Skin Rash Verified 10/12/23 10:35 silicone Allergy Intermediate Rash Verified 10/12/23 10:35 oxycodone AdvReac Intermediate SICK TO Verified 10/12/23 10:35 STOMACH General Stated Complaint: Cellulitis RISHABH: 4 PFSH All Active Problems Insect bite (Acute) Cellulitis (Acute) Pleuritic chest pain (Acute) Encounter for screening for other viral diseases (Acute) Anxiety disorder (Chronic) Chronic urticaria (Acute) Rash (Acute) History of abnormal cervical Pap smear (Acute) Women's annual routine gynecological examination (Acute) Normal colonoscopy (Acute) Chest pain (Acute) Chest pressure (Acute) DVT prophylaxis (Acute) Middle insomnia (Chronic 04/28/15) Diabetes mellitus (Chronic) Osteoarthritis of knee (Acute 12/21/13) Mixed incontinence (Acute 10/01/17) Menopausal symptoms (Acute 04/28/15) Morbid obesity (Acute 03/12/13) Heartburn (Acute 03/12/13) Essential hypertension (Acute 03/12/13) Disease related peripheral neuropathy (Acute 11/03/13) DM--with intact sensation Candidal skin infection (Acute 12/30/17) Benign paroxysmal positional vertigo (Acute 02/25/13) Meclizine & PT Asthma (Acute 06/02/15) ACT 07/2015 = 15 PFTs with methacholine challenge 07/2015 showed decreased FEV1 with challenge HPV (human papilloma virus) anogenital infection (Acute 07/13/13) Women's Wellness/Rl: 06/2013 Large breasts (Chronic) Viral URI (Acute) Adult BMI > 30 (Chronic) Atypical squamous cells of undetermined significance (ASC-US) on cervical Pap smear (Chronic 07/30/16) Depressive disorder (Chronic 05/02/12) Hyperlipidemia (Chronic 11/29/11) LIPITOR 80MG CAUSED MUSCLE CRAMPS, 40MG NOT AT GOAL, TRYING 60MG 02/2013 Papanicolaou smear of cervix with positive high risk human papilloma virus (HPV) test (Chronic 07/30/16) Recurrent UTI (Chronic 10/01/17) 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 Naresh Cooper Diabetic peripheral neuropathy associated with type 2 diabetes mellitus (Chronic) Asthma (Chronic) Osteoarthritis of knee (Chronic 07/21/14) Chronic hypertension (Chronic) Morbid obesity with body mass index of 40.0-49.9 (Chronic) GERD (gastroesophageal reflux disease) (Chronic) History of surgery (Chronic) 1980. Lap cholecystectomy iin 2004. Left TKA iun Jun 2010 Bilateral cataract extraction and rell implantation. 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) Medical History (Updated 10/12/23 @ 11:38 by LISY Mccollum) Asthma HTN (hypertension) Type 2 diabetes mellitus Surgical History S/P colonoscopy 05/26/19 History of total bilateral knee replacement (TKR) bilateral Hysterectomy, Total Laparoscopic 2017 Cholecystectomy Extraction of cataract B/L section (~1980) Family History Mother Neoplasm Stroke Father , [place] Myocardial infarction Social History Smoking/Tobacco Use Status: Never Smoking risk assessment performed?: Yes Alcohol Intake: current Alcohol Intake frequency: holidays/special occasions only Alcohol type: wine Drug use: Never Substance use type: does not use Household members: spouse, children and other Housing: house Number of Children: 1 number of grandchildren: 2 Seatbelt use: always Do you feel safe at home: Yes Do you feel safe in your relationship?: Yes History History 1 Para 1 Hx # Term Pregnancies 1 Multiple births Hx # Pregnancies Ectopic pregnancies AB induced Hx Number of Living Children AB spontaneous Course Vital Signs Vital signs: Vital Signs Temperature 36.7 C 12/30/23 10:30 Pulse 85 10/12/23 10:30 Respiratory Rate 18 10/12/23 10:30 Blood Pressure 206/110 H 10/12/23 10:30 Pulse Oximetry 99 10/12/23 10:30 Temperature 36.7 C 10/12/23 10:30 Temperature Source Oral 10/12/23 10:30 Pulse 85 10/12/23 10:30 Respiratory Rate 18 10/12/23 10:30 Respiratory Effort Normal, Non-Labored 10/12/23 10:33 Blood Pressure 206/110 H 10/12/23 10:30 Pulse Oximetry 99 10/12/23 10:30 Oxygen Delivery Method Room Air 10/12/23 10:30 Oxygen Flow Rate 0 10/12/23 10:30 Pain Level 8 10/12/23 10:30
[2023-10-12 11:44] VITALS: BP 136/84; PULSE 80; RESP 18; O2SAT 92
== END 2023-10-12 11:50 | disposition home or self-care (01) ==
PROVIDERS: Emergency Provider Physician Assistant; PCP Physician Assistant
DX: L03.115 Cellulitis of right lower limb (principal); J45.909 Unspecified asthma, uncomplicated; E11.42 Type 2 diabetes mellitus with diabetic polyneuropathy; I10 Essential (primary) hypertension
CPT/HCPCS: 99283

== ENCOUNTER 2023-12-20 19:03 | Outpatient (REF) | payer MEDICARE, SELFPAY ==
[2023-12-20 16:25] LABS: Hemoglobin A1C 6.3 % (<5.7)
[2023-12-20 16:34] LABS: ALT 26 U/L (14-59); AST 19 U/L (15-37); Albumin 3.2 g/dL (3.4-5.0); Alkaline Phosphatase 195 U/L (46-116); Anion Gap 7.7 mmol/L (3-11); BUN 19 mg/dL (7-18); Bilirubin, Total 0.7 mg/dL (0.2-1.0); CO2 28.3 mmol/L (21.0-32.0); CREATININE 0.8 mg/dL (0.55-1.02); Calcium 8.9 mg/dL (8.5-10.1); Calculated LDL 98 mg/dL (<100); Chloride 106 mmol/L (98-107); Cholesterol 175 mg/dL (<200); Estimated GFR 81.72 (mL/min/1.73m2); Glucose 127 mg/dL (74-106); HDL Cholesterol 63 mg/dL (40-60); Potassium 4.4 mmol/L (3.5-5.1); Sodium 142 mmol/L (136-145); TSH 2.23 uIU/Ml (0.36-3.74); Total Protein 6.9 g/dL (6.4-8.2); Triglyceride 74 mg/dL (<150); Vitamin B12 205 pg/mL (193-986)
[2023-12-20 17:01] LABS: FREE T4 0.87 ng/dL (0.76-1.46)
[2023-12-20 17:08] LABS: COMMENT (LAB VIEW ONLY) 112.11 mg/dL; Microalb ug/mg Crea 5.7 ug/mg Cr
== END 2023-12-20 19:04 | disposition home or self-care (01) ==
LOC: NCHCN 19:03
PROVIDERS: PCP Physician Assistant; Referring Provider Physician Assistant; Visit Provider Physician Assistant
DX: E11.9 Type 2 diabetes mellitus without complications (principal); R41.3 Other amnesia
CPT/HCPCS: 80053; 80061; 82043; 82570; 82607; 83036; 84439; 84443

== ENCOUNTER 2024-01-22 12:58 | Emergency (ER) | payer MEDICARE, SELFPAY ==
[2024-01-22 13:02] VITALS: BP 151/83; PULSE 78; RESP 12; TEMP 36.7; O2SAT 98
--- NOTE | 2024-01-22 13:45 | DI.RAD_ITS ---
Exam(s) XR RIBS LT W PA LAT CHEST EXAM: XR RIBS LT W PA LAT CHEST CLINICAL HISTORY: left rib pain. TECHNIQUE: 2D digital imaging was performed. COMPARISON: CR XR CHEST 2V PA LATERAL from 04/24/2023 FINDINGS: Total 6 views Left ribs-4 views: No obvious left rib fractures identified on these images. Chest x-ray- 2 views: Heart size is normal mediastinum is not widened. Left lung is clear. There is subtle density in the right upper lobe possible nodular infiltrate. This measures approximately 1.7 x 1.5 cm. There are no pleural effusions. No pneumothorax. IMPRESSION: Subtle nodular infiltrate right upper lobe. If clinically indicated can be further studied with CT s can. DATA REPOSITORY: RADIATION DOSE DELIVERED:
--- NOTE | 2024-01-22 15:03 | ED.GENADUL_ITS ---
Discharge Plan Disposition Patient Disposition: Home Discharge Details Clinical Impression: Closed rib fracture Primary Care Provider: Foster Belle ED Provider: Payal Granda Home Meds and New Rx's Prescriptions: Continued pregabalin [Lyrica] 50 mg capsule 50 mg PO BID Qty: 60 0RF cyanocobalamin (vitamin B-12) 1,000 mcg capsule 1,000 mcg PO DAILY lisinopril 5 mg tablet 5 mg PO DAILY Qty: 90 3RF meclizine 25 mg tablet,chewable 25 mg PO TID PRN (Reason: dizziness) Qty: 60 3RF ibuprofen 600 MG tablet 600 mg PO TID PRNQty: 90 Rx Instructions: 1 tab q6 hours PRN. sertraline 25 MG tablet 25 mg PO DAILY Qty: 90 3RF metformin 850 MG tablet 850 mg PO BID Qty: 180 3RF Rx Instructions: FOR DIABETES pantoprazole 40 MG tablet,delayed release (DR/EC) 40 mg PO DAILY AM Qty: 90 3RF Rx Instructions: FOR GERD Take 1 pill daily in the morning at least 30 minutes before first meal atorvastatin 40 MG tablet 60 mg PO DAILY Qty: 135 3RF Rx Instructions: 1.5 tabs daily of 40 mg to total 60 mg for cholesterol bupropion HCl 300 MG tablet extended release 24 hr 300 mg PO DAILY Qty: 90 3RF PROVENTIL HFA 18 GM HFA.AER.AD 2 puff Inhalation Q4H PRN Qty: 1 2RF nitroglycerin 0.4 mg tablet, sublingual 0.4 mg Sublingual Q5M PRN (Reason: chest pain) Qty: 25 5RF aspirin 81 MG tablet,chewable 81 mg CH DAILY cetirizine [Zyrtec] 10 mg tablet 10 mg PO DAILY PRN mupirocin [Centany] 2 % ointment 1 applic topical BID Qty: 50 0RF nystatin 100,000 unit/gram Powder 60 g Topical BID PRNQty: 0 0RF cyclobenzaprine 5 mg tablet 5 mg PO TID PRNQty: 10 0RF Trulicity 1.5 mg/0.5 mL pen injector 1.5 mg subcut QWEEK Discharge Instructions Instructions: Rib Fracture (ED) Additional Instructions: Take ibuprofen 400 mg every 6 hours for no longer than 3 days Take Tylenol 650 every 4 hours while you are awake Lidoderm patches which you may apply topically 12 hours on, 12 hours off, make sure you use a spirometer, at least 10 times a day full inhalation and exhalation to prevent pneumonia Return earlier should you have new or worsening complaints including fever, chills, worsening pain or shortness of breath Referrals: Foster Belle [Primary Care Provider] - Discharge Data Discharge Date/Time-TO BE ENTERED AT DEPARTURE: 01/22/24 16:20 HPI General Date/Time Provider Initiated Documentation: 01/22/24 13:37 . HPI Narrative: 63-year-old female presents after a fall 3 to 4 days prior to arrival. She states she tripped on a sidewalk and landed on her left chest wall. She states she has a small bruise. She states she has pain with moving and breathing. She denies any abdominal pain, bloody stools, hemoptysis, fever, chills, shortness of breath. Denies any head injury or arm pain. Related Data Home Medications Medication Instructions Recorded Confirmed aspirin 81 mg chewable tablet 81 mg CH DAILY 12/15/12 01/22/24 ibuprofen 600 mg tablet 600 mg PO TID PRN #90 tabs 01/20/18 01/22/24 sertraline 25 mg tablet 25 mg PO DAILY #90 tabs 02/10/18 01/22/24 metformin 850 mg tablet 850 mg PO BID #180 tab-caps 05/20/18 01/22/24 pantoprazole 40 mg tablet,delayed 40 mg PO DAILY AM #90 tab-caps 05/28/18 01/22/24 release atorvastatin 40 mg tablet 60 mg (1.5 x 40 mg) PO DAILY #135 06/10/18 01/22/24 tab-caps bupropion HCl 300 mg 24 hr tablet, 300 mg PO DAILY #90 tab-caps 06/10/18 0 01/22/24 extended release nitroglycerin 0.4 mg sublingual 0.4 mg sublingual Q5M PRN chest 07/31/18 01/22/24 tablet pain #25 tab-caps cyanocobalamin (vitamin B-12) 1,000 mcg PO DAILY 10/28/18 01/22/24 1,000 mcg capsule lisinopril 5 mg tablet 5 mg PO DAILY #90 tab-caps 11/12/18 01/22/24 meclizine 25 mg chewable tablet 25 mg PO TID PRN dizziness #60 11/12/18 01/22/24 tab-caps pregabalin 50 mg capsule (Lyrica) 50 mg PO BID #60 caps 12/09/18 01/22/24 nystatin 100,000 unit/gram topical 60 g topical BID PRN #0 grams 05/22/19 01/22/24 powder cetirizine 10 mg tablet (Zyrtec) 10 mg PO DAILY PRN 05/18/20 01/22/24 cyclobenzaprine 5 mg tablet 5 mg PO TID PRN #10 tabs 12/09/21 01/22/24 mupirocin 2 % topical ointment 1 applic topical BID #50 grams 10/12/23 01/22/24 (Centany) dulaglutide 1.5 mg/0.5 mL 1.5 mg subcut QWEEK 01/22/24 01/22/24 [facility] Previous Rx's Medication Instructions Recorded sertraline 25 mg tablet 25 mg PO DAILY #90 tabs 02/10/18 metformin 850 mg tablet 850 mg PO BID #180 tab-caps 05/20/18 pantoprazole 40 mg tablet,delayed 40 mg PO DAILY AM #90 tab-caps 05/28/18 release atorvastatin 40 mg tablet 60 mg (1.5 x 40 mg) PO DAILY #135 06/10/18 tab-caps bupropion HCl 300 mg 24 hr tablet, 300 mg PO DAILY #90 tab-caps 06/10/18 extended release nitroglycerin 0.4 mg sublingual 0.4 mg sublingual Q5M PRN chest 07/31/18 tablet pain #25 tab-caps lisinopril 5 mg tablet 5 mg PO DAILY #90 tab-caps 11/12/18 meclizine 25 mg chewable tablet 25 mg PO TID PRN dizziness #60 11/12/18 tab-caps pregabalin 50 mg capsule (Lyrica) 50 mg PO BID #60 caps 12/09/18 nystatin 100,000 unit/gram topical 60 g topical BID PRN #0 grams 05/22/19 powder cyclobenzaprine 5 mg tablet 5 mg PO TID PRN #10 tabs 12/09/21 mupirocin 2 % topical ointment 1 applic topical BID #50 grams 10/12/23 (Centany) Allergies Allergy/AdvReac Type Severity Reaction Status Date / Time Latex, Natural Rubber Allergy Intermediate Skin Rash Verified 01/22/24 14:55 silicone Allergy Intermediate Rash Verified 01/22/24 14:55 oxycodone AdvReac Intermediate SICK TO Verified 01/22/24 14:55 STOMACH General Stated Complaint: Chest/Rib RISHABH: 3 Course Vital Signs Vital signs: Vital Signs Temperature 36.7 C 01/22/24 13:02 Pulse 78 01/22/24 13:02 Respiratory Rate 12 01/22/24 13:02 Blood Pressure 151/83 H 01/22/24 13:02 Pulse Oximetry 98 01/22/24 13:02 Temperature 36.7 C 01/22/24 13:02 Temperature Source Oral 01/22/24 13:02 Pulse 78 01/22/24 13:02 Respiratory Rate 12 01/22/24 13:02 Respiratory Effort Normal 01/22/24 13:37 Respiratory Depth Normal 01/22/24 13:37 Respiratory Pattern Normal 01/22/24 13:37 Blood Pressure 151/83 H 01/22/24 13:02 Blood Pressure Position Sitting 01/22/24 13:02 Pulse Oximetry 98 01/22/24 13:02 Oxygen Delivery Method Room Air 01/22/24 13:02 Oxygen Flow Rate 0 01/22/24 13:02 Pain Level 10 01/22/24 13:37 Medical Decision Making this 63-year-old female presents after a mechanical fall with injury to left chest wall, x-ray does not show evidence of pneumothorax of her chest, but I am concerned for rib fracture to the fifth rib anteriorly consistent with her exam She has a small core sized area of ecchymosis in this area without crepitus Lungs are clear to auscultation bilaterally without evidence of additional injury, abdominal exam is completely benign including CVA exam without evidence of hematoma or discomfort No cervical spine tenderness, alert and oriented x 3, cranial nerves II through XII intact, pupils equal round reactive to light and accommodation, no visual evidence of head injury, been witnessed by Ambulatory with steady gait GCS 15 Patient and felt comfortable discharge home, will use spirometer, instructions on how to use a spirometer to prevent pneumonia reviewed Patient discharged home ambulatory with steady gait in the care of her Return precautions reviewed and patient expressed understanding Chest x-ray does not show evidence of acute rib fracture per radiology interpretation my review, given her pain and risk for pneumonia she will continue with the spirometry Made aware regarding the right nodular infiltrate and need for outpatient assessment should she like to further evaluate this Quality:SDOH Health Related Social Needs: No Data to Display PFSH All Active Problems Closed rib fracture (Acute) Pleuritic chest pain (Acute) Encounter for screening for other viral diseases (Acute) Anxiety disorder (Chronic) Chronic urticaria (Acute) Rash (Acute) History of abnormal cervical Pap smear (Acute) Women's annual routine gynecological examination (Acute) Normal colonoscopy (Acute) Chest pain (Acute) Chest pressure (Acute) DVT prophylaxis (Acute) Middle insomnia (Chronic 04/28/15) Diabetes mellitus (Chronic) Osteoarthritis of knee (Acute 12/21/13) Mixed incontinence (Acute 10/01/17) Menopausal symptoms (Acute 04/28/15) Morbid obesity (Acute 03/12/13) Heartburn (Acute 03/12/13) Essential hypertension (Acute 03/12/13) Disease related peripheral neuropathy (Acute 11/03/13) DM--with intact sensation Candidal skin infection (Acute 12/30/17) Benign paroxysmal positional vertigo (Acute 02/25/13) Meclizine & PT Asthma (Acute 06/02/15) ACT 07/2015 = 15 PFTs with methacholine challenge 07/2015 showed decreased FEV1 with challenge HPV (human papilloma virus) anogenital infection (Acute 07/13/13) Women's Wellness/Rl: 06/2013 Large breasts (Chronic) Viral URI (Acute) Adult BMI > 30 (Chronic) Atypical squamous cells of undetermined significance (ASC-US) on cervical Pap smear (Chronic 07/30/16) Depressive disorder (Chronic 05/02/12) Hyperlipidemia (Chronic 11/29/11) LIPITOR 80MG CAUSED MUSCLE CRAMPS, 40MG NOT AT GOAL, TRYING 60MG 02/2013 Papanicolaou smear of cervix with positive high risk human papilloma virus (HPV) test (Chronic 07/30/16) Recurrent UTI (Chronic 10/01/17) 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 Naresh Cooper Diabetic peripheral neuropathy associated with type 2 diabetes mellitus (Chronic) Asthma (Chronic) Osteoarthritis of knee (Chronic 07/21/14) Chronic hypertension (Chronic) Morbid obesity with body mass index of 40.0-49.9 (Chronic) GERD (gastroesophageal reflux disease) (Chronic) History of surgery (Chronic) 1980. Lap cholecystectomy iin 2004. Left TKA iun Jun 2010 Bilateral cataract extraction and rell implantation. 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) Medical History (Updated 01/22/24 @ 15:50 by LISY Mccollum) Asthma HTN (hypertension) Type 2 diabetes mellitus Surgical History S/P colonoscopy 05/26/19 History of total bilateral knee replacement (TKR) bilateral Hysterectomy, Total Laparoscopic 2017 Cholecystectomy Extraction of cataract B/L section (~1980) Family History Mother Neoplasm Stroke Father , [place] Myocardial infarction Social History Smoking/Tobacco Use Status: Never Smoking risk assessment performed?: Yes Alcohol Intake: current Alcohol Intake frequency: holidays/special occasions only Alcohol type: wine Drug use: Never Substance use type: does not use Details: Fell getting into car Household members: spouse, children and other Housing: house Number of Children: 1 number of grandchildren: 2 Seatbelt use: always Do you feel safe at home: Yes Do you feel safe in your relationship?: Yes History History 1 Para 1 Hx # Term Pregnancies 1 Multiple births Hx # Pregnancies Ectopic pregnancies AB induced Hx Number of Living Children AB spontaneous
--- NOTE | 2024-01-22 16:12 | W.ED.FU ---
Follow Up Plan: This patient was in the department during my shift. I did not see her however she was being discharged and had requested a Lidoderm patch from her nurse. I ordered her for a Lidoderm patch.
[2024-01-22 16:18] VITALS: BP 124/68; PULSE 75; RESP 15; TEMP 36.6; O2SAT 99
[2024-01-22] MEDS: Lidocaine 5% Patch 1 PATCH TP (16:18)
== END 2024-01-22 16:20 | disposition home or self-care (01) ==
PROVIDERS: Emergency Provider Physician Assistant; PCP Physician Assistant
DX: S20.212A Contusion of left front wall of thorax, initial encounter (principal); I10 Essential (primary) hypertension; E78.5 Hyperlipidemia, unspecified; E11.9 Type 2 diabetes mellitus without complications; Z79.82 Long term (current) use of aspirin; Z79.84 Long term (current) use of oral hypoglycemic drugs; Z79.85 Long-term (current) use of injectable non-insulin antidiabetic drugs; W01.0XXA Fall on same level from slipping, tripping and stumbling without subsequent striking against object, initial encounter; Y93.01 Activity, walking, marching and hiking; Y92.480 Sidewalk as the place of occurrence of the external cause
CPT/HCPCS: 82962; 99284; 71046; 71100

== ENCOUNTER → 2024-02-11 14:59 | Outpatient (CLI) | payer MEDICARE, SELFPAY ==
--- NOTE | 2024-02-11 12:55 | DI.RAD_ITS ---
Exam(s) XR CHEST 2V PA LATERAL EXAM: XR CHEST 2V PA LATERAL CLINICAL HISTORY: R91.1 solitary pulmonary nodule, f/u possible lung nodule on recent CXR TECHNIQUE: 2D digital imaging was performed. Two views. COMPARISON: CR XR CHEST 2V PA LATERAL from 04/24/2023 CR XR PORTABLE CHEST AP from 04/24/2023 CR XR RIBS LT W PA LAT CHEST from 01/22/2024 FINDINGS: HEART: Normal size. Aorta: Not dilated. PULMONARY VASCULATURE: Normal. LUNGS: There is a suggestion of a density in the left upper lobe. This may represent the end of the 1st rib however chest CT recommended to evaluate for mass. PLEURAL SPACE: No pleural effusion or pneumothorax. BONE:Unremarkable for age. Soft tissues: Unremarkable. IMPRESSION: Question right upper lobe opacity. Chest CT recommended for further evaluation. DATA REPOSITORY: RADIATION DOSE DELIVERED:
== END ==
PROVIDERS: PCP Physician Assistant; Visit Provider Physician Assistant
DX: R91.1 Solitary pulmonary nodule (principal)
CPT/HCPCS: 71046

== ENCOUNTER → 2024-02-27 02:43 | Outpatient (CLI) | payer MEDICARE, SELFPAY ==
--- NOTE | 2024-02-27 13:16 | DI.CT_ITS ---
Exam(s) CT CHEST WO EXAM: CT CHEST WO CLINICAL HISTORY: R91.1 Solitary pulmonary nodule. ? Opacity on CXR. TECHNIQUE: Imaging protocol: Axial computed tomography images were obtained and coronal and sagittal reformatted images were created and reviewed. COMPARISON: CT CT THORACIC SPINE RECONS from 12/09/[address] CHEST WO from 12/09/2021 CR XR CHEST 2V PA LATERAL from 02/11/2024 FINDINGS: The examination is limited due to patient motion artifact. Tracheobronchial tree: Patent where visualized. Pulmonary parenchyma: No consolidation or dominant measurable mass. No architectural distortion. Ther e is a calcified granuloma in the left upper lobe. Mediastinum and Snow: No dominant adenopathy or fluid collection. The esophagus is unremarkable. Thyroid gland: Unremarkable. Pleura: No effusion or pneumothorax. Heart: The heart is not dilated. Coronary artery calcifications are present. No pericardial effusion . Aorta: Thoracic aorta non-dilated. Atherosclerotic calcification of the thoracic aorta is noted. Upper abdomen: Status post cholecystectomy. Lymph nodes: Within normal limits. Soft tissues: Unremarkable. Bones:Within normal limits for the patient's age. IMPRESSION: 1. No pulmonary nodules. There are no infiltrates or nodules seen in the left upper lobe to correspo nd to the opacity seen on the chest x-ray which likely reflects the distal aspect of the 1st rib. 2. No acute pulmonary process. RADIATION DOSE DELIVERED: 631.58mGy.cm Total DLP 631.58mGy.cm Total DLP DATA REPOSITORY: All CT scans at this facility are submitted to the National Radiology Data Registry (NRDR) Dose Index Registry (DIR) with the [employer] ([employer]). RADIATION OPTIMIZATION: All CT scans at this facility use at least one of these dose optimization te chniques: automated exposure control; mA and/or kV adjustment per patient size (includes targeted exa ms where dose is matched to clinical indication); or iterative reconstruction.
== END ==
PROVIDERS: PCP Physician Assistant; Visit Provider Physician Assistant
DX: R91.1 Solitary pulmonary nodule (principal)
CPT/HCPCS: 71250

== ENCOUNTER → 2024-05-21 01:02 | Outpatient (CLI) | payer MEDICARE, SELFPAY ==
--- NOTE | 2024-05-21 | DI.MRI_ITS ---
Exam(s) MR BRAIN WO EXAM: MR BRAIN WO CLINICAL HISTORY: MEMORY IMPAIRMENT, R41.3 TECHNIQUE: Multiplanar multisequence MRI of the brain was performed. COMPARISON: CT CT HEAD CERVICAL SPINE WO from 12/09/2021 FINDINGS: VENTRICLES AND EXTRA AXIAL SPACES: Normal in size and morphology for the degree of atrophy MIDLINE SHIFT: None. CEREBRAL PARENCHYMA: No focus of restricted diffusion to suggest acute infarct. No space-occupying le sandi identified. Moderate to severe atrophy, disproportionate to the patient's age. Prominent scatte red foci of high signal in the white matter consistent with sequela of chronic microvascular disease, also advanced for the patient's age.. HEMORRHAGE: None. BRAINSTEM/CEREBELLUM: Normal. VISUALIZED PARANASAL SINUSES/MASTOIDS:Small mucous retention cyst floor of right maxillary sinus. Vasculature: Normal flow void. PITUITARY GLAND: Unremarkable. ORBITS: Unremarkable. IMPRESSION: Moderate atrophy and prominent white matter changes of small vessel disease, disproportionate for the patient's age. No evidence of mass or acute infarct. DATA REPOSITORY:
== END ==
PROVIDERS: PCP Physician Assistant; Visit Provider Physician Assistant
DX: R41.3 Other amnesia (principal); G32.89 Other specified degenerative disorders of nervous system in diseases classified elsewhere
CPT/HCPCS: 70551

== ENCOUNTER 2024-11-18 22:52 | Outpatient (REF) | payer MEDICARE, SELFPAY ==
[2024-11-18 15:39] LABS: Hemoglobin A1C 7.4 % (<5.7)
[2024-11-18 16:09] LABS: ALT 27 U/L (14-59); AST 25 U/L (15-37); Albumin 3.2 g/dL (3.4-5.0); Alkaline Phosphatase 177 U/L (46-116); Anion Gap 9.9 mmol/L (3-11); BUN 10 mg/dL (7-18); Bilirubin, Total 0.71 mg/dL (0.2-1.0); CO2 26.1 mmol/L (21.0-32.0); CREATININE 0.9 mg/dL (0.55-1.02); Calcium 8.6 mg/dL (8.5-10.1); Chloride 105 mmol/L (98-107); Estimated GFR 70.51 (mL/min/1.73m2); Glucose 184 mg/dL (74-106); Potassium 4.1 mmol/L (3.5-5.1); Sodium 141 mmol/L (136-145); Total Protein 6.7 g/dL (6.4-8.2); Vitamin B12 1780 pg/mL (193-986)
--- OUTSIDE RECORDS SUMMARY | 2024-11-18 22:56 | XMS_ITS | Continuity of Care Document ---
Author Organization [facility] Address [address] [place] [address] Assessment Encounter Date Assessment Date Assessment LastModified by Organization Details LastModified Time 11/18/2024 11/18/2024 Trial of ice over her right knee anserine bursa for knee pain. olga lidia Not available 11/18/2024 12:30:04 Plan of Treatment Reminders Order Date Submit Date Provider Last Modified By Organization Details Last Modified Time Details Appointments Follow Up 2024 11:30A Daniella RUIZ Not available Not available Not available Follow Up 2024 10:00A Daniella RUIZ Not available Not available Not available Lab vitamin B12, serum 2024 025 sophia 63 [facility] (Registration ), [address] [place] [address] [place], [address], 11/18/2024 12:30:32 HbA1c (hemoglob in A1c), blood 2024 025 sophia Hogan [facility] (Registration ), [address] [place] [address] [place], [address], 11/18/2024 12:30:32 CMP, serum or plasma 2024 025 BRADLEY [facility] (Registration ), [address] [place] [address] [place], [address], 11/18/2024 16:13:24 Referral None recorded. Procedures None recorded. Surgeries None recorded. Imaging None recorded. Medication Orders Diflucan 150 mg tablet 2024 025 BR[facility] [address] [place], [address], 11/18/2024 11:46:00 oxybutyni n chloride 5 mg tablet 2024 025 [facility], [address] [place], [address], 11/18/2024 11:47:24 Patient TargetsNo targets recorded. Patient Instructions Encounter Date Encounter Id Patient Instructions Last Modified By Organization Details Last Modified Time 11/18/2024 [id number] Kathrine - I sent a prescription for oxybutinin for your bladder, and for diflucan. Check on pregabalin (lyrica) to make sure you are taking this. If you are, we could increase the dose to 75 mg twice daily. Try ice on your right knee. I will call with results of blood work. See you back in 3 months. olga lidia Not available 11/18/2024 12:00:26 Reason for Referral None Reported. Problems Name Problem SNOMED Code Status Onset Date Resolution Date Notes Provider Name and Address Organization Details Recorded Time Overacti ve urinary bladder 283708959 Active [address], [place], [address] , [facility] 4 12:57:06 Anxiety disorder 074972291 Active 2018 . Problem Code: F41.9; Problem Code Type: ICD-10; [address], [place], [address] , [facility] 4 07:59:28 Urticari a [id number] Completed 201808/21/2023 Problem Code: L50.9; Problem Code Type: ICD-10; Not Available [facility] 4 05:37:01 Type 2 diabetes mellitus without complica tion 102763669 Active 201808/22/20 22 - Comments only - Foster Ruiz RPA - Problem Code: E11.9; Problem Code Type: ICD-10; [address], [place], [address] , [facility] 4 08:01:12 Body mass index 40+ - severely obese 857011690 Active 2018 Problem Code: Z68.42; Problem Code Type: ICD-10; [address], [place], [address] , [facility] 4 07:59:37 [facility] hyperten sandi 53060649 Active 2018 Problem Code: I10; Problem Code Type: ICD-10; [address], [place] [address] , [facility] 4 07:59:56 Uncompli cated moderate persiste nt asthma 462334698 Active 201803/30/20 22 - Comments only - Foster Ruiz RPA -Problem Code: J45.40; Problem Code Type: ICD-10; [address], [place], [address] , [facility] 4 08:01:03 Human papillom a virus infectio n 274554895 Completed 201808/21/2023 Problem Code: B97.7; Problem Code Type: ICD-10; Not Available [facility] 4 05:37:01 Atypical squamous cells of undeterm ined signific ance on cervical Papanico laou smear 703834362 Completed 201808/21/2023 Problem Code: R87.610; Problem Code Type: ICD-10; Not Available [facility] 4 05:37:00 Hyperlip idemia 69873882 Active 201804/23/20 23 - Comments only - Foster Ruiz RPA - Continue on statin. Problem Code: E78.5; Problem Code Type: ICD-10; [address], [place], [address] , [facility]. 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 Had flu vaccine at work. Will schedule annual exam with fasting labs prior. Problem Code: Z71.89; Problem Code Type: ICD-10; Not Available [facility] 3 04:20:25 Acute upper respirat ory infectio n 76449236 Completed 201906/24/2020 Problem Code: J06.9; Problem Code Type: ICD-10; Not Available [facility] 3 04:20:25 Liver function tests outside referenc e range 715936590 Active 202006/21/20 21 - Comments only - Foster Ruiz RPA - steatosi s on 07/[address] Problem Code: R94.5; Problem Code Type: ICD-10; Not Available [facility] 3 04:20:26 Screenin g for malignan t neoplasm of breast Active 202103/30/20 22 - Comments only - Foster Ruiz RPA - overdue for screenin g mammogra m. We will get ordered. Problem Code: Z12.39; Problem Code Type: ICD-10; Not Available [facility] 3 04:20:26 Candidia sis of skin 17922631 Active 2021 Problem Code: B37.2; Problem Code Type: ICD-10; [address], [place], [address] , [facility] 4 07:59:44 Neck pain 62644414 Active 202108/22/20 22 - Comments only - Foster Ruiz RPA - neck stiffnes s, mainly with rotation to the rigth since she took a fall in r. No signs of focal nerve impingem ent. Recommen ded gentle rom stretche s. Problem Code: M54.2; Problem Code Type: ICD-10; [address], [place], [address] , [place] [facility]. 4 08:00:38 Low back pain 447760177 Active 202108/29/20 22 - Comments only - Foster Ruiz RPA - L4-5 degenera tive changes on x-ray Problem Code: M54.50; Problem Code Type: ICD-10; Not Available [facility] 3 04:20:26 Hypertro phy of breast 204206932 Active 2022 Problem Code: N62; Problem Code Type: ICD-10; Not Available [facility] 3 04:20:26 Mass of neck 924447470 Completed 202208/21/2023 Not Available [facility] 4 05:37:00 Malaise 503246003 Active 2022 Problem Code: R53.81; Problem Code Type: ICD-10; Not Available [facility] 3 04:20:27 Syncope and collapse 396759065 Active 202204/29/20 23 - Comments only - Foster Ruiz RPA - While having an uncomfor table mammogra m. Symptoms lasted approxim ately 15 minutes. Has felt back to baseline health since. Unremark able work-up in the ER. Likely vasovaga l in nature. Reassura nce provided . Keep next schedule d appointm ent. Problem Code: R55; Problem Code Type: ICD-10; Not Available [facility] 3 04:20:27 Urinary tract infectio us disease 61650603 Completed 202208/21/2023 Problem Code: N39.0; Problem Code Type: ICD-10; Not Available [facility] 4 05:37:00 Anesthes ia of skin 294907147 Completed 202008/11/2021 Problem Code: R20.0; Problem Code Type: ICD-10; Not Available [facility] 3 04:20:29 Superfic ial injury of head 162021555 Completed 202104/23/2023 Problem Code: S00.90xS ; Problem Code Type: ICD-10; Not Available [facility] 3 04:20:29 Asthma 073146744 Completed 201807/10/2023 Problem Code: J45.998; Problem Code Type: ICD-10; Not Available [facility] 3 04:20:30 Periapic al abscess 298329969 Completed 202204/23/2023 Problem Code: K04.7; Problem Code Type: ICD-10; Not Available [facility] 3 04:20:30 Benign paroxysm al position al vertigo 704739080 Completed 201804/23/2023 Problem Code: H81.10; Problem Code Type: ICD-10; Not Available [facility] 3 04:20:30 Spontane ous ecchymos is 514501623 Completed 202008/11/2021 Problem Code: R23.3; Problem Code Type: ICD-10; Not Available [facility] 3 04:20:30 Menopaus e present 304403425 Completed 201804/23/2023 Problem Code: N95.1; Problem Code Type: ICD-10; FOSTER RUIZ PA-C [address], [place], [address] , [facility]. 4 08:00:27 Spasm 34959500 Completed 201908/11/2021 Problem Code: R25.2; Problem Code Type: ICD-10; Not Available [facility] 3 04:20:30 Severe obesity 92371350423 104 Completed 201807/10/2023 Problem Code: E66.01; Problem Code Type: ICD-10; Not Available [facility] 3 04:20:30 Insomnia 780483495 Completed 201804/23/2023 Problem Code: G47.00; Problem Code Type: ICD-10; Not Available [facility] 3 04:20:31 Melena 5212136 Completed 201912/28/2020 Problem Code: K92.1; Problem Code Type: ICD-10; Not Available [facility] 3 04:20:31 Peripher al neuropat hic pain 729737388 Active 2023 good response to lyrica [address], [place], [address] , [facility] 4 08:01:36 Nodule of lung 895977427 Active 2023 No concerni ng nodules on 02/2024 CT. No need for further evaluati on [address]DA [address], [place], [address] , [facility] 4 09:50:41 Gastroes ophageal reflux disease without esophagi tis 535679319 Active [address], [place], [address] , [facility] 4 13:05:07 Memory impairme nt 839186309 Active 2023 MRI reveals white matter microvas cular changes and diffuse atrophy dispropo rtionate to age. [address]INDA R[address] Dr, [facility] [address] , [facility] 4 14:39:56 Candidal intertri go 115541748 Active [address], [facility] [address] , [facility] 4 10:09:04 Problem Notes None recorded. Procedures Surgical History Date Name Laterality Status Provider Name and Address Organization Details Recorded Time 08/22/20 16 [facility] hyste[facility] 10/01/2024 12:37:31 Imaging Results None recorded. Procedure Notes None recorded. Medical Equipment None Reported. Allergies Allergen ID Allergen Name Allergen Category Reaction Reaction Severity Criticality Documentation Date Start Date Code Code System Note Provider Name and Address Organization Details Recorded Time 13106 latex environme nt,medica tion Not available Not available Not available 08/23/20232018 95980 91 RxNorm Aller gyNam e: 'LATE X'; Not Available [facility] 3 16:18:40 01105 oxycodone hydrochlo ride medicatio n Not available Not available Not available 08/23/20232018 54357 RxNorm Not Available [facility] 3 16:18:40 Medications Name Sig Start Date Stop Date Status Note LastModified by Organization Details LastModified Time cyclobenz aprine 10 mg tablet Take 1 tablet by mouth every night as needed 12/07 completed Not Available Not Available Not Available atorvasta tin 40 mg tablet TAKE ONE TABLET BY MOUTH EVERY DAY active Not Available Not Available No t Available metformin 500 mg tablet TAKE ONE TABLET BY MOUTH TWICE A DAY active Not Available Not Available No t Available donepezil 5 mg tablet TAKE ONE TABLET BY MOUTH EVERY DAY active Not Available Not Available No t Available metformin 850 mg tablet TAKE ONE TABLET BY MOUTH TWICE A DAY 04/28 completed Not Available Not Available Not Available Diflucan 150 mg tablet take one tablet weekly X 4 weeks 2024 active Not Available Not Available Not Avai lable cyanocoba gregory (vit B-12) 1,000 mcg tablet 1 tab daily 2023 active Not Available Not Available Not Avai lable amoxicill in 875 mg tablet Take 1 tablet by mouth twice a day 01/03 completed Not Available Not Available Not Available Vitamin C 1,000 mg tablet Take 1 tablet once a day 2018 active Not Available Not Available Not Avai lable Nitrostat 0.4 mg sublingua l tablet PLACE 1 TAB UNDER TONGUE FOR CHEST PAIN EVERY FIVE MIN, MAX 3 DOSES. CALL 911 AFTER FIRST DOSE. 2018 active Not Available Not Available Not Avai lable cephalexi n 500 mg capsule TAKE 1 CAPSULE BY MOUTH EVERY 6 HOURS FOR 7 DAYS 01/06 completed Not Available Not Available Not Available pantopraz ole 40 mg tablet,de layed release TAKE ONE TABLET BY MOUTH EVERY DAY active Not Available Not Available No t Available nystatin 100,000 unit/gram topical cream APPLY A SMALL AMOUNT TO AFFECTED AREA(S) TWO TIMES A DAY 01/06 completed Not Available Not Available Not Available lisinopri l 10 mg tablet TAKE ONE TABLET BY MOUTH EVERY DAY active Not Available Not Available No t Available sertralin e 25 mg tablet Take 1 tab by mouth daily 2018 active Not Available Not Available Not Avai lable Proventil HFA 90 mcg/actua tion aerosol inhaler Take 2 puffs as needed 2018 active Not Available Not Available Not Avai lable aspirin 81 mg tablet Take 1 tablet by mouth once a day 2018 active Not Available Not Available Not Avai lable lisinopri l 5 mg tablet Take 1 tablet by mouth once a day 04/23 completed Not Available Not Available Not Available mupirocin 2 % topical ointment APPLY A SMALL AMOUNT TO AFFECTED AREA TWO TIMES A DAY 01/06 completed Not Available Not Available Not Available nystatin 100,000 unit/gram topical powder Apply 1 a small amount to skin twice a day continue for 1 week after rash has resolved . 08/21 completed Not Available Not Available Not Available Aspir-81 mg tablet,de layed release Take 1 tab by mouth daily 2018 active Not Available Not Available Not Avai lable oxybutyni n chloride 5 mg tablet Take 1 tablet every day by oral route as needed, for bladder control. 2024 active 11/18/24 does not have Not Available Not Available Not Available sertralin e 50 mg tablet TAKE ONE TABLET BY MOUTH EVERY DAY active Not Available Not Available No t Available cholecalc iferol (vitamin D3) 25 mcg (1,000 unit) capsule Take 1 capsule once a day 04/23 completed Not Available Not Available Not Available Bactrim DS 800 mg-160 mg tablet Take 1 tablet by mouth twice a day 06/07 completed Not Available Not Available Not Available Vitamin D3 25 mcg (1,000 unit) tablet take 1 capsule daily 2018 active Not Available Not Available Not Avai lable bupropion HCl XL 300 mg 24 hr tablet, extended release TAKE ONE TABLET BY MOUTH EVERY DAY active Not Available Not Available No t Available memantine 10 mg tablet TAKE ONE TABLET BY MOUTH TWICE A DAY active Not Available Not Available No t Available memantine 5 mg tablet TAKE ONE TABLET BY MOUTH TWICE A DAY 05/22 completed Not Available Not Available Not Available pregabali n 50 mg capsule TAKE ONE CAPSULE BY MOUTH TWICE A DAY active 11/18/24 has not filled since r Not Available Not Available Not Available Symbicort 160 mcg-4.5 mcg/actua tion HFA aerosol inhaler Take 2 puffs as needed 2018 active Not Available Not Available Not Avai lable Trulicity 1.5 mg/0.5 mL subcutane ous pen injector INJECT 1.5MG UNDER THE SKIN ONCE WEEKLY 08/24 completed Not Available Not Available Not Available Trulicity 0.75 mg/0.5 mL subcutane ous pen injector INJECT 0.5ML UNDER THE SKIN ONCE WEEKLY 04/28 completed Not Available Not Available Not Available FreeStyle Precision Adarsh Strips USE 1 STRIP VIA METER THREE TIMES A DAY active Not Available Not Available No t Available Bydureon BCise 2 mg/0.85 mL subcutane ous auto-inje ctor INJECT 2MG UNDER THE SKIN ONCE WEEKLY active 11/18/24 has not been taking Not Available Not Available Not Available Rybelsus 3 mg tablet Take 1 tablet by mouth once a day 01/09 completed Not Available Not Available Not Available Paxlovid 300 mg (150 mg x 2)-100 mg tablets in a dose pack Take 3 tablet by mouth twice a day Stop Atorvast atin for 10 days when taking this medicati on 03/24 completed Not Available Not Available Not Available Vitals Date Recorded Body height Body mass index (BMI) Body weight Body temperature Oxygen saturation Oxygen saturation in Arterial blood by Pulse oximetry Systolic blood pressure Diastolic blood pressure Provider Name and Address Organization Details Last Updated DateTime 5 154.94 cm 50.4 kg/m2 492471. 16 g 97.7 [degF] 94 % 94 % 112 mm[Hg] 58 mm[Hg] ESME BAL RN [facility] 11:35:56 Social History Question Answer Notes LastModified by Organizat ion Details LastModified Time Tobacco Smoking Status Never Smoker ELSA MELCHOR RN [facility], [facility] 01/07/2024 10:10:52 Do You Have An Advance Directive? Yes Information not available 01/07/2024 Is Blood Transfusion Acceptable In An Emergency? Yes Information not available 01/07/2024 What Is Your Code Status? DNI Information not available 01/07/2024 What Type Of Diet Are You Following? REGULAR Watching What She Eats. She Likes Salad Information not available 01/07/2024 How Many Days Of Moderate To Strenuous Exercise, Like A Brisk Walk, Did You Do In The Last 7 Days? 2 Information not available 01/07/2024 On Those Days That You Engage In Moderate To Strenuous Exercise, How Many Minutes, On Average, Do You Exercise? 30 Information not available 01/07/2024 How Many Times Per Week Do You Exercise? 1-2 Times Per Week Information not available 01/07/2024 What Do You Do For Fun? Pt Likes To Color, Information not available 01/07/2024 Would You Say That, In General, Your Health Is Good Information not available 01/07/2024 How Often Does Anyone, Including Family, Physically Hurt You? Never Information not available 01/07/2024 How Often Does Anyone, Including Family, Insult Or Talk Down To You? Never Information no t available 01/07/2024 How Often Does Anyone, Including Family, Threaten You With Harm? Never Information not available 01/07/2024 How Often Does Anyone, Including Family, Scream Or Curse At You? Never Information not available 01/07/2024 Within The Past 12 Months, You Worried That Your Food Would Run Out Before You Got Money To Buy More. Sometimes True Information not available 01/07/2024 Within The Past 12 Months, The Food You Bought Just Didn't Last And You Didn't Have Money To Get More. Sometimes True Information not available 01/07/2024 How Hard Is It For You To Pay For The Very Basics Like Food, Housing, Medical Care, And Heating? Would You Say It Is: Somewhat Hard Information not available 01/07/2024 In The Past 12 Months, Has Lack Of Reliable Transportation Kept You From Medical Appointments, Meetings, Work Or From Getting Things Needed For Daily Living? No Information not available 01/07/2024 What Is Your Housing Situation Today? I Have Housing. Information not available 01/07/2024 Who Do You Live With? , Grandkids Information not available 01/07/2024 How Often In The Past Year Have You Used Marijuana (including Smoking, Vaping, Dabbing, Or Edibles)? Never Information not available 01/07/2024 How Often In The Past Year Have You Used Prescription Medications That Were Not Prescribed To You? Never Information not available 01/07/2024 How Often In The Past Year Have You Taken Your Own Prescription Medication More Than The Way It Was Prescribed Or For Different Reasons Than Its Intended Purpose? Never Information no t available 01/07/2024 How Often In The Past Year Have You Used Other Drugs (for Example, Heroin, Cocaine, Meth, Salvia, Inhalants)? Never Information not available 01/07/2024 Have You Ever Used IV Drugs? No Information not available 01/07/2024 Date Of Most Recent SBINS 01/07/2024 Information not available 01/07/2024 Do You Have A Medical Power Of Decorating Equipment Setter? No Information not available 01/07/2024 What Was The Date Of Your Most Recent Tobacco Screening? 06/19/2024 Information not available 06/19/2024 How Many Children Do You Have? 1 Information not available 01/07/2024 What Is Your Relationship Status? Information not available 01/07/2024 What Types Of Sporting Activities Do You Participate In? None Information not available 01/07/2024 Has Tobacco Cessation Counseling Been Provided? No Information not available 06/19/2024 Do You Or Have You Ever Used Any Other Forms Of Tobacco Or Nicotine? No Information not available 01/07/2024 Sex: Female Functional Status Question Answer Note LastModified by Organizat ion Details LastModified Time What is your exercise level? Occasional Information not available 01/07/2024 Mental Status None recorded. Family History Relationship Description Onset Age of this Age Resolved Age Notes LastModified by Organization Details LastModified Time Mother Family history of Hypercholest erolemia [place], lung cancer [email or web address] Not available 08/23/2023 03:54:56 Mother Family history of diabetes mellitus type 1 [email or web address] Not available 2022 03:54:57 Sister Family history of Depression [email or web address] Not available 08/23 03:54:56 Sister Family history of Anxiety state [email or web address] Not available 2022 03:54:57 Sister Family history of diabetes mellitus type 1 [email or web address] Not available 2022 03:54:58 Brother Family history of heart failure [email or web address] Not available 2022 03:54:57 Brother Family history of diabetes mellitus type 1 [email or web address] Not available 2022 03:54:57 Father Family history of heart failure [place] [email or web address] Not available 2022 03:54:57 Medical History No medical history recorded. Gynecological HistoryNo gynecological history recorded. Obstetrics History GPAL:G 0 P 0 0 0 0 Immunizations Vaccine Type Date Status Note Provider Nam e and Address Organization Details Recorded Time Pneumococcal conjugate PCV20, polysaccharide [id number] conjugate, adjuvant, PF [address], [place], [address], [facility] 01/07/2024 12:08:34 pneumococcal, unspecified formulation 4 completed Not Available [facility] 08/23/2023 04:02:11 Tdap 2 completed Not Available [facility] 08/23/2023 04:02:12 Tdap 0 completed Not Available [facility] 08/23/2023 04:02:12 Influenza, split virus, quadrivalent, PF 1 completed Not Available [facility] 08/23/2023 04:02:12 Influenza, split virus, quadrivalent, PF 2 completed Not Available [facility] 08/23/2023 04:02:12 zoster recombinant 2 completed Not Available [facility] 08/23/2023 04:02:12 zoster recombinant 2 completed Not Available [facility] 08/23/2023 04:02:12 COVID-19, mRNA, LNP-S, PF, 100 mcg/0.5mL dose or 50 mcg/0.25mL dose 1 completed Not Available [facility] 08/23/2023 04:02:13 SARS-COV-2 (COVID-19) vaccine, UNSPECIFIED 1 completed Not Available [facility] 08/23/2023 04:02:13 SARS-COV-2 (COVID-19) vaccine, UNSPECIFIED 1 completed Not Available [facility] 08/23/2023 04:02:13 SARS-COV-2 (COVID-19) vaccine, UNSPECIFIED 1 completed Not Available [facility] 08/23/2023 04:02:13 SARS-COV-2 (COVID-19) vaccine, UNSPECIFIED 1 completed Not Available [facility] 08/23/2023 04:02:14 COVID-19, mRNA, LNP-S, bivalent, PF, 30 mcg/0.3 mL dose 2 completed Not Available [facility] 08/23/2023 04:02:14 pneumococcal polysaccharide PPV23 4 completed Not Available [facility] 08/23/2023 04:02:14 Hep B, unspecified formulation 7 completed Not Available [facility] 08/23/2023 04:02:15 Hep B, unspecified formulation 7 completed Not Available [facility] 08/23/2023 04:02:15 Influenza, high-dose, trivalent, PF 4 completed PETRA Beckham, [place] [facility] 07/23/2024 10:15:01 Influenza, split virus, quadrivalent, PF 3 completed Not Available [facility] [facility] 10/25/2023 05:33:03 COVID-19, mRNA, LNP-S, PF, lambert-sucrose, 30 mcg/0.3 mL 3 completed Not Available [facility] 10/25/2023 05:33:03 Past Encounters Encounter ID Performer Location Encounter Start Date Encounter Closed Date Diagnosis/Indication Diagnosis SNOMED-CT Code Diagnosis ICD10 Code Diagnosis Note [id number] FOSTER RUIZ PA-C [facility] [address] [place] [address] 11/18/2024 11:17:47 11/18/2024 13:36:07 Candidal intertrigo [id number] B37.2 Diflucan once weekly is keep this in check. Overactive urinary bladder 923167278 N32.81 With urgency and occasional loss of control. Trial of oxybutynin . Type 2 shanon betes mellitus without complication 574750250 E11.9 Per her , her blood sugars have maintained good control without needing the GLP-1. Memory impairment 708867 006 R41.3 Tolerating Namenda and Aricept okay. Stomach upset when Aricept was titrated to 10 mg at night. Continue with the 5 mg dose. B12 level today. Stable Essential hypertension 66768329 I10 Well-contr olled on current medication management . No changes made today. Hyperlipidemia 17881909 E78.5 She continues on statin Low back pain 150410137 M54.50 Chronic low back pain without focal nerve impingemen t on exam. Her will check to see if she has been taking the pregabalin 50 mg twice daily. She has not filled this since for follow-up. If she is taking, we could titrate to 75 mg twice daily. Health Concerns Section Related Observation LastModified by Organization Detai ls LastModified Time None Recorded Concern Status LastModified by Organization Details LastModified Time None Recorded Payers Encounter Date Sequence Insurance Name Policy Number Policy Lai Covered Member ID Lai Member ID Guarantor Name 11/18/2024 1 [facility] ([facility]ICARE [place]PLAC[place]/AD VANTAGE - PPO) [id number] Kathrine Zaragoza [id number] Kathrine Zaragoza 11/18/2024 2 [facility] (MEDICARE REPLACEMENT HMO) [id number] Kathrine Zaragoza [id number] Kathrine Zaragoza Notes Date Note Type Note Provider Name and Address Organization Details Recorded Time 11/18/2024 text/html Kathrine is here for follow hypertension hyperlipidemia, type 2 diabetes, and memory loss. She has been doing okay since last visit. Continues on Aricept and Namenda. She was unable to get oxybutynin prescription after last visit. Her urinary symptoms have improved a bit but still with urgency to urinate. Her bowels are moving okay. Some loose stool. Her right knee and lower back have been bothering her. Her right knee cracks and pops at times. That is mainly when it bothers her. Feels like it may give out at times. Takes Tylenol as needed.She continues with Diflucan 1 tablet weekly. This is keeping Zehra check. FOSTER RUIZ PA-C [address], [place], [address], [facility]. 11/18/2024 12:30:25 OBGyn Episode No OBEpisode recorded.
--- OUTSIDE RECORDS SUMMARY | 2024-11-18 22:56 | XMS_ITS | Continuity of Care Document ---
Author Organization [place] - [facility], [facility] Address [address] [place] [address] Assessment No assessment recorded. Plan of Treatment Reminders Order Date Submit Date Provider Last Modified By Organization Details Last Modified Time Details Appointments Follow Up 2024 11:30A Daniella URIZ Not available Not available Not available Follow Up 2024 10:00A Daniella RUIZ Not available Not available Not available Lab hemoglobi n A1C, fingersti ck 2023 024 [email or web address] [address] [facility], [address], [place], [address], 08/24/2024 12:20:39 Referral None recorded. Procedures None recorded. Surgeries None recorded. Imaging None recorded. Medication Orders oxybutyni n chloride 5 mg tablet 2023 024 [id number], [address] [facility], [place], [address], 11/18/2024 11:33:37 Patient TargetsNo targets recorded. Patient Instructions Encounter Date Encounter Id Patient Instructions Last Modified By Organization Details Last Modified Time 08/24/2024 [id number] Kathrine - your hgba1c is 7.4 today. This is a fair amount higher than your last check. Really try to back off the sweets. We will recheck at your followup in 3 months. Trial of oxybutinin taken prior to car rides to see if this will help control the bladder. olga lidia Not available 08/24/2024 12:10:34 Reason for Referral None Reported. Results Created Date Observation Date Name Description Value Unit Range Abnormal Flag Note LastModifiedBy Organization Detail LastModifiedTime 08/24/20 24 08/24/2024 hemog lobin A1C, dominguez ewing k hemoglobin A1C 7.4 % <5.7 Not Available [facility] [address], [place], [address], 08/24/2024 12:16:31 Result Notes None recorded. Problems Name Problem SNOMED Code Status Onset Date Resolution Date Notes Provider Name and Address Organization Details Recorded Time Overacti ve urinary bladder 389867227 Active [address], [place], [address] , [facility] 4 12:57:06 Anxiety disorder 895792896 Active 2018 . Problem Code: F41.9; Problem Code Type: ICD-10; [address], [place], [address] , [facility] 4 07:59:28 Urticari a 888636601 Completed 201808/21/2023 Problem Code: L50.9; Problem Code Type: ICD-10; Not Available [facility] 4 05:37:01 Type 2 diabetes mellitus without complica tion 233775731 Active 201808/22/20 22 - Comments only - Foster Ruiz RPA - Problem Code: E11.9; Problem Code Type: ICD-10; [address], [place], [address] , [facility], [facility] 4 08:01:12 Body mass index 40+ - severely obese 898396490 Active 2018 Problem Code: Z68.42; Problem Code Type: ICD-10; [address], [place], [address] , [facility] 4 07:59:37 Essentia l hyperten sandi 35129734 Active 2018 Problem Code: I10; Problem Code Type: ICD-10; [address], [place], [address] , [facility] 4 07:59:56 Uncompli cated moderate persiste nt asthma 848383292 Active 201803/30/20 22 - Comments only - Foster uRiz RPA -Problem Code: J45.40; Problem Code Type: ICD-10; [address], [place], [address] , [facility] 4 08:01:03 Human papillom a virus infectio n 636744029 Completed 201808/21/2023 Problem Code: B97.7; Problem Code Type: ICD-10; Not Available [facility] 4 05:37:01 Atypical squamous cells of undeterm ined signific ance on cervical Papanico laou smear 532062319 Completed 201808/21/2023 Problem Code: R87.610; Problem Code Type: ICD-10; Not Available [facility] 4 05:37:00 Hyperlip idemia 38834219 Active 201804/23/20 23 - Comments only - Foster Ruiz RPA - Continue on statin. Problem Code: E78.5; Problem Code Type: ICD-10; [address], [place], [address] , [facility] 4 08:00:04 Counseli ng Completed 201810/08/2019 09/24/20 19 - Comments only - Kia Hassan APRN - UTD with immuniza tions and preventi ve screenin g. Had flu vaccine at work. Will schedule annual exam with fasting labs prior. Problem Code: Z71.89; Problem Code Type: ICD-10; Not Available [facility] 3 04:20:25 Acute upper respirat ory infectio n 31922873 Completed 201906/24/2020 Problem Code: J06.9; Problem Code Type: ICD-10; Not Available [facility] 3 04:20:25 Liver function tests outside referenc e range 112347220 Active 202006/21/20 21 - Comments only - Foster Ruiz RPA - steatosi s on 07/04 ultrasou nd Problem Code: R94.5; Problem Code Type: ICD-10; Not Available [facility] 3 04:20:26 Screenin g for malignan t neoplasm of breast Active 202103/30/20 22 - Comments only - Foster Ruiz RPA - overdue for screenin g mammogra m. We will get ordered. Problem Code: Z12.39; Problem Code Type: ICD-10; Not Available [facility] 3 04:20:26 Candidia sis of skin 75741133 Active 2021 Problem Code: B37.2; Problem Code Type: ICD-10; [address], [place], [address] , [facility] 4 07:59:44 Neck pain 55613488 Active 202108/22/20 22 - Comments only - Foster uRiz RPA - neck stiffnes s, mainly with rotation to the rigth since [facility]. No signs of focal nerve impingem ent. Recommen ded gentle rom stretche s. Problem Code: M54.2; Problem Code Type: ICD-10; [address], [place], [address] , [facility] 4 08:00:38 Low back pain 037856175 Active 202108/29/20 22 - Comments only - Foster Ruiz RPA - L4-5 degenera tive changes on x-ray Problem Code: M54.50; Problem Code Type: ICD-10; Not Available [facility] 3 04:20:26 Hypertro phy of breast 761183560 Active 2022 Problem Code: N62; Problem Code Type: ICD-10; Not Available [facility] 3 04:20:26 Mass of neck 696915360 Completed 202208/21/2023 Not Available [facility] 4 05:37:00 Malaise 205925222 Active 2022 Problem Code: R53.81; Problem Code Type: ICD-10; Not Available [facility] 3 04:20:27 Syncope and collapse 920404255 Active 202204/29/20 23 - Comments only - Foster Ruiz RPA - While having an uncomfor table mammogra m. Symptoms lasted approxim ately 15 minutes. Has felt back to baseline health since. Unremark able work-up in the ER. Likely vasovaga l in nature. Reassura nce provided . Keep next schedule d appointm ent. Problem Code: R55; Problem Code Type: ICD-10; Not Available [facility] 3 04:20:27 Urinary tract infectio us disease 84919792 Completed 202208/21/2023 Problem Code: N39.0; Problem Code Type: ICD-10; Not Available [facility] 4 05:37:00 Anesthes ia of skin 161015564 Completed 202008/11/2021 Problem Code: R20.0; Problem Code Type: ICD-10; Not Available [facility] 3 04:20:29 Superfic ial injury of head 982410407 Completed 202104/23/2023 Problem Code: S00.90xS ; Problem Code Type: ICD-10; Not Available [facility] 3 04:20:29 Asthma 887830803 Completed 201807/10/2023 Problem Code: J45.998; Problem Code Type: ICD-10; Not Available [facility] 3 04:20:30 Periapic al abscess 119120108 Completed 202204/23/2023 Problem Code: K04.7; Problem Code Type: ICD-10; Not Available [facility] 3 04:20:30 Benign paroxysm al position al vertigo 306666151 Completed 201804/23/2023 Problem Code: H81.10; Problem Code Type: ICD-10; Not Available [facility] 3 04:20:30 Spontane oujericho baer is 828586773 Completed 202008/11/2021 Problem Code: R23.3; Problem Code Type: ICD-10; Not Available [facility] 3 04:20:30 Menopaus e present 477408556 Completed 201804/23/2023 Problem Code: N95.1; Problem Code Type: ICD-10; [address], [place], [address] , [facility] 4 08:00:27 Spasm 00070637 Completed 201908/11/2021 Problem Code: R25.2; Problem Code Type: ICD-10; Not Available [facility] 3 04:20:30 Severe obesity 30053562302 104 Completed 201807/10/2023 Problem Code: E66.01; Problem Code Type: ICD-10; Not Available [facility] 3 04:20:30 Insomnia 498872790 Completed 201804/23/2023 Problem Code: G47.00; Problem Code Type: ICD-10; Not Available [facility] 3 04:20:31 Melena 0234074 Completed 201912/28/2020 Problem Code: K92.1; Problem Code Type: ICD-10; Not Available [facility] 3 04:20:31 Peripher al neuropat hic pain 580031703 Active 2023 good response to lyrica [address], [place], [address] , [facility] 4 08:01:36 Nodule of lung 118342851 Active 2023 No concerni ng nodules on 02/2024 CT. No need for further evaluati on [address], [place], [address] , [facility] 4 09:50:41 Gastroes ophageal reflux disease without esophagi tis 808480600 Active [address], [facility] [address] , [facility] 4 13:05:07 Memory impairme nt 089343757 Active 2023 MRI reveals white matter microvas cular changes and diffuse atrophy dispropo rtionate to age. [address], [place], [address] , [facility] 4 14:39:56 Candidal intertri go 920315718 Active [address], [facility] [address] , [facility] 4 10:09:04 Problem Notes None recorded. Procedures Surgical History Date Name Laterality Status Provider Name and Address Organization Details Recorded Time 08/22/20 16 [facility] 12:37:31 Imaging Results None recorded. Procedure Notes None recorded. Medical Equipment None Reported. Allergies Allergen ID Allergen Name Allergen Category Reaction Reaction Severity Criticality Documentation Date Start Date Code Code System Note Provider Name and Address Organization Details Recorded Time 03681 latex environme nt,medica tion Not available Not available Not available 08/23/20232018 37553 91 RxNorm Aller gyNam e: 'LATE X'; Not Available [facility] 3 16:18:40 61328 oxycodone hydrochlo ride medicatio n Not available Not available Not available 08/23/20232018 06521 RxNorm Not Available [facility] 3 16:18:40 Medications Name Sig Start Date [...] 1 tablet by mouth once a day 11/07/ 2019 07/11 /2023 completed Not Available Not Available Not Available [...] saturation in Arterial blood by Pulse oximetry Respiratory rate Systolic blood pressure Diastolic blood pressure Provider Name and Address Organization Details Last Updated DateTime 4 154.94 cm 51.6 kg/m2 772477. 72 g 98 [degF] 92 % 92 % 14 /min 110 mm[Hg] 72 mm[Hg] ESME BAL RN [facility] 4 11:33:38 Social History Question Answer Notes LastModified by Organizat ion Details LastModified Time Tobacco Smoking Status Never Smoker ELSA MELCHOR RN [facility], [facility] 01/07/2024 10:10:52 Do You Have An Advance [...] Do You Have A Medical Power Of Recyclable Materials Sorter? No Information not available 01/07/2024 What Was [...] history of Hypercholest erolemia Stoke, lung cancer [email or web address] Not available 08/23/2023 03:54:56 Mother Family history of diabetes mellitus type 1 linpui. Not available 2022 03:54:57 Sister Family history of Depression [email or web address] Not available 08/23 03:54:56 Sister Family history of Anxiety state linpui. Not available 2022 03:54:57 Sister Family history of diabetes mellitus type 1 [email or web address] Not available 2022 03:54:58 Brother Family history of heart failure [email or web address] Not available 2022 03:54:57 Brother Family history of diabetes mellitus type 1 [email or web address] Not available 2022 03:54:57 Father Family history of heart failure [facility] [email or web address] Not available 2022 03:54:57 Medical History No medical history recorded. Gynecological HistoryNo gynecological history recorded. Obstetrics History GPAL:G 0 P 0 0 0 0 Immunizations Vaccine Type Date Status Note Provider Nam e and Address Organization Details Recorded Time Pneumococcal conjugate PCV20, polysaccharide FMS908 conjugate, adjuvant, PF [address], [place], [address], [facility] 01/07/2024 12:08:34 pneumococcal, unspecified formulation 4 completed Not Available [facility] 08/23/2023 04:02:11 Tdap 2 completed Not Available [facility] 08/23/2023 04:02:12 Tdap 0 completed Not Available [facility] 08/23/2023 04:02:12 Influenza, split virus, quadrivalent, PF 1 completed Not Available [facility] 08/23/2023 04:02:12 Influenza, split virus, quadrivalent, PF 2 completed Not Available [facility] 08/23/2023 04:02:12 zoster recombinant 2 completed Not Available [facility] 08/23/2023 04:02:12 zoster recombinant 2 completed Not Available [facility] 08/23/2023 04:02:12 COVID-19, mRNA, LNP-S, PF, 100 mcg/0.5mL dose or 50 mcg/0.25mL dose 1 completed Not Available [facility] 08/23/2023 04:02:13 SARS-COV-2 (COVID-19) vaccine, UNSPECIFIED 1 completed Not Available [facility] 08/23/2023 04:02:13 SARS-COV-2 (COVID-19) vaccine, UNSPECIFIED 1 completed Not Available [facility] 08/23/2023 04:02:13 SARS-COV-2 (COVID-19) vaccine, UNSPECIFIED 1 completed Not Available [facility] 08/23/2023 04:02:13 SARS-COV-2 (COVID-19) vaccine, UNSPECIFIED 1 completed Not Available [facility] 08/23/2023 04:02:14 COVID-19, mRNA, LNP-S, bivalent, PF, 30 mcg/0.3 mL dose 2 completed Not Available [facility] 08/23/2023 04:02:14 pneumococcal polysaccharide PPV23 4 completed Not Available [facility] 08/23/2023 04:02:14 Hep B, unspecified formulation 7 completed Not Available [facility] 08/23/2023 04:02:15 Hep B, unspecified formulation 7 completed Not Available [facility] 08/23/2023 04:02:15 Influenza, high-dose, trivalent, PF 4 completed PETRA Beckham, [place] - [facility] 07/23/2024 10:15:01 Influenza, split virus, quadrivalent, PF 3 completed Not Available [facility] 10/25/2023 05:33:03 COVID-19, mRNA, LNP-S, PF, lambert-sucrose, 30 mcg/0.3 mL 3 completed Not Available [facility] 10/25/2023 05:33:03 Past Encounters Encounter ID Performer Location Encounter Start Date Encounter Closed Date Diagnosis/Indication Diagnosis SNOMED-CT Code Diagnosis ICD10 Code Diagnosis Note [id number] FOSTER RUIZ PA-C [facility] [address] [place] [address] 08/24/2024 11:15:25 08/24/2024 12:22:09 Overactive urinary bladder 508837095 N32.81 Mainly when going for car rides. She will often completely lose her better control. Generally able to get to the bathroom in time when she is home. Trial of oxybutynin use prior to car rides. Reviewed the risk of dizziness. She was unable to give a urine sample during visit today. Type 2 shanon betes mellitus without complication 726635400 E11.9 Control has deteriorat ed with inconsiste ncy in getting a GLP-1. She was forced to switch to exenatide due to the cost though exenatide continues to be very expensive. Her has been going without his inhalers so they can afford. Fingerstic k hemoglobin A1c of 7.4 today. Hold off on further medication changes for now. Urged cutting back on sweets. 3-month follow-up Anxiety disorder 8918763 06 F41.9 A letter was provided to endorse/gamboa pport her to have her pet has an emotional support animal. Complicate d by progressiv e memory loss. Essential hypertension 54281266 I10 Well-contr olled on current medication management . No changes made today. Hyperlipidemia 76451957 E78.5 She continues on statin Memory impairment 653675 006 R41.3 Tolerating Namenda along with 5 mg of Aricept. She was evaluated by [facility] neurology. They were to refer her for sleep study. The Nik[facility] have not hear anything about this referral. We will check in with sleep study center. Health Concerns Section Related Observation LastModified by Organization Detai ls LastModified Time None Recorded Concern Status LastModified by Organization Details LastModified Time None Recorded Payers Encounter Date Sequence Insurance Name Policy Number Policy Lai Covered Member ID Lai Member ID Guarantor Name 08/24/2024 3 [employer] [facility] Kathrine Zaragoza [id number] Kathrine Zaragoza 08/24/2024 2 [facility] (MEDICARE REPLACEMENT HMO) [id number] Kathrine Zaragoza [id number] Kathrine Zaragoza Notes Date Note Type Note Provider Name and Address Organization Details Recorded Time 08/24/2024 text/html Kathrine is here for follow-up of diabetes and memory loss. she was evaluated at [facility] neurology. They did not change her medications but recommended a referral for sleep study. They have not yet heard from the sleep study center. Did not tolerate Aricept at 10 mg due to associated nausea. She is continued with 5 mg daily along with Namenda. Her candidiasis improved with recent Diflucan treatment They could not afford Trulicity and were told that exenatide would be less expensive. They have started this but is still very expensive. Her has had to forego his inhalers to afford. Loss of bladder control when she goes for car rides. She is generally able to get to the bathroom in time when she is home. Wearing pull-ups. Dry at night FOSTER RUIZ PA-C [address], [place], [address], [facility]. 08/24/2024 13:06:24 OBGyn Episode No OBEpisode recorded.
--- OUTSIDE RECORDS SUMMARY | 2024-11-18 22:56 | XMS_ITS | Data Portability ---
Author Organization [facility] Address [address] [place] [address] Assessment Encounter Date Assessment Date Assessment LastModified by Organization Details LastModified Time 11/18/2024 11/18/2024 Trial of ice over her right knee anserine bursa for knee pain. olga lidia Not available 11/18/2024 12:30:04 Plan of Treatment Reminders Order Date Submit Date Provider Last Modified By Organization Details Last Modified Time Details Appointments Follow Up 2024 11:30A Daniella BELLE Not available Not available Not available Follow Up 2024 10:00A Daniella BELLE Not available Not available Not available Lab hemoglobi n A1C, fingersti ck 2023 024 sophia 63 [facility], [address], [place], [address], 04/28/2024 12:52:19 hemoglobi n A1C, fingersti ck 2023 024 sophia 63 [facility], [address], [place], [address], 08/24/2024 12:20:39 vitamin B12, serum 2024 025 sophia 63 [facility] (Registration ), [address] [place] [address] , [place], [address], 11/18/2024 12:30:32 HbA1c (hemoglob in A1c), blood 2024 025 [email or web address] 63 [facility] (Registration ), [address] [place] [address] [place], [address], 11/18/2024 12:30:32 CMP, serum or plasma 2024 025 [facility] (Registration ), [address] [place] [address] [place], [address], 11/18/2024 16:13:24 Referral None recorded. Procedures None recorded. Surgeries None recorded. Imaging MRI, brain, w/o contrast - memory loss. Call for appointme nt [phone] (Reggie Zaragoza) 2023 024 [email or web address] [facility], [address], [place], [address], 05/22/2024 08:37:54 Medication Orders Namenda 5 mg tablet 2023 024 [facility], [address] [place] [address], [id number], 05/22/2024 14:41:16 Aricept 5 mg tablet 2023 024 [email or web address], [address] [place] [address], [id number], 11/18/2024 11:32:43 Diflucan 150 mg tablet 2023 024 [facility], [address] [place] [address], [address], 06/19/2024 08:43:13 oxybutyni n chloride 5 mg tablet 2023 024 [email or web address], [address] [place] [address], [address], 11/18/2024 11:33:37 Diflucan 150 mg tablet 2024 025 [facility], [address] [place] [address], [address], 11/18/2024 11:46:00 oxybutyni n chloride 5 mg tablet 2024 025 [facility], [address] [place] [address], [address], 11/18/2024 11:47:24 Patient TargetsNo targets recorded. Patient Instructions Encounter Date Encounter Id Patient Instructions Last Modified By Organization Details Last Modified Time 04/28/2024 [id number] Try skipping pantoprazole one day a week to start. We will get a brain MRI, and start namenda to help with memory. olga lidia Not available 04/28/2024 10:29:55 06/19/2024 [id number] If the alternative medication is ozempic or Mounjaro, these will be fine to switch to in place of trulicity. We will add aricept 5 mg at night. If doing will with this, then increase to 10 mg at night. Take diflucan once weekly for fungal infection. [email or web address] Not available 06/19/2024 08:47:02 08/24/2024 [id number] Kathrine - your hgba1c is 7.4 today. This is a fair amount higher than your last check. Really try to back off the sweets. We will recheck at your followup in 3 months. Trial of oxybutinin taken prior to car rides to see if this will help control the bladder. olga lidia Not available 08/24/2024 12:10:34 11/18/2024 [id number] Kathrine - I sent a prescription for [...] 11/18/2024 12:00:26 Reason for Referral None Reported. Results Created Date Observation Date Name Description Value Unit Range Abnormal Flag Note LastModifiedBy Organization Detail LastModifiedTime 04/28/20 24 04/28/2024 hemog lobin A1C, finge rstic k hemoglobin A1C 6.2 % <5.7 Not Available [facility] [address], [place], [address], 04/28/2024 10:28:17 08/24/20 24 08/24/2024 hemog lobin A1C, finge rstic k hemoglobin A1C 7.4 % <5.7 Not Available [facility] [address], [place], [address], 08/24/2024 12:16:31 05/21/20 24 05/21/2024 MRI imagi ng repor t Patien t Name: Josue Kulkarni Unit #: [id number] Loc: DI Orderi ng Provid er: Natalia Oliva Accoun t #: [id number] Status : REG CLI Primar y Care Provid er: Natalia Oliva Date of Exam: Sex: F Admiss ion Date: : 1960 Age: 63 Exam(s ) MR BRAIN WO EXAM: MR BRAIN WO CLINIC AL HISTOR Y: MEMORY IMPAIR MENT, R41.3 TECHNI QUE: Multip lanar multis equenc e MRI of the brain was perfor med. COMPAR CASTILLO: CT CT HEAD CERVIC AL SPINE WO from 2021 FINDIN GS: VENTRI CLES AND EXTRA AXIAL SPACES : Normal in size and morpho logy for the degree of atroph y MIDLIN E SHIFT: None. CEREBR AL PARENC HYMA: No focus of restri cted diffus ion to sugges t acute infarc t. No space- occupy ing lesion identi fied. Modera te to severe atroph y, dispro portio melia to the patien t's age. Promin ent scatte red foci of high signal in the white matter consis tent with sequel a of chroni c microv ascula r diseas e, also advanc ed for the patien t's age.. HEMORR ROOPA: None. BRAINS TEM/CE REBELL UM: Normal . VISUAL IZED PARANA JOSE SINUSE S/MAST OIDS:S mall mucous retent ion cyst floor of right maxill kimber sinus. Vascul ature: Normal flow void. PITUIT KIMBER GLAND: Unrema rkable . ORBITS : Unrema rkable . IMPRES EVELIN: Modera te atroph y and promin ent white matter change s of small vessel diseas e, dispro portio melia for the patien t's age. No eviden ce of mass or acute infarc t. DATA REPOSI TORY: Ordere d By: Natalia Oliva CC: ------ ------ ------ ------ ------ ------ ------ ------ ------ ------ ------ ------ - Dictat ed By: Milton Augustin 1531 1531 Transc ribed By: Grant Mao 1531 This is privil eged, confid ential inform ation intend ed only for the provid er named. Any use or distri bution by any person other than this provid er is strict ly prohib ited. If you receiv e this report in error, please notify us immedi ginaly at [phone] and return the origin al report to us at the addres s above. Thank- you. [email or web address] [facility] [address], [place], [address] 05/25/2024 10:27:10 06/29/2010/17/2018 imagi ng/di agnos tic resul t No observ ation record ed. Not Available 06/29 01:55:41 06/29/20 24 01/04/2021 imagi ng/di agnos tic resul t No observ ation record ed. Not Available 06/29 01:56:09 06/29/20 24 12/09/2021 imagi ng/di agnos tic resul t No observ ation record ed. Not Available 06/29 01:56:25 09/16/04/24/2023 imagi ng/di agnos tic resul t No observ ation record ed. Not Available 06/29 01:57:01 06/29/2004/24/2023 imagi ng/di agnos tic resul t No observ ation record ed. Not Available 06/29 01:57:01 06/29/2005/18/2020 imagi ng/di agnos tic resul t No observ ation record ed. Not Available 06/29 01:57:38 06/29/20 24 01/04/2021 imagi ng/di agnos tic resul t No observ ation record ed. Not Available 06/29 01:57:39 06/29/20 24 12/09/2021 imagi ng/di agnos tic resul t No observ ation record ed. Not Available 06/29 01:57:40 06/29/20 24 12/09/2021 imagi ng/di agnos tic resul t No observ ation record ed. Not Available 06/29 01:57:41 06/29/20 24 12/09/2021 imagi ng/di agnos tic resul t No observ ation record ed. Not Available 06/29 01:57:42 06/29/20 24 06/16/2022 imagi ng/di agnos tic resul t No observ ation record ed. Not Available 06/29 01:57:43 06/29/20 24 07/01/2019 MAMMO , diagn ostic No observ ation record ed. Not Available 06/29 01:57:58 06/29/20 24 02/05/2022 XR, knee No observ ation record ed. Not Available 06/29 01:57:59 06/29/20 24 10/15/2018 XR, chest No observ ation record ed. Not Available 06/29 01:58:01 06/29/20 24 12/17/2018 XR, chest No observ ation record ed. Not Available 06/29 01:58:02 06/29/20 24 10/15/2018 XR, chest No observ ation record ed. Not Available 06/29 01:58:03 06/29/20 24 02/19/2020 XR, chest No observ ation record ed. Not Available 06/29 01:58:04 06/29/20 24 12/28/2022 bone densi ty No observ ation record ed. Not Available 06/29 01:58:25 06/29/20 24 12/09/2021 CT, chest No observ ation record ed. Not Available 06/29 01:58:26 06/29/20 24 06/16/2022 CT, head or brain No observ ation record ed. Not Available 06/29 01:58:27 06/29/20 24 06/21/2021 US, abdom en No observ ation record ed. Not Available 06/29 01:58:30 06/29/20 24 04/05/2022 MAMMO , scree kerri No observ ation record ed. Not Available 06/29 01:58:31 06/29/20 24 04/24/2023 MAMMO , scree kerri No observ ation record ed. Not Available 06/29 01:58:32 06/29/20 24 08/29/2022 XR, lumba r spine No observ ation record ed. Not Available 06/29 01:58:33 06/29/20 24 01/04/2021 CT, angio gram, chest No observ ation record ed. Not Available 06/29 01:58:35 06/29/20 24 12/09/2021 CT, head + neck No observ ation record ed. Not Available 06/29 01:58:36 06/29/20 24 12/09/2021 imagi ng/di agnos tic resul t No observ ation record ed. Not Available 06/29 01:58:37 06/29/20 24 01/16/2023 imagi ng/di agnos tic resul t No observ ation record ed. Not Available 06/29 01:58:40 06/29/20 24 05/19/2020 imagi ng/di agnos tic resul t No observ ation record ed. Not Available 06/29 01:58:41 06/29/20 24 04/24/2023 imagi ng/di agnos tic resul t No observ ation record ed. Not Available 06/29 01:58:43 06/29/20 24 04/24/2023 imagi ng/di agnos tic resul t No observ ation record ed. Not Available 06/29 01:58:44 Result Notes None recorded. Problems Name Problem SNOMED Code Status Onset Date Resolution Date Notes Provider Name and Address Organization Details Recorded Time Overacti ve urinary bladder 721062045 Active [address], [place], [address] , [facility] 4 12:57:06 Anxiety disorder 015216795 Active 2018 . Problem Code: F41.9; Problem Code Type: ICD-10; [address], [place], [address] , [facility] 4 07:59:28 Urticari a 165554164 Completed 201808/21/2023 Problem Code: L50.9; Problem Code Type: ICD-10; Not Available [facility] 4 05:37:01 Type 2 diabetes mellitus without complica tion 748167164 Active 201808/22/20 22 - Comments only - Foster Belle RPA - Problem Code: E11.9; Problem Code Type: ICD-10; [address], [place], [address] , [facility] 4 08:01:12 Body mass index 40+ - severely obese 488105151 Active 2018 Problem Code: Z68.42; Problem Code Type: ICD-10; [address], [facility] [address] , [facility] 4 07:59:37 Essentia l hyperten evelin 43118271 Active 2018 Problem Code: I10; Problem Code Type: ICD-10; [address], [facility] [address] , [facility] 4 07:59:56 Uncompli cated moderate persiste nt asthma 786341988 Active 201803/30/20 22 - Comments only - Foster Belle RPA -Problem Code: J45.40; Problem Code Type: ICD-10; [address], [facility] [address] , [facility] 4 08:01:03 Human papillom a virus infectio n 759961021 Completed 201808/21/2023 Problem Code: B97.7; Problem Code Type: ICD-10; Not Available [facility] 4 05:37:01 Atypical squamous cells of undeterm ined signific ance on cervical Papanico laou smear 881596807 Completed 201808/21/2023 Problem Code: R87.610; Problem Code Type: ICD-10; Not Available [facility] 4 05:37:00 Hyperlip idemia 65744970 Active 201804/23/20 23 - Comments only - Foster Belle RPA - Continue on statin. 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 Had flu vaccine at work. Will schedule annual exam with fasting labs prior. Problem Code: Z71.89; Problem Code Type: ICD-10; Not Available [facility] 3 04:20:25 Acute upper respirat ory infectio n 65164113 Completed 201906/24/2020 Problem Code: J06.9; Problem Code Type: ICD-10; Not Available [facility] 3 04:20:25 Liver function tests outside referenc e range 109168261 Active 202006/21/20 21 - Comments only - Foster Belle RPA - steatosi s on 07/04 ultrasou nd Problem Code: R94.5; Problem Code Type: ICD-10; Not Available [facility] 3 04:20:26 Screenin g for malignan t neoplasm of breast Active 202103/30/20 22 - Comments only - Foster Belle RPA - overdue for screenin g mammogra m. We will get ordered. Problem Code: Z12.39; Problem Code Type: ICD-10; Not Available [facility] 3 04:20:26 Candidia sis of skin 28576578 Active 2021 Problem Code: B37.2; Problem Code Type: ICD-10; [address], [place], [address] , [facility] 4 07:59:44 Neck pain 55770582 Active 202108/22/20 22 - Comments only - Foster Belle RPA - neck stiffnes s, mainly with rotation to the rigth since she took a fall in r. No signs of focal nerve impingem ent. Recommen ded gentle rom stretche s. Problem Code: M54.2; Problem Code Type: ICD-10; [address], [place], [address] , [facility] 4 08:00:38 Low back pain 765204429 Active 202108/29/20 22 - Comments only - Foster Belle RPA - L4-5 degenera tive changes on x-ray Problem Code: M54.50; Problem Code Type: ICD-10; Not Available [facility] 3 04:20:26 Hypertro phy of breast 659360101 Active 2022 Problem Code: N62; Problem Code Type: ICD-10; Not Available [facility] 3 04:20:26 Mass of neck 871924798 Completed 202208/21/2023 Not Available [facility] 4 05:37:00 Malaise 231227846 Active 2022 Problem Code: R53.81; Problem Code Type: ICD-10; Not Available [facility] 3 04:20:27 Syncope and collapse 252357271 Active 202204/29/20 23 - Comments only - Foster Belle RPA - While having an uncomfor table mammogra m. Symptoms lasted approxim ately 15 minutes. Has felt back to baseline health since. Unremark able work-up in the ER. Likely vasovaga l in nature. Reassura nce provided . Keep next schedule d appointm ent. Problem Code: R55; Problem Code Type: ICD-10; Not Available [facility] 3 04:20:27 Urinary tract infectio us disease 59826300 Completed 202208/21/2023 Problem Code: N39.0; Problem Code Type: ICD-10; Not Available [facility] 4 05:37:00 Anesthes ia of skin 866313295 Completed 202008/11/2021 Problem Code: R20.0; Problem Code Type: ICD-10; Not Available [facility] 3 04:20:29 Superfic ial injury of head 614748825 Completed 202104/23/2023 Problem Code: S00.90xS ; Problem Code Type: ICD-10; Not Available [facility] 3 04:20:29 Asthma 567920999 Completed 201807/10/2023 Problem Code: J45.998; Problem Code Type: ICD-10; Not Available [facility] 3 04:20:30 Periapic al abscess 453108352 Completed 202204/23/2023 Problem Code: K04.7; Problem Code Type: ICD-10; Not Available [facility] 3 04:20:30 Benign paroxysm al position al vertigo 914251467 Completed 201804/23/2023 Problem Code: H81.10; Problem Code Type: ICD-10; Not Available [facility] 3 04:20:30 Spontane ous ecchymos is 387429228 Completed 202008/11/2021 Problem Code: R23.3; Problem Code Type: ICD-10; Not Available [facility] 3 04:20:30 Menopaus e present 810705020 Completed 201804/23/2023 Problem Code: N95.1; Problem Code Type: ICD-10; FOSTER BELLE PA-C [address], [place], [address] [facility] 4 08:00:27 Spasm 14552584 Completed 201908/11/2021 Problem Code: R25.2; Problem Code Type: ICD-10; Not Available [facility] 3 04:20:30 Severe obesity 37123362378 104 Completed 201807/10/2023 Problem Code: E66.01; Problem Code Type: ICD-10; Not Available [facility] 3 04:20:30 Insomnia 370831782 Completed 201804/23/2023 Problem Code: G47.00; Problem Code Type: ICD-10; Not Available [facility] 3 04:20:31 Melena 5492662 Completed 201912/28/2020 Problem Code: K92.1; Problem Code Type: ICD-10; Not Available [facility] 3 04:20:31 Peripher al neuropat hic pain 152880405 Active 2023 good response to lyrica [address], [place], [address] , [facility] 4 08:01:36 Nodule of lung 002130390 Active 2023 No concerni ng nodules on 02/2024 CT. No need for further evaluati on [address], [place], [address] , [facility] 4 09:50:41 Gastroes ophageal reflux disease without esophagi tis 754509181 Active [address], [place], [address] , [facility] 4 13:05:07 Memory impairme nt 952141461 Active 2023 MRI reveals white matter microvas cular changes and diffuse atrophy dispropo rtionate to age. [address], [place], [address] , [facility] 4 14:39:56 Candidal intertri go 324424567 Active [address], [place], [address] , [facility] 4 10:09:04 Problem Notes None recorded. Procedures Surgical History Date Name Laterality Status Provider Name and Address Organization Details Recorded Time 08/22/20 Total hysterectomy completed Mariela Calvin [facility] 10/01/2024 12:37:31 Imaging Results Imaging Date Name Status LastModified by [facility] Details LastModified Time 05/21/2024 MRI imaging report completed [email or web address] [facility] [address] , [facility] [place], [address] 05/25/2024 10:27:10 10/17/2018 imaging/diagnos tic result completed Information not available 06/29/2024 01:55:41 01/04/2021 imaging/diagnos tic result completed Information not available 06/29/2024 01:56:09 12/09/2021 imaging/diagnos tic result completed Information not available 06/29/2024 01:56:25 04/24/2023 imaging/diagnos tic result completed Information not available 06/29/2024 01:57:01 04/24/2023 imaging/diagnos tic result completed Information not available 06/29/2024 01:57:01 05/18/2020 imaging/diagnos tic result completed Information not available 06/29/2024 01:57:38 01/04/2021 imaging/diagnos tic result completed Information not available 06/29/2024 01:57:39 12/09/2021 imaging/diagnos tic result completed Information not available 06/29/2024 01:57:40 12/09/2021 imaging/diagnos tic result completed Information not available 06/29/2024 01:57:41 12/09/2021 imaging/diagnos tic result completed Information not available 06/29/2024 01:57:42 06/16/2022 imaging/diagnos tic result completed Information not available 06/29/2024 01:57:43 07/01/2019 MAMMO, diagnostic completed Information not available 06/29/2024 01:57:58 02/05/2022 XR, knee completed Information no t available 06/29/2024 01:57:59 10/15/2018 XR, chest completed Information no t available 06/29/2024 01:58:01 12/17/2018 XR, chest completed Information no t available 06/29/2024 01:58:02 10/15/2018 XR, chest completed Information no t available 06/29/2024 01:58:03 02/19/2020 XR, chest completed Information no t available 06/29/2024 01:58:04 12/28/2022 bone density completed Information not available 06/29/2024 01:58:25 12/09/2021 CT, chest completed Information no t available 06/29/2024 01:58:26 06/16/2022 CT, head or brain completed Information not available 06/29/2024 01:58:27 06/21/2021 US, abdomen completed Information n ot available 06/29/2024 01:58:30 04/05/2022 MAMMO, screening completed Information not available 06/29/2024 01:58:31 04/24/2023 MAMMO, screening completed Information not available 06/29/2024 01:58:32 08/29/2022 XR, lumbar spine completed Information not available 06/29/2024 01:58:33 01/04/2021 CT, angiogram, chest completed Information not available 06/29/2024 01:58:35 12/09/2021 CT, head + neck completed Informati on not available 06/29/2024 01:58:36 12/09/2021 imaging/diagnos tic result completed Information not available 06/29/2024 01:58:37 01/16/2023 imaging/diagnos tic result completed Information not available 06/29/2024 01:58:40 05/19/2020 imaging/diagnos tic result completed Information not available 06/29/2024 01:58:41 04/24/2023 imaging/diagnos tic result completed Information not available 06/29/2024 01:58:43 04/24/2023 imaging/diagnos tic result completed Information not available 06/29/2024 01:58:44 Procedure Notes None recorded. Medical Equipment None Reported. Allergies Allergen ID Allergen Name Allergen Category Reaction Reaction Severity Criticality Documentation Date Start Date Code Code System Note Provider Name and Address Organization Details Recorded Time 31981 latex environme nt,medica tion Not available Not available Not available 08/23/20232018 61650 91 RxNorm Aller gyNam e: 'LATE X'; Not Available [facility] 16:18:40 89402 oxycodone hydrochlo ride medicatio n Not available Not available Not available 08/23/20232018 31194 RxNorm Not Available [facility] 3 16:18:40 Medications Name Sig Start Date [...] Arterial blood by Pulse oximetry Respiratory rate Heart rate Systolic blood pressure Diastolic blood pressure Provider Name and Address Organization Details Last Updated DateTime 4 154.94 cm 48.4 kg/m2 802567. 65 g 98.2 [degF] 98 % 98 % 14 /min 88 /min 118 mm[Hg] 70 mm[Hg] ESME BAL RN [place] - [facility] 4 09:52:51 Date Recorded Body height Body mass index (BMI) Body weight Body temperature Oxygen saturation Oxygen saturation in Arterial blood by Pulse oximetry Respiratory rate Heart rate Systolic blood pressure Diastolic blood pressure Provider Name and Address Organization Details Last Updated DateTime 4 154.94 cm 51 kg/m2 352615. 94 g 98.8 [degF] 99 % 99 % 15 /min 92 /min 118 mm[Hg] 70 mm[Hg] ESME BAL RN [facility] 4 08:24:54 Date Recorded Body height Body mass index (BMI) Body weight Body temperature Oxygen saturation Oxygen saturation in Arterial blood by Pulse oximetry Respiratory rate Systolic blood pressure Diastolic blood pressure Provider Name and Address Organization Details Last Updated DateTime 4 154.94 cm 51.6 kg/m2 845326. 72 g 98 [degF] 92 % 92 % 14 /min 110 mm[Hg] 72 mm[Hg] ESME BAL RN [facility] 4 11:33:38 Date Recorded Body height Body mass index (BMI) Body weight Body temperature Oxygen saturation Oxygen saturation in Arterial blood by Pulse oximetry Systolic blood pressure Diastolic blood pressure Provider Name and Address Organization Details Last Updated DateTime 5 154.94 cm 50.4 kg/m2 082256. 16 g 97.7 [degF] 94 % 94 % 112 mm[Hg] 58 mm[Hg] ESME BAL RN [facility] 5 11:35:56 Social History Question Answer Notes LastModified by Organizat ion Details LastModified Time Tobacco Smoking Status Never Smoker ELSA MELCHOR RN [facility], [facility] 01/07/2024 10:10:52 Do You Have An [...] Do You Have A Medical Power Of Waste Duster? No Information not available 01/07/2024 What Was [...] 03:54:57 Father Family history of heart failure [place] [email or web address] Not available 2022 03:54:57 Medical History No medical history recorded. Gynecological HistoryNo gynecological history recorded. Obstetrics History GPAL:G 0 P 0 0 0 0 Immunizations Vaccine Type Date Status Note Provider Nam e and Address Organization Details Recorded Time Pneumococcal conjugate PCV20, polysaccharide CNN124 conjugate, adjuvant, PF [address], [place], [address], [facility] 01/07/2024 12:08:34 pneumococcal, unspecified formulation 4 completed Not Available [facility] 08/23/2023 04:02:11 Tdap 2 completed Not Available [facility] 08/23/2023 04:02:12 Tdap 0 completed Not Available [facility] 08/23/2023 04:02:12 Influenza, split virus, quadrivalent, PF 1 completed Not Available [facility] 08/23/2023 04:02:12 Influenza, split virus, quadrivalent, PF 2 completed Not Available [facility] 08/23/2023 04:02:12 zoster recombinant 2 completed Not Available [facility] 08/23/2023 04:02:12 zoster recombinant 2 completed Not Available [facility] 08[facility]23[facility]23 04:02:12 COVID-19, mRNA, LNP-S, PF, 100 mcg/0.5mL dose or 50 mcg/0.25mL dose 1 completed Not Available [facility] 08/23/2023 04:02:13 SARS-COV-2 (COVID-19) vaccine, UNSPECIFIED 1 completed Not Available [facility] 08/23/2023 04:02:13 SARS-COV-2 (COVID-19) vaccine, UNSPECIFIED 1 completed Not Available [facility] 08/23/2023 04:02:13 SARS-COV-2 (COVID-19) vaccine, UNSPECIFIED 1 completed Not Available [facility] 08/23/2023 04:02:13 SARS-COV-2 (COVID-19) vaccine, UNSPECIFIED 1 completed Not Available [facility] 08/23/2023 04:02:14 COVID-19, mRNA, LNP-S, bivalent, PF, 30 mcg/0.3 mL dose 2 completed Not Available [facility] 08/23/2023 04:02:14 pneumococcal polysaccharide PPV23 4 completed Not Available [facility] 08/23/2023 04:02:14 Hep B, unspecified formulation 7 completed Not Available [facility] 08/23/2023 04:02:15 Hep B, unspecified formulation 7 completed Not Available [facility] 08/23/2023 04:02:15 Influenza, high-dose, trivalent, PF 4 completed PETRA Beckham [facility] 07/23/2024 10:15:01 Influenza, split virus, quadrivalent, PF 3 completed Not Available [facility] 10/25/2023 05:33:03 COVID-19, mRNA, LNP-S, PF, lambert-sucrose, 30 mcg/0.3 mL 3 completed Not Available [facility] 10/25/2023 05:33:03 Past Encounters Encounter ID Performer Location Encounter Start Date Encounter Closed Date Diagnosis/Indication Diagnosis SNOMED-CT Code Diagnosis ICD10 Code Diagnosis Note [id number] Margoth Perla RN [facility] [place] [address] 12/20/2023 08:35:10 12/20/2023 09:11:26 Type 2 diabetes mellitus without complication 750484196 E11.9 Memory impairment 157086 006 R41.3 [id number] FOSTER BELLE PA-C [facility] [place] [address] 01/07/2024 09:37:18 01/07/2024 12:08:56 Vitamin B12 deficiency (non anemic) 66771330 E53.8 Type 2 shanon betes mellitus without complication 562042353 E11.9 Adult heal th examination 391498283 Z00.00 Age appropriat e preventive and screening reviewed. PCV 20 today. She is up to date on mammograms and colon cancer screening. She has had a normal DEXA scan. Starting vitamin B12 for borderline low levels and mild memory impairment . Diabetes is fairly well controlled though it appears her insurance may force a change in medication with trulicity no longer being covered. Tapering metformin due to frequent loose stools. Immodium prn. Last colonoscop y with biopsies was unremarkab le. Her mood is good. Walking routinely. Has an upcoming optometry appt. followup here in 4 months. Administra tion of pneumococcal vaccine 81546586 Z23 [id number] [facility] [address] [place] [address] 02/11/2024 11:38:07 02/11/2024 12:04:53 Nodule of lung 156695336 R91.1 Possible nodular infiltrate on recent chest x-ray when being evaluated for rib fractures after a fall. We will check follow-up chest x-ray today. She may require a CT scan. [id number] FOSTER BELLE PA-C [facility] [address] [place] [address] 04/28/2024 09:43:23 04/28/2024 10:42:57 Type 2 diabetes mellitus without complication 129605583 E11.9 This continues to be very well-contr olled with hemoglobin A1c of 6.2 today. Despite cutting back on metformin to just 500 mg which has helped with diarrhea. No changes to medication management made today. Memory impairment 287672 006 R41.3 Paulding score of 7/30. Her has compensate d well for her. He helps her with all of her ADLs. She does not leave the house alone. He does all the cooking and taking care of finances. Marginal benefit with B12. We will get a brain MRI. Suspect dementia. Start Namenda Gastroesop hageal reflux disease without esophagitis 851704845 K21.9 Well-contr olled on daily PPI. Advised trial of slow taper Essential hypertension 56728232 I10 Well-contr olled on current medication management . No changes made today. Hyperlipidemia 73733402 E78.5 She continues on statin [id number] FOSTER BELLE PA-C [facility] [address] [place] [address] 06/19/2024 08:10:04 06/19/2024 08:55:26 Type 2 diabetes mellitus without complication 179931419 E11.9 Connect with [facility] coordinato [facility] to see if there is any help to provide for GLP-1 coverage. She is likely in the donut hole. has not had Trulicity for the past few weeks Body mass index 40+ - severely obese 641258124 Z68.42 We need to restart GLP-1. This was providing healthy benefit while taking. Encourage healthy nutrition. Her ambulation /exercise is limited due to medical issues. Candidal intertrigo 2661 23124 B37.2 Trial of Diflucan weekly for 4 weeks in addition to topical antifungal s. Memory impairment 911655 006 R41.3 She has not yet heard from neurology. Tolerating Namenda well other than associated weight gain though in the setting of not getting GLP-1. We will add Aricept 5 mg for 2 weeks and then increase to 10 mg if tolerating well. 2-month follow-up. MRI revealed diffuse atrophy. [id number] Moira Brunner MA [facility] [address] [place] [address] 07/23/2024 10:13:10 07/23/2024 10:32:49 Active or passive immunization 065657193 Z23 [id number] FOSTER BELLE PA-C [facility] [address] [place] [address] 08/24/2024 11:15:25 08/24/2024 12:22:09 Overactive urinary bladder 133638413 N32.81 Mainly when going for car rides. She will often completely lose her better control. Generally able to get to the bathroom in time when she is home. Trial of oxybutynin use prior to car rides. Reviewed the risk of dizziness. She was unable to give a urine sample during visit today. Type 2 shanon betes mellitus without complication 148589760 E11.9 Control has deteriorat ed with inconsiste [...] back on sweets. 3-month follow-up Anxiety disorder 3818652 06 F41.9 A letter was provided to endorse/gamboa pport her to have her pet has an emotional support animal. Complicate d by progressiv e memory loss. Essential hypertension 47737379 I10 Well-contr olled on current medication management . No changes made today. Hyperlipidemia 23364398 E78.5 She continues on statin Memory impairment 937537 006 R41.3 Tolerating Namenda along with 5 mg of Aricept. She was evaluated by [facility] neurology. They were to refer her for sleep study. The Nik[facility] have not hear anything about this referral. We will check in with sleep study center. [id number] FOSTER BELLE PA-C [facility] [address] [place] [address] 11/18/2024 11:17:47 11/18/2024 13:36:07 Candidal intertrigo 336389133 B37.2 Diflucan once weekly is keep this in check. Overactive urinary bladder 656275602 N32.81 With urgency and occasional loss of control. Trial of oxybutynin . Type 2 shanon betes mellitus without complication 982941356 E11.9 Per her , her blood sugars have maintained good control without needing the GLP-1. Memory impairment 949599 006 R41.3 Tolerating Namenda and Aricept okay. Stomach upset when Aricept was titrated to 10 mg at night. Continue with the 5 mg dose. B12 level today. Stable Essential hypertension 63313551 I10 Well-contr olled on current medication management . No changes made today. Hyperlipidemia 10103398 E78.5 She continues on statin Low back pain 029244039 M54.50 Chronic low back pain without focal [...] by Organization Details LastModified Time None Recorded Advance Directives Directive Y: Payers Encounter Date Sequence Insurance Name Policy Number Policy Lai Covered Member ID Lai Member ID Guarantor Name 04/28/2024 3 [employer] - EPIC INSURANCE Kathrine Zaragoza [id number] Kathrine Zaragoza 04/28/2024 2 [facility] [place] (MEDICARE REPLACEMENT HMO) [id number] Kathrine Zaragoza [id number] Kathrine Zaragoza 06/19/2024 3 [employer] - EPIC INSURANCE Kathrine Zaragoza [id number] Kathrine Zaragoza 06/19/2024 2 [facility] [place] (MEDICARE REPLACEMENT H[place]) [id number] Kathrine Zaragoza [id number] Kathrine Zaragoza 07/23/2024 3 [employer]UR[employer] Kathrine Zaragoza [id number] Kathrine Zaragoza 07/23/2024 2 [facility] [place] (MEDICARE REPLACEMENT HMO) [id number] Kathrine Zaragoza [id number] Kathrine Zaragoza 08/24/2024 3 [employer] INSURANCE Kathrine Zaragoza [id number] Kathrine Zaragoza 08/24/2024 2 [facility] [place] ([place]ARE [place]PLACEMENT H[place]) [id number] Kathrine Zaragoza [id number] Kathrine Zaragoza 11/18/2024 1 [employer]ANTAGE - PPO) [id number] Kathrine Zaragoza [id number] Kathrine Zaragoza 11/18/2024 2 [facility] [place] ([place]ICARE [place]PLAC[place] H[place]) [id number] Kathrine Zaragoza [id number] Kathrine Zaragoza Notes Date Note Type Note Provider Name and Address Organization Details Recorded Time 04/28/2024 text/html Kathrine is here for follow-up of diabetes, hypertension, hyperlipidemia, and memory loss. Progressive memory loss that her thinks really started to kick in about 2 years ago. At this point he assists her with all of her ADLs. She does not leave the house alone. Does not drive. Her does all the cooking and takes care of the bills. He associates with more difficulty with her balance. She thinks her diabetes is well-controlled. Has cut back on metformin with improvement of diarrhea. [address], [place], [address], [facility]. 04/28/2024 13:06:11 06/19/2024 text/html Kathrine is here for followup of memory loss after starting memanta and titrating to 10 mg bid. has not noted a significant change other than she has increased appetite. However, they have not been able to get trulicity for the past several weeks due to copay increase. Reggie thinks she is in the donut hole. Had a spell yesterday in the shower when she thought she was going to pass out. Associated nausea and vomiting X 1. Feeling better today. Her blood sugar dropped during this episode but still above 100. Mild spinning dizziness associated with the episode. [address], [place], [phone], [facility]. 06/19/2024 10:09:29 08/24/2024 text/html Kathrine is here for follow-up of diabetes and memory loss. she was evaluated at [facility] neurology. They did not change her [...] is home. Wearing pull-ups. Dry at night [address], [place], [address], [facility], [facility]. 08/24/2024 13:06:24 11/18/2024 text/html Kathrine is here for follow [...] tablet weekly. This is keeping Zehra check. [address], [place], [address], [facility]. 11/18/2024 12:30:25 OBGyn Episode No OBEpisode recorded.
--- OUTSIDE RECORDS SUMMARY | 2024-11-18 22:57 | XMS_ITS | Encounter Summary ---
Author Organization [facility] Address [address] [place] [address] Care Team Providers Care Side Seam Envelope Machine Operator Name Role Phone Nathalie Jj NP Primary Care Provider [phone] Encounter Details Date Type Department Care Team (Late st Contact Info) Description 09/06/2010 Results Only [facility] ([facility] [address] [place] [address] Nathalie Jacob MD [address] [place] [address] [place] [address] Social History Tobacco Use Types Packs/Day Years Used Date Smoking Tobacco: Never Assessed Comments Unknown Sex and Gender Information Value Date Recorded Sex Assigned at Not on file Legal Sex Female 18:23 EST Gender Identity Not on file Sexual Orientation Not on file documented as of this encounter Plan of Treatment Not on file documented as of this encounter Procedures Procedure Name Priority Date/Time Associated Diagnosis Comments CYTOPATHOLOGY Routine 09/06/2010 0:00 EST documented in this encounter Results * CYTOPATHOLOGY (09/06/2010 0:00 EST) Pathology Report: CYTOPATHOLOGY REPORT ? Reports generated via electronic interface contain original data; ? however they are lacking the format of the original report. ? Caution should be taken when reading/interpreti ng unformatted reports. ? Name: ? MARIA E, KATHRINE M ? Accession #: ? [id number] ? : ? 1960 (Age: 49) ??F ?Collect Date: ? 09/06/2010 ? Location: ? [facility] ? Receive Date: ? 09/11/2010 ? Provider: ?NATHALIE JACOB MD ? Copy to: ? Specimen/Source: ?Pap Test, Cervix/Endocervix, ThinPrep Imaging System ? with manual evaluation ? Last Menstrual Period: ? 10/15/10 ? Hormonal/Contracep tive Status: ? Intrauterine device: Mirena ? Previous Gynecologic Pathology: ? ASC-US: 08/06 & 05/10 ? HPV: + 08/06 & 05/10 ? LSIL: 11/09 ? Treatment History: ? Colposcopy ? Other: ? Additional clinical information: 12/09 neg. ? SPECIMEN ADEQUACY ? Satisfactory for Evaluation ? - transformation zone component present ? GENERAL CATEGORIZATION ? Negative for Intraepithelial Lesion or Malignancy ? INTERPRETATION ? Reactive cellular changes associated with inflammation present (includes ?? repair). ? Document reviewed and electronically signed by: ? CATALINO MOUNT MD ? Report Date: ??09/13/2010 16:58 ? End of Report ? [facility] 09/06/2010 09/11/2010 us Nathalie Jacob MD PATHOLOGY ORDERABLES Final Resu lt [facility] [address] [place] [address] documented in this encounter Visit Diagnoses Not on filedocumented in this encounter Care Teams Side Seam Envelope Machine Operator Relationship Specialty Start Date End Date Nathalie Jj, ULIS[facility] [address] [place] [address] PCP - General 02/24/10 07/02/16 documented as of this encounter
--- OUTSIDE RECORDS SUMMARY | 2024-11-18 22:57 | XMS_ITS | Encounter Summary ---
Author Organization [facility] Address [address] [place] [address] Care Team Providers Care Risk Control Product Liability Director Name Role Phone Nathalie Jj NP Primary Care Provider [phone] Encounter Details Date Type Department Care Team (Late st Contact Info) Description 06/25/2016 Results Only [facility] [phone] Joy Shine MD [address] [place] [address] Social History Tobacco Use Types Packs/Day Years [...] Procedure Name Priority Date/Time Associated Diagnosis Comments PAP TEST- RESULT ONLY Routine 06/25/2016 0:00 EDT documented in this encounter Results * PAP TEST- RESULT ONLY (06/25/2016 0:00 EDT) Pathology Report: CYTOPATHOLOGY REPORT Reports generated via electronic interface contain original data; however they are lacking the format of the original report. Caution should be taken when reading/interpreti ng unformatted reports. Name: ? BENJIE ZARAGOZA ? Accession #: ? [id number] ? : ? 1960 (Age: 55) ??F ?Collect Date: ? 06/25/2016 ? Location: ? [facility] ? Receive Date: ? 06/26/2016 ? Provider: JOY SHINE MD Copy to: SIRI CHAVES MARINE CARGO INSPECTOR ? Final Report SPECIMEN ADEQUACY ? Satisfactory for Evaluation - transformation zone component present GENERAL CATEGORIZATION ? Epithelial Cell Abnormality INTERPRETATION ? Squamous Cell Abnormality - Atypical squamous cells, cannot exclude high grade squamous intraepithelial lesion (ASC-H). EDUCATIONAL NOTES/RECOMMENDATI ONS ? [facility] recommends following ASCCP's 2012 Updated Consensus Guidelines for the Management of Abnormal Cervical Cancer Screening Tests and Cancer Precursors (JLGTD, 2013; 17(5):S1-S27). ??Consensus guidelines are available online at www.asccp.org. Infection History: Pos for HRHPV: 2015 Other: Additional clinical information: Neg pap Specimen/Source: ??Pap Test, Vagina/Cervix, ThinPrep Imaging System with manual evaluation Document reviewed and electronically signed by: ? TONI CARO MD ? Report ??Date: 06/29/2016 12:10 HPV with Pap Test ? Date Ordered: ? 06/29/2016 ? Status: ?? Signed Out ?Date Complete: ? 07/03/2016 ? By: ??System Interface ? Date Reported: ? 07/03/2016 ? Interpretation RESULT: Positive for high or intermediate risk HPV. E6 OR E7 mRNA from one or more types of HPV types 16,18,31, 33,35,39,45,51,52, 56,58,59,66, and 68 is detected by relay motorman mediated amplification. High and intermediate risk HPV types are associated with most squamous intraepithelial lesions and cervical cancers. Comments Document reviewed and electronically signed by: ? System Interface ? Report date: 07/03/2016 By the signature above, the attending physician certifies that he/she has personally conducted a gross and/or microscopic examination of the described specimens and rendered or confirmed the above diagnosis. End of Report [facility] 06/25/2016 06/26/2016 us Joy Shine MD PATHOLOGY ORDERABLES Final Resu lt [facility] [address] [place] [address] documented in this encounter Visit Diagnoses Not on filedocumented in this encounter Care Teams Risk Control Product Liability Director Relationship Specialty Start Date End Date Nathalie Jj NP [address] [place] [address] PCP - General 02/24/10 07/02/16 documented as of this encounter
--- OUTSIDE RECORDS SUMMARY | 2024-11-18 22:57 | XMS_ITS | Encounter Summary ---
Author Organization [facility] Address [address] [place] [address] Care Team Providers Care Aircraft Ordnance Systems Mechanic Name Role Phone Dedra Dickson Guerda KILN DRAWER Primary Care Provider [phone] Encounter Details Date Type Department Care Team (Late st Contact Info) Description 06/22/2019 Results Only [facility] [phone] Landen Issa MD [address] [place] [phone] Social History Tobacco Use Types Packs/Day Years [...] Diagnosis Comments PAP TEST- RESULT ONLY Routine 06/22/2019 0:00 EDT documented in this encounter Results * PAP TEST- RESULT ONLY (06/22/2019 0:00 EDT) Pathology Report: CYTOPATHOLOGY REPORT Reports generated via electronic interface contain original data; however they are lacking the format of the original report. Caution should be taken when reading/interpret ing unformatted reports. Name: ? KATHRINE ZARAGOZA ? Accession #: ? [id number] : ? 1960 (Age: 58) ??F ?Collect Date: ? 06/22/2019 Location: ? [facility] ? Receive Date: ? 06/23/2019 Provider: ?LANDEN ISSA MD Copy to: ?DEDRA DICKSON KILN DRAWER ? Specimen/Source: ?Pap Test, Vagina, ThinPrep Imaging System with manual evaluation Last Menstrual Period: ? Previous Gynecologic Pathology: ? ASC-H Treatment History: ? Hysterectomy: S/P ? SPECIMEN ADEQUACY ? Unsatisfactory for Evaluation, - insufficient numbers of squamous epithelial cells (less than 10% of expected cellularity) GENERAL CATEGORIZATION ? Specimen processed and examined, but unsatisfactory for evaluation of epithelial abnormality. Recommend Pap test in 2-4 months as stated in ASCCP's 2012 Updated Guidelines. HPV testing will not be performed due to the potential for false negative results. ? Document reviewed and electronically signed by: ? HILL Arias(ASCP) ? Report Date: ??06/29/2019 10:14 End of Report [facility] 06/22/2019 06/23/2019 us Landen Issa MD PATHOLOGY ORDERABLES Final Resul t [facility] [address] [place] [address] documented in this encounter Visit Diagnoses Not on filedocumented in this encounter Care Teams Aircraft Ordnance Systems Mechanic Relationship Specialty Start Date End Date Dedra Dickson NP PCP - General 08/24/16 documented as of this encounter
--- OUTSIDE RECORDS SUMMARY | 2024-11-18 22:57 | XMS_ITS | Encounter Summary ---
Author Organization [place] [address] Care Team Providers Care Carpet Layer Name Role Phone Foster Belle Primary Care Provider [phone] Reason for Referral * Consultation (Routine) - Authorized Specialty Diagnoses / Procedures Referred By Contac t Referred To Contact Sleep Center Diagnoses Moderate vascular dementia without behavioral disturbance, psychotic disturbance, mood disturbance, or anxiety Gerard Beebe MD [facility] [place] [address] Referral ID Status Reason Start Date Expiration Date Visits Requested Visits Authorized [id number] Authorized Consult, Test & Treat 06/30/2024 12/27/2024 1 1 * Speech Therapy (Routine) - Authorized Specialty Diagnoses / Procedures Referred By Contac t Referred To Contact Speech Pathology / Speech Therapy Diagnoses Moderate vascular dementia without behavioral disturbance, psychotic disturbance, mood disturbance, or anxiety Gerard Beebe MD [facility] [place] [address] Referral ID Status Reason Start Date Expiration Date Visits Requested Visits Authorized [id number] Authorized Evaluate and Treat 06/30/2024 12/27/2024 12 12 Reason for Visit * Consultation (Routine) - Closed Specialty Diagnoses / Procedures Referred By Contac t Referred To Contact Neurology Diagnoses Memory impairment SIGNIFICANT MEMORY LOSS W FAIRLY RAPID PROGRESSION, BRAIN MRI W/ DIFFUSE ATROPHY AND VASCULAR CHANGES OF SMALL VESSELS Foster Belle PA [address] [place] [address] [facility] [address] [place] [address] Referral ID Status Reason Start Date Expiration Date V isits Requested Visits Authorized [id number] Closed Consult, Test & Treat PCP Updated and/or Approved 06/05/2024 06/05/2025 6 6 Encounter Details Date Type Department Care Team (Late st Contact Info) Description 06/30/2024 10:30 AM EDT [place] [address] Gerard Beebe MD [facility] [place] [address] Moderate vascular dementia without behavioral disturbance, psychotic disturbance, mood disturbance, or anxiety (Primary Dx) Social History Tobacco Use Types Packs/Day Years Used Date Smoking Tobacco: Never Smokeless Tobacco: Never Sex and Gender Information Value Date Recorded Sex Assigned at Female 06/22/2024 4:47 PM EDT Gender Identity Female 06/22/2024 4:47 PM EDT Sexual Orientation Straight 06/22/2024 4: 47 PM EDT documented as of this encounter Last Filed Vital Signs Vital Sign Reading Time Taken Comments Blood Pressure 140/72 06/30/2024 10:33 AM EDT Pulse 76 06/30/2024 10:33 AM EDT Temperature - - Respiratory Rate - - Oxygen Saturation - - Inhaled Oxygen Concentration - - Weight 126.6 kg (279 lb 1.6 oz) 024 10:33 AM EDT Height 154.9 cm (5' 1) 06/30/2024 10:3 3 AM EDT Body Mass Index 52.74 06/30/2024 10:33 AM EDT documented in this encounter Patient Instructions * Patient Instructions* Gerard Beebe MD - 06/30/2024 10:30 AM EDT It was a pleasure meeting you today, Kathrine and Reggie . I suspect you have vascular dementia possibly combined with Alzheimer's disease .Here are my recommendations: Referral to speech therapy for cognitive rehabilitation in [place] or [facility], please call facility to schedule this appointment. Referral to sleep medicine for sleep apnea evaluation, please call [facility] Continue donepezil 5 mg at bedtime Continue memantine 10 mg twice a day Recommended book: The 30-day Alzheimer's solution by Da and Yelena Garland. I put a referral to the Alzheimer's association for support. Return to clinic in 6 months [facility], please call clinic today at [phone]. Please call me if you have any questions or concerns. documented in this encounter Progress Notes * Gerard Beebe MD - 06/30/2024 10:30 AM EDT Images from the original note were not included. . DEPARTMENT OF NEUROLOGY Division of Cognitive and Behavioral Neurology NEUROLOGY CLINIC [facility] [place] [address] [address] Facsimile: 63 -year-old, right-handed woman with hypertension, hyperlipidemia, type 2 diabetes mellitus,anxiety/depression who presents today to [facility] Neurology clinic because of concerns related to memory loss. Patient was accompanied by Mr. Reggie Zaragoza. Chief Complaint: Cognitive impairment History of present illness: Kathrine noticed progressive cognitive changes for few years, she has trouble concentrating and deals with word finding difficulties. However, she did not provide more information. Reggie mentioned progressive cognitive decline in the past two years, he has noticed important word finding difficulties and he has to fill in her sentences. It seems that she has phonemic paraphasic errors. She has trouble concentrating, she has to re-read lines. She has trouble completing tasks. In addition, there is short-term memory loss as forgets recent conversations and asks same questions.She tends to misplace objects. Long-term memory seems preserved. Mood has been good, in occasions she becomes frustrated because of cognitive difficulties. No hallucinations. She has thoughts that someone is stealing from her. She deals with daytime sleepiness and feels constantly fatigued. She snores. She has never had a sleep study. She has fallen about 6 times this year, once hit her head but did not lose consciousness. No tremor, stiffness or shuffling. No history of seizures or abnormal movements. No urinary incontinence. She stopped driving in October 2023, she was having difficulty following directions however she never got lost. No accidents. always have managed finances. took over medications abouta year ago as she was forgetting to take them. She can do with some grocery shopping. Basic ADLs are preserved. Medical Review of Systems: The remainder of the review of systems is otherwise negative for all other systems Medical History: No past medical history on file. As delineated above. Past Surgical History: No past surgical history on file. Bilateral knee replacement. Allergies: No Known Allergies Current Medications: Current Outpatient Medications on File Prior to Visit Medication Sig Dispense Refill donepeziL (Aricept) 5 mg tablet Take 5 mg by mouth nightly. take one tablet at night for 2 weeks, and then increase to 2 tablets at night memantine (Namenda) 10 mg tablet Take 1 tablet by mouth 2 times daily. exenatide (Bydureon BCise) 2 mg/0.85 mL Auto-Injector Inject 2 mg every week by subcutaneous route for 28 days. pregabalin (Lyrica) 50 mg capsule Take 50 mg by mouth 2 times daily. sertraline (Zoloft) 50 mg tablet CIS Free Text [facility] aspirin metFORMIN (GLUCOPHAGE) 850 mg tablet Take 500 mg by mouth. buPROPion (WELLBUTRIN SR) 150 mg 12 hr tablet lisinopril (PRINIVIL;ZESTRIL) 5 mg tablet ERGOCALCIFEROL, VITAMIN D2, (VITAMIN D ORAL) atorvastatin (LIPITOR) 80 mg tablet pantoprazole (PROTONIX) 40 mg tablet No current facility-administered medications on file prior to visit. Current Outpatient Medications on File Prior to Visit Medication Sig Dispense Refill pregabalin (Lyrica) 50 mg capsule Take 50 mg by mouth 2 times daily. sertraline (Zoloft) 50 mg tablet CIS Free Text [facility] aspirin metFORMIN (GLUCOPHAGE) 850 mg tablet buPROPion (WELLBUTRIN SR) 150 mg 12 hr tablet lisinopril (PRINIVIL;ZESTRIL) 5 mg tablet ERGOCALCIFEROL, VITAMIN D2, (VITAMIN D ORAL) atorvastatin (LIPITOR) 80 mg tablet pantoprazole (PROTONIX) 40 mg tablet No current facility-administered medications on file prior to visit. Family History: No family history on file. Paternal grandmother had apparent AD dementia, cognitive symptoms began in late 70s. Social History: Social History Socioeconomic History Marital status: Spouse name: Not on file Number of children: Not on file Years of education: Not on file Highest education level: Not on file Occupational History Not on file Tobacco Use Smoking status: Never Smokeless tobacco: Never Vaping Use Vaping status: Never Used Substance and Sexual Activity Alcohol use: Not on file Drug use: Not on file Sexual activity: Not on file Other Topics Concern Not on file Social History Narrative Not on file Social Determinants of Health Financial Resource Strain: Not on file Food Insecurity: Not on file Transportation Needs: Not on file Physical Activity: Not on file Intimate Partner Violence: Not on file Housing Stability: Not on file Patient lives with Mr. Reggie Zaragoza and twin grandsons, Tim and Neel (14). She has one daughter, Jennifer. HCP and POA is apparently . 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 Highest academic achievement: High school. She said that many years ago was diagnosed with dyslexia. No current cigarette smoking, alcohol use or recreational drugs. General Physical Examination: General: well nourished, in no acute distress, appropriately groomed and dressed Skin: No rashes or lesions (full gowned exam not performed) Pulm: Breathing comfortably on room air Cardiac: RRR Abdomen: soft, non-distended Neurological Examination: Language/speech: See below Mental status: See below Cranial Nerves: II: Pupils equal and reactive, no RAPD, no apparent VF deficits III, IV, : EOM intact, no gaze preference or deviation, no nystagmus. V: normal sensation in V1, V2, and V3 segments bilaterally VII: no asymmetry, no nasolabial fold flattening. VIII: normal hearing to speech IX, X: normal palatal elevation, no uvular deviation XI: 5/5 head turn and 5/5 shoulder shrug bilaterally. Head turn sign XII: midline tongue protrusion Motor: 5/5 muscle power in Rt shoulder abductors/adductors, elbow flexors/extensors, wrist flexors/extensors, finger abductors/adductors. 5/5 in Rt hipflexors/extensors, knee flexors/extensors, ankle dorsiflexors and planter flexors. 5/5 muscle power in Lt shoulder abductors/adductors, elbow flexors/extensors, wrist flexors/extensors, finger abductors/adductors. 5/5 in Lt hipflexors/extensors, knee flexors/extensors, ankle dorsiflexors and planter flexors. Reflexes: 1/4 throughout, bilateral flexor planter response, no King's, no clonus Sensory: Normal to light touch in 4 extremities No hemineglect, no extinction to double sided stimulation (visual & tactile) Romberg absent Coordination: Normal finger to nose and heel to charlton, no tremor, no dysmetria Station: normal stance, no truncal ataxia Gait: Mildly antalgic. Constantine Cognitive Assessment (MoCA): 5+11/12. (One extra point added as 12 years of education) Trails-B - 0/1 Cube Copy - 0/1 Clock draw - 0/3 Naming animals - 3/3 Memory registration - 1/5 and 3/5 Memory recall - 0/5 additional correct with category cue additional correct with multiple choice Digit span forward of 5 - 1/1 Digit span backwards of 3 - 0/1 Continual Performance Task - 0/1 with 4 errors of omission and 2 errors of commission Serial 7s - 0/3 Sentence repetition - 0/2 Generative fluency - 0/1, 2 B-words in 60 seconds Similarities - 0/2 Orientation -1/6 Lab Results No results found for: 25OHVITD No results found for: [id number] No results found for: TSH Neuroimaging: MRI Brain May 2024: Per my review, generalized volume loss but more marked in medial/lateral temporal and parietal lobes. Moderate periventricular and subcortical white matter disease. Cavum septum vergae. Right occipital parietal foci of abnormal susceptibility. Neurophysiology: None Neuropsychology: None Impression: Vascular moderate dementia possibly combined with Alzheimer's disease manifested by 2-year history of progressive executive dysfunction, episodic memory loss and word finding difficulties that has affected her instrumental but still preserved basic activities of daily living with cognitive screening testing evidencing already multi-domain deficits and MRI brain showing important white matter disea se with neurodegeneration in temporal and parietal lobes. Recommendations: Continue donepezil 5 mg at bedtime Continue memantine 10 mg twice a day Referral to speech therapy for cognitive rehabilitation. Referral to sleep medicine for PHAN evaluation. Discussed she is not candidate for lecanemab given white matter disease. I am referring to Alzheimer's association for resources and social work support. Brain health behaviors reinforced. BP goal < 120/80 mmHg. Return to clinic in 6 months with me in [facility] as location is more convenient for them. Gerard Beebe MD, MPH Department of Neurology Division of Cognitive and Behavioral Neurology [facility] I personally spent a total of 90 minutes providing direct care for this patient, reviewing images, prior records/notes, and obtaining collateral information on the date of the encounter. documented in this encounter Plan of Treatment Scheduled Referrals Name Type Priority Associated Diagnoses Orde r Schedule Referral to Speech Therapy Outpatient Referral Routine Moderate vascular dementia without behavioral disturbance, psychotic disturbance, mood disturbance, or anxiety Ordered: 06/30/2024 Referral to [facility] Outpatient Referral Routine Moderate vascular dementia without behavioral disturbance, psychotic disturbance, mood disturbance, or anxiety Ordered: 06/30/2024 documented as of this encounter Visit Diagnoses Diagnosis Moderate vascular dementia without behavioral disturbance, psychotic disturbance, mood disturbance, or anxiety- Primary documented in this encounter Care Teams Carpet Layer Relationship Specialty Start Date End Date Foster Belle PA [address] [place] [address] PCP - General Internal Medicine 12/25/22 documented as of this encounter
--- OUTSIDE RECORDS SUMMARY | 2024-11-18 22:57 | XMS_ITS | Encounter Summary ---
Author Organization [facility] Address [address] [place] [address] Care Team Providers Care Clinical Safety Specialist Name Role Phone Dedra Arambula AGRICULTURIST Primary Care Provider [phone] Encounter Details Date Type Department Care Team (Latest Contact Info) Description 05/26/2019 14:16 EDT - 05/26/2019 23:59 EDT Hospital Encounter [address] [address] Unknown, Provider, MD Discharge Disposition: Home or Self Care Social History Tobacco Use Types Packs/Day Years Used Date Smoking Tobacco: Never Assessed Comments Unknown Sex and Gender Information Value Date Recorded Sex Assigned at Not on file Legal Sex Female 18:23 EST Gender Identity Not on file Sexual Orientation Not on file documented as of this encounter Discharge Disposition Disposition Code Departure Means Destination Home or Self Longterm documented in this encounter Plan of Treatment Not on file documented as of this encounter Visit Diagnoses Not on filedocumented in this encounter Care Teams Clinical Safety Specialist Relationship Specialty Start Date End Date Dedra Arambula NP PCP - General 08/24/16 documented as of this encounter
--- OUTSIDE RECORDS SUMMARY | 2024-11-18 22:57 | XMS_ITS | Encounter Summary ---
Author Organization [facility] Address [address] [place] [address] Care Team Providers Care Health Information Technician Name Role Phone Nathalie Jj NP Primary Care Provider [phone] Rony Nixon MD Primary Care Provider U muralimanolo Encounter Details Date Type Department Care Team (Late st Contact Info) Description 12/31/2000 Results Only [facility] [address] [place] [address] Lacie Kerr, [facility] [address] [place] [address] [place] [phone] Social History Tobacco Use Types Packs/Day Years [...] Priority Date/Time Associated Diagnosis Comments CYTOPATHOLOGY Routine 12/31/2000 0:00 EST documented in this encounter Results * CYTOPATHOLOGY (12/31/2000 0:00 EST) Pathology Report: CYTOPATHOLOGY REPORT Reports generated via electronic interface contain original data; however they are lacking the format of the original report. Caution should be taken when reading/interpreti ng unformatted reports. Name: ? KATHRINE ZARAGOZA ? Accession #: ? [id number] : ? 1960 (Age: 40) ??F ?Collect Date: ? 12/31/2000 Location: ? [facility] ? Receive Date: ? 01/01/2001 Provider: ?LACIE KERR DIRECTOR PERIOPERATIVE Copy to: ? Specimen/Source: ?ThinPrep Pap Test, Cervix/Endocervix Last Menstrual Period: ? Hormonal/Contracep tive Status: ? Depo-Provera ? SPECIMEN ADEQUACY ? Satisfactory for evaluation. GENERAL CATEGORIZATION ? Benign Cellular Changes DESCRIPTIVE DIAGNOSIS ? Predominance of coccobacilli present consistent with shift in vaginal amer[place]. ? Document reviewed and electronically signed by: ? Astrid Cabrera, ??SCT(ASCP) ? Report Date: ??01/02/2001 09:01 End of Report [facility] 12/31/2000 01/01/2001 us Lacie Kerr DIRECTOR PERIOPERATIVE PATHOLOGY ORDERABLES Final R esult [facility] [address] [place] [address] documented in this encounter Visit Diagnoses Not on filedocumented in this encounter Care Teams Health Information Technician Relationship Specialty Start Date End Date Nathalie Jj NP [facility] [address] [place] [id number] PCP - General 02/24/10 07/02/16 Rony Nixon MD PCP - General 09/16/09 02/23/10 documented as of this encounter
--- OUTSIDE RECORDS SUMMARY | 2024-11-18 22:57 | XMS_ITS | Encounter Summary ---
Author Organization [facility] Address [address] [place] [address] Care Team Providers Care Cardiopulmonary Technician Name Role Phone Rony Nixon MD Primary Care Provider Rena paulino Encounter Details Date Type Department Care Team (Late st Contact Info) Description 02/14/2010 Results Only [facility] - [facility] ([facility]) [address] [place], [place] [id number] Nathalie Jacob MD [address] [place] [address] [place] [address] Social History Tobacco Use Types Packs/Day Years [...] Procedure Name Priority Date/Time Associated Diagnosis Comments HPV DETECTION, HIGH RISK TYPES Routine 02/14/2010 14:44 EDT CYTOPATHOLOGY Routine 02/14/2010 0:00 EDT documented in this encounter Results * HUMAN PAPILLOMA VIRUS DNA TEST (02/14/2010 14:44 EDT) Specimen Description Cervix, ThinPrep vial [facility] Result Positive for one or more of HPV types 16,18,31,33,35 ,39,45,51,52,5 6,58,59, or 68. These high/intermedi ate risk HPV types are associated with dysplasia and some cervical cancers. [facility] Report Status Final 03/02/2010 [facility] 02/14/2010 14:4 4 EDT 02/28/2010 14:44 EDT us Nathalie Jacob MD MICROBIOLOGY - GENERAL ORDERABL ES Final Result [facility] [address] [place] [address] * CYTOPATHOLOGY (02/14/2010 0:00 EDT) Pathology Report: CYTOPATHOLOGY REPORT ? Reports generated via electronic interface contain original data; ? however they are lacking the format of the original report. ? Caution should be taken when reading/interpreti ng unformatted reports. ? Name: ? KATHRINE ZARAGOZA ? Accession #: ? [id number] ? : ? 1960 (Age: 49) ??F ?Collect Date: ? 02/14/2010 ? Location: ? [facility] ? Receive Date: ? 02/15/2010 ? Provider: ?NATHALIE IVA MD ? Copy to: ? Specimen/Source: ?Pap Test, Cervix/Endocervix, ThinPrep Imaging System ? with manual evaluation ? Last Menstrual Period: ? 03/20/07 ? Hormonal/Contracep tive Status: ? Intrauterine device: Mirena ? Previous Gynecologic Pathology: ? ASC-US: 08/06 ? HPV: + 08/06 ? LSIL: 11/09 ? Treatment History: ? Colposcopy: 12/09 negative ? SPECIMEN ADEQUACY ? Satisfactory for Evaluation ? - transformation zone component present ? GENERAL CATEGORIZATION ? Epithelial Cell Abnormality ? INTERPRETATION ? Squamous Cell Abnormality - Atypical squamous cells, undetermined ? significance (ASC-US). ? EDUCATIONAL NOTES/RECOMMENDATI ONS ? [facility] recommends following the 2006 Consensus Guidelines for the Management of Women with Abnormal Cervical Cancer Screening Tests (JLGTD, ? 2007;11(4):201-222 ). ??Consensus guidelines are available online at ? www.ASCCP.org. ? Document reviewed and electronically signed by: ? CATALINO MOUNT MD ? Report Date: ??02/24/2010 08:47 ? End of Report ? [facility] 02/14/2010 02/15/2010 us Nathalie Jacob MD PATHOLOGY ORDERABLES Final Resu lt [facility] [address] [place] [address] documented in this encounter Visit Diagnoses Not on filedocumented in this encounter Care Teams Cardiopulmonary Technician Relationship Specialty Start Date End Date Rony Nixon MD PCP - General 09/16/09 02/23/10 documented as of this encounter
--- OUTSIDE RECORDS SUMMARY | 2024-11-18 22:57 | XMS_ITS | Encounter Summary ---
Author Organization [facility] Address [address] [place] [address] Care Team Providers Care Machine Sole Leveler Name Role Phone Nathalie Jj MORTGAGE COORDINATOR Primary Care Provider Encounter Details Date Type Department Care Team (Latest Contact Info) Description 06/25/2016 7:49 EDT - 06/25/2016 23:59 EDT Hospital Encounter [address] [address] Unknown, Provider, MD Discharge Disposition: Home or [...] Code Departure Means Destination Home or Self Custodial documented in this encounter Plan of Treatment Not on file documented as of this encounter Visit Diagnoses Not on filedocumented in this encounter Care Teams Machine Sole Leveler Relationship Specialty Start Date End Date Nathalie Jj NP [address] [place] [address] PCP - General 02/24/10 07/02/16 documented as of this encounter
--- OUTSIDE RECORDS SUMMARY | 2024-11-18 22:57 | XMS_ITS | Encounter Summary ---
Author Organization [facility] Address [address] [place] [address] Care Team Providers Care Sausage Linker Name Role Phone Nathalie Godwin NP Primary Care Provider [phone] Encounter Details Date Type Department Care Team (Late st Contact Info) Description 04/11/2015 Results Only [facility] [phone] Joy Shine MD [address] [place] [address] Social History Tobacco Use Types Packs/Day Years [...] Diagnosis Comments PAP TEST- RESULT ONLY Routine 04/11/2015 0:00 EDT documented in this encounter Results * PAP TEST- RESULT ONLY (04/11/2015 0:00 EDT) Pathology Report: CYTOPATHOLOGY REPORT Reports generated via electronic interface contain original data; however they are lacking the format of the original report. Caution should be taken when reading/interpreti ng unformatted reports. Name: ? BENJIE ZAARGOZA ? Accession #: ? [id number] ? : ? 1960 (Age: 54) ??F ?Collect Date: ? 04/11/2015 ? Location: ? [facility] ? Receive Date: ? 04/12/2015 ? Provider: JOY SHINE MD Copy to: NATHALIE GODWIN SURVEYOR GEODETIC ? Final Report SPECIMEN ADEQUACY ? Satisfactory for Evaluation - transformation zone component present GENERAL CATEGORIZATION ? Negative for Intraepithelial Lesion or Malignancy ?? Specimen/Source: ??Pap Test, Cervix/Endocervix, ThinPrep Imaging System with manual evaluation Document reviewed and electronically signed by: ? HILL Mac(ASCP) ? Report ??Date: 04/20/2015 16:14 HPV with Pap Test ? Date Ordered: ? 04/20/2015 ? Status: ?? Signed Out ?Date Complete: ? 04/21/2015 ? By: ??System Interface ? Date Reported: ? 04/21/2015 ? Interpretation RESULT: Positive for high or intermediate risk HPV. E6 OR E7 mRNA from one or more types of HPV types 16,18,31, 33,35,39,45,51,52, 56,58,59,66, and 68 is detected by systems programmer analyst mediated amplification. High and intermediate risk HPV types are associated with most squamous intraepithelial lesions and cervical cancers. Comments Document reviewed and electronically signed by: ? System Interface ? Report date: 04/21/2015 By the signature above, the attending physician certifies that he/she has personally conducted a gross and/or microscopic examination of the described specimens and rendered or confirmed the above diagnosis. End of Report [facility] 04/11/2015 04/12/2015 us Joy Shine MD PATHOLOGY ORDERABLES Final Resu lt [facility] [address] [place] [address] documented in this encounter Visit Diagnoses Not on filedocumented in this encounter Care Teams Sausage Linker Relationship Specialty Start Date End Date Nathalie Godwin, ULISES [facility] [address] [place] [address] PCP - General 02/24/10 07/02/16 documented as of this encounter
--- OUTSIDE RECORDS SUMMARY | 2024-11-18 22:57 | XMS_ITS | Encounter Summary ---
Author Organization [facility] Address [address] [place] [address] Care Team Providers Care Sheet Rocker Name Role Phone Joy Shine MD Primary Care Provider Nialma ble Encounter Details Date Type Department Care Team (Late st Contact Info) Description 08/22/2016 Results Only [facility] [phone] Joy Shine MD [address] [place] [address] Social History Tobacco Use Types Packs/Day Years [...] Procedure Name Priority Date/Time Associated Diagnosis Comments SURGICAL PATHOLOGY Routine 08/22/2016 13 :54 EST documented in this encounter Results * SURGICAL PATHOLOGY (08/22/2016 13:54 EST) Pathology Report: SURGICAL PATHOLOGY REPORT Reports generated via electronic interface contain original data; however they are lacking the format of the original report. Caution should be taken when reading/interpret ing unformatted reports. Name: ? BENJIE ZARAGOZA ? Accession #: ? [id number] ? : ? 1960 (Age: 55) ??F ? Collect Date: ? 08/22/2016 ? Location: ? [facility] ? Receive Date: ? 08/23/2016 ? Provider: JOY SHINE MD Copy to: JES DICKSON IRON BENDER ? Final Pathologic Diagnosis: A. UTERUS AND CERVIX, HYSTERECTOMY: - ??Cervix: ?? - Chronic cervicitis and biopsy site reaction. See comment. - ??Endometrium: ?? - Atrophic endometrium. - ??Myometrium: ?? 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 - ??Serosa: ?? - No pathologic features. B. OVARY AND FALLOPIAN TUBE, LEFT, SALPINGO-OOPHOREC RUPERTO: - ??Ovary: ?? - Atrophic ovarian tissue with no specific pathologic features. - ??Fallopian tube: ?? - Fallopian tube with mild hydrosalpinx. C. OVARY AND FALLOPIAN TUBE, RIGHT, SALPINGO-OOPHOREC RUPERTO: - ??Ovary: ?? - Atrophic ovarian tissue with no specific pathologic features - ??Fallopian tube: ?? - Benign paratubal serous cyst. Comment: The entire cervix is submitted for histologic examination. Much of the epithelium is denuded and there is a chronic inflammatory infiltrate within the subepithelial stroma and evidence of biopsy site reaction. No evidence of dysplasia is identified. Dr. Loyd 08/28/2016 Document reviewed and electronically signed by: CRISTI LOYD MD Report ??Date: 08/28/2016 20:39 By the signature above, the attending physician certifies that he/she has personally conducted a gross and/or microscopic examination of the described specimens and rendered or confirmed the above diagnosis. Specimen(s) Received: A. ??Uterus B. ??Left ovary and tube C. ??Right ovary and tube Clinical History: High grade Pap, neg colpo; postmenopausal bleeding Gross Description: A. ?Received in formalin labelled with proper patient identification (initials D, T) and uterus and cervix is an intact uterus and cervix (34.2 g, 6.5 cm cervix to fundus x 3.0 cm cornu to cornu x 2.6 cm anterior to posterior), without attached adnexa. ? The uterine serosa is sawyer-white and smooth. The endometrium is sawyer-red and soft and has a thickness of 0.1 cm. ??The myometrium is sawyer-white and ranges from 0.5 cm to 1.1 cm in thickness. One subserosal sawyer-white whorled nodule (0.6 cm in greatest dimension) is identified. The ectocervix is sawyer-purple and rough, and the endocervix is sawyer-white and furrowed. ? Crusher Loader Equipment Operator sections are submitted as follows: BLOCK LIRA A1- ??anterior cervix A2- ??posterior cervix A3-A5- ??anterior endomyometrium, to include nodule A6-A8- ??posterior endomyometrium A9-A12- remaining cervix A13-A15- remaining cervix B. ?Received in formalin labelled with proper patient identification (initials D, T) and left ovary and tube is an intact ovary (1.4 x 1.4 x 0.5 cm) with a detached fimbriated fallopian tube (5.0 cm in length x 0.4 cm in diameter). The ovary has a sawyer-purple smooth capsule, and sectioning reveals no discrete lesions. The fallopian tube has sawyer-purple smooth serosa and sectioning reveals a sawyer-white cut surface with a pinpoint lumen throughout. The specimen is entirely submitted as follows: BLOCK LIRA B1- ??ovary B2-B4- ??fallopian tube C. ?Received in formalin labelled with proper patient identification (initials D, T) and right ovary and tube is an intact ovary (0.7 x 0.5 x 0.4 cm) with a detached fimbriated fallopian tube (3.5 cm in length x 0.3 cm in diameter). The ovary has a sawyer-white smooth capsule, and sectioning reveals no discrete lesions. The fallopian tube has sawyer-purple smooth serosa and sectioning reveals a sawyer-white cut surface with a pinpoint lumen throughout. The specimen is entirely submitted as follows: BLOCK LIRA C1-C2- ??ovary C3-C4- ??fallopian tube Dr. Brooks 08/23/2016 5:17 PM End of Report [facility] 08/22/2016 13:5 4 EST 08/23/2016 13:54 EST us Joy Shine MD PATHOLOGY ORDERABLES Final Resu lt [facility] [address] [place] [address] documented in this encounter Visit Diagnoses Not on filedocumented in this encounter Care Teams Sheet Rocker Relationship Specialty Start Date End Date Joy Shine MD PCP - General 07/03/16 08/23/16 documented as of this encounter
--- OUTSIDE RECORDS SUMMARY | 2024-11-18 22:57 | XMS_ITS | Encounter Summary ---
[place] [address] Care Team Providers Care Flight Controls Engineer Name Role Phone Foster Belle Primary Care Provider [phone] Encounter Details Date Type Department Care Team (Latest Contact Info) Description 04/11/2023 Travel Social History Tobacco Use Types Packs/Day Years Used Date Smoking Tobacco: Never Smokeless Tobacco: Never Sex and Gender Information Value Date Recorded Sex Assigned at Female 06/22/2024 4:47 PM EDT Gender Identity Female 06/22/2024 4:47 PM EDT Sexual Orientation Straight 06/22/2024 4: 47 PM EDT documented as of this encounter Plan of Treatment Not on file documented as of this encounter Visit Diagnoses Not on filedocumented in this encounter Care Teams Flight Controls Engineer Relationship Specialty Start Date End Date Foster Belle PA [address] [place] [address] PCP - General Internal Medicine 12/25/22 documented as of this encounter
--- OUTSIDE RECORDS SUMMARY | 2024-11-18 22:57 | XMS_ITS | Encounter Summary ---
Author Organization [facility] Address [address] [place] [address] Care Team Providers Care Crime Investigator Special Agent Name Role Phone Rony Nixon MD Primary Care Provider Rena paulino Encounter Details Date Type Department Care Team (Late st Contact Info) Description 10/11/2009 Orders Only [facility] - [facility] ([facility] [place] [address] [place], [place] [id number] Nathalie Jacob MD [address] [place] [address] [place] [address] Social History Tobacco Use Types Packs/Day Years [...] Date/Time Associated Diagnosis Comments SURGICAL PATHOLOGY Routine 10/11/2009 0:00 EST documented in this encounter Results * SURGICAL PATHOLOGY (10/11/2009 0:00 EST) Pathology Report: SURGICAL PATHOLOGY REPORT ? Reports generated via electronic interface contain original data; ? however they are lacking the format of the original report. ? Caution should be taken when reading/interpreti ng unformatted reports. ? Name: ? MARIA E, KATHRINE M ? Accession #: ? [id number] ? : ? 1960 (Age: 48) ??F ? Collect Date: ? 10/11/2009 ? Location: ? [facility] ? Receive Date: ? 10/11/2009 ? Provider: NATHALIE IVA MD ? Copy to: NATHALIE L [facility] ? Final Pathologic Diagnosis: ? A. ?Cervix, 12 o'clock, biopsy: ? 1. ?Transformation zone cervix with acute and chronic inflammation and ?? reactive atypia. ??See comment. ? B. ?Endocervix, curettage: ? 1. ?Scant fragments of benign endocervix. ? Comment: ? Deeper levels were examined on specimens (A) and (B). ? Review of cytology specimen ([id number]), by Dr. Wallace Morfin, confirms low grade ?? squamous intraepithelial lesion, however there is no dysplasia seen in the ? current biopsy and curettage specimens. ??(Dr. Bennett)/amparon ? Document reviewed and electronically signed by: ? Chinedu Long MD ? Report ??Date: 10/13/2009 16:05 ? By the signature above, the attending physician certifies that he/she has ? personally conducted a gross and/or microscopic examination of the described ? specimens and rendered or confirmed the above diagnosis. ? Specimen(s) Received: ? A. ?Colpo cervix bx at 12 o'clock ? B. ? Endocervical curettage ? Clinical History: ? 09/05/2009 Pap ??LSIL; LMP: 06/2008, Mirena IUD ? Gross Description: ? Received in formalin labelled Kathrine Zaragoza and cervix bx 12 o'clock is a sawyer-white irregular soft tissue measuring 0.3 x 0.2 x 0.2 cm. ??The specimen is submitted entirely as (A). ? Received in formalin labelled Kathrine Zaragoza and ECC is a 1.3 x 1.3 x 0.1 cm aggregate of clear mucinous material. ??The specimen is submitted entirely as (B) following filtration. ??(Deb Rodriguez)/nancy ? End of Report ? [facility] 10/11/2009 10/11/2009 9:2 9 EST us Nathalie Jacob MD PATHOLOGY ORDERABLES Final Resu lt [facility] [address] [place] [address] documented in this encounter Visit Diagnoses Not on filedocumented in this encounter Care Teams Crime Investigator Special Agent Relationship Specialty Start Date End Date Rony Nixon MD PCP - General 09/16/09 02/23/10 documented as of this encounter
--- OUTSIDE RECORDS SUMMARY | 2024-11-18 22:57 | XMS_ITS | Encounter Summary ---
Author Organization [facility] Address [address] [place] [address] Care Team Providers Care Assembler Final Name Role Phone Dedra Dickson HAND FOLDER Primary Care Provider [phone] Encounter Details Date Type Department Care Team (Late st Contact Info) Description 05/26/2019 Results Only [facility] [phone] Sunshine Garnett MD [address] [place] [phone] Social History Tobacco Use Types Packs/Day Years [...] Date/Time Associated Diagnosis Comments SURGICAL PATHOLOGY Routine 05/26/2019 15 :38 EDT documented in this encounter Results * SURGICAL PATHOLOGY (05/26/2019 15:38 EDT) Pathology Report: SURGICAL PATHOLOGY REPORT Reports generated via electronic interface contain original data; however they are lacking the format of the original report. Caution should be taken when reading/interpret ing unformatted reports. Name: ? KATHRINE ZARAGOZA ? Accession #: ? [id number] ? : ? 1960 (Age: 58) ??F ? Collect Date: ? 05/26/2019 ? Location: ? [facility] ? Receive Date: ? 05/26/2019 ? Provider: SUNSHINE GARNETT MD Copy to: DEDRA DICKSON HAND FOLDER ? Final Pathologic Diagnosis: COLON, RANDOM, BIOPSY: - Colonic mucosa with no significant diagnostic abnormality. Document reviewed and electronically signed by: NARAYAN FRITZ MD Report ??Date: 05/27/2019 14:03 By the signature above, the attending physician certifies that he/she has personally conducted a gross and/or microscopic examination of the described specimens and rendered or confirmed the above diagnosis. Specimen(s) Received: Bxs random colon Clinical History: Fecal incontinence Gross Description: ? Received in formalin labelled with proper patient identification (initials D, T) and BXs random colon is an aggregate of sawyer-pink tissue fragments (altogether 0.8 x 0.8 x 0.2 cm). Entirely submitted in 1 and 2. LISY Lunsford (ASCP) 05/26/2019 4:18 PM End of Report [facility] 05/26/2019 15:3 8 EDT 05/26/2019 15:38 EDT us Sunshine Garnett MD PATHOLOGY ORDERABLES Final Resul t [facility] [address] [place] [address] documented in this encounter Visit Diagnoses Not on filedocumented in this encounter Care Teams Assembler Final Relationship Specialty Start Date End Date Dedra Dickson NP PCP - General 08/24/16 documented as of this encounter
--- OUTSIDE RECORDS SUMMARY | 2024-11-18 22:57 | XMS_ITS | Encounter Summary ---
Author Organization [facility] [address] Care Team Providers Care Sales Closer Name Role Phone Foster Belle Primary Care Provider [phone] Reason for Referral * Consultation (Routine) - Closed Specialty Diagnoses / Procedures Referred By Hilda t Referred To Contact Weight and Wellness Diagnoses Finn Palma MD [facility] [place] [address] [facility] [place] [address] Referral ID Status Reason Start Date Expiration Date V isits Requested Visits Authorized [id number] Closed Consult, Test & Treat 04/11/2023 04/10/2024 1 1 * Physical Therapy (Routine) - Closed Specialty Diagnoses / Procedures Referred By Contarlyn t Referred To Contact Diagnoses Finn Palma MD [facility] [place] [address] None None Referral ID Status Reason Start Date Expiration Date V isits Requested Visits Authorized [id number] Closed Evaluate and Treat 04/11/2023 10/08/2023 12 12 Reason for Visit * Reason Comments Advice Only BBR * Consultation (Routine) - Closed Specialty Diagnoses / Procedures Referred By Contac t Referred To Contact Plastic Surgery Diagnoses Hypertrophy of breast BBR Foster Belle PA [address] [place] [address] [facility] [address] [place] [address] Referral ID Status Reason Start Date Expiration Date V isits Requested Visits Authorized [id number] Closed Consult, Test & Treat PCP Updated and/or Approved 12/25/2022 12/25/2023 12 12 Encounter Details Date Type Department Care Team (Late st Contact Info) Description 04/11/2023 9:30 AM EDT Office [place] [address] Finn Mendenhall MD [facility] [place] [place] [address] Macromastia Social History Tobacco Use Types Packs/Day Years Used Date Smoking Tobacco: Never Smokeless Tobacco: Never Tobacco Cessation:Counseling Given: Not Answered Sex and Gender Information Value Date Recorded Sex Assigned at Female 06/22/2024 4:47 PM EDT Gender Identity Female 06/22/2024 4:47 PM EDT Sexual Orientation Straight 06/22/2024 4: 47 PM EDT documented as of this encounter Last Filed Vital Signs Vital Sign Reading Time Taken Comments Blood Pressure - - Pulse - - Temperature - - Respiratory Rate - - Oxygen Saturation - - Inhaled Oxygen Concentration - - Weight 119.2 kg (262 lb 12.8 oz) 04/11/2023 9:15 AM EDT Height 153.7 cm (5' 0.5) 04/11/2023 9:15 AM EDT Body Mass Index 50.48 04/11/2023 9:15 AM EDT documented in this encounter Progress Notes * Cherelle Engel - 04/11/2023 9:30 AM EDT Images from the original note were not included. Plastic Surgery Consultation Note Provider: Finn Mendenhall MD PCP: LISY Lunsford Reason for office visit: Symptomatic macromastia HPI: Kathrine Zaragoza is a 62 y.o. female who presents today for evaluation of symptomatic macromastia. Her PCP is LISY Lunsfrod and has requested the consultation. She is accompanied for today???s visit. The patient reports neck and back pain. The patient has been working on losing weight and was considering weight loss surgery at one point The patient denies smoking but her partner does smoke. She live 1.5 hours away. She has completed a breast specific questionnaire: Pertinent findings to emphasize are: No data to display No data to display Conservative Therapy Treatments: No data to display No past medical history on file. No past surgical history on file. No family history on file. ROS: HEENT, GI, /Renal, Psych, Card, Pulm, Endo, Heme, Immun, Neuro: negative Examination: BMI: Ht 153.7 cm (5' 0.5) Wt 119.2 kg (262 lb 12.8 oz) BMI 50.48 kg/m?? BSA: Body surface area is 2.26 meters squared. General: On my examination today, the patient appears to be in good health. Her emotional outlook is positive and she asked appropriate questions throughout the visit. Breasts: Deferred for further weight loss Impression: Symptomatic bilateral breast hypertrophy. Bilateral breast reduction is indicated for relief of her breast-related symptoms. She watched the [facility]ENDY video on breast reduction, and was provided with an ASPS brochure and informed consent on breast reduction. It reviews the surgical risks, alternate skin incisions and pedicle versus free nipple graft techniques. It also discusses the optionof volume reduction by liposuction alone, which does not alter the nipple- areolar complex position.It talks about the impact of this surgery on decreasing breast cancer risk. We reviewed the timing of surgery relative to weight fluctuations and I've advised that surgery is best done at a realistic correction stable weight. We talked about the outpatient nature of the surgery, drains, postoperative recovery, and time required off work. Post-operative restrictions include no lifting, pushing, or pulling more than 5lbs for 4-6 weeks. The following risks were reviewed in the video or in our discussion: Surgical Risks which are greater with open reduction: bleeding with risk of hematoma (<5%); numbness, which may be temporary or permanent; scarring, including abnormal scarring; infection (5-10%);fat necrosis resulting in a breast mass and possible need for revision. I stressed the likelihood of minor problems with delayed wound healing (~30%) and the rare complication of nippleareolar necrosis. She is also aware that there may be some residual pain after the surgery and that there may possibly be some asymmetry. Vertical or Lollipop Incision: Less scarring on breast, but slightly greater risk for delayed healing and desire for scar revision. (She was informed that her insurer might not cover secondary revisions for scarring or asymmetry.) Andrea or Puposky Pattern Incision: More scarring on breast, but lower risk for scar revision. (She was informed that her insurer might not cover secondary revisions for scarring or asymmetry.) Pedicle Technique: volume of reduction may be limited by need to provide an adequate blood supply to the nipple. There is a very small risk of nipple loss. Most women (~60%) will be able to breast-feed. Free Nipple Graft: The grafts will initially have no sensation and once fully healed may not respond to temperature and touch as they do now. She has also been informed that they may not look entirely normal and may have patchy hypopigmentation. She will not be able to breast feed with this technique. The patient is not currently a surgical candidate due to her BMI. The has been counseled for weightloss to BMI <35 prior to surgery. To address this concern I reviewed with the patient, taking careful measures that this is with no criticism or judgement, that her current weight of a BMI over 35to increases surgical risks larry and post operative complications. I recommend beginning physical therapy and meeting with the weight and wellness program to discuss weight loss strategies, includingpossible weight loss surgery. Plan: Follow up PRN. Consult with the weight and wellness program. Begin physical therapy. I, Cherelle Engel, have performed the documentation for this encounter in the presence of and actingas a scribe for Finn Mendenhall MD. documented in this encounter Plan of Treatment Scheduled Referrals Name Type Priority Associated Diagnoses Orde r Schedule Referral to Physical Therapy Outpatient Referral Routine Macromastia Ordered: 04/11/2023 Referral to [facility] Outpatient Referral Routine Macromastia Ordered: 04/11/2023 documented as of this encounter Visit Diagnoses Diagnosis Macromastia Hypertrophy of breast documented in this encounter Care Teams Sales Closer Relationship Specialty Start Date End Date Foster Belle PA [address] [place] [address] PCP - General Internal Medicine 12/25/22 documented as of this encounter
--- OUTSIDE RECORDS SUMMARY | 2024-11-18 22:57 | XMS_ITS | Encounter Summary ---
Author Organization [facility] Address [address] [place] [address] Care Team Providers Care Loss Prevention Research Engineer Name Role Phone Nathalie Jj STRINGING MACHINE TENDER Primary Care Provider [phone] Encounter Details Date Type Department Care Team (Latest Contact Info) Description 08/25/2013 12:36 EST - 08/25/2013 23:59 EST Hospital Encounter [address] [address] Unknown, Provider, MD Discharge Disposition: Home or [...] Code Departure Means Destination Home or Self Skilled Nursing documented in this encounter Plan of Treatment Not on file documented as of this encounter Visit Diagnoses Not on filedocumented in this encounter Care Teams Loss Prevention Research Engineer Relationship Specialty Start Date End Date Nathalie Jj NP [address] [place] [address] PCP - General 02/24/10 07/02/16 documented as of this encounter
--- OUTSIDE RECORDS SUMMARY | 2024-11-18 22:57 | XMS_ITS | Encounter Summary ---
Author Organization [facility] Address [address] [place] [address] Care Team Providers Care Electrostatic Powder Coating Technician Name Role Phone Ralf, Dedra Croft DEVELOPMENT TECHNOLOGIST Primary Care Provider [phone] Encounter Details Date Type Department Care Team (Late st Contact Info) Description 02/19/2020 Lab Requisition [facility] Pathology & Laboratory Medicine - [address] [id number] Outr Resulting Lab, Provider Social History Tobacco Use Types Packs/Day Years [...] Procedure Name Priority Date/Time Associated Diagnosis Comments [facility] Today 02/19/2020 13:29 EDT COVID-19 TESTING Routine 02/19/2020 13:2 9 EDT documented in this encounter Results * COVID-19 TEST [facility] PCR (02/19/2020 13:29 EDT) Swab ENTIRE NASOPHARYNX / Unknown 02/19/2020 13:29 EDT 02/21/2020 16:29 EDT Narrative [facility] - 02/22/2020 15:39 EDT Delay in testing. Potential for false negative results. us Provider Outr Resulting Lab MICROBIOLOGY - GENER AL ORDERABLES Final Result Performing Organization Address [facility] Co de Phone Number [facility] [address] [place] [address] * COVID-19 TESTING (02/19/2020 13:29 EDT) COVID-19 rt-PCR Result Negative Negative 02/22/2020 15:39 EDT [facility] Comment: Delay in testing. Potential for false negative results. Negative results do not preclude 2019-nCoV infection and should not be used as the sole basis for treatment or other patient management decisions. Negative results must be combined with clinical observations, patient history, and epidemiological information. This test was developed and its performance characteristics determined by [facility]. It has not been cleared or approved by the US Food and Drug Administration. FDA does not require this test to go through premarket FDA review. This test is used for clinical purposes. It should not be regarded as investigational or for research. This laboratory is certified under the Clinical Laboratory Improvement Amendments (CLIA) as qualified to perform high complexity clinical laboratory testing. This test is based on the CDC COVID-19 Emergency Use Authorization (EUA) assay, with minor modification as defined by the FDA Performed on the [employer]. Performing Lab [facility] 02/22/2020 15:39 EDT [facility] Swab ENTIRE NASOPHARYNX / Unknown 02/19/2020 13:29 EDT 02/21/2020 16:29 EDT us Provider Outr Resulting Lab MICROBIOLOGY - GENER AL ORDERABLES Final Result Performing Organization Address City/[facility] Co de Phone Number [facility] [address] [place] [address] documented in this encounter Visit Diagnoses Not on filedocumented in this encounter Care Teams Electrostatic Powder Coating Technician Relationship Specialty Start Date End Date Dedra Arambula NP PCP - General 08/24/16 documented as of this encounter
--- OUTSIDE RECORDS SUMMARY | 2024-11-18 22:57 | XMS_ITS | Encounter Summary ---
[place] [address] Care Team Providers Care Crosscutter Name Role Phone Foster Belle Primary Care Provider [phone] Encounter Details Date Type Department Care Team (Late st Contact Info) Description 08/25/2024 [place] [id number] Kaylin Contreras APRN [facility] [place] [address] Social History Tobacco Use Types Packs/Day Years Used Date Smoking Tobacco: Never Smokeless Tobacco: Never Sex and Gender Information Value Date Recorded Sex Assigned at Female 06/22/2024 4:47 PM EDT Gender Identity Female 06/22/2024 4:47 PM EDT Sexual Orientation Straight 06/22/2024 4: 47 PM EDT documented as of this encounter Miscellaneous Notes * Telephone Encounter - Ashley Toledo - 08/25/2024 4:04 PM EST LMOM for the patient to call back and reschedule. documented in this encounter Plan of Treatment Not on file documented as of this encounter Visit Diagnoses Not on filedocumented in this encounter Care Teams Crosscutter Relationship Specialty Start Date End Date Foster Belle PA [address] [place] [address] PCP - General Internal Medicine 12/25/22 documented as of this encounter
--- OUTSIDE RECORDS SUMMARY | 2024-11-18 22:57 | XMS_ITS | Encounter Summary ---
Author Organization [facility] [place] [address] Care Team Providers Care Cracker Dough Mixer Name Role Phone Foster Belle Primary Care Provider [phone] Reason for Referral * Consultation (Routine) - Closed Specialty Diagnoses / Procedures Referred By Hilda huggins Referred To Contact Neurology Diagnoses Memory impairment SIGNIFICANT MEMORY LOSS W FAIRLY RAPID PROGRESSION, BRAIN MRI W/ DIFFUSE ATROPHY AND VASCULAR CHANGES OF SMALL VESSELS Foster Belle PA [address] [place] [address] [facility] [address] [place] [id number] Referral ID Status Reason Start Date Expiration Date V isits Requested Visits Authorized [id number] Closed Consult, Test & Treat PCP Updated and/or Approved 06/05/2024 06/05/2025 6 6 Encounter Details Date Type Department Care Team (Late st Contact Info) Description 06/05/2024 Transcribe Orders eDH Incoming Referrals [phone] Foster Belle PA [address] [place] [address] Memory impairment Social History Tobacco Use Types Packs/Day Years Used Date Smoking Tobacco: Never Smokeless Tobacco: Never Sex and Gender Information Value Date Recorded Sex Assigned at Female 06/22/2024 4:47 PM EDT Gender Identity Female 06/22/2024 4:47 PM EDT Sexual Orientation Straight 06/22/2024 4: 47 PM EDT documented as of this encounter Plan of Treatment Scheduled Referrals Name Type Priority Associated Diagnoses Orde r Schedule Referral to Neurology Outpatient Referral Routine Memory impairment Ordered: 06/05/2024 documented as of this encounter Visit Diagnoses Diagnosis Memory impairment Memory loss documented in this encounter Care Teams Cracker Dough Mixer Relationship Specialty Start Date End Date Foster Belle PA [address] [place] [address] PCP - General Internal Medicine 12/25/22 documented as of this encounter
--- OUTSIDE RECORDS SUMMARY | 2024-11-18 22:57 | XMS_ITS | Encounter Summary ---
Author Organization Health system Address [address] [place] [address] Care Team Providers Care Parlor Maid Name Role Phone Nathalie Jj NP Primary Care Provider [phone] Encounter Details Date Type Department Care Team (Late st Contact Info) Description 06/25/2013 Results Only [facility] [phone] Joy Shine MD [address] [place] [address] Social History Tobacco Use Types Packs/Day Years [...] Diagnosis Comments PAP TEST- RESULT ONLY Routine 06/25/2013 0:00 EDT documented in this encounter Results * PAP TEST- RESULT ONLY (06/25/2013 0:00 EDT) Pathology Report: CYTOPATHOLOGY REPORT Reports generated via electronic interface contain original data; however they are lacking the format of the original report. Caution should be taken when reading/interpreti ng unformatted reports. Name: ? BENJIE ZARAGOZA ? Accession #: ? [id number] ? : ? 1960 (Age: 52) ??F ?Collect Date: ? 06/25/2013 ? Location: ? [facility] ? Receive Date: ? 06/29/2013 ? Provider: JOY SHINE MD Copy to: TIFFANIE ROBERTFRANCESCA SLOT SHIFT MANAGER ? Final Report SPECIMEN ADEQUACY ? Satisfactory for Evaluation - transformation zone component present GENERAL CATEGORIZATION ? Negative for Intraepithelial Lesion or Malignancy INTERPRETATION ? Reactive cellular changes associated with inflammation present (includes repair). Hormonal/Contracep tive status: Intrauterine device: mirena Specimen/Source: ??Pap Test, Cervix/Endocervix, ThinPrep Imaging System with manual evaluation Document reviewed and electronically signed by: ? MARLON REED MD ? Report ??Date: 07/03/2013 09:36 HPV with Pap Test ? Date Ordered: ? 07/02/2013 ? Status: ?? Signed Out ?Date Complete: ? 07/07/2013 ? By: ??System Interface ? Date Reported: ? 07/07/2013 ? Interpretation RESULT: Positive for high or intermediate risk HPV. E6 OR E7 mRNA from one or more types of HPV types 16,18,31, 33,35,39,45,51,52, 56,58,59,66, and 68 is detected by inside sales advisor mediated amplification. High and intermediate risk HPV types are associated with most squamous intraepithelial lesions and cervical cancers. Comments Document reviewed and electronically signed by: ? System Interface ? Report date: 07/07/2013 By the signature above, the attending physician certifies that he/she has personally conducted a gross and/or microscopic examination of the described specimens and rendered or confirmed the above diagnosis. End of Report [facility] 06/25/2013 06/29/2013 us Joy Shine MD PATHOLOGY ORDERABLES Final Resu lt [facility] [address] [place] [address] documented in this encounter Visit Diagnoses Not on filedocumented in this encounter Care Teams Parlor Maid Relationship Specialty Start Date End Date Nathalie Jj NP [address] [place] [address] PCP - General 02/24/10 07/02/16 documented as of this encounter
--- OUTSIDE RECORDS SUMMARY | 2024-11-18 22:57 | XMS_ITS | Encounter Summary ---
Author Organization [facility] Address [address] [place] [address] Care Team Providers Care Ground Crew Lines Person Name Role Phone Carolina Shine MD Primary Care Provider Pamela nix Encounter Details Date Type Department Care Team (Latest Contact Info) Description 07/30/2016 7:08 EDT - 07/30/2016 23:59 EDT Hospital Encounter [address] [address] Unknown, Provider, MD Discharge Disposition: Home or [...] Code Departure Means Destination Home or Self Group Home documented in this encounter Plan of Treatment Not on file documented as of this encounter Visit Diagnoses Not on filedocumented in this encounter Care Teams Ground Crew Lines Person Relationship Specialty Start Date End Date Carolina Shine MD PCP - General 07/03/16 08/23/16 documented as of this encounter
--- OUTSIDE RECORDS SUMMARY | 2024-11-18 22:57 | XMS_ITS | Encounter Summary ---
Author Organization [facility] Address [address] [place] [address] Care Team Providers Care Clothing Examiner Name Role Phone Unavailable Primary Care Provider Unavailabl e Encounter Details Date Type Department Care Team (Late st Contact Info) Description 01/05/2009 Before [facility] Converted Visit (Maple) [facility] Medicine [address] [address] Shayan Calderon MD [address] [place] [address] Social History Tobacco Use Types Packs/Day Years [...] Date/Time Associated Diagnosis Comments SURGICAL PATHOLOGY Routine 01/05/2009 0:00 EDT documented in this encounter Results * SURGICAL PATHOLOGY (01/05/2009 0:00 EDT) Pathology Report: SURGICAL PATHOLOGY REPORT ? Reports generated via electronic interface contain original data; ? however they are lacking the format of the original report. ? Caution should be taken when reading/interpreti ng unformatted reports. ? Name: ? NIK, KATHRINE M ? Accession #: ? [id number] ? : ? 1960 (Age: 48) ??F ? Collect Date: ? 01/05/2009 ? Location: ? [facility] ? Receive Date: ? 01/06/2009 ? Provider: SHAYAN CALDERON MD ? Copy to: AIME L GODWIN COMPLIANCE REVIEW OFFICER ? Final Pathologic Diagnosis: ? Colon, descending, polypectomies: ? - Fragments of hyperplastic polyps. ??See comment. ? Comment: ? Deeper levels of the tissue have been reviewed. ??(Dr. Morrison)/lgk ? Document reviewed and electronically signed by: ? Manuel Morrison MD ? Report ??Date: 01/10/2009 10:18 ? By the signature above, the attending physician certifies that he/she has ? personally conducted a gross and/or microscopic examination of the described ? specimens and rendered or confirmed the above diagnosis. ? Specimen(s) Received: ? Polyp x3 descending colon ? Clinical History: ? Colorectal screening, occ rectal bleeding ? Gross Description: ? Received in Hollande's fixative labelled Nik, Kathrine and polyp x3 ?? descending colon are three sawyer-pink irregular soft tissues ranging from 0.3 x ?? 0.2 x 0.2 cm to 0.5 x 0.4 x 0.4 cm. ??The largest specimen is bisected and ? submitted entirely as (A1). ??The remaining specimens are submitted entirely as ?? (A2). ??(Deb Rodriguez)/tmg ? End of Report ? [facility] 01/05/2009 01/06/2009 13: 07 EDT us Shayan Calderon MD PATHOLOGY ORDERABLES Final Resul t [facility] [address] [place] [address] documented in this encounter Visit Diagnoses Not on filedocumented in this encounter
--- OUTSIDE RECORDS SUMMARY | 2024-11-18 22:57 | XMS_ITS | Encounter Summary ---
Author Organization [facility] Address [address] [place] [address] Care Team Providers Care Major League Baseball Player Name Role Phone Carolina Shine MD Primary Care Provider Pamela nix Encounter Details Date Type Department Care Team (Latest Contact Info) Description 08/22/2016 17:53 EST - 08/22/2016 23:59 EST Hospital Encounter [address] [address] Unknown, Provider, MD Discharge Disposition: Home or [...] Code Departure Means Destination Home or Self [facility] documented in this encounter Plan of Treatment Not on file documented as of this encounter Visit Diagnoses Not on filedocumented in this encounter Care Teams Major League Baseball Player Relationship Specialty Start Date End Date Carolina Shine MD PCP - General 07/03/16 08/23/16 documented as of this encounter
--- OUTSIDE RECORDS SUMMARY | 2024-11-18 22:57 | XMS_ITS | Encounter Summary ---
Author Organization [facility] Address [address] [place] [address] Care Team Providers Care Branding Machine Tender Name Role Phone Nathalie Jj NP Primary Care Provider [phone] Rony Nixon MD Primary Care Provider U lora Encounter Details Date Type Department Care Team (Late st Contact Info) Description 12/11/1999 Results Only [facility] - [facility] conversion [address] [place] [address] Erick Harden MD [address] [place], [place] [address] Social History Tobacco Use Types Packs/Day Years [...] Date/Time Associated Diagnosis Comments SURGICAL PATHOLOGY Routine 12/11/1999 15 :39 EST documented in this encounter Results * SURGICAL PATHOLOGY (12/11/1999 15:39 EST) Pathology Report: SURGICAL PATHOLOGY REPORT Reports generated via electronic interface contain original data; however they are lacking the format of the original report. Caution should be taken when reading/interpreti ng unformatted reports. Name: ? KATHRINE ZARAGOZA ? Accession #: ? [id number] ? : ? 1960 (Age: 39) ??F ? Collect Date: ? 12/11/1999 ? Location: ?Receive Date: ? 12/11/1999 ? Provider: ERICK HARDEN MD Copy to: ERICK BYRD MD ? Final Pathologic Diagnosis: MICROSCOPIC DIAGNOSIS: ? Endometrium, biopsy: ? - Fragments consistent with endometrial polyp with focal ? secretory changes. ??See comment. ? Comment: COMMENT: ? The endometrial biopsy consists of multiple polypoid shaped ? fragments of endometrial tissue characterized by dense stroma and ? inactive to weakly proliferative endometrial glands with focal ? tubal metaplasia and secretory changes. ??There is no evidence of ? hyperplasia. ??(Dr. Byrd)/[facility] Document reviewed and electronically signed by: Conversion for JESUSITA BYRD Report ??Date: 12/12/1999 00:00 By the signature above, the attending physician certifies that he/she has personally conducted a gross and/or microscopic examination of the described specimens and rendered or confirmed the above diagnosis. Specimen(s) Received: TISSUE SUBMITTED: CLINICAL DATA: ? On depo-provera; post coital bleeding-diabetic, obese; LMP: ? 11/22/99 Gross Description: GROSS: ? Received in formalin labelled Josh and endometrial are 1.0 cc ? of swayer-red, predominantly mucus material. ??The specimen is ? entirely submitted in one cassette. ??(Rozina Mcclure/risa ? End of Report [facility] 12/11/1999 15:3 9 EST 12/11/1999 15:40 EST us Erick Harden MD PATHOLOGY ORDERABLES Final Resul t [facility] [address] [place] [address] documented in this encounter Visit Diagnoses Not on filedocumented in this encounter Care Teams Branding Machine Tender Relationship Specialty Start Date End Date Nathalie Jj NP [address] [place] [address] PCP - General 02/24/10 07/02/16 Rony Nixon MD PCP - General 09/16/09 02/23/10 documented as of this encounter
--- OUTSIDE RECORDS SUMMARY | 2024-11-18 22:57 | XMS_ITS | Encounter Summary ---
[place] [address] Care Team Providers Care Police Radio Dispatcher Name Role Phone Foster Belle Primary Care Provider [phone] Encounter Details Date Type Department Care Team (Latest Contact Info) Description 06/30/2024 Travel Social History Tobacco Use Types Packs/Day [...] on filedocumented in this encounter Care Teams Police Radio Dispatcher Relationship Specialty Start Date End Date Foster Belle PA [address] [place] [address] PCP - General Internal Medicine 12/25/22 documented as of this encounter
--- OUTSIDE RECORDS SUMMARY | 2024-11-18 22:57 | XMS_ITS | Encounter Summary ---
Author Organization [facility] Address [address] [place] [address] Care Team Providers Care Integrated Circuit Design Engineer Name Role Phone Nathalie Jj NP Primary Care Provider [phone] Encounter Details Date Type Department Care Team (Late st Contact Info) Description 06/17/2012 Results Only [facility] ([facility] [address] [place], [place] [id number] Nathalie Jacob MD [address] [place] [address] [place] [address] Social History Tobacco Use Types Packs/Day Years [...] Diagnosis Comments PAP TEST- RESULT ONLY Routine 06/17/2012 0:00 EDT documented in this encounter Results * PAP TEST- RESULT ONLY (06/17/2012 0:00 EDT) Pathology Report: CYTOPATHOLOGY REPORT Reports generated via electronic interface contain original data; however they are lacking the format of the original report. Caution should be taken when reading/interpreti ng unformatted reports. Name: ? KATHRINE ZARAGOZA ? Accession #: ? [id number] ? : ? 1960 (Age: 51) ??F ?Collect Date: ? 06/17/2012 ? Location: ? [facility] ? Receive Date: ? 06/18/2012 ? Provider: NATHALIE JACOB MD Copy to: ? Final Report SPECIMEN ADEQUACY ? Satisfactory for Evaluation - transformation zone component present - scant squamous epithelial component secondary to excessive inflammation GENERAL CATEGORIZATION ? Negative for Intraepithelial Lesion or Malignancy ?? Hormonal/Contracep tive status: Intrauterine device: mirena Previous Gynecologic Pathology: ASC-US: 05/19, 02/20 HPV: + 05/19, 02/20, 08/23 LSIL: 08/22 Specimen/Source: ??Pap Test, Cervix/Endocervix, ThinPrep Imaging System with manual evaluation Document reviewed and electronically signed by: ? HILL Arias(ASCP) ? Report ??Date: 06/25/2012 11:37 HPV with Pap Test ? Date Ordered: ? 06/24/2012 ? Status: ?? Signed Out ?Date Complete: ? 06/30/2012 ? By: ??System Interface ? Date Reported: ? 06/30/2012 ? Interpretation RESULT: Positive for high or intermediate risk HPV. E6 OR E7 mRNA from one or more types of HPV types 16,18,31, 33,35,39,45,51,52, 56,58,59,66, and 68 is detected by insulation engineman mediated amplification. High and intermediate risk HPV types are associated with most squamous intraepithelial lesions and cervical cancers. Comments Document reviewed and electronically signed by: ? System Interface ? Report date: 06/30/2012 By the signature above, the attending physician certifies that he/she has personally conducted a gross and/or microscopic examination of the described specimens and rendered or confirmed the above diagnosis. End of Report [facility] 06/17/2012 06/18/2012 Nathalie Jacob MD PATHOLOGY ORDERABLES Final Resu lt [facility] [address] [place] [address] documented in this encounter Visit Diagnoses Not on filedocumented in this encounter Care Teams Integrated Circuit Design Engineer Relationship Specialty Start Date End Date Nathalie Jj NP [address] [place] [address] PCP - General 02/24/10 07/02/16 documented as of this encounter
--- OUTSIDE RECORDS SUMMARY | 2024-11-18 22:57 | XMS_ITS | Encounter Summary ---
Author Organization [facility] [place] [address] Care Team Providers Care Calender Feeder Name Role Phone Foster Belle Primary Care Provider [phone] Reason for Referral * Consultation (Routine) - Closed Specialty Diagnoses / Procedures Referred By Hilda huggins Referred To Contact Plastic Surgery Diagnoses Hypertrophy of breast BBR Foster Belle PA [address] [place] [address] [facility] [address] [place] [phone] Referral ID Status Reason Start Date Expiration Date V isits Requested Visits Authorized [id number] Closed Consult, Test & Treat PCP Updated and/or Approved 12/25/2022 12/25/2023 12 12 Encounter Details Date Type Department Care Team (Latest Contact Info) Description 12/25/2022 Transcribe Orders eDH Incoming Referrals [phone] Foster Belle PA [address] [place], [place] [id number] Hypertrophy of breast Social History Tobacco Use Types Packs/Day Years Used Date Smoking Tobacco: Never Assessed Sex and Gender Information Value Date Recorded Sex Assigned at Female 06/22/2024 4:47 PM EDT Gender Identity Female 06/22/2024 4:47 PM EDT Sexual Orientation Straight 06/22/2024 4: 47 PM EDT documented as of this encounter Plan of Treatment Scheduled Referrals Name Type Priority Associated Diagnoses Orde r Schedule Referral to Plastic Surgery Outpatient Referral Routine Hypertrophy of breast Ordered: 12/25/2022 documented as of this encounter Visit Diagnoses Diagnosis Hypertrophy of breast documented in this encounter Care Teams Calender Feeder Relationship Specialty Start Date End Date Foster Belle PA [address] [place] [address] PCP - General Internal Medicine 12/25/22 documented as of this encounter
--- OUTSIDE RECORDS SUMMARY | 2024-11-18 22:57 | XMS_ITS | Referral Summary ---
Author Organization [facility] Address [address] [place] [address] Care Team Providers Care Steam Brush Operator Name Role Phone Dedra Arambula CASEWORKER INTAKE Primary Care Provider [phone] Social History Tobacco Use Types Packs/Day Years Used Date Smoking Tobacco: Never Assessed Interpersonal Safety Answer Date Record ed Physically Hurt Never 05/15/2020 Verbally Threaten Not on file 05/15/2020 Comments Unknown Sex and Gender Information Value Date Recorded Sex Assigned at Not on file Legal Sex Female 18:23 EST Gender Identity Not on file Sexual Orientation Not on file Plan of Treatment Not on file Care Teams Steam Brush Operator Relationship Specialty Start Date End Date Dedra Arambula, CASEWORKER INTAKE PCP - General 08/24/16
--- OUTSIDE RECORDS SUMMARY | 2024-11-18 22:57 | XMS_ITS | Encounter Summary ---
Author Organization [facility] Address [address] [place] [address] Care Team Providers Care Real Estate Site Analyst Name Role Phone Ralf, Dedra Croft PUBLIC WEIGHER Primary Care Provider [phone] Encounter Details Date Type Department Care Team (Late st Contact Info) Description 12/20/2020 Lab Requisition [facility] Pathology & Laboratory Medicine - [address] [address] Outr Resulting Lab, Provider Social History Tobacco [...] Priority Date/Time Associated Diagnosis Comments ZZCOVID-19 TEST [facility] PCR Today 12/20/2020 13:45 EST COVID-19 TESTING Routine 12/20/2020 13:4 5 EST documented in this encounter Results * COVID-19 TEST [facility] PCR (12/20/2020 13:45 EST) Swab ENTIRE NASOPHARYNX / Unknown 12/20/2020 13:45 EST 12/20/2020 20:54 EST us Provider Outr Resulting Lab MICROBIOLOGY - GENER AL ORDERABLES Final Result Performing Organization Address City/[facility] de Phone Number [facility] [address] [place] [address] * COVID-19 TESTING (12/20/2020 13:45 EST) COVID-19 rt-PCR Result Negative Negative 12/21/2020 1:24 EST [facility] Comment: This test has not been FDA cleared or approved. This test has been authorized by FDA under an EUA for use by authorized laboratories. This test has been authorized only for detection of nucleic acid from 2019-nCoV, not for any other viruses or pathogens. This test is only authorized for the duration of the declaration that circumstances exist justifying the authorization of emergency use of in vitro diagnostic tests for detection and/or diagnosis of 2019-nCoV under section 564(b)(1) of Act, 21 U.S.C ?? 360bbb-3(b) (1), unless the authorization is terminated or revoked sooner. Negative results do not preclude 2019-nCoV infection and should not be used as the sole basis for treatment or other patient management decisions. Negative results must be combined with clinical observations, patient history, and epidemiological information. Performed on the [employer] Fusion instrument Performing Lab [place] [facility] Lab 12/21/2020 1:24 EST [facility] Swab 12/20/2020 13:4 5 EST 12/20/2020 20:54 EST us Provider Outr Resulting Lab MICROBIOLOGY - GENER AL ORDERABLES Final Result Performing Organization Address [facility] Co de Phone Number [facility] [address] [place] [address] documented in this encounter Visit Diagnoses Not on filedocumented in this encounter Care Teams Real Estate Site Analyst Relationship Specialty Start Date End Date Dedra Arambula NP PCP - General 08/24/16 documented as of this encounter
--- OUTSIDE RECORDS SUMMARY | 2024-11-18 22:57 | XMS_ITS | Encounter Summary ---
Author Organization [facility] Address [address] [place] [address] Care Team Providers Care Operator Vacuum Name Role Phone Unavailable Primary Care Provider Unavailabl e Encounter Details Date Type Department Care Team (Late st Contact Info) Description 08/09/2008 Before PRISM Converted Visit (Maple) [facility] - Maple conversion [address] [place] [address] Lacie Kerr, [facility] [address] [place] [address] [place] [address] Social History Tobacco Use Types Packs/Day Years [...] Priority Date/Time Associated Diagnosis Comments CYTOPATHOLOGY Routine 08/09/2008 0:00 EDT documented in this encounter Results * CYTOPATHOLOGY (08/09/2008 0:00 EDT) Pathology Report: CYTOPATHOLOGY REPORT ? Reports generated via electronic interface contain original data; ? however they are lacking the format of the original report. ? Caution should be taken when reading/interpreti ng unformatted reports. ? Name: ? MARIA E, KATHRINE M ? Accession #: ? [id number] ? : ? 1960 (Age: 47) ??F ?Collect Date: ? 08/09/2008 ? Location: ? [facility] ? Receive Date: ? 08/10/2008 ? Provider: ?LACIE JOHN FIELD SERVICES ANALYST ? Copy to: ? Specimen/Source: ?Pap Test, Cervix/Endocervix, ThinPrep Imaging System ? with manual evaluation ? Last Menstrual Period: ? 9/25/08 ? Hormonal/Contracep tive Status: ? Intrauterine device: Mirena ? Previous Gynecologic Pathology: ? ASC-US: 8/06 ? HPV: + ? Treatment History: ? Colposcopy: bx benign ? Other: ? HPVA - HPV testing requested if ASC-US on the current ThinPrep Pap test. ? SPECIMEN ADEQUACY ? Satisfactory for Evaluation ? - transformation zone component present ? GENERAL CATEGORIZATION ? Negative for Intraepithelial Lesion or Malignancy ? INTERPRETATION ? Reactive cellular changes associated with inflammation present (includes ?? repair). ? Shift in [place] present suggestive of bacterial vaginosis. ? Document reviewed and electronically signed by: ? CATALINO MOUNT MD ? Report Date: ??08/16/2008 11:10 ? End of Report ? [facility] 08/09/2008 08/10/2008 us Lacie Kerr FIELD SERVICES ANALYST PATHOLOGY ORDERABLES Final R esult [facility] [address] [place] [address] documented in this encounter Visit Diagnoses Not on filedocumented in this encounter
--- OUTSIDE RECORDS SUMMARY | 2024-11-18 22:57 | XMS_ITS | Clinical Summary ---
Author Organization [facility] Address [address] [place] [address] Care Team Providers Care Mixing Technician Name Role Phone Dedra Arambula LINUX PROGRAMMER Primary Care Provider Social History Tobacco Use Types Packs/Day Years Used Date Smoking Tobacco: Never Assessed Interpersonal Safety Answer Date Record ed Physically Hurt Never 05/15/2020 Verbally Threaten Not on file 05/15/2020 Comments Unknown Sex and Gender Information Value Date Recorded Sex Assigned at Not on file Legal Sex Female 18:23 EST Gender Identity Not on file Sexual Orientation Not on file Plan of Treatment Health Maintenance Due Date Last Done Comments Hepatitis C Screen 1960 Fall Risk Screening 2023 COVID-19 Vaccine ( season) 2024 RSV Immunization ( o r 60+ Years) (1 - 1-dose 75+ series) 2033 Care Teams Mixing Technician Relationship Specialty Start Date End Date Dedra Arambula NP PCP - General 08/24/16
--- OUTSIDE RECORDS SUMMARY | 2024-11-18 22:57 | XMS_ITS | Encounter Summary ---
[place] [address] Care Team Providers Care Property Coordinator Name Role Phone Foster Belle Primary Care Provider [phone] Encounter Details Date Type Department Care Team (Latest Contact Info) Description 06/24/2024 Travel Social History Tobacco Use Types Packs/Day [...] on filedocumented in this encounter Care Teams Property Coordinator Relationship Specialty Start Date End Date Foster Belle PA [address] [place] [address] PCP - General Internal Medicine 12/25/22 documented as of this encounter
--- OUTSIDE RECORDS SUMMARY | 2024-11-18 22:57 | XMS_ITS | Encounter Summary ---
Author Organization [facility] Address [facility] [place] [address] Care Team Providers Care Learning And Development Specialist Name Role Phone Foster Belle Primary Care Provider [phone] Encounter Details Date Type Department Care Team (Late st Contact Info) Description 05/21/2024 Ancillary Procedure Radiology Library at [facility] [place] [address] Foster Belle PA [address] [facility] [address] [place], [place] [address] Social History Tobacco Use Types Packs/Day Years [...] Procedure Name Priority Date/Time Associated Diagnosis Comments FILM LIBRARY STORAGE ONLY MR HEAD Routine 05/21/2024 12:00 AM EDT documented in this encounter Results * Film Library- Storage Only MR Head (05/21/2024 12:00 AM EDT) Narrative [facility] - 05/22/2024 11:19 PM EDT This exam is auto-finalizing. It's purpose is for storage only. Foster WASSERMAN Saurav FILM LIBRARY ORD ERABLES [facility] [address] documented in this encounter Visit Diagnoses Not on filedocumented in this encounter Care Teams Learning And Development Specialist Relationship Specialty Start Date End Date Foster Belle PA [address] [place] [address] PCP - General Internal Medicine 12/25/22 documented as of this encounter
--- OUTSIDE RECORDS SUMMARY | 2024-11-18 22:57 | XMS_ITS | Encounter Summary ---
Author Organization [facility] Address [address] [place] [address] Care Team Providers Care Arch Support Technician Name Role Phone Nathalie Jj NP Primary Care Provider [phone] Encounter Details Date Type Department Care Team (Late st Contact Info) Description 08/25/2013 Results Only [facility]- PRISM [phone] Joy Shine MD [address] [place] [address] Social History Tobacco Use Types Packs/Day Years [...] Date/Time Associated Diagnosis Comments SURGICAL PATHOLOGY Routine 08/25/2013 9:14 EST documented in this encounter Results * SURGICAL PATHOLOGY (08/25/2013 9:14 EST) Pathology Report: SURGICAL PATHOLOGY REPORT Reports generated via electronic interface contain original data; however they are lacking the format of the original report. Caution should be taken when reading/interpreting unformatted reports. Name: ? BENJIE ZARAGOZA ? Accession #: ? [id number] ? : ? 1960 (Age: 52) ??F ? Collect Date: ? 08/25/2013 ? Location: ? [facility] ? Receive Date: ? 08/26/2013 ? Provider: JOY SHINE MD Copy to: TIFFANIE GARCIA METAL TRIMMER ? Final Pathologic Diagnosis: A. ENDOCERVIX, CURETTAGE: - ??Benign endocervical tissue with pseudodecidualized stroma. ??See comment. ?? - ??No squamous intraepithelial lesion identified. B. ECTOCERVIX, 6 O'CLOCK, BIOPSY: - ??Mature appearing squamous mucosa with reactive changes including parakeratosis. - ??No squamous intraepithelial lesion identified. Comment: Please correlate findings of pseudodecidualized stroma with clinical history. Dr. Weiss 08/28/2013 02:05 PM Document reviewed and electronically signed by: JODEE MART MD Report ??Date: 08/28/2013 14:58 By the signature above, the attending physician certifies that he/she has personally conducted a gross and/or microscopic examination of the described specimens and rendered or confirmed the above diagnosis. Specimen(s) Received: A. ?ECC B. ? Ectocervix 6 o'clock Clinical History: (+) HR HPV on 2 annual Paps in a rowpersistent (+) HR HPV Gross Description: A. ?Received in formalin labelled with proper patient identification (initials D, T) and ECC is an aggregate of blood-tinged mucus and red-brown tissue (3 cc). Submitted in toto in block A1. B. ?Received in formalin labelled with proper patient identification (initials D, T) and ectocervix 6 o'clock is a single sawyer-white tissue fragment (0.2 x 0.2 x 0.2 cm). Submitted intact in block B1. Eyl Garcia 08/26/2013 11:16 AM End of Report [facility] 08/25/2013 9:14 EST 08/26/2013 9:14 EST us Joy Shine MD PATHOLOGY ORDERABLES Final Resu lt Performing Organization Address City/State/[facility] Co de Phone Number [facility] [address] [place] [address] documented in this encounter Visit Diagnoses Not on filedocumented in this encounter Care Teams Arch Support Technician Relationship Specialty Start Date End Date Nathalie Jj NP [facility] [address] [place] [address] PCP - General 02/24/10 07/02/16 documented as of this encounter
--- OUTSIDE RECORDS SUMMARY | 2024-11-18 22:57 | XMS_ITS | Encounter Summary ---
Author Organization [facility] Address [address] [place] [address] Care Team Providers Care Neck Band Maker Name Role Phone oJy Shine MD Primary Care Provider Nilama ble Encounter Details Date Type Department Care Team (Late st Contact Info) Description 07/30/2016 Results Only [facility] [phone] Joy Shine MD [address] [place] [address] Social History Tobacco Use Types Packs/Day Years [...] Date/Time Associated Diagnosis Comments SURGICAL PATHOLOGY Routine 07/30/2016 18 :38 EDT documented in this encounter Results * SURGICAL PATHOLOGY (07/30/2016 18:38 EDT) Pathology Report: SURGICAL PATHOLOGY REPORT Reports generated via electronic interface contain original data; however they are lacking the format of the original report. Caution should be taken when reading/interpret ing unformatted reports. Name: ? BENJIE ZARAGOZA ? Accession #: ? [id number] ? : ? 1960 (Age: 55) ??F ? Collect Date: ? 07/30/2016 ? Location: ? [facility] ? Receive Date: ? 07/30/2016 ? Provider: JOY SHINE MD Copy to: AIME GODWIN COFFEE HOST ? Final Pathologic Diagnosis: A. ??ENDOCERVIX, CURETTAGE: - Benign endocervical tissue. - Fragments of benign squamous mucosa with reactive epithelial changes. - Acute cervicitis. B. ??CERVIX, 4 O'CLOCK, BIOPSY: - Squamous mucosa with parakeratosis and reactive epithelial changes. C. ??CERVIX, 2 O'CLOCK, BIOPSY: - Benign squamous mucosa, Comment: The previous Pap test () has been reviewed and we agree with the diagnosis of atypical squamous cells, cannot exclude high grade squamous intraepithelial lesion (ASC-H). ??The atypical cells identified on the Pap test are not identified on the ECC or cervical biopsies. ??Deeper sections on specimens A, B, and C have been evaluated. ??(Dr. Nolen)/[facility] Document reviewed and electronically signed by: BRADFORD GARCIA MD Report ??Date: 08/02/2016 16:06 By the signature above, the attending physician certifies that he/she has personally conducted a gross and/or microscopic examination of the described specimens and rendered or confirmed the above diagnosis. Specimen(s) Received: A. ??ECC B. ??Ectocervix 4 o'clock C. ??Ectocervix 2 o'clock Clinical History: Pap 2016 ASC-H/+ HPV; 2014 neg/+ HPV; no Gardasil hx Gross Description: A. ?Received in formalin labelled with proper patient identification (initials D, T) and #1 ECC is an aggregate of blood-tinged mucus (2.0 x 2.0 x 0.3 cm). Submitted in toto in block A1. B. ?Received in formalin labelled with proper patient identification (initials D, T) and #2 ectocervix 4 o'clock are two sawyer-white tissues (0.3 x 0.1 x 0.1 cm each). Entirely submitted in block B1. C. ?Received in formalin labelled with proper patient identification (initials D, T) and #3 ectocervix 2 o'clock is a single pink-sawyer tissue fragment (0.4 x 0.2 x 0.2 cm). Submitted intact in block C1. LISY Tee (ASCP) 07/31/2016 8:12 AM End of Report [facility] 07/30/2016 18:3 8 EDT 07/30/2016 18:38 EDT us Joy Shine MD PATHOLOGY ORDERABLES Final Resu lt [facility] [address] [place] [address] documented in this encounter Visit Diagnoses Not on filedocumented in this encounter Care Teams Neck Band Maker Relationship Specialty Start Date End Date Joy Shine MD PCP - General 07/03/16 08/23/16 documented as of this encounter
--- OUTSIDE RECORDS SUMMARY | 2024-11-18 22:57 | XMS_ITS | Encounter Summary ---
Author Organization [facility] Address [address] [place] [address] Care Team Providers Care Small Package And Bundle Sorter Clerk Name Role Phone Unavailable Primary Care Provider Unavailabl e Encounter Details Date Type Department Care Team (Late st Contact Info) Description 09/05/2009 Orders Only [facility] - [facility] ([facility]) [address] [place] [address] Nathalie Jacob MD [address] [place] [address] [place] [address] Social History Tobacco Use Types Packs/Day Years [...] Priority Date/Time Associated Diagnosis Comments CYTOPATHOLOGY Routine 09/05/2009 0:00 EST documented in this encounter Results * CYTOPATHOLOGY (09/05/2009 0:00 EST) Pathology Report: CYTOPATHOLOGY REPORT ? Reports generated via electronic interface contain original data; ? however they are lacking the format of the original report. ? Caution should be taken when reading/interpreti ng unformatted reports. ? Name: ? MARIA E, KATHRINE M ? Accession #: ? [id number] ? : ? 1960 (Age: 48) ??F ?Collect Date: ? 09/05/2009 ? Location: ? [facility] ? Receive Date: ? 09/06/2009 ? Provider: ?NATHALIE JACOB MD ? Copy to: ? Specimen/Source: ?Pap Test, Cervix/Endocervix, ThinPrep Imaging System ? with manual evaluation ? Last Menstrual Period: ? 11/09/09 ? Hormonal/Contracep tive Status: ? Yes: Mirena ? Previous Gynecologic Pathology: ? ASC-US: 08/06 ? HPV: + ? Treatment History: ? Colposcopy: negative ? Other: ? HPVA - HPV testing requested if ASC-US on the current ThinPrep Pap test. ? SPECIMEN ADEQUACY ? Satisfactory for Evaluation ? - transformation zone component present ? GENERAL CATEGORIZATION ? Epithelial Cell Abnormality ? INTERPRETATION ? Squamous Cell Abnormality - Low grade squamous intraepithelial lesion ? (LSIL). ? Shift in [place] present suggestive of bacterial vaginosis. ? EDUCATIONAL NOTES/RECOMMENDATI ONS ? [facility] recommends following the 2006 Consensus Guidelines for the Management of Women with Abnormal Cervical Cancer Screening Tests (JLGTD, ? 2007;11(4:201-222 ). ??Consensus guidelines are available online at ? www.ASCCP.org. ? Document reviewed and electronically signed by: ? Herman Edmondson MD ? Report Date: ??09/14/2009 15:03 ? End of Report ? [facility] 09/05/2009 09/06/2009 us Nathalie Jacob MD PATHOLOGY ORDERABLES Final Resu lt Performing Organization Address City/State/[facility] Co de Phone Number [facility] [address] [place] [address] documented in this encounter Visit Diagnoses Not on filedocumented in this encounter
--- OUTSIDE RECORDS SUMMARY | 2024-11-18 22:57 | XMS_ITS | Encounter Summary ---
Author Organization [facility] Address [address] [place] [address] Care Team Providers Care Data Operations Manager Name Role Phone Nathalie Jj NP Primary Care Provider [phone] Rony Nixon MD Primary Care Provider U lora Encounter Details Date Type Department Care Team (Late st Contact Info) Description 01/10/2004 Results Only [facility] - Maple conversion [address] [place] [address] Erick Harden MD [address] [place], [place] [address] Social History Tobacco Use Types Packs/Day Years [...] Priority Date/Time Associated Diagnosis Comments CYTOPATHOLOGY Routine 01/10/2004 0:00 EST documented in this encounter Results * CYTOPATHOLOGY (01/10/2004 0:00 EST) Pathology Report: CYTOPATHOLOGY REPORT Reports generated via electronic interface contain original data; however they are lacking the format of the original report. Caution should be taken when reading/interpreti ng unformatted reports. Name: ? KATHRINE ZARAGOZA ? Accession #: ? [id number] : ? 1960 (Age: 43) ??F ?Collect Date: ? 01/10/2004 Location: ? [facility] ? Receive Date: ? 01/11/2004 Provider: ?ERICK HARDEN MD Copy to: ? Specimen/Source: ?ThinPrep Pap Test, Cervix/Endocervix Last Menstrual Period: ? 12/06/03 Hormonal/Contracep tive Status: ? Depo-Provera ? SPECIMEN ADEQUACY ? Satisfactory for Evaluation - transformation zone component present GENERAL CATEGORIZATION ? Negative for Intraepithelial Lesion or Malignancy INTERPRETATION ? Shift in [place] present suggestive of bacterial vaginosis. ? Document reviewed and electronically signed by: ? HILL Kline(ASCP) ? Report Date: ??01/14/2004 09:49 End of Report [facility] 01/10/2004 01/11/2004 us Erick Harden MD PATHOLOGY ORDERABLES Final Resul t [facility] [address] [place] [address] documented in this encounter Visit Diagnoses Not on filedocumented in this encounter Care Teams Data Operations Manager Relationship Specialty Start Date End Date Nathalie Jj NP [address] [place] [id number] PCP - General 02/24/10 07/02/16 Rony Nixon MD PCP - General 09/16/09 02/23/10 documented as of this encounter
--- OUTSIDE RECORDS SUMMARY | 2024-11-18 22:57 | XMS_ITS | Clinical Summary ---
Author Organization [place] [address] Care Team Providers Care Production Operations Manager Name Role Phone Foster Belle Primary Care Provider [phone] Allergies Active Allergy Reactions Criticality Noted Date Comments Latex 08/20/2019 Other Reaction(s): Not available Oxycodone (Bulk) 08/20/2019 Other Reaction(s): Not available Medications Medication Sig Dispensed Refills Start Date End Date Status CIS Free Text Med - [place] aspirin 08/16/2009 Active metFORMIN (GLUCOPHAGE) 850 mg tablet Take 500 mg by mouth. 08/16/2009 Act jessica buPROPion (WELLBUTRIN SR) 150 mg 12 hr tablet 08/16/2009 Active lisinopril (PRINIVIL;ZESTRIL) 5 mg tablet 08/16/2009 Active ERGOCALCIFEROL, VITAMIN D2, (VITAMIN D ORAL) 08/16/2009 Active atorvastatin (LIPITOR) 80 mg tablet 08/16/2009 Active pantoprazole (PROTONIX) 40 mg tablet 08/16/2009 Active pregabalin (Lyrica) 50 mg capsule Take 50 mg by mouth 2 times daily. 12/13/2022 Active sertraline (Zoloft) 50 mg tablet 04/07/2023 Active donepeziL (Aricept) 5 mg tablet Take 5 mg by mouth nightly. take one tablet at night for 2 weeks, and then increase to 2 tablets at night 06/19/2024 Active memantine (Namenda) 10 mg tablet Take 1 tablet by mouth 2 times daily. 05/22/2024 Active exenatide (Bydureon BCise) 2 mg/0.85 mL Auto-Injector Inject 2 mg every week by subcutaneous route for 28 days. 06/19/2024 Active Encounters Date Type Department Care Team Description 08/25/2024 [place] [address] Kaylin Contreras APRN from Last 3 Months Social History Tobacco Use Types Packs/Day Years Used Date Smoking Tobacco: Never Smokeless Tobacco: Never Tobacco Cessation:Counseling Given: Not Answered Sex and Gender Information Value Date Recorded Sex Assigned at Female 06/22/2024 4:47 PM EDT Gender Identity Female 06/22/2024 4:47 PM EDT Sexual Orientation Straight 06/22/2024 4: 47 PM EDT Last Filed Vital Signs Vital Sign Reading [...] Mass Index 52.74 06/30/2024 10:33 AM EDT Plan of Treatment Health Maintenance Due Date Last Done Comments CT Colonography 1960 Colonoscopy 1960 Colorectal Cancer Screening 1960 FIT DNA 1960 FIT 1960 Sigmoidoscopy (10 year) with FIT yearly 1960 Sigmoidoscopy 1960 Hepatitis C Screening 1976 Tetanus/Diphtheria/Pertussis Vaccines (1 - Tdap) 1977 HPV test 1988 PAP Smear 1988 Breast Cancer Share Decision Needed 1998 Breast Cancer screening 1998 Diabetes Screening (HgbA1C o r Glucose) 1998 Pneumoccocal Vaccine: 50+ (1 of 1 - PCV) 2008 Zoster vaccine (1 of 2) 2008 Advance Directive 2013 RSV Vaccine (1 - Risk 60-74 years 1-dose series) 2018 Bone Density Scan 2023 Covid-19 Vaccine (4 - season) 2024 08/21/2023, 08/22/2022, 08/11/2021 Influenza (Flu) vaccine (1 o f 1 - Influenza standard series) 06/14/2024 Care Teams Production Operations Manager Relationship Specialty Start Date End Date Foster Belle PA [address] [place] [address] PCP - General Internal Medicine 12/25/22
== END 2024-11-18 22:53 | disposition home or self-care (01) ==
LOC: NCHCN 22:52
PROVIDERS: PCP Physician Assistant; Visit Provider Physician Assistant
DX: E11.9 Type 2 diabetes mellitus without complications (principal); R41.3 Other amnesia
CPT/HCPCS: 80053; 82607; 83036

== ENCOUNTER 2025-02-08 09:05 | Emergency (ER) | payer MEDICARE, SELFPAY ==
[2025-02-08] VITALS (19 sets, daily range): BP systolic 129–160; BP diastolic 54–109; PULSE 70–98; RESP 2–20; TEMP 36.7; O2SAT 97–100
--- NOTE | 2025-02-08 09:00 | RT.EKG_ITS ---
APPROVED REPORT Exam: Resting ECG Reason for Exam: Tight Chest Patient Location: E HR:86 bpm ECG Measurements Heart Rate 86 AXIS NM 170 P 18 QRSd 85 QRS 29 QT 379 T 14 QTc 454 Conclusion Sinus rhythm...normal P axis, V-rate 60- 99 Low voltage, precordial leads...precordial leads <1.0mV No Occlusion MD
--- NOTE | 2025-02-08 09:08 | W.ED.GENAD ---
Discharge Plan Disposition Patient Disposition: Home Condition: Good Discharge Details Clinical Impression: Chest discomfort Primary Care Provider: Foster Belle ED Provider: Connie Gonzalez Home Meds and New Rx's Prescriptions: New famotidine 20 mg tablet 20 mg PO BID Qty: 28 0RF No Action pregabalin [Lyrica] 50 mg capsule 50 mg PO BID Qty: 60 0RF cyanocobalamin (vitamin B-12) 1,000 mcg capsule 1,000 mcg PO DAILY lisinopril 5 mg tablet 5 mg PO DAILY Qty: 90 3RF meclizine 25 mg tablet,chewable 25 mg PO TID PRN (Reason: dizziness) Qty: 60 3RF ibuprofen 600 MG tablet 600 mg PO TID PRNQty: 90 Rx Instructions: 1 tab q6 hours PRN. sertraline 25 MG tablet 25 mg PO DAILY Qty: 90 3RF metformin 850 MG tablet 850 mg PO BID Qty: 180 3RF Rx Instructions: FOR DIABETES pantoprazole 40 MG tablet,delayed release (DR/EC) 40 mg PO DAILY AM Qty: 90 3RF Rx Instructions: FOR GERD Take 1 pill daily in the morning at least 30 minutes before first meal atorvastatin 40 MG tablet 60 mg PO DAILY Qty: 135 3RF Rx Instructions: 1.5 tabs daily of 40 mg to total 60 mg for cholesterol bupropion HCl 300 MG tablet extended release 24 hr 300 mg PO DAILY Qty: 90 3RF PROVENTIL HFA 18 GM HFA.AER.AD 2 puff Inhalation Q4H PRN Qty: 1 2RF nitroglycerin 0.4 mg tablet, sublingual 0.4 mg Sublingual Q5M PRN (Reason: chest pain) Qty: 25 5RF aspirin 81 MG tablet,chewable 81 mg CH DAILY cetirizine [Zyrtec] 10 mg tablet 10 mg PO DAILY PRN cyclobenzaprine 5 mg tablet 5 mg PO TID PRNQty: 10 0RF Trulicity 1.5 mg/0.5 mL pen injector 1.5 mg subcut QWEEK oxybutynin chloride 5 mg tablet 5 mg PO DAILY donepezil 5 mg tablet 5 mg PO DAILY Patient Comments: TAKE ONE TABLET BY MOUTH EVERY DAY fluconazole 150 mg tablet 150 mg PO DAILY Patient Comments: TAKE ONE TABLET BY MOUTH ONCE WEEKLY FOR 4 WEEKS Discharge Instructions Additional Instructions: Call [facility] first thing in the morning to schedule follow-up appointment with your primary care provider. Your workup today was very reassuring. Your chest discomfort resolved with famotidine. This is likely due to heartburn. Please take the famotidine I prescribed for you twice a day. Return to emergency care if you develop any chest pain, difficulty breathing, episodes of dizziness, abdominal pain, black/tarry stools or blood in your stool, or if you are very worried you need to be rechecked again immediately Referrals: Foster Belle [Primary Care Provider] - [facility] General Date/Time Provider Initiated Documentation: 02/08/25 09:06. [facility] Narrative: Kathrine is a 64-year-old female who presents to the emergency department today with chest tightness. Symptoms started at 8 AM. She describes a pinching and tight sensation in the lower right chest beneath the breast, distinct from her asthma symptoms. This is accompanied by on and off palpitations, acid reflux, and viral symptoms including congestion, sore throat, ear discomfort, and cough for the last couple of days. She has not used inhaler or nebulizer use. Denies new headaches, orthopnea, dizziness, gastrointestinal symptoms like nausea, vomiting, or abdominal pain, urinary symptoms, black/tarry stools, does have on and off diarrhea per baseline. .Increased ankle swelling compared to baseline; has been noticed since onset of URI symptoms. HPast medical history significant for HTN, HLD, T2DM, obesity, asthma, GERD, TIA, and memory loss. No known history of CHF or cardiac events. Physical exam reassuring. Easy work of breathing, lung sounds clear bilaterally. No cough during exam. Pain with palpation of anterior chest wall. Normal heart sounds, regular rate and rhythm. Abdomen is soft, nondistended, nontender to palpation with normoactive bowel sounds. Moderate bilateral pedal edema noted. Distal pulses intact peripherally. Mucous membranes. Patient is alert and oriented, no acute distress. DDx includes but is not limited to: ACS, GERD, pneumonia, CHF, viral illness such as COVID-19 or flu. No red flags concerning for PE such as signs of DVT, history of malignancy, tachycardia, tachypnea, recent surgery/immobility. HEART score 4 based on age and risk factors. I independently interpreted the following tests: EKG reassuring, normal sinus rhythm, rate 86, normal intervals, no changes consistent with acute ischemia. Mild anemia noted, H&H 10.1 and 34.4. CBC, BMP, lipase, magnesium, serial troponins reassuring. No obvious infiltrates noted on chest x-ray, this was confirmed by radiologist. I did review PCP records, including office visit from 11/18/2024 with PCP LISY Lunsford. While in the emergency department Kathrine received IV famotidine with good improvement of symptoms. She also received a DuoNeb, which she said provided little improvement. Overall workup today very reassuring. Patient had significant improvement with famotidine in setting of heartburn symptoms, likely gastritis related. However, as patient has multiple cardiac risk factors, recommend close follow-up with PCP for further evaluation/management as needed. Recommend use of famotidine twice daily for GERD symptoms. Reviewed discharge instructions with patient, including symptomatic management and red flags indicating need for return to emergency care. She and her voiced agreement with plan of care. Related Data Home Medications ?Medication ?Instructions ?Recorded ?Confirmed aspirin 81 mg chewable tablet 81 mg CH DAILY 12/15/12 02/08/25 ibuprofen 600 mg tablet 600 mg PO TID PRN #90 tabs 01/20/18 02/08/25 sertraline 25 mg tablet 25 mg PO DAILY #90 tabs 02/10/18 02/08/25 metformin 850 mg tablet 850 mg PO BID #180 tab-caps 05/20/18 02/08/25 pantoprazole 40 mg tablet,delayed 40 mg PO DAILY AM #90 tab-caps 05/28/18 02/08/25 release atorvastatin 40 mg tablet 60 mg (1.5 x 40 mg) PO DAILY #135 06/10/18 02/08/25 tab-caps bupropion HCl 300 mg 24 hr tablet, 300 mg PO DAILY #90 tab-caps 06/10/18 02/08/25 extended release nitroglycerin 0.4 mg sublingual 0.4 mg sublingual Q5M PRN chest 07/31/18 02/08/25 tablet pain #25 tab-caps cyanocobalamin (vitamin B-12) 1,000 mcg PO DAILY 10/28/18 02/08/25 1,000 mcg capsule lisinopril 5 mg tablet 5 mg PO DAILY #90 tab-caps 11/12/18 02/08/25 meclizine 25 mg chewable tablet 25 mg PO TID PRN dizziness #60 11/12/18 02/08/25 tab-caps pregabalin 50 mg capsule (Lyrica) 50 mg PO BID #60 caps 12/09/18 02/08/25 cetirizine 10 mg tablet (Zyrtec) 10 mg PO DAILY PRN 05/18/20 02/08/25 cyclobenzaprine 5 mg tablet 5 mg PO TID PRN #10 tabs 12/09/21 02/08/25 dulaglutide 1.5 mg/0.5 mL 1.5 mg subcut QWEEK 01/22/24 02/08/25 subcutaneous pen injector (Trulicity) donepezil 5 mg tablet 5 mg PO DAILY 02/08/25 02/08/25 famotidine 20 mg tablet 20 mg PO BID #28 tabs 02/08/25 fluconazole 150 mg tablet 150 mg PO DAILY 02/08/25 02/08/25 oxybutynin chloride 5 mg tablet 5 mg PO DAILY 02/08/25 02/08/25 Previous Rx's ?Medication ?Instructions ?Recorded sertraline 25 mg tablet 25 mg PO DAILY #90 tabs 02/10/18 metformin 850 mg tablet 850 mg PO BID #180 tab-caps 05/20/18 pantoprazole 40 mg tablet,delayed 40 mg PO DAILY AM #90 tab-caps 05/28/18 release atorvastatin 40 mg tablet 60 mg (1.5 x 40 mg) PO DAILY #135 06/10/18 tab-caps bupropion HCl 300 mg 24 hr tablet, 300 mg PO DAILY #90 tab-caps 06/10/18 extended release nitroglycerin 0.4 mg sublingual 0.4 mg sublingual Q5M PRN chest 07/31/18 tablet pain #25 tab-caps lisinopril 5 mg tablet 5 mg PO DAILY #90 tab-caps 11/12/18 meclizine 25 mg chewable tablet 25 mg PO TID PRN dizziness #60 11/12/18 tab-caps pregabalin 50 mg capsule (Lyrica) 50 mg PO BID #60 caps 12/09/18 cyclobenzaprine 5 mg tablet 5 mg PO TID PRN #10 tabs 12/09/21 famotidine 20 mg tablet 20 mg PO BID #28 tabs 02/08/25 Allergies Allergy/AdvReac Type Severity Reaction Status Date / Time Latex, Natural Rubber Allergy Intermediate Skin Rash Verified 02/08/25 09:14 silicone Allergy Intermediate Rash Verified 02/08/25 09:14 oxycodone AdvReac Intermediate SICK TO Verified 02/08/25 09:14 STOMACH General RISHABH: 3 Review of Systems Narrative: see HPI Exam Const General: cooperative, healthy appearing, comfortable, well developed and well groomed Nutritional Appearance: overweight Orientation: alert and oriented x3 HENMT Head: normal to inspection Ears: hearing grossly normal bilaterally General nose exam: external nose normal Face and sinus: normal facial exam Neck Neck: normal visual inspection Chest Chest: normal inspection of the chest and normal palpation of entire chest wall Resp Effort & Inspection: normal respiratory effort and able to speak in complete sentences Auscultation: clear to auscultation bilaterally Cardio Rate: regular rate Rhythm: regular rhythm GI Inspection: normal to inspection and obesity Palpation: soft, not firm, no guarding, not rigid and nontender Auscultation: normal bowel sounds Skin General skin exam: no rashes or lesions noted Extrem General: normal to inspection, capillary refill normal, no calf tenderness and pedal edema bilaterally (moderate) Medical Decision Making Imaging Data Radiologic Study: Radiologist's impression: Exam(s) XR CHEST 2V PA LATERAL EXAM: XR CHEST 2V PA LATERAL CLINICAL HISTORY: Chest pain TECHNIQUE: 2D digital imaging was performed. Two views. COMPARISON: CR XR CHEST 2V PA LATERAL from 02/11/[address] CHEST WO from 02/27/2024 FINDINGS: HEART: Normal size. Aorta: Not dilated. PULMONARY VASCULATURE: Normal. MEDIASTINUM: Unremarkable. LUNGS: Clear. PLEURAL SPACE: No pleural effusion or pneumothorax. BONE:Unremarkable for age. SOFT TISSUES: Unremarkable. IMPRESSION: No acute abnormality. Quality:SDOH Health Related Social Needs: No Data to Display PFSH All Active Problems Chest discomfort (Acute) Pleuritic chest pain (Acute) Encounter for screening for other viral diseases (Acute) Anxiety disorder (Chronic) Chronic urticaria (Acute) Rash (Acute) History of abnormal cervical Pap smear (Acute) Women's annual routine gynecological examination (Acute) Normal colonoscopy (Acute) Chest pain (Acute) Chest pressure (Acute) DVT prophylaxis (Acute) Middle insomnia (Chronic 04/28/15) Diabetes mellitus (Chronic) Osteoarthritis of knee (Acute 12/21/13) Mixed incontinence (Acute 10/01/17) Menopausal symptoms (Acute 04/28/15) Morbid obesity (Acute 03/12/13) Heartburn (Acute 03/12/13) Essential hypertension (Acute 03/12/13) Disease related peripheral neuropathy (Acute 11/03/13) DM--with intact sensation Candidal skin infection (Acute 12/30/17) Benign paroxysmal positional vertigo (Acute 02/25/13) Meclizine & PT Asthma (Acute 06/02/15) ACT 07/2015 = 15 PFTs with methacholine challenge 07/2015 showed decreased FEV1 with challenge HPV (human papilloma virus) anogenital infection (Acute 07/13/13) Women's Wellness/Rl: 06/2013 Large breasts (Chronic) Viral URI (Acute) Adult BMI > 30 (Chronic) Atypical squamous cells of undetermined significance (ASC-US) on cervical Pap smear (Chronic 07/30/16) Depressive disorder (Chronic 05/02/12) Hyperlipidemia (Chronic 11/29/11) LIPITOR 80MG CAUSED MUSCLE CRAMPS, 40MG NOT AT GOAL, TRYING 60MG 02/2013 Papanicolaou smear of cervix with positive high risk human papilloma virus (HPV) test (Chronic 07/30/16) Recurrent UTI (Chronic 10/01/17) 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 Naresh Cooper Diabetic peripheral neuropathy associated with type 2 diabetes mellitus (Chronic) Asthma (Chronic) Osteoarthritis of knee (Chronic 07/21/14) Chronic hypertension (Chronic) Morbid obesity with body mass index of 40.0-49.9 (Chronic) GERD (gastroesophageal reflux disease) (Chronic) History of surgery (Chronic) 1980. Lap cholecystectomy iin 2004. Left TKA iun Jun 2010 Bilateral cataract extraction and rell implantation. 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) Medical History (Updated 02/08/25 @ 11:50 by Connie Vásquez) Asthma HTN (hypertension) Type 2 diabetes mellitus Surgical History S/P colonoscopy 05/26/19 History of total bilateral knee replacement (TKR) bilateral Hysterectomy, Total Laparoscopic 2017 Cholecystectomy Extraction of cataract B/L section (~1980) Family History Mother Neoplasm Stroke Father , [place] Myocardial infarction Social History Smoking/Tobacco Use Status: Never Smoking risk assessment performed?: Yes Alcohol Intake: current Alcohol Intake frequency: holidays/special occasions only Alcohol type: wine Drug use: Never Substance use type: does not use Details: Fell getting into car Household members: spouse, children and other Housing: house Number of Children: 1 number of grandchildren: 2 Seatbelt use: always Do you feel safe at home: Yes Do you feel safe in your relationship?: Yes History History 1 Para 1 Hx # Term Pregnancies 1 Multiple births Hx # Pregnancies Ectopic pregnancies AB induced Hx Number of Living Children AB spontaneous
--- NOTE | 2025-02-08 09:15 | DI.RAD_ITS ---
Exam(s) XR CHEST 2V PA LATERAL EXAM: XR CHEST 2V PA LATERAL CLINICAL HISTORY: Chest pain TECHNIQUE: 2D digital imaging was performed. Two views. COMPARISON: CR XR CHEST 2V PA LATERAL from 02/11/[address] CHEST WO from 02/27/2024 FINDINGS: HEART: Normal size. Aorta: Not dilated. PULMONARY VASCULATURE: Normal. MEDIASTINUM: Unremarkable. LUNGS: Clear. PLEURAL SPACE: No pleural effusion or pneumothorax. BONE:Unremarkable for age. SOFT TISSUES: Unremarkable. IMPRESSION: No acute abnormality. DATA REPOSITORY: RADIATION DOSE DELIVERED:
[2025-02-08 09:45] LABS: Abs Immature Grans 0.01 10^3/uL (0.0-0.06); Absolute Basophil Count 0.05 10^3/uL (0.0-0.2); Absolute Eosinophil Count 0.19 10^3/uL (0.0-0.7); Absolute Lymphocyte Count 1.27 10^3/uL (1.2-3.4); Absolute Monocyte Count 0.37 10^3/uL (0.1-0.8); Absolute Neutrophil Count 2.67 10^3/uL (1.2-6.7); Basophils % 1.1 %; Eosinophils % 4.2 %; HCT 34.4 % (36.0-46.0); HGB 10.1 g/dL (11.2-15.7); Immature Grans % 0.2 %; Lymphocytes % 27.9 %; MCHC 29.4 % (32.0-36.0); MCV 85 fL (80-95); MPV 9.5 fL (8.0-11.0); Monocytes % 8.1 %; Neutrophils % 58.5 %; Platelet Count 291 10^3/uL (130-400); RBC 4.04 10^6/uL (3.93-5.22); RDW 16.6 % (11.7-14.6); RDW-SD 51.9 fL; WBC 4.56 10^3/uL (4.4-10.8)
[2025-02-08] MEDS: Aspirin 81 MG CHEW 324 MG CH (09:47)
[2025-02-08] MEDS: Famotidine 20 MG/2 ML VIAL 40 MG IVP (09:52)
[2025-02-08 10:07] LABS: ALT 27 U/L (14-59); AST 27 U/L (15-37); Albumin 3.3 g/dL (3.4-5.0); Alkaline Phosphatase 203 U/L (46-116); Anion Gap 8.6 mmol/L (3-11); BUN 17 mg/dL (7-18); Bilirubin, Total 0.9 mg/dL (0.2-1.0); CO2 28.4 mmol/L (21.0-32.0); CREATININE 0.9 mg/dL (0.55-1.02); Calcium 9.4 mg/dL (8.5-10.1); Chloride 106 mmol/L (98-107); Estimated GFR 70.51 (mL/min/1.73m2); Glucose 135 mg/dL (74-106); Lipase 40 U/L (<78); Magnesium 1.8 mg/dL (1.8-2.4); NT-proBNP 202 pg/mL (<300); Potassium 4.3 mmol/L (3.5-5.1); Sodium 143 mmol/L (136-145); Total Protein 7.6 g/dL (6.4-8.2); Troponin I 7 ng/L (<or=51)
[2025-02-08 10:26] LABS: COVID-19 PCR Negative (Negative); Influenza A PCR Negative (Negative); Influenza B PCR Negative (Negative); RSV PCR Negative (Negative)
[2025-02-08 10:41] LABS: Source Nasopharynx
[2025-02-08] MEDS: Albuterol/Ipratropium 3 ML UPD VIAL UPD (10:56)
[2025-02-08] MEDS: Normal Saline 50 ML (10:58)
[2025-02-08 11:05] LABS: Troponin I 7 ng/L (<or=51)
== END 2025-02-08 12:10 | disposition home or self-care (01) ==
PROVIDERS: Emergency Provider Nurse Practitioner Family; PCP Physician Assistant
DX: R07.89 Other chest pain (principal)
CPT/HCPCS: 99284 ×2; 96374; 36415; 94640; 80053; 83690; 87637; 93005; 71046; 83735; 83880; 84484; 85025; 93010; J7620

== ENCOUNTER 2025-02-26 00:03 | Outpatient (CLI) | payer MEDICARE, SELFPAY ==
--- NOTE | 2025-02-26 | DI.MAMMO_ITS ---
Exam(s) MAMMO SCREENING EXAM: MAMMO SCREENING CLINICAL HISTORY: Screening, Z12.39, last mammo in 2022, mother had breast CA. TECHNIQUE: Bilateral full field digital CC and MLO mammographic images were obtained with 3D tomosyn thesis and utilizing computer aided detection (CAD). COMPARISON: Prior mammograms were reviewed. FINDINGS: No new significant left breast findings. In the right breast there is now a prominent area of poorly defined increased density located inferio rly and most probably corresponding to the patient's thick skin rash which is reported at this level. There are no new focal spiculated masses nor malignant-appearing microcalcification groups in either breast. There is no significant architectural distortion nor skin thickening-retraction. IMPRESSION: 1. No radiographic evidence of malignancy in left breast. 2. Large area of increased density seen in the right breast which appears to correspond to her inferi olegario located thick skin rash. Apparently the patient is being treated for a prominent fungal skin in fection. 3. Appropriate follow-up would be repeat right breast mammogram in 6 months time to follow this right breast finding, earlier if clinically indicated. BI-RADS Category 3 - 6 month - Probably Benign Finding: Recommend follow-up mammography in 6 months Breast Density - Category B - There are scattered areas of fibroglandular density. Breast density Category C or D implies that the patient has dense breast tissue. Dense breast tissue can make it harder to find cancer on a mammogram. Dense breast tissue is also associated with an incr eased risk of breast cancer. This information about the result of the mammogram report was provided to the patient to raise their awareness. Use this report when you speak with the patient about their risks for breast cancer, which includes their family history. At that time, you may recommend additional screening tests (Ultrasoun d or MRI) as these tests may add significant information. A negative radiographic report should not delay biopsy if a dominant or clinically suspicious mass is present. Up to ten percent of cancers are not identified on mammography. A negative report may reinforce clinical impression. Adenosis and dense breasts may obscure an underlying neoplasm. False positive reports average 6 to 10%. Patient will receive a letter notifying them of these results.
== END 2025-02-26 00:23 ==
LOC: DI 00:03
PROVIDERS: PCP Physician Assistant; Visit Provider Nurse Practitioner Family
DX: Z12.31 Encounter for screening mammogram for malignant neoplasm of breast (principal); R92.323 Mammographic fibroglandular density, bilateral breasts; D24.1 Benign neoplasm of right breast
CPT/HCPCS: 77063; 77067

== ENCOUNTER 2025-04-02 16:04 | Emergency (ER) | payer MEDICARE, SELFPAY ==
[2025-04-02] VITALS (20 sets, daily range): BP systolic 108–198; BP diastolic 50–163; PULSE 67–98; RESP 12–21; TEMP 36.8; O2SAT 96–100
--- NOTE | 2025-04-02 18:58 | W.ED.GENAD ---
Discharge Plan Disposition Patient Disposition: Home Condition: Stable Discharge Details Clinical Impression: Edema Primary Care Provider: Foster Belle ED Provider: Sole Wade [place] Meds and New Rx's Prescriptions: New furosemide [Lasix] 20 mg tablet 20 mg PO DAILY 10 Days Qty: 10 0RF Rx Instructions: Please take 1 tablet by mouth in the a.m. for swelling No Action pregabalin [Lyrica] 50 mg capsule 50 mg PO BID Qty: 60 0RF cyanocobalamin (vitamin B-12) 1,000 mcg capsule 1,000 mcg PO DAILY lisinopril 5 mg tablet 5 mg PO DAILY Qty: 90 3RF meclizine 25 mg tablet,chewable 25 mg PO TID PRN (Reason: dizziness) Qty: 60 3RF ibuprofen 600 MG tablet 600 mg PO TID PRNQty: 90 Rx Instructions: 1 tab q6 hours PRN. sertraline 25 MG tablet 25 mg PO DAILY Qty: 90 3RF pantoprazole 40 MG tablet,delayed release (DR/EC) 40 mg PO DAILY AM Qty: 90 3RF Rx Instructions: FOR GERD Take 1 pill daily in the morning at least 30 minutes before first meal atorvastatin 40 MG tablet 60 mg PO DAILY Qty: 135 3RF Rx Instructions: 1.5 tabs daily of 40 mg to total 60 mg for cholesterol bupropion HCl 300 MG tablet extended release 24 hr 300 mg PO DAILY Qty: 90 3RF PROVENTIL HFA 18 GM HFA.AER.AD 2 puff Inhalation Q4H PRN Qty: 1 2RF nitroglycerin 0.4 mg tablet, sublingual 0.4 mg Sublingual Q5M PRN (Reason: chest pain) Qty: 25 5RF aspirin 81 MG tablet,chewable 81 mg CH DAILY cetirizine [Zyrtec] 10 mg tablet 10 mg PO DAILY PRN cyclobenzaprine 5 mg tablet 5 mg PO TID PRNQty: 10 0RF oxybutynin chloride 5 mg tablet 5 mg PO DAILY donepezil 5 mg tablet 5 mg PO DAILY Patient Comments: TAKE ONE TABLET BY MOUTH EVERY DAY fluconazole 150 mg tablet 150 mg PO DAILY Patient Comments: TAKE ONE TABLET BY MOUTH ONCE WEEKLY FOR 4 WEEKS famotidine 20 mg tablet 20 mg PO BID Qty: 28 0RF metformin 850 MG tablet 500 mg PO BID Rx Instructions: FOR DIABETES Discharge Instructions Instructions: Swelling, Low-sodium diet Additional Instructions: No evidence of infection or pneumonia today noted labs or chest x-ray. I do suspect this is from fluid retention. Please decrease salt intake. Start the Furosemide tablet in the morning, this will cause you to urinate a lot. And ultimately decrease the swelling in the legs. If you become dizzy or lightheaded please stop the Lasix. It is very important that you follow up with primary care provider in 3-5 days. Return to ED sooner if any worsening or concerns. An outpatient ultrasound to rule out blood clot in your leg was ordered to be done on Saturday please call the radiology department to schedule this. Thank you for allowing us to care for you today. Referrals: Foster Belle [Primary Care Provider, Medicine] - 3 days Clinical Impression: Edema Discharge Orders Other Ambulatory Orders: US extremity venous BI ( DIRECTED) Timeframe: [id number] Facility: [facility] - Location: DIAGNOSTIC IMAGING Ordered By: Sole Wade Discharge Data Discharge Date/Time-TO BE ENTERED AT DEPARTURE: 04/02/25 21:11 HPI General Mode of arrival: wheelchair. Date/Time Provider Initiated Documentation: 04/02/25 16:18. Limitations to Documentation: no limitations and physical limitation (Hx of Dementia per family report). Information obtained by: patient, family, RN notes reviewed and old records reviewed. HPI Narrative: 64-year-old female presents to the ER with a chief complaint of worsening bilateral leg swelling over the last couple of weeks. Per family he reports that he noticed it a few weeks ago they have been having her elevate her legs when at home however it has gotten to the point where her legs are shiny, and they noted a small wound to her right lower anterior charlton today. Does have a history of diabetes melitis type II, hypertension asthma and dementia per family report, and severe obesity. 3+ pitting edema noted to bilateral lower extremities questionable erythema. Does have a history of bilateral knee replacements hysterectomy and cholecystectomy. Patient denies any chest pain or shortness of breath no fever chills nausea vomiting or diarrhea. Related Data Home Medications ?Medication ?Instructions ?Recorded ?Confirmed aspirin 81 mg chewable tablet 81 mg CH DAILY 12/15/12 04/02/25 ibuprofen 600 mg tablet 600 mg PO TID PRN #90 tabs 01/20/18 04/02/25 sertraline 25 mg tablet 25 mg PO DAILY #90 tabs 02/10/18 04/02/25 pantoprazole 40 mg tablet,delayed 40 mg PO DAILY AM #90 tab-caps 05/28/18 04/02/25 release atorvastatin 40 mg tablet 60 mg (1.5 x 40 mg) PO DAILY #135 06/10/18 04/02/25 tab-caps bupropion HCl 300 mg 24 hr tablet, 300 mg PO DAILY #90 tab-caps 06/10/18 04/02/25 extended release nitroglycerin 0.4 mg sublingual 0.4 mg sublingual Q5M PRN chest 07/31/18 04/02/25 tablet pain #25 tab-caps cyanocobalamin (vitamin B-12) 1,000 mcg PO DAILY 10/28/18 04/02/25 1,000 mcg capsule lisinopril 5 mg tablet 5 mg PO DAILY #90 tab-caps 11/12/18 04/02/25 meclizine 25 mg chewable tablet 25 mg PO TID PRN dizziness #60 11/12/18 04/02/25 tab-caps pregabalin 50 mg capsule (Lyrica) 50 mg PO BID #60 caps 12/09/18 04/02/25 cetirizine 10 mg tablet (Zyrtec) 10 mg PO DAILY PRN 05/18/20 04/02/25 cyclobenzaprine 5 mg tablet 5 mg PO TID PRN #10 tabs 12/09/21 04/02/25 donepezil 5 mg tablet 5 mg PO DAILY 02/08/25 04/02/25 famotidine 20 mg tablet 20 mg PO BID #28 tabs 02/08/25 04/02/25 fluconazole 150 mg tablet 150 mg PO DAILY 02/08/25 04/02/25 oxybutynin chloride 5 mg tablet 5 mg PO DAILY 02/08/25 04/02/25 furosemide 20 mg tablet (Lasix) 20 mg PO DAILY Edema 10 days #10 04/02/25 tabs metformin 850 mg tablet 500 mg PO BID 04/02/25 04/02/25 Previous Rx's ?Medication ?Instructions ?Recorded sertraline 25 mg tablet 25 mg PO DAILY #90 tabs 02/10/18 pantoprazole 40 mg tablet,delayed 40 mg PO DAILY AM #90 tab-caps 05/28/18 release atorvastatin 40 mg tablet 60 mg (1.5 x 40 mg) PO DAILY #135 06/10/18 tab-caps bupropion HCl 300 mg 24 hr tablet, 300 mg PO DAILY #90 tab-caps 06/10/18 extended release nitroglycerin 0.4 mg sublingual 0.4 mg sublingual Q5M PRN chest 07/31/18 tablet pain #25 tab-caps lisinopril 5 mg tablet 5 mg PO DAILY #90 tab-caps 11/12/18 meclizine 25 mg chewable tablet 25 mg PO TID PRN dizziness #60 11/12/18 tab-caps pregabalin 50 mg capsule (Lyrica) 50 mg PO BID #60 caps 12/09/18 cyclobenzaprine 5 mg tablet 5 mg PO TID PRN #10 tabs 12/09/21 famotidine 20 mg tablet 20 mg PO BID #28 tabs 02/08/25 furosemide 20 mg tablet (Lasix) 20 mg PO DAILY Edema 10 days #10 04/02/25 tabs Allergies Allergy/AdvReac Type Severity Reaction Status Date / Time Latex, Natural Rubber Allergy Intermediate Skin Rash Verified 04/02/25 16:17 silicone Allergy Intermediate Rash Verified 04/02/25 16:17 oxycodone AdvReac Intermediate SICK TO Verified 04/02/25 16:17 STOMACH General Stated Complaint: Vascular RISHABH: 3 Review of Systems All systems reviewed & are unremarkable except as noted in HPI and below Cardiovascular Cardiovascular: Reports as per HPI, Denies chest pain, Reports pedal edema, Reports leg ulcers, Reports leg edema, Denies dyspnea and Denies dyspnea on exertion Respiratory Respiratory: Denies dyspnea and Denies dyspnea on exertion Exam Narrative Exam Narrative: Constitutional: Alert and oriented x3. Appears stated age. Obese body habitus. Head: Normocephalic, no trauma. Eyes: Pupils PERRL, Red reflex noted, EOM's intact. Eyelids symmetrical without lesions, discharge, or swelling. ENT: Bilateral TM's WNL, External ear normal to inspection, no mastoid TTP, swelling, or erythema, Nasal turbinates WNL, no nasal discharge. Normal dentition, Posterior pharynx WNL, no exudate. Chest: RRR, Normal S1, S2, distal pulses intact. Resp: Lungs clear to auscultation bilaterally, no wheezes, rales, or rhonchi. Abdomen: Soft, non-distended, Normoactive bowel sounds all 4 quads. Musculoskeletal: Unable to assess gait, moves all 4 extremities without difficulty. 3+ pitting edema noted to bilateral lower extremities, Skin: No suspicious rashes or lesions. Capillary refill less than 2 sec. small abrasion noted to right anterior charlton. Neurologic: Cranial nerves II-XII intact. Alert and oriented x 3. Motor: No deficits noted. Sensory: Intact bilaterally all 4 extremities. Hematologic/Lymphatic: No ecchymosis, no lymphadenopathy. Course Vital Signs Vital signs: Vital Signs Temperature 36.8 C 04/02/25 16:12 Pulse 81 04/02/25 16:12 Respiratory Rate 18 04/02/25 16:12 Blood Pressure 127/78 04/02/25 16:12 Pulse Oximetry 96 04/02/25 16:12 Temperature 36.8 C 04/02/25 16:12 Temperature Source Oral 04/02/25 16:12 Pulse 73 04/02/25 18:17 Respiratory Rate 16 04/02/25 18:17 Blood Pressure 144/71 H 04/02/25 18:17 Blood Pressure Mean 95 04/02/25 18:17 Blood Pressure Position Sitting 04/02/25 16:12 Pulse Oximetry 97 04/02/25 18:17 Oxygen Delivery Method Room Air 04/02/25 16:12 Oxygen Flow Rate 0 04/02/25 16:12 Pain Level 0 04/02/25 16:12 Medical Decision Making 64-year-old female presents to the ER with a chief complaint of worsening bilateral leg swelling over the last couple of weeks. Per family he reports that he noticed it a few weeks ago they have been having her elevate her legs when at home however it has gotten to the point where her legs are shiny, and they noted a small wound to her right lower anterior charl[place] today. Does have a history of diabetes melitis type II, hypertension asthma and dementia per family report, and severe obesity. 3+ pitting edema noted to bilateral lower extremities questionable erythema. Does have a history of bilateral knee replacements hysterectomy and cholecystectomy. Patient denies any chest pain or shortness of breath no fever chills nausea vomiting or diarrhea. Workup ordered including chest x-ray, CBC CMP proBNP and D-dimer Differential diagnosis includes not limited to CHF, peripheral vascular disease, DVT, cellulitis Workup is largely unremarkable no leukocytosis, patient is slightly anemic which patient does have a history of D-dimer is elevated patient has had D-dimer that is elevated in the past, proBNP 271, this is the primary normal. Chest x-ray is pending at this time. Will consider prescribing him a low-dose furosemide for the swelling in the legs. Will also order an outpatient ultrasound of her bilateral lower extremities to rule out DVT. CXR WNL, Will Discharge home with close follow up with PCP. This text was generated using [employer] system, please disregard any oddities of phrase or misspellings. Patient remained hemodynamically stable alert and oriented throughout remainder of stay. Medical Records Medical records reviewed: Yes I reviewed the patient's medical records. Imaging Data Radiologic Study: Imaging: X-Ray Radiologist's impression: COMPARISON: CR XR CHEST 2V PA LATERAL 02/08/2025 10:30 AM FINDINGS: Lungs: A single portable apical lordotic view is obtained. No acute infiltrate identified. There is no consolidation. No mass or nodules identified. Pleural spaces: No effusions or pneumothoraces. Heart/Mediastinum: The heart is not enlarged. The superior mediastinum is unremarkable. Bones/joints: No acute bony change of the ribs. Other findings: Upper abdomen: There is substantial subcutaneous pannus. IMPRESSION: 1. No acute cardiopulmonary disease identified. Thank you for allowing us to participate in the care of your patient. Dictated and Authenticated by: Wale Michel MD Lab Data Lab results reviewed: Yes I reviewed the patient's lab results. Labs: Laboratory Tests Range/Units 04/02/25 18:55 WBC (4.4-10.8) 10^3/uL 5.30 RBC (3.93-5.22) 10^6/uL 3.56 L Hgb (11.2-15.7) g/dL 8.9 L Hct (36.0-46.0) % 30.1 L MCV (80-95) fL 85 MCH (27.0-33.0) pg 25.0 L MCHC (32.0-36.0) % 29.6 L RDW (11.7-14.6) % 17.0 H Plt Count (130-400) 10^3/uL 308 MPV (8.0-11.0) fL 9.3 Immature Gran % % 0.4 Neutrophils % % 47.3 Lymphocytes % % 34.0 Monocytes % % 9.8 Eosinophils % % 7.4 Basophils % % 1.1 Nucleated RBC % (0.0-0.3) % 0.0 Absolute Neutrophils (1.2-6.7) 10^3/uL 2.51 Absolute Lymphocytes (1.2-3.4) 10^3/uL 1.80 Absolute Monocytes (0.1-0.8) 10^3/uL 0.52 Absolute Eosinophils (0.0-0.7) 10^3/uL 0.39 Absolute Basophils (0.0-0.2) 10^3/uL 0.06 D-Dimer (<500) ng/mlFEU 1091 H Sodium (136-145) mmol/L 142 Potassium (3.5-5.1) mmol/L 4.1 Chloride (98-107) mmol/L 104 Carbon Dioxide (21.0-32.0) mmol/L 31.5 Anion Gap (3-11) mmol/L 6.5 BUN (7-18) mg/dL 20 H Creatinine (0.55-1.02) mg/dL 0.9 Est GFR (CKD-EPI 2020) (mL/min/1.73m2) 70.51 Glucose (74-106) mg/dL 198 H Calcium (8.5-10.1) mg/dL 8.8 Magnesium (1.8-2.4) mg/dL 1.9 Total Bilirubin (0.2-1.0) mg/dL 0.6 AST (15-37) U/L 20 ALT (14-59) U/L 26 Alkaline Phosphatase (46-116) U/L 200 H NT-Pro-B Natriuret Pep (<300) pg/mL 271 Total Protein (6.4-8.2) g/dL 7.6 Albumin (3.4-5.0) g/dL 3.2 L PFSH All Active Problems Edema (Acute) Pleuritic chest pain (Acute) Encounter for screening for other viral diseases (Acute) Anxiety disorder (Chronic) Chronic urticaria (Acute) Rash (Acute) History of abnormal cervical Pap smear (Acute) Women's annual routine gynecological examination (Acute) Normal colonoscopy (Acute) Chest pain (Acute) Chest pressure (Acute) DVT prophylaxis (Acute) Middle insomnia (Chronic 04/28/15) Diabetes mellitus (Chronic) Osteoarthritis of knee (Acute 12/21/13) Mixed incontinence (Acute 10/01/17) Menopausal symptoms (Acute 04/28/15) Morbid obesity (Acute 03/12/13) Heartburn (Acute 03/12/13) Essential hypertension (Acute 03/12/13) Disease related peripheral neuropathy (Acute 11/03/13) DM--with intact sensation Candidal skin infection (Acute 12/30/17) Benign paroxysmal positional vertigo (Acute 02/25/13) Meclizine & PT Asthma (Acute 06/02/15) ACT 07/2015 = 15 PFTs with methacholine challenge 07/2015 showed decreased FEV1 with challenge HPV (human papilloma virus) anogenital infection (Acute 07/13/13) Women's Wellness/Rl: 06/2013 Large breasts (Chronic) Viral URI (Acute) Adult BMI > 30 (Chronic) Atypical squamous cells of undetermined significance (ASC-US) on cervical Pap smear (Chronic 07/30/16) Depressive disorder (Chronic 05/02/12) Hyperlipidemia (Chronic 11/29/11) LIPITOR 80MG CAUSED MUSCLE CRAMPS, 40MG NOT AT GOAL, TRYING 60MG 02/2013 Papanicolaou smear of cervix with positive high risk human papilloma virus (HPV) test (Chronic 07/30/16) Recurrent UTI (Chronic 10/01/17) 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 Naresh Cooper Diabetic peripheral neuropathy associated with type 2 diabetes mellitus (Chronic) Asthma (Chronic) Osteoarthritis of knee (Chronic 07/21/14) Chronic hypertension (Chronic) Morbid obesity with body mass index of 40.0-49.9 (Chronic) GERD (gastroesophageal reflux disease) (Chronic) History of surgery (Chronic) 1980. Lap cholecystectomy iin 2004. Left TKA iun Jun 2010 Bilateral cataract extraction and rell implantation. 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) Medical History (Updated 04/02/25 @ 19:59 by Sole Wade NP) Asthma HTN (hypertension) Type 2 diabetes mellitus Surgical History S/P colonoscopy 05/26/19 History of total bilateral knee replacement (TKR) bilateral Hysterectomy, Total Laparoscopic 2017 Cholecystectomy Extraction of cataract B/L section (~1980) Family History Mother Neoplasm Stroke Father , [place] Myocardial infarction Social History Smoking/Tobacco Use Status: Never Smoking risk assessment performed?: Yes Alcohol Intake: current Alcohol Intake frequency: holidays/special occasions only Alcohol type: wine Drug use: Never Substance use type: does not use Details: Fell getting into car Household members: spouse, children and other Housing: house Number of Children: 1 number of grandchildren: 2 Seatbelt use: always Do you feel safe at home: Yes Do you feel safe in your relationship?: Yes History History 1 Para 1 Hx # Term Pregnancies 1 Multiple births Hx # Pregnancies Ectopic pregnancies AB induced Hx Number of Living Children AB spontaneous
[2025-04-02 19:02] LABS: Abs Immature Grans 0.02 10^3/uL (0.0-0.06); Absolute Basophil Count 0.06 10^3/uL (0.0-0.2); Absolute Eosinophil Count 0.39 10^3/uL (0.0-0.7); Absolute Monocyte Count 0.52 10^3/uL (0.1-0.8); Absolute Neutrophil Count 2.51 10^3/uL (1.2-6.7); Basophils % 1.1 %; Eosinophils % 7.4 %; HCT 30.1 % (36.0-46.0); HGB 8.9 g/dL (11.2-15.7); Immature Grans % 0.4 %; MCHC 29.6 % (32.0-36.0); MCV 85 fL (80-95); MPV 9.3 fL (8.0-11.0); Monocytes % 9.8 %; Neutrophils % 47.3 %; Platelet Count 308 10^3/uL (130-400); RBC 3.56 10^6/uL (3.93-5.22); RDW-SD 52.8 fL
--- NOTE | 2025-04-02 19:09 | DI.RAD_ITS ---
Exam(s) XR PORTABLE CHEST AP EXAM: XR PORTABLE CHEST AP CLINICAL HISTORY: Leg swelling TECHNIQUE: 2D digital imaging was performed of the chest. One image was obtained. An AP view was obtained. COMPARISON: CR XR CHEST 2V PA LATERAL from 02/08/2025 FINDINGS: MEDIASTINUM: Normal. HEART: Normal. PULMONARY VASCULATURE: Normal. LUNGS: Clear. PLEURAL SPACE: No pleural effusion or pneumothorax. BONE:Within normal limits for the patient's age. OTHER FINDINGS:Normal. IMPRESSION: 1. No acute pulmonary findings. 2. The preliminary [facility] report was reviewed. DATA REPOSITORY: RADIATION DOSE DELIVERED:
[2025-04-02 19:25] LABS: ALT 26 U/L (14-59); AST 20 U/L (15-37); Albumin 3.2 g/dL (3.4-5.0); Alkaline Phosphatase 200 U/L (46-116); Anion Gap 6.5 mmol/L (3-11); BUN 20 mg/dL (7-18); Bilirubin, Total 0.6 mg/dL (0.2-1.0); CO2 31.5 mmol/L (21.0-32.0); CREATININE 0.9 mg/dL (0.55-1.02); Calcium 8.8 mg/dL (8.5-10.1); Chloride 104 mmol/L (98-107); Estimated GFR 70.51 (mL/min/1.73m2); Glucose 198 mg/dL (74-106); Magnesium 1.9 mg/dL (1.8-2.4); NT-proBNP 271 pg/mL (<300); Potassium 4.1 mmol/L (3.5-5.1); Sodium 142 mmol/L (136-145); Total Protein 7.6 g/dL (6.4-8.2)
[2025-04-02 19:35] LABS: D-Dimer 1091 ng/mlFEU (<500)
--- NOTE | 2025-04-02 20:34 | DI.[facility]_ITS ---
PROCEDURE INFORMATION: Exam: XR Chest Exam date and time: 04/02/2025 7:08 PM Age: 64 years old Clinical indication: Other: Leg swelling TECHNIQUE: Imaging protocol: Radiologic exam of the chest. Views: 1 view. COMPARISON: CR XR CHEST 2V PA LATERAL 02/08/2025 10:30 AM FINDINGS: Lungs: A single portable apical lordotic view is obtained. No acute infiltrate identified. There is no consolidation. No mass or nodules identified. Pleural spaces: No effusions or pneumothoraces. Heart/Mediastinum: The heart is not enlarged. The superior mediastinum is unremarkable. Bones/joints: No acute bony change of the ribs. Other findings: Upper abdomen: There is substantial subcutaneous pannus. IMPRESSION: 1. No acute cardiopulmonary disease identified. Dictated and Authenticated by: Wale Michel MD. Orderin Sheri Whipple MD
== END 2025-04-02 21:11 | disposition home or self-care (01) ==
PROVIDERS: Emergency Provider Registered Nurse Emergency; PCP Physician Assistant
DX: R60.9 Edema, unspecified (principal); I10 Essential (primary) hypertension; E11.9 Type 2 diabetes mellitus without complications; Z79.82 Long term (current) use of aspirin; Z79.84 Long term (current) use of oral hypoglycemic drugs
CPT/HCPCS: 36415; 80053; 99284; 71045; 83735; 83880; 85025; 85379

== ENCOUNTER 2025-04-05 10:34 | Outpatient (CLI) | payer MEDICARE, SELFPAY ==
--- NOTE | 2025-04-05 14:00 | DI.US_ITS ---
Exam(s) US EXTREMITY VENOUS BI EXAM: US EXTREMITY VENOUS BI CLINICAL HISTORY: Bilateral lower extremity swelling R60.9 EDEMA. TECHNIQUE: Bilateral lower extremity venous ultrasound performed using grayscale, color-flow, and spectral Doppler analysis. COMPARISON: No exams were available for comparison FINDINGS: The bilateral common femoral, femoral and popliteal veins demonstrate normal compressibility, augmentation, and color Doppler. The posterior tibial and parent veins are patent. Edema is noted in the subcutaneous fat of the lower legs bilaterally. IMPRESSION: Right: Negative for DVT Left: Negative for DVT DATA REPOSITORY:
== END 2025-04-05 10:54 ==
LOC: DI 10:36
PROVIDERS: PCP Physician Assistant; Visit Provider Registered Nurse Emergency
DX: R60.9 Edema, unspecified (principal)
CPT/HCPCS: 93970

== ENCOUNTER 2025-04-05 14:47 | Emergency (ER) | payer MEDICARE, SELFPAY ==
[2025-04-05 14:52] VITALS: BP 120/74; PULSE 78; RESP 18; TEMP 36.6; O2SAT 94
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
[2025-04-05 15:51] VITALS: BP 153/73; PULSE 74; RESP 14; TEMP 36.4; O2SAT 96
== END 2025-04-05 15:54 | disposition home or self-care (01) ==
PROVIDERS: Emergency Provider Emergency Medicine; PCP Physician Assistant
DX: R22.43 Localized swelling, mass and lump, lower limb, bilateral (principal)
CPT/HCPCS: 99283; 99282

== ENCOUNTER 2025-05-17 17:06 | Emergency (ER) | payer MEDICARE, SELFPAY ==
--- NOTE | 2025-05-17 17:00 | RT.EKG_ITS ---
APPROVED REPORT Exam: Resting ECG Reason for Exam: Dizziness Patient Location: E HR:88 bpm ECG Measurements Heart Rate 88 AXIS MA 168 P 28 QRSd 77 QRS 2 QT 378 T 60 QTc 448 Conclusion Sinus rhythm at a rate of 88 with PAC without acute ischemic change.
[2025-05-17 17:12] VITALS: BP 129/77; PULSE 89; RESP 16; TEMP 36.5; O2SAT 92
[2025-05-17 18:11] VITALS: RESP 16
--- NOTE | 2025-05-17 18:15 | DI.CT_ITS ---
Exam(s) CT BRAIN NECK CTA EXAM: CT BRAIN NECK CTA CLINICAL HISTORY: dizziness. TECHNIQUE: Imaging Protocol: Axial CT angiography was performed with multi- slice acquisition and multi-planar and/or 3D reconstructions. CONTRAST MATERIAL: Intravenous: Omnipaque 350 Contrast volume:structured data in ml COMPARISON: CT CT HEAD WO from 06/16/2022 MR MR BRAIN WO from 05/21/2024 CR XR CHEST 1V IN DI DEPT from 05/17/2025 FINDINGS: CTA Neck W: Aortic arch anatomy: There is independent origin of the left vertebral artery off of the aortic arch. There is no significant stenosis at the origin of the great vessels off of the aortic arch. No evidence of dissection. Anterior circulation: Both common carotid arteries ascend with normal luminal diameters. At the left carotid ball with there is no significant plaque but there is partially calcified plaque on the medial wall of the proximal left ICA. Approximately 20 percent stenosis. The left ICA above this level is patent in the upper neck-carotid canal. On the opposite-right side there is no significant stenosis at the carotid bulb and proximal right ICA nor within the right ICA in the upper neck. Posterior circulation: The left vertebral artery originates as an independent vessel off of the aortic arch. The right vertebral artery originates in conventional fashion off of the right subclavian artery. The right vertebral artery is dominant, ascending with luminal diameter of 5 mm. The non dominant left vertebral artery ascends with a luminal diameter of 2.5 mm. At the skull base the basilar artery is formed by the dominant right vertebral artery. The left vertebral artery terminates as the left posterior inferior cerebellar artery. CTA Brain W: Anterior circulation: Both internal carotid arteries are patent in the skull base-carotid canals as well as within the cavernous sinuses. The supraclinoid aspects of the ICAs are patent. Both A1 segments are patent as are the anterior cerebral arteries and there is no evidence of aneurysm at the level of the anterior communicating artery. Both middle cerebral arteries are patent with no evidence of significant stenosis nor intraluminal thrombus. There also no aneurysms of these vessels. Posterior circulation: The basilar artery ascends without significant stenosis. Distally it gives off patent superior cerebellar arteries and above this level terminates as patent bilateral posterior cerebral arteries. There are no posterior communicating arteries on either side of the [id number]. There is no evidence of aneurysm at the tip of the basilar artery nor elsewhere in the [id number]. CT BRAIN: There is no evidence of intracranial hemorrhage, mass effect, or shift of midline structures. There are no extra-axial fluid collections. Ventricular size is unchanged from MRI scan of May 2024. There is a moderate amount of bilateral periventricular hypodensity consistent with chronic small vessel disease, as evident on the prior MRI scan. There is no obvious territorial infarct. There are no ring enhancing lesions in the brain and there is no abnormal meningeal enhancement. IMPRESSION: 1. Patent carotid arteries in the neck. No hemodynamically significant stenosis. 2. Patent vertebral arteries. Right vertebral artery is dominant. The thinner left vertebral artery originates as an independent vessel off the aortic arch. At the skull base it terminates as the posterior inferior cerebellar artery. 3. Patent intracranial arteries. No aneurysms. No obvious vascular malformation. No ring enhancing lesions in the brain nor abnormal meningeal enhancement. 4. If clinically indicated follow-up MRI with diffusion imaging can be performed. Report called by myself to ER 05/17/2025 at 7:15 p.m. RADIATION DOSE DELIVERED: 2,141.57mGy.cm Total DLP DATA REPOSITORY: All CT scans at this facility are submitted to the National Radiology Data Registry (NRDR) Dose Index Registry (DIR) with the [employer] ([employer]). RADIATION OPTIMIZATION: All CT scans at this facility use at least one of these dose optimization techniques: automated exposure control; mA and/or kV adjustment per patient size (includes targeted exams where dose is matched to clinical indication); or iterative reconstruction.
--- NOTE | 2025-05-17 18:29 | DI.RAD_ITS ---
Exam(s) XR CHEST 1V IN DI DEPT EXAM: XR CHEST 1V IN DI DEPT CLINICAL HISTORY: dizziness. TECHNIQUE: 2D digital imaging was performed. COMPARISON: CR,XR XR PORTABLE CHEST AP from 04/02/2025 FINDINGS: Single AP portable view. Heart size is upper normal. The mediastinum is not widened. Lungs are clear. No infiltrates nor obvious pleural effusions. IMPRESSION: No acute pulmonary findings on this single AP portable view of the chest. DATA REPOSITORY: RADIATION DOSE DELIVERED:
[2025-05-17 18:37] LABS: Abs Immature Grans 0.03 10^3/uL (0.0-0.06); HCT 35.2 % (36.0-46.0); HGB 10.4 g/dL (11.2-15.7); Immature Grans % 0.5 %; MCH 24.3 pg (27.0-33.0); MCHC 29.5 % (32.0-36.0); MCV 82 fL (80-95); MPV 9.4 fL (8.0-11.0); Platelet Count 388 10^3/uL (130-400); RBC 4.28 10^6/uL (3.93-5.22); RDW 17.2 % (11.7-14.6); RDW-SD 51.6 fL; WBC 6.39 10^3/uL (4.4-10.8)
[2025-05-17] MEDS: Normal Saline - Diluent 50 ML VIAL IJ (18:49)
[2025-05-17] MEDS: Omnipaque 350 MG/ML 100 ML BTL IJ (18:49)
[2025-05-17 19:00] LABS: ALT 40 U/L (14-59); AST 44 U/L (15-37); Albumin 3.5 g/dL (3.4-5.0); Alkaline Phosphatase 184 U/L (46-116); Anion Gap 7.4 mmol/L (3-11); BUN 16 mg/dL (7-18); Bilirubin, Total 0.9 mg/dL (0.2-1.0); CO2 31.6 mmol/L (21.0-32.0); Calcium 9.1 mg/dL (8.5-10.1); Chloride 98 mmol/L (98-107); Estimated GFR 55.42 (mL/min/1.73m2); Glucose 207 mg/dL (74-106); Potassium 3.5 mmol/L (3.5-5.1); Sodium 137 mmol/L (136-145); Total Protein 8.2 g/dL (6.4-8.2); Troponin I 8 ng/L (<or=51)
--- NOTE | 2025-05-17 19:09 | W.ED.GENAD ---
Discharge Plan Disposition Patient Disposition: Home Condition: Stable Discharge Details Clinical Impression: Vertigo Primary Care Provider: Foster Belle ED Provider: Liseth Blas Home Meds and New Rx's Prescriptions: New meclizine 25 mg tablet 25 mg PO DAILY PRN (Reason: dizziness) Qty: 10 0RF No Action pregabalin [Lyrica] 50 mg capsule 50 mg PO BID Qty: 60 0RF cyanocobalamin (vitamin B-12) 1,000 mcg capsule 1,000 mcg PO DAILY lisinopril 5 mg tablet 5 mg PO DAILY Qty: 90 3RF meclizine 25 mg tablet,chewable 25 mg PO TID PRN (Reason: dizziness) Qty: 60 3RF ibuprofen 600 MG tablet 600 mg PO TID PRNQty: 90 Rx Instructions: 1 tab q6 hours PRN. sertraline 25 MG tablet 25 mg PO DAILY Qty: 90 3RF pantoprazole 40 MG tablet,delayed release (DR/EC) 40 mg PO DAILY AM Qty: 90 3RF Rx Instructions: FOR GERD Take 1 pill daily in the morning at least 30 minutes before first meal atorvastatin 40 MG tablet 60 mg PO DAILY Qty: 135 3RF Rx Instructions: 1.5 tabs daily of 40 mg to total 60 mg for cholesterol bupropion HCl 300 MG tablet extended release 24 hr 300 mg PO DAILY Qty: 90 3RF PROVENTIL HFA 18 GM HFA.AER.AD 2 puff Inhalation Q4H PRN Qty: 1 2RF nitroglycerin 0.4 mg tablet, sublingual 0.4 mg Sublingual Q5M PRN (Reason: chest pain) Qty: 25 5RF aspirin 81 MG tablet,chewable 81 mg CH DAILY cetirizine [Zyrtec] 10 mg tablet 10 mg PO DAILY PRN potassium chloride 10 mEq capsule, extended release 10 meq PO DAILY Patient Comments: TAKE ONE CAPSULE BY MOUTH EVERY DAY torsemide 20 mg tablet 40 mg PO DAILY Patient Comments: TAKE TWO TABLETS BY MOUTH EVERY MORNING cyclobenzaprine 5 mg tablet 5 mg PO TID PRNQty: 10 0RF oxybutynin chloride 5 mg tablet 5 mg PO DAILY donepezil 5 mg tablet 5 mg PO DAILY Patient Comments: TAKE ONE TABLET BY MOUTH EVERY DAY fluconazole 150 mg tablet 150 mg PO DAILY Patient Comments: TAKE ONE TABLET BY MOUTH ONCE WEEKLY FOR 4 WEEKS famotidine 20 mg tablet 20 mg PO BID Qty: 28 0RF metformin 850 MG tablet 500 mg PO BID Rx Instructions: FOR DIABETES Discharge Instructions Instructions: Vertigo ED Additional Instructions: I have sent a prescription to your pharmacy, the same medication that your mother received in the Emergency Department. Please give this to her as needed for dizziness. I would still recommend that she follow-up with her primary care doctor but if she does get worse or develop any new or concerning symptoms please bring her back to the emergency department for reevaluation. HPI General Date/Time Provider Initiated Documentation: 05/17/25 17:24. HPI Narrative: The patient is a 64 year-old female with a history of CVA, dementia who comes to the Emergency Department for dizziness. History is obtained from the patient and her family. Reports that she has been dizzy over the past few days. Reports that she has history of vertigo. The patient reports a room spinning sensation instead of lightheadedness sensation. Reports that the patient does not take any vertigo medication at home. Reports that yesterday her daughter thinks she noticed facial drooping but this has since resolved. Reports today and last night the patient was just very quiet and decided to bring her to the emergency department for an evaluation. The patient denies any headache. Denies any chest pain or shortness of breath. Denies feeling nauseous. The family denies any recent fall, trauma or injury. Patient denies abdominal pain. Denies urinary symptoms. Related Data Home Medications ?Medication ?Instructions ?Recorded ?Confirmed aspirin 81 mg chewable tablet 81 mg CH DAILY 12/15/12 05/17/25 ibuprofen 600 mg tablet 600 mg PO TID PRN #90 tabs 01/20/18 05/17/25 sertraline 25 mg tablet 25 mg PO DAILY #90 tabs 02/10/18 05/17/25 pantoprazole 40 mg tablet,delayed 40 mg PO DAILY AM #90 tab-caps 05/28/18 05/17/25 release atorvastatin 40 mg tablet 60 mg (1.5 x 40 mg) PO DAILY #135 06/10/18 05/17/25 tab-caps bupropion HCl 300 mg 24 hr tablet, 300 mg PO DAILY #90 tab-caps 06/10/18 05/17/25 extended release nitroglycerin 0.4 mg sublingual 0.4 mg sublingual Q5M PRN chest 07/31/18 05/17/25 tablet pain #25 tab-caps cyanocobalamin (vitamin B-12) 1,000 mcg PO DAILY 10/28/18 05/17/25 1,000 mcg capsule lisinopril 5 mg tablet 5 mg PO DAILY #90 tab-caps 11/12/18 05/17/25 meclizine 25 mg chewable tablet 25 mg PO TID PRN dizziness #60 11/12/18 05/17/25 tab-caps pregabalin 50 mg capsule (Lyrica) 50 mg PO BID #60 caps 12/09/18 05/17/25 cetirizine 10 mg tablet (Zyrtec) 10 mg PO DAILY PRN 05/18/20 05/17/25 cyclobenzaprine 5 mg tablet 5 mg PO TID PRN #10 tabs 12/09/21 05/17/25 donepezil 5 mg tablet 5 mg PO DAILY 02/08/25 05/17/25 famotidine 20 mg tablet 20 mg PO BID #28 tabs 02/08/25 05/17/25 fluconazole 150 mg tablet 150 mg PO DAILY 02/08/25 05/17/25 oxybutynin chloride 5 mg tablet 5 mg PO DAILY 02/08/25 05/17/25 metformin 850 mg tablet 500 mg PO BID 04/02/25 05/17/25 meclizine 25 mg tablet 25 mg PO DAILY PRN dizziness #10 05/17/25 tabs potassium chloride 10 mEq 10 meq PO DAILY 05/17/25 05/17/25 capsule,extended release torsemide 20 mg tablet 40 mg PO DAILY 05/17/25 05/17/25 Previous Rx's ?Medication ?Instructions ?Recorded sertraline 25 mg tablet 25 mg PO DAILY #90 tabs 02/10/18 pantoprazole 40 mg tablet,delayed 40 mg PO DAILY AM #90 tab-caps 05/28/18 release atorvastatin 40 mg tablet 60 mg (1.5 x 40 mg) PO DAILY #135 06/10/18 tab-caps bupropion HCl 300 mg 24 hr tablet, 300 mg PO DAILY #90 tab-caps 06/10/18 extended release nitroglycerin 0.4 mg sublingual 0.4 mg sublingual Q5M PRN chest 07/31/18 tablet pain #25 tab-caps lisinopril 5 mg tablet 5 mg PO DAILY #90 tab-caps 11/12/18 meclizine 25 mg chewable tablet 25 mg PO TID PRN dizziness #60 11/12/18 tab-caps pregabalin 50 mg capsule (Lyrica) 50 mg PO BID #60 caps 12/09/18 cyclobenzaprine 5 mg tablet 5 mg PO TID PRN #10 tabs 12/09/21 famotidine 20 mg tablet 20 mg PO BID #28 tabs 02/08/25 meclizine 25 mg tablet 25 mg PO DAILY PRN dizziness #10 05/17/25 tabs Allergies Allergy/AdvReac Type Severity Reaction Status Date / Time Latex, Natural Rubber Allergy Intermediate Skin Rash Verified 05/17/25 18:11 silicone Allergy Intermediate Rash Verified 05/17/25 18:11 oxycodone AdvReac Intermediate SICK TO Verified 05/17/25 18:11 STOMACH General Stated Complaint: CVA/TIA RISHABH: 3 Review of Systems Narrative: Review of systems are negative except as mentioned. Exam Narrative Exam Narrative: General appearance: The patient is alert, has no immediate need for airway protection and no signs of toxicity. HEENT: Pupils are round, equal and reactive. No nystagmus is appreciated. Oral mucosal membranes are moist. Neck: Supple, non-tender. Respiratory: There are no retractions. Lungs are clear to auscultation. Cardiovascular: Regular in rate and rhythm. Radial pulses are intact and equal. Gastrointestinal: The abdomen is soft and nondistended with normal bowel sounds. Nontender to palpation throughout. Neurological: The patient is alert, awake and oriented x to self and location which her family reports is baseline for. Musculoskeletal strength is intact and equal to bilateral upper and lower extremities. Sensation is intact and equal to bilateral upper and lower extremities. Speech is clear without dysarthria. No facial asymmetry is appreciated. No limb ataxia noted. Cranial nerves II to XII motor function are intact and equal. No pronator drift noted. NIH stroke scale score is 0 at 1715. No truncal ataxia is noted. HINTS testing is within normal limits. Skin: Warm and dry. Back: No CVA tenderness is noted to palpation bilaterally. Extremities: No lower extremity edema or calf tenderness is noted to palpation bilaterally. Course Vital Signs Vital signs: Vital Signs Temperature 36.5 C 05/17/25 17:12 Pulse 89 05/17/25 17:12 Respiratory Rate 16 05/17/25 17:12 Blood Pressure 129/77 05/17/25 17:12 Pulse Oximetry 92 05/17/25 17:12 Temperature 36.5 C 05/17/25 17:12 Temperature Source Oral 05/17/25 17:12 Pulse 89 05/17/25 17:12 Respiratory Rate 16 05/17/25 18:11 Respiratory Effort Normal, Non-Labored 05/17/25 18:11 Respiratory Depth Normal 05/17/25 18:11 Respiratory Pattern Normal 05/17/25 18:11 Blood Pressure 129/77 05/17/25 17:12 Blood Pressure Position Sitting 05/17/25 17:12 Pulse Oximetry 92 05/17/25 17:12 Oxygen Delivery Method Room Air 05/17/25 17:12 Oxygen Flow Rate 0 05/17/25 17:12 Pain Level 0 05/17/25 17:12 Lab/Test Results Lab/Test Results: Laboratory Tests Range/Units 05/17/25 18:19 WBC (4.4-10.8) 10^3/uL 6.39 RBC (3.93-5.22) 10^6/uL 4.28 Hgb (11.2-15.7) g/dL 10.4 L Hct (36.0-46.0) % 35.2 L MCV (80-95) fL 82 MCH (27.0-33.0) pg 24.3 L MCHC (32.0-36.0) % 29.5 L RDW (11.7-14.6) % 17.2 H Plt Count (130-400) 10^3/uL 388 MPV (8.0-11.0) fL 9.4 Immature Gran % % 0.5 Neutrophils % % 56.3 Lymphocytes % % 28.5 Monocytes % % 10.0 Eosinophils % % 3.9 Basophils % % 0.8 Nucleated RBC % (0.0-0.3) % 0.0 Absolute Neutrophils (1.2-6.7) 10^3/uL 3.60 Absolute Lymphocytes (1.2-3.4) 10^3/uL 1.82 Absolute Monocytes (0.1-0.8) 10^3/uL 0.64 Absolute Eosinophils (0.0-0.7) 10^3/uL 0.25 Absolute Basophils (0.0-0.2) 10^3/uL 0.05 Sodium (136-145) mmol/L 137 Potassium (3.5-5.1) mmol/L 3.5 Chloride (98-107) mmol/L 98 Carbon Dioxide (21.0-32.0) mmol/L 31.6 Anion Gap (3-11) mmol/L 7.4 BUN (7-18) mg/dL 16 Creatinine (0.55-1.02) mg/dL 1.1 H Est GFR (CKD-EPI 2020) (mL/min/1.73m2) 55.42 Glucose (74-106) mg/dL 207 H Calcium (8.5-10.1) mg/dL 9.1 Total Bilirubin (0.2-1.0) mg/dL 0.9 AST (15-37) U/L 44 H ALT (14-59) U/L 40 Alkaline Phosphatase (46-116) U/L 184 H Troponin I (<or=51) ng/L 8 Total Protein (6.4-8.2) g/dL 8.2 Albumin (3.4-5.0) g/dL 3.5 Medical Decision Making Although the patient has no focal deficit on exam now I told the patient and her family of plan for blood work and imaging studies and while waiting I told them of plan for oral dose of Antivert to see if this will give her any relief. They agreed to this plan. EKG is done and it is nondiagnostic. Blood work is back and this is benign. CT head and C-spine are back and they are unremarkable. I have updated the patient and her family regarding workup result and they are quite relieved. In the meantime the patient reports that she is not as dizzy. She was subsequently ambulated in the emergency department and was able to ambulate at her baseline. The patient is to be discharged shortly. I will send a prescription for more Antivert to their preferred pharmacy and family is asked to give this to her as needed. Regardless they are asked to follow-up with her primary care doctor on an outpatient basis and urged to return to the emergency department with any worsening symptoms or any other concerns. Imaging Data Radiologic Study: Imaging: X-Ray (chest) Radiologist's impression: No acute pulmonary findings on this single AP portable view of the chest. Radiologic Study #2: Imaging: CT Scan (angiography head and neck) Radiologist's impression: 1. Patent carotid arteries in the neck. No hemodynamically significant stenosis. 2. Patent vertebral arteries. Right vertebral artery is dominant. The thinner left vertebral artery originates as an independent vessel off the aortic arch. At the skull base it terminates as the posterior inferior cerebellar artery. 3. Patent intracranial arteries. No aneurysms. No obvious vascular malformation. No ring enhancing lesions in the brain nor abnormal meningeal enhancement. 4. If clinically indicated follow-up MRI with diffusion imaging can be performed. There is no evidence of intracranial hemorrhage, mass effect, or shift of midline structures. There are no extra-axial fluid collections. Ventricular size is unchanged from MRI scan of May 2024. There is a moderate amount of bilateral periventricular hypodensity consistent with chronic small vessel disease, as evident on the prior MRI scan. There is no obvious territorial infarct. There are no ring enhancing lesions in the brain and there is no abnormal meningeal enhancement. ECG Data Attestation: I personally reviewed and interpreted this ECG (s) as follows: (Sinus rhythm at a rate of 88 with PAC without acute ischemic change.) PFSH All Active Problems Vertigo (Acute) Pleuritic chest pain (Acute) Encounter for screening for other viral diseases (Acute) Anxiety disorder (Chronic) Chronic urticaria (Acute) Rash (Acute) History of abnormal cervical Pap smear (Acute) Women's annual routine gynecological examination (Acute) Normal colonoscopy (Acute) Chest pain (Acute) Chest pressure (Acute) DVT prophylaxis (Acute) Middle insomnia (Chronic 04/28/15) Diabetes mellitus (Chronic) Osteoarthritis of knee (Acute 12/21/13) Mixed incontinence (Acute 10/01/17) Menopausal symptoms (Acute 04/28/15) Morbid obesity (Acute 03/12/13) Heartburn (Acute 03/12/13) Essential hypertension (Acute 03/12/13) Disease related peripheral neuropathy (Acute 11/03/13) DM--with intact sensation Candidal skin infection (Acute 12/30/17) Benign paroxysmal positional vertigo (Acute 02/25/13) Meclizine & PT Asthma (Acute 06/02/15) ACT 07/2015 = 15 PFTs with methacholine challenge 07/2015 showed decreased FEV1 with challenge HPV (human papilloma virus) anogenital infection (Acute 07/13/13) Women's Wellness/Rl: 06/2013 Large breasts (Chronic) Viral URI (Acute) Adult BMI > 30 (Chronic) Atypical squamous cells of undetermined significance (ASC-US) on cervical Pap smear (Chronic 07/30/16) Depressive disorder (Chronic 05/02/12) Hyperlipidemia (Chronic 11/29/11) LIPITOR 80MG CAUSED MUSCLE CRAMPS, 40MG NOT AT GOAL, TRYING 60MG 02/2013 Papanicolaou smear of cervix with positive high risk human papilloma virus (HPV) test (Chronic 07/30/16) Recurrent UTI (Chronic 10/01/17) 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 Naresh Cooper Diabetic peripheral neuropathy associated with type 2 diabetes mellitus (Chronic) Asthma (Chronic) Osteoarthritis of knee (Chronic 07/21/14) Chronic hypertension (Chronic) Morbid obesity with body mass index of 40.0-49.9 (Chronic) GERD (gastroesophageal reflux disease) (Chronic) History of surgery (Chronic) 1980. Lap cholecystectomy iin 2004. Left TKA iun Jun 2010 Bilateral cataract extraction and rell implantation. 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) Medical History (Updated 05/17/25 @ 19:53 by Listeh Blas DO) Asthma HTN (hypertension) Type 2 diabetes mellitus Surgical History S/P colonoscopy 05/26/19 History of total bilateral knee replacement (TKR) bilateral Hysterectomy, Total Laparoscopic 2017 Cholecystectomy Extraction of cataract B/L section (~1980) Family History Mother Neoplasm Stroke Father , [place] Myocardial infarction Social History Smoking/Tobacco Use Status: Never Smoking risk assessment performed?: Yes Alcohol Intake: current Alcohol Intake frequency: holidays/special occasions only Alcohol type: wine Drug use: Never Substance use type: does not use Household members: spouse, children and other Housing: house Number of Children: 1 number of grandchildren: 2 Seatbelt use: always Do you feel safe at home: Yes Do you feel safe in your relationship?: Yes History History 1 Para 1 Hx # Term Pregnancies 1 Multiple births Hx # Pregnancies Ectopic pregnancies AB induced Hx Number of Living Children AB spontaneous
[2025-05-17] MEDS: Meclizine 25 MG TAB PO (19:14)
[2025-05-17 20:11] VITALS: BP 146/87; PULSE 98; RESP 16; O2SAT 96
== END 2025-05-17 20:11 | disposition home or self-care (01) ==
PROVIDERS: Emergency Provider Emergency Medicine; PCP Physician Assistant
DX: R42 Dizziness and giddiness (principal); R11.0 Nausea; Z86.73 Personal history of transient ischemic attack (TIA), and cerebral infarction without residual deficits
CPT/HCPCS: 99284; 99285; 36415; 70496; 70498; 80053; 93005; 71045; 84484; 85025; 93010; J3490

== ENCOUNTER 2025-06-29 16:39 | Observation (INO) | payer MEDICARE, SELFPAY ==
[2025-06-29] VITALS (33 sets, daily range): BP systolic 106–138; BP diastolic 48–83; PULSE 70–88; RESP 12–23; TEMP 36.7–36.8; O2SAT 92–97
--- NOTE | 2025-06-29 16:30 | RT.EKG_ITS ---
APPROVED REPORT Exam: Resting ECG Reason for Exam: Seizure Patient Location: E HR:86 bpm ECG Measurements Heart Rate 86 AXIS UT 169 P 49 QRSd 91 QRS 27 QT 433 T 37 QTc 516 Conclusion Sinus rhythm, rate 86 Prolonged QTc, 516ms, new from priors No STEMI
--- NOTE | 2025-06-29 16:30 | DI.CT_ITS ---
Exam(s) CT HEAD WO EXAM: CT HEAD WO CLINICAL HISTORY: 1st seizure. TECHNIQUE: Imaging Protocol: Axial computed tomography images with coronal and sagittal reformatted images were created and reviewed COMPARISON: CT CT BRAIN NECK CTA from 05/17/2025 FINDINGS: There are no skull fractures. There is no fluid in the visualized paranasal sinuses. There is no evidence of intracranial hemorrhage, mass effect, or shift of midline structures. There are no extra-axial fluid collections. The ventricles are not enlarged or shifted and there is no blood within the ventricular system nor within the basal cisterns. Again noted is abundant bilateral periventricular hypodensity consistent with chronic small vessel disease, unchanged from 05/17/2025. No evidence of acute infarct. There is symmetrical atrophy noted. Size of the ventricles is commensurate with the size of the overlying cortical sulci. IMPRESSION: No acute intracranial findings on this noninfused CT scan of the brain. Atrophy and chronic white matter ischemic disease but without significant change compared to 05/17/2025. Report called by myself to ER physician [id number] at 6:50 p.m. RADIATION DOSE DELIVERED: 777.94mGy.cm Total DLP DATA REPOSITORY: All CT scans at this facility are submitted to the National Radiology Data Registry (NRDR) Dose Index Registry (DIR) with the [employer] ([employer]). RADIATION OPTIMIZATION: All CT scans at this facility use at least one of these dose optimization techniques: automated exposure control; mA and/or kV adjustment per patient size (includes targeted exams where dose is matched to clinical indication); or iterative reconstruction.
--- NOTE | 2025-06-29 17:02 | W.ED.GENAD ---
Discharge Plan Disposition Patient Disposition: Admit to [facility] Condition: Stable Discharge Details Clinical Impression: Seizure Admit Date/Time: 06/29/25 21:42 Admit Provider: Celio Sheffield Attending Provider: Celio Sheffield Primary Care Provider: Foster Belle ED Provider: Suzan Barney Discharge Data Discharge Date/Time-TO BE ENTERED AT DEPARTURE: 06/29/25 22:37 HPI General Mode of arrival: ambulatory. Date/Time Provider Initiated Documentation: 06/29/25 16:44. Limitations to Documentation: no limitations. Information obtained by: patient, family, EMS and old records reviewed. HPI Narrative: This is a 64-year-old female patient with a history of vascular dementia, diabetes, hypertension, asthma, brought in by EMS after a seizure at home. The patient was in her normal state of health until this afternoon when she had a seizure lasting approximately 10 to 15 minutes witnessed by family. She was postictal on EMS arrival, though hemodynamically appropriate, and on arrival to our facility remains confused and with difficulty answering questions. Her family states that she is not at her baseline, has never had a seizure before. No recent trauma or injuries, she does take Wellbutrin, which was recently decreased in dose. She does not drink alcohol and has not had recent cessation of any alcohol, benzodiazepines, etc. Blood glucose assessed by EMS at 180 Related Data Home Medications ?Medication ?Instructions ?Recorded ?Confirmed aspirin 81 mg chewable tablet 81 mg CH DAILY 12/15/12 06/29/25 ibuprofen 600 mg tablet 600 mg PO TID PRN #90 tabs 01/20/18 06/29/25 sertraline 25 mg tablet 25 mg PO DAILY #90 tabs 02/10/18 06/29/25 pantoprazole 40 mg tablet,delayed 40 mg PO DAILY AM #90 tab-caps 05/28/18 06/29/25 release atorvastatin 40 mg tablet 60 mg (1.5 x 40 mg) PO DAILY #135 06/10/18 06/29/25 tab-caps bupropion HCl 300 mg 24 hr tablet, 300 mg PO DAILY #90 tab-caps 06/10/18 06/29/25 extended release nitroglycerin 0.4 mg sublingual 0.4 mg sublingual Q5M PRN chest 07/31/18 06/29/25 tablet pain #25 tab-caps cyanocobalamin (vitamin B-12) 1,000 mcg PO DAILY 10/28/18 06/29/25 1,000 mcg capsule lisinopril 5 mg tablet 5 mg PO DAILY #90 tab-caps 11/12/18 06/29/25 meclizine 25 mg chewable tablet 25 mg PO TID PRN dizziness #60 11/12/18 06/29/25 tab-caps pregabalin 50 mg capsule (Lyrica) 50 mg PO BID #60 caps 12/09/18 06/29/25 cetirizine 10 mg tablet (Zyrtec) 10 mg PO DAILY PRN 05/18/20 06/29/25 cyclobenzaprine 5 mg tablet 5 mg PO TID PRN #10 tabs 12/09/21 06/29/25 donepezil 5 mg tablet 5 mg PO DAILY 02/08/25 06/29/25 famotidine 20 mg tablet 20 mg PO BID #28 tabs 02/08/25 06/29/25 fluconazole 150 mg tablet 150 mg PO DAILY 02/08/25 06/29/25 oxybutynin chloride 5 mg tablet 5 mg PO DAILY 02/08/25 06/29/25 metformin 850 mg tablet 500 mg PO BID 04/02/25 06/29/25 meclizine 25 mg tablet 25 mg PO DAILY PRN dizziness #10 05/17/25 06/29/25 tabs potassium chloride 10 mEq 10 meq PO DAILY 05/17/25 06/29/25 capsule,extended release torsemide 20 mg tablet 40 mg PO DAILY 05/17/25 06/29/25 Previous Rx's ?Medication ?Instructions ?Recorded sertraline 25 mg tablet 25 mg PO DAILY #90 tabs 02/10/18 pantoprazole 40 mg tablet,delayed 40 mg PO DAILY AM #90 tab-caps 05/28/18 release atorvastatin 40 mg tablet 60 mg (1.5 x 40 mg) PO DAILY #135 06/10/18 tab-caps bupropion HCl 300 mg 24 hr tablet, 300 mg PO DAILY #90 tab-caps 06/10/18 extended release nitroglycerin 0.4 mg sublingual 0.4 mg sublingual Q5M PRN chest 07/31/18 tablet pain #25 tab-caps lisinopril 5 mg tablet 5 mg PO DAILY #90 tab-caps 11/12/18 meclizine 25 mg chewable tablet 25 mg PO TID PRN dizziness #60 11/12/18 tab-caps pregabalin 50 mg capsule (Lyrica) 50 mg PO BID #60 caps 12/09/18 cyclobenzaprine 5 mg tablet 5 mg PO TID PRN #10 tabs 12/09/21 famotidine 20 mg tablet 20 mg PO BID #28 tabs 02/08/25 meclizine 25 mg tablet 25 mg PO DAILY PRN dizziness #10 05/17/25 tabs Allergies Allergy/AdvReac Type Severity Reaction Status Date / Time Latex, Natural Rubber Allergy Intermediate Skin Rash Verified 05/17/25 18:11 silicone Allergy Intermediate Rash Verified 05/17/25 18:11 oxycodone AdvReac Intermediate SICK TO Verified 05/17/25 18:11 STOMACH General Stated Complaint: Seizure RISHABH: 3 Exam Narrative Exam Narrative: Gen: awake and alert, in no apparent distress. Appears well nourished. HEENT: PERRL, EOMs full and without nystagmus. External ears and nose normal, mucous membranes moist. Neck: Supple, full range of motion, no observable masses Lungs: No increased work of breathing, lung sounds clear and equal bilaterally without wheezes, rhonchi, or rales. CV: Heart with regular rate and rhythm, no murmurs auscultated. Strong and symmetrical radial pulses. Abdomen: Soft, nondistended, non-tender to palpation. No rigidity, rebound tenderness, or guarding. MSK: No joint swelling, no redness. Full ROM without limitation, no external traumatic findings. Skin: No rashes or lesions to visualized skin. Normal color, warm, and dry. Neuro: Cranial nerves II-XII intact and symmetrical bilaterally. 5/5 strength in all muscle groups x4 extremities. No reported sensory deficits. Moves herself about the stretcher, appears confused/postictal, answering simple questions such as who she is and where she is, having difficulty following complex commands Psych: Appropriate for situation. Course Vital Signs Vital signs: Vital Signs Temperature 36.8 C 06/29/25 16:42 Pulse 86 06/29/25 16:42 Respiratory Rate 20 06/29/25 16:42 Blood Pressure 132/54 L 06/29/25 16:42 Pulse Oximetry 96 06/29/25 16:42 Temperature 36.8 C 06/29/25 16:42 Pulse 86 06/29/25 16:42 Respiratory Rate 20 06/29/25 16:42 Blood Pressure 132/54 L 06/29/25 16:42 Pulse Oximetry 96 06/29/25 16:42 Pain Level 0 06/29/25 16:42 Medical Decision Making This is a 64-year-old female patient presenting for evaluation after a seizure. My differential includes but is not limited to intracranial pathology including hemorrhage, stroke, mass effect. Considered medication effect, seizure as a result of brain structure changes due to her vascular dementia, no history to suggest intoxication or withdrawal. The patient is following commands though not back to her baseline, I do not have any ongoing's concern for active convulsive seizure activity that would require acute medication management. Certainly considered metabolic electrolyte derangements including hypoglycemia and hyponatremia, kidney injury, liver injury. Considered infection including urinary tract infection. No meningismus or fever to significantly increase my concern for meningitis. We will obtain a CT brain, and labs to include CBC, CMP, magnesium, urinalysis, ethyl alcohol, UDS, TSH, and lactate. - I reviewed the patient's laboratory studies, which show no leukocytosis, stable anemia and no thrombocytopenia. I reviewed the patient's laboratory studies, which show no leukocytosis, stable anemia and no thrombocytopenia. Lactate is elevated to 3 and she will receive a liter of IV fluids. No evidence for severe kidney dysfunction or liver pathology. The patient's magnesium is noted to be low at 1.4 and will be repleted intravenously, she also has a slightly low potassium. CT scan reviewed, showing changes related to her known vascular dementia but no acute pathology. Given that the patient has not returned to her baseline, though she is improved compared to our first examination, we will reach out to [facility] for an evaluation. They have conducted their evaluation and recommend that the patient be admitted for MRI, and be set up with EEG. I loaded her with 1500 mg of Keppra, and she will be started on 500 mg twice daily. As the patient has a neurologist in [place], I did attempt a lateral transfer, but unfortunately that particular neurologist does not provide inpatient services and so transfer would not be indicated at this time. I reached out to our hospitalist who is graciously accepted this patient for admission to their service for ongoing workup and management. While under my care the patient remained hemodynamically appropriate and she was transferred from our department without incident. Suzan Barney MD Quality:SDOH Health Related Social Needs: Health related social needs inadequate housing food insecurity house/econ circumstance Health related social needs details bedbugs PFSH All Active Problems Seizure (Acute) Pleuritic chest pain (Acute) Encounter for screening for other viral diseases (Acute) Anxiety disorder (Chronic) Chronic urticaria (Acute) Rash (Acute) History of abnormal cervical Pap smear (Acute) Women's annual routine gynecological examination (Acute) Normal colonoscopy (Acute) Chest pain (Acute) Chest pressure (Acute) DVT prophylaxis (Acute) Middle insomnia (Chronic 04/28/15) Diabetes mellitus (Chronic) Osteoarthritis of knee (Acute 12/21/13) Mixed incontinence (Acute 10/01/17) Menopausal symptoms (Acute 04/28/15) Morbid obesity (Acute 03/12/13) Heartburn (Acute 03/12/13) Essential hypertension (Acute 03/12/13) Disease related peripheral neuropathy (Acute 11/03/13) DM--with intact sensation Candidal skin infection (Acute 12/30/17) Benign paroxysmal positional vertigo (Acute 02/25/13) Meclizine & PT Asthma (Acute 06/02/15) ACT 07/2015 = 15 PFTs with methacholine challenge 07/2015 showed decreased FEV1 with challenge HPV (human papilloma virus) anogenital infection (Acute 07/13/13) Women's Wellness/Rl: 06/2013 Large breasts (Chronic) Viral URI (Acute) Adult BMI > 30 (Chronic) Atypical squamous cells of undetermined significance (ASC-US) on cervical Pap smear (Chronic 07/30/16) Depressive disorder (Chronic 05/02/12) Hyperlipidemia (Chronic 11/29/11) LIPITOR 80MG CAUSED MUSCLE CRAMPS, 40MG NOT AT GOAL, TRYING 60MG 02/2013 Papanicolaou smear of cervix with positive high risk human papilloma virus (HPV) test (Chronic 07/30/16) Recurrent UTI (Chronic 10/01/17) 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 Naresh Cooper Diabetic peripheral neuropathy associated with type 2 diabetes mellitus (Chronic) Asthma (Chronic) Osteoarthritis of knee (Chronic 07/21/14) Chronic hypertension (Chronic) Morbid obesity with body mass index of 40.0-49.9 (Chronic) GERD (gastroesophageal reflux disease) (Chronic) History of surgery (Chronic) 1980. Lap cholecystectomy iin 2004. Left TKA iun Jun 2010 Bilateral cataract extraction and rell implantation. 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) Medical History (Updated 06/30/25 @ 00:29 by Suzan Barney MD) Asthma HTN (hypertension) Type 2 diabetes mellitus Surgical History S/P colonoscopy 05/26/19 History of total bilateral knee replacement (TKR) bilateral Hysterectomy, Total Laparoscopic 2017 Cholecystectomy Extraction of cataract B/L section (~1980) Family History Mother Neoplasm Stroke Father , [place] Myocardial infarction Social History Smoking/Tobacco Use Status: Never Smoking risk assessment performed?: Yes Alcohol Intake: current Alcohol Intake frequency: holidays/special occasions only Alcohol type: wine Drug use: Never Substance use type: does not use Household members: spouse, children and other Housing: house Number of Children: 1 number of grandchildren: 2 Seatbelt use: always Do you feel safe at home: Yes Do you feel safe in your relationship?: Yes History History 1 Para 1 Hx # Term Pregnancies 1 Multiple births Hx # Pregnancies Ectopic pregnancies AB induced Hx Number of Living Children AB spontaneous
[2025-06-29 17:31] LABS: Abs Immature Grans 0.03 10^3/uL (0.0-0.06); HCT 31.1 % (36.0-46.0); HGB 9.2 g/dL (11.2-15.7); Immature Grans % 0.5 %; MCH 24.6 pg (27.0-33.0); MCHC 29.6 % (32.0-36.0); MCV 83 fL (80-95); MPV 8.8 fL (8.0-11.0); Platelet Count 378 10^3/uL (130-400); RBC 3.74 10^6/uL (3.93-5.22); RDW 17.7 % (11.7-14.6); RDW-SD 53.5 fL; WBC 6.39 10^3/uL (4.4-10.8)
[2025-06-29 17:48] LABS: INR 1.1 (0.9-1.1); Prothrombin Time 11.2 sec (9.1-11.1)
[2025-06-29 18:03] LABS: ALT 26 U/L (14-59); AST 29 U/L (15-37); Albumin 3.0 g/dL (3.4-5.0); Alkaline Phosphatase 143 U/L (46-116); Anion Gap 10.2 mmol/L (3-11); BUN 14 mg/dL (7-18); Bilirubin, Total 0.8 mg/dL (0.2-1.0); CO2 29.8 mmol/L (21.0-32.0); Calcium 9.0 mg/dL (8.5-10.1); Chloride 101 mmol/L (98-107); Estimated GFR 49.92 (mL/min/1.73m2); Glucose 186 mg/dL (74-106); Magnesium 1.4 mg/dL (1.8-2.4); Potassium 3.3 mmol/L (3.5-5.1); Sodium 141 mmol/L (136-145); Total Protein 7.3 g/dL (6.4-8.2)
[2025-06-29] MEDS: Acetaminophen 500 MG TAB 1000 MG PO (18:40)
[2025-06-29] MEDS: MAGNESIUM SULFATE 2 GM/50 ML BAG IV_INF (18:43)
[2025-06-29] MEDS: Lactated Ringers 1,000 ML 1000 ML IV (18:43)
[2025-06-29 20:53] LABS: TSH (W/Ref FT4) 3.05 uIU/mL (0.36-3.74)
[2025-06-29 21:37] LABS: Creatine Kinase 174 U/L (26-192)
--- NOTE | 2025-06-29 21:48 | W.PM.HP.N ---
Date of service: 06/29/25 Time of Service: 21:48 Assessment and Plan Assessment and plan (1) Seizure: Status: Acute Assessment and plan: Exact etiology is unknown. It is somewhat rare to have a seizure at [address] scan does not show any mass occupying lesions. Not sure what the benefit of MRI is what we will order it at the request of teleneurology. An EEG most likely be done in the outpatient setting. It is important to rule out infection which could lower the seizure threshold so I am asking to get a straight cath for urinalysis as well as a urine drug screen. She does have mild electrolyte abnormalities that will be replaced including hypomagnesemia hypokalemia. I have ordered a procalcitonin as well as a CK. With a seizure lasting 10 minutes I would expect some elevation in her CK due to rhabdo. Interested to see and what tele neuro has to say as well. Per the ED and my discussion with the family there is a recommendation for potentially stopping or lowering her Wellbutrin (2) Chronic hypertension: Status: Chronic Assessment and plan: Continue with oral medications. (3) Hyperlipidemia: Status: Chronic Assessment and plan: Continue with oral medications. (4) Anxiety disorder: Status: Chronic Assessment and plan: As above (5) Depressive disorder: Status: Chronic Assessment and plan: As above (6) Type II diabetes mellitus with neurological manifestations: Status: Chronic Assessment and plan: I am holding her metformin I will check an A1c. (7) Morbid obesity: Status: Acute Assessment and plan: Consider dietary consultation in the a.m. at the discretion of the oncoming physician She will be on Lovenox for DVT prophylaxis History of Present Illness History of Present Illness Chief Complaint: first time seizure Narrative: This is a 64-year-old female with known history of vascular dementia who follows with a outpatient neurologist in [place]. Patient was sitting on her porch this afternoon and had what appeared to be a seizure. Family states that seizure lasted approximately 10 minutes and appeared to be a grand mal type seizure including some foaming at the mouth. She did not have bowel or bladder incontinence minor tongue. Patient does have a significant postictal phase and is still more confused than her baseline according to her family. Patient was seen by teleneurology who recommended a MRI as well as an EEG monitoring overnight. Patient did get a CT scan of her head which was negative for any pathology including his space-occupying lesion. Patient has never had seizures in the past. She has not had any sick contacts except for with her grandchild who has a small cold. No new medications have been started. Patient was in her usual state of health until this event today Review of Systems All systems reviewed & are unremarkable except as noted in HPI and below PFSH All Active Problems Seizure (Acute) Pleuritic chest pain (Acute) Encounter for screening for other viral diseases (Acute) Anxiety disorder (Chronic) Chronic urticaria (Acute) Rash (Acute) History of abnormal cervical Pap smear (Acute) Women's annual routine gynecological examination (Acute) Normal colonoscopy (Acute) Chest pain (Acute) Chest pressure (Acute) DVT prophylaxis (Acute) Middle insomnia (Chronic 04/28/15) Diabetes mellitus (Chronic) Osteoarthritis of knee (Acute 12/21/13) Mixed incontinence (Acute 10/01/17) Menopausal symptoms (Acute 04/28/15) Morbid obesity (Acute 03/12/13) Heartburn (Acute 03/12/13) Essential hypertension (Acute 03/12/13) Disease related peripheral neuropathy (Acute 11/03/13) DM--with intact sensation Candidal skin infection (Acute 12/30/17) Benign paroxysmal positional vertigo (Acute 02/25/13) Meclizine & PT Asthma (Acute 06/02/15) ACT 07/2015 = 15 PFTs with methacholine challenge 07/2015 showed decreased FEV1 with challenge HPV (human papilloma virus) anogenital infection (Acute 07/13/13) Women's Wellness/Rl: 06/2013 Large breasts (Chronic) Viral URI (Acute) Adult BMI > 30 (Chronic) Atypical squamous cells of undetermined significance (ASC-US) on cervical Pap smear (Chronic 07/30/16) Depressive disorder (Chronic 05/02/12) Hyperlipidemia (Chronic 11/29/11) LIPITOR 80MG CAUSED MUSCLE CRAMPS, 40MG NOT AT GOAL, TRYING 60MG 02/2013 Papanicolaou smear of cervix with positive high risk human papilloma virus (HPV) test (Chronic 07/30/16) Recurrent UTI (Chronic 10/01/17) 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 Naresh Cooper Diabetic peripheral neuropathy associated with type 2 diabetes mellitus (Chronic) Asthma (Chronic) Osteoarthritis of knee (Chronic 07/21/14) Chronic hypertension (Chronic) Morbid obesity with body mass index of 40.0-49.9 (Chronic) GERD (gastroesophageal reflux disease) (Chronic) History of surgery (Chronic) 1980. Lap cholecystectomy iin 2004. Left TKA iun Jun 2010 Bilateral cataract extraction and rell implantation. 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) Medical History (Updated 06/29/25 @ 21:55 by Celio Sheffield MD) Asthma HTN (hypertension) Type 2 diabetes mellitus Surgical History S/P colonoscopy 05/26/19 History of total bilateral knee replacement (TKR) bilateral Hysterectomy, Total Laparoscopic 2016 Cholecystectomy Extraction of cataract B/L section (~1980) Family History Mother Neoplasm Stroke Father , [place] Myocardial infarction Social History Smoking/Tobacco Use Status: Never Smoking risk assessment performed?: Yes Alcohol Intake: current Alcohol Intake frequency: holidays/special occasions only Alcohol type: wine Drug use: Never Substance use type: does not use Household members: spouse, children and other Housing: house Number of Children: 1 number of grandchildren: 2 Seatbelt use: always Do you feel safe at home: Yes Do you feel safe in your relationship?: Yes History History 1 Para 1 Hx # Term Pregnancies 1 Multiple births Hx # Pregnancies Ectopic pregnancies AB induced Hx Number of Living Children AB spontaneous Meds Allergies and Home Medications Allergies Allergy/AdvReac Type Severity Reaction Status Date / Time Latex, Natural Rubber Allergy Intermediate Skin Rash Verified 05/17/25 18:11 silicone Allergy Intermediate Rash Verified 05/17/25 18:11 oxycodone AdvReac Intermediate SICK TO Verified 05/17/25 18:11 STOMACH Home Medications ?Medication ?Instructions ?Recorded ?Confirmed ?Type aspirin 81 mg chewable tablet 81 mg CH DAILY 12/15/12 06/29/25 History ibuprofen 600 mg tablet 600 mg PO TID PRN #90 tabs 01/20/18 06/29/25 History sertraline 25 mg tablet 25 mg PO DAILY #90 tabs 02/10/18 06/29/25 Rx pantoprazole 40 mg tablet,delayed 40 mg PO DAILY AM #90 tab-caps 05/28/18 06/29/25 Rx release Proventil Hfa 2 puff inhalation Q4H PRN ##1 06/10/18 06/29/25 Clinic atorvastatin 40 mg tablet 60 mg (1.5 x 40 mg) PO DAILY #135 06/10/18 06/29/25 Rx tab-caps bupropion HCl 300 mg 24 hr tablet, 300 mg PO DAILY #90 tab-caps 06/10/18 06/29/25 Rx extended release nitroglycerin 0.4 mg sublingual 0.4 mg sublingual Q5M PRN chest 07/31/18 06/29/25 Rx tablet pain #25 tab-caps cyanocobalamin (vitamin B-12) 1,000 mcg PO DAILY 10/28/18 06/29/25 History 1,000 mcg capsule lisinopril 5 mg tablet 5 mg PO DAILY #90 tab-caps 11/12/18 06/29/25 Rx meclizine 25 mg chewable tablet 25 mg PO TID PRN dizziness #60 11/12/18 06/29/25 Rx tab-caps pregabalin 50 mg capsule (Lyrica) 50 mg PO BID #60 caps 12/09/18 06/29/25 Rx cetirizine 10 mg tablet (Zyrtec) 10 mg PO DAILY PRN 05/18/20 06/29/25 History cyclobenzaprine 5 mg tablet 5 mg PO TID PRN #10 tabs 12/09/21 06/29/25 Rx donepezil 5 mg tablet 5 mg PO DAILY 02/08/25 06/29/25 History famotidine 20 mg tablet 20 mg PO BID #28 tabs 02/08/25 06/29/25 Rx fluconazole 150 mg tablet 150 mg PO DAILY 02/08/25 06/29/25 History oxybutynin chloride 5 mg tablet 5 mg PO DAILY 02/08/25 06/29/25 History metformin 850 mg tablet 500 mg PO BID 04/02/25 06/29/25 History meclizine 25 mg tablet 25 mg PO DAILY PRN dizziness #10 05/17/25 06/29/25 Rx tabs potassium chloride 10 mEq 10 meq PO DAILY 05/17/25 06/29/25 History capsule,extended release torsemide 20 mg tablet 40 mg PO DAILY 05/17/25 06/29/25 History Exam Narrative Exam Narrative: HEENT-normocephalic atraumatic mucous membranes moist excess clear extraocular motions are intact she does not have any bite sanchez on her tongue Neck-no lymphadenopathy no JVD Cardiovascular-regular rate rhythm no murmurs gallops Lungs-clear to auscultation bilaterally with good air exchange Abdomen-protuberant no tenderness to palpation Extremities-no sinus clubbing or edema bilaterally Neurologic-cranial nerves II through XII are intact as tested patient has a symmetrical smile can raise her eyebrows symmetrically. Psych- patient responds to verbal stimuli but is still quite somnolent. She knows her name but does not know where she is at the year. Patient cannot do simple arithmetic. Patient cannot tell time on the analog clock. Results Labs 06/29/25 17:20 06/29/25 17:20 Labs: Laboratory Results - last 24 hr 06/29/25 06/29/25 17:20 21:13 WBC 6.39 RBC 3.74 L Hgb 9.2 L Hct 31.1 L MCV 83 MCH 24.6 L MCHC 29.6 L RDW 17.7 H Plt Count 378 MPV 8.8 Immature Gran % 0.5 Neutrophils % 66.4 Lymphocytes % 18.6 Monocytes % 8.8 Eosinophils % 4.9 Basophils % 0.8 Nucleated RBC % 0.0 Absolute Neutrophils 4.25 Absolute Lymphocytes 1.19 L Absolute Monocytes 0.56 Absolute Eosinophils 0.31 Absolute Basophils 0.05 PT 11.2 H INR 1.1 VBG Lactate 3.0 H* Sodium 141 Potassium 3.3 L Chloride 101 Carbon Dioxide 29.8 Anion Gap 10.2 BUN 14 Creatinine 1.2 H Est GFR (CKD-EPI 2020) 49.92 Glucose 186 H Calcium 9.0 Magnesium 1.4 L Total Bilirubin 0.8 AST 29 ALT 26 Alkaline Phosphatase 143 H Creatine Kinase 174 Total Protein 7.3 Albumin 3.0 L TSH 3.05 Ethyl Alcohol < 3.0 Last Vital Signs Temp 36.8 C 06/29/25 16:42 Pulse 75 06/29/25 19:40 Resp 20 06/29/25 19:40 BP 109/67 06/29/25 19:31 Pulse Ox 94 06/29/25 19:40 Time Spent Time spent with Patient: 40-54 minutes Time was spent: preparing to see the patient(eg.review tests), obtaining and/or reviewing separately otained hiistory, ordering medications,tests, procedures, referring, communicating with other health patient care technician instructor, indepentently interpreting results, counseling the patient and care coordination
[2025-06-29 22:19] LABS: Procalcitonin < 0.10 ng/mL
--- NOTE | 2025-06-29 22:26 | W.PC.ACHO ---
Registration Status: REG ER Primary Language: Preferred Language: Belarusian ED Information & Data Chief Complaint Seizure 06/29/25 17:51 Chief Complaint Seizure 06/29/25 17:02 Triage Note pt had witnessed seizure ~10 06/29/25 16:42 mins. it was witnessed by family. no seizure hx. does have hx dementia. no seizure like s/s now, axox4 Medical / Surgical History (Last Reviewed 04/02/25 @ 19:01 by Sole Wade NP) Asthma HTN (hypertension) Type 2 diabetes mellitus (Last Reviewed 04/02/25 @ 19:01 by Sole Wade NP) S/P colonoscopy History of total bilateral knee replacement (TKR) Hysterectomy, Total Laparoscopic Cholecystectomy Extraction of cataract section (~1980) Most Recent Vital Signs Temperature 36.8 C 06/29/25 16:42 Pulse 75 06/29/25 19:40 Pulse 75 06/29/25 19:40 Respiratory Rate 20 06/29/25 19:40 Respiratory Effort Normal, Non-Labored 06/29/25 17:51 Respiratory Depth Normal 06/29/25 17:51 Respiratory Pattern Normal 06/29/25 17:51 Blood Pressure 109/67 06/29/25 19:31 Blood Pressure Mean 79 06/29/25 19:31 Pulse Oximetry 94 06/29/25 19:40 Pain Level 0 06/29/25 16:42 Allergies Latex, Natural Rubber Allergy (Intermediate, Verified 05/17/25 18:11) Skin Rash silicone Allergy (Intermediate, Verified 05/17/25 18:11) Rash oxycodone Adverse Reaction (Intermediate, Verified 05/17/25 18:11) SICK TO STOMACH Precautions Isolation Standard precaution 06/29/25 17:51 IV IV Catheter Type [Left Saline Lock Antecubital] IV Catheter Gauge [Left 18 Antecubital] Diet Orders Category Date Time Status Regular/Normal [DIET] Nutrition 06/30/25 Breakfast Ordered Diagnostics 06/29/25 06/29/25 Range/Units 21:13 17:20 WBC 6.39 (4.4-10.8) 10^3/uL RBC 3.74 L (3.93-5.22) 10^6/uL Hgb 9.2 L (11.2-15.7) g/dL Hct 31.1 L (36.0-46.0) % MCV 83 (80-95) fL MCH 24.6 L (27.0-33.0) pg MCHC 29.6 L (32.0-36.0) % RDW 17.7 H (11.7-14.6) % Plt Count 378 (130-400) 10^3/uL MPV 8.8 (8.0-11.0) fL Immature Gran % 0.5 % Neutrophils % 66.4 % Lymphocytes % 18.6 % Monocytes % 8.8 % Eosinophils % 4.9 % Basophils % 0.8 % Nucleated RBC % 0.0 (0.0-0.3) % Absolute Neutrophils 4.25 (1.2-6.7) 10^3/uL Absolute Lymphocytes 1.19 L (1.2-3.4) 10^3/uL Absolute Monocytes 0.56 (0.1-0.8) 10^3/uL Absolute Eosinophils 0.31 (0.0-0.7) 10^3/uL Absolute Basophils 0.05 (0.0-0.2) 10^3/uL PT 11.2 H (9.1-11.1) sec INR 1.1 (0.9-1.1) VBG Lactate 3.0 H* (<or=2.0) mmol/L Sodium 141 (136-145) mmol/L Potassium 3.3 L (3.5-5.1) mmol/L Chloride 101 (98-107) mmol/L Carbon Dioxide 29.8 (21.0-32.0) mmol/L Anion Gap 10.2 (3-11) mmol/L BUN 14 (7-18) mg/dL Creatinine 1.2 H (0.55-1.02) mg/dL Est GFR (CKD-EPI 2020) 49.92 (mL/min/1.73m2) Glucose 186 H (74-106) mg/dL Hemoglobin A1c Pending Calcium 9.0 (8.5-10.1) mg/dL Magnesium 1.4 L (1.8-2.4) mg/dL Total Bilirubin 0.8 (0.2-1.0) mg/dL AST 29 (15-37) U/L ALT 26 (14-59) U/L Alkaline Phosphatase 143 H (46-116) U/L Creatine Kinase 174 (26-192) U/L Total Protein 7.3 (6.4-8.2) g/dL Albumin 3.0 L (3.4-5.0) g/dL Procalcitonin < 0.10 ng/mL TSH 3.05 (0.36-3.74) uIU/mL Ethyl Alcohol < 3.0 (<10) mg/dL Intake and Output - 24 Hour Total 06/29/25 16:31 thru 06/29/25 22:14 Output Total 150 Balance -150 Weight 129 kg Output: Urine 150 Other: Urine Color Yellow Urine Appearance Sediment Falls Risk Assessment History of Falls Admit Due to Fall 06/29/25 17:51 Contributing Factors Confusion 06/29/25 17:51 Ambulatory Aids Uses ambulatory device 06/29/25 17:51 Tubes/Lines None 06/29/25 17:51 Gait Evaluation No gait disturbance 06/29/25 17:51 Cognition No cognitive impairment 06/29/25 17:51 Fall Total Score 43 06/29/25 17:51 Level of Risk Moderate Risk 06/29/25 17:51 Problems (Last Reviewed 04/02/25 @ 19:01 by Sole Wade NP) Seizure (Acute) Anxiety disorder (Chronic) Morbid obesity (Acute 03/12/13) Depressive disorder (Chronic 05/02/12) Hyperlipidemia (Chronic 11/29/11) 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 Information / Comments: baseline dementia, lucid, pleasant. witnessed by family seizure ?10minutes, no known hx of seizure, teleneuro consult done, recommended MRI. RA, 1500mg Keppra, 2 grams of Magnesium, straight cath for UA done, incontinent, under pannus and breast skin breakdown and yeast, nystatin applied. Left breast worse. Hard time ambulating at baseline, weak in ER and unable to lift legs. Report received from: 06/29/25 @ 2019 Garima Benton
[2025-06-29 23:23] LABS: Glucose Negative (Negative)
[2025-06-29 23:33] LABS: C & S Indicated? Yes; RBC 0-2 HPF (0-2)
[2025-06-29 23:40] LABS: Cannabinoids THC Negative (Negative); METHADONE URINE SCREEN Negative (Negative)
[2025-06-30 07:02] LABS: Abs Immature Grans 0.03 10^3/uL (0.0-0.06); HCT 28.6 % (36.0-46.0); HGB 8.7 g/dL (11.2-15.7); Immature Grans % 0.6 %; MCH 25.1 pg (27.0-33.0); MCHC 30.4 % (32.0-36.0); MCV 83 fL (80-95); MPV 9.0 fL (8.0-11.0); Platelet Count 321 10^3/uL (130-400); RBC 3.46 10^6/uL (3.93-5.22); RDW 17.9 % (11.7-14.6); RDW-SD 54.3 fL; WBC 4.64 10^3/uL (4.4-10.8)
[2025-06-30 07:33] LABS: ALT 24 U/L (14-59); AST 33 U/L (15-37); Albumin 2.6 g/dL (3.4-5.0); Alkaline Phosphatase 126 U/L (46-116); Anion Gap 8.4 mmol/L (3-11); BUN 13 mg/dL (7-18); Bilirubin, Total 0.7 mg/dL (0.2-1.0); CO2 29.6 mmol/L (21.0-32.0); Calcium 8.7 mg/dL (8.5-10.1); Chloride 104 mmol/L (98-107); Estimated GFR 62.13 (mL/min/1.73m2); Glucose 110 mg/dL (74-106); Sodium 142 mmol/L (136-145); TSH (W/Ref FT4) 1.72 uIU/mL (0.36-3.74); Total Protein 6.6 g/dL (6.4-8.2)
[2025-06-30 07:36] LABS: Potassium 2.9 mmol/L (3.5-5.1)
[2025-06-30 08:39] VITALS: BP 121/67; PULSE 71; RESP 16; TEMP 36.5; O2SAT 100
[2025-06-30 08:46] LABS: Hemoglobin A1C 7.9 % (<5.7)
[2025-06-30] MEDS: Cyanocobalamin 500 MCG TAB 1000 MCG PO (08:58)
[2025-06-30] MEDS: Sertraline 25 MG TAB PO (08:59)
[2025-06-30] MEDS: Famotidine 20 MG TAB PO ×2 (08:59→20:28)
[2025-06-30] MEDS: Pregabalin 50 MG CAP PO ×2 (08:59→20:28)
[2025-06-30] MEDS: Magnesium Oxide 400 MG TAB PO ×2 (08:59→20:28)
[2025-06-30] MEDS: Aspirin 81 MG CHEW CH (08:59)
[2025-06-30] MEDS: Pantoprazole 40 MG TABCR PO (08:59)
[2025-06-30] MEDS: Oxybutynin 5 MG TAB PO (08:59)
[2025-06-30] MEDS: buPROPion-XL 150 MG TABCR 300 MG PO (09:01)
[2025-06-30] MEDS: Atorvastatin 40 MG TAB 60 MG PO (09:01)
[2025-06-30] MEDS: POTASSIUM CHLORIDE 20 MEQ, POTASSIUM CHLORIDE 10 MEQ 30 MEQ PO (09:01)
[2025-06-30] MEDS: Lisinopril 5 MG TAB PO (09:02)
--- NOTE | 2025-06-30 10:02 | INITIAL_ITS ---
Date of service: 06/30/25 Time of Service: 10:02 Care Management Initial Assmt Initial Assessment Reason for Hospitalization: seizure Functional Status/Living Situation Patient Presentation: Kathrine presented to the ED via EMS yesterday evening after a witnessed seizure at home. She was post ictal on EMS arrival, and was still noted to be confused on arrival to ED. Per family, the confusion is not her baseline and she has never had a seizure before. She was admitted to observation for workup and monitoring. Kathrine was sitting up in the bed, visiting with her daughter, Beverly, when CM met with her earlier to day. Kathrine's Reggie presented shortly thereafter with their grandson. The family was very friendly and polite. Kathrine was noted today to have some difficulty with word finding, but was able to make herself known, for sure, even making jokes. She does not remember the seizure, but her family were all there to witness it, and stated it was very scary. Kathrine lives with her , her daughter and son-in law, and their 15yo twin boys. She does not have any current home services, but is very open to starting new HH RN, PT/OT, MARINE PIPE WELDER. Reggie is in agreement. CM reached out to the Car Dumper Operator at her local PCP office to update, as well. Kathrine has a neurologist in [place] that she should f/u with as well. 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) Instrumental Activities of Daily Living (ADLs): Requires support Medications Medication Management: No Issues/Barriers identified Physical Functioning/Mobility Assistive Device: none Advance Directives Advance Directives: Do you have an Advance Directive: Y , 16:59 AD On File at [facility]: N 01/12/20, 10:09 Date Asked 06/29/25 06/29/25, 16:43 AD Date Reviewed COLST On File at [facility] COLST Date Scanned Code Status Resuscitation Status Full Code Insurance Coverage/Financial Issues Insurance: BC/BS [facility] Advantage - [id number] FINANCIAL ASST 100 Care Team Visit Care Team Role Provider Type Vikash Guzman MD [facility] STAFF PHYSICIAN Foster Belle Primary Care Provider [place] STAFF PHYSICIAN InPatient Alli Christy Other Providers OTHER Suzan Barney MD Emergency Provider [employer] [employer] STAFF PHYSICIAN Celio Sheffield MD Admit Provider [facility] STAFF PHYSICIAN Attending Provider Discharge Potential Discharge Needs: PCP F/U Appt and Other (neuro f/u) Anticipated Barriers to Discharge: None Identified Patient/Family Education Needs: Review discharge instructions, discuss Ask Me Three Transportation: Private vehicle Plan: Kathrine will discharge home with new HC services of RN, PT, OT and MARINE PIPE WELDER. She will f/u with her PCP and her neurologist and continue per her plan of care. Kathrine will transport home with family. CM will continue to follow. Social Determinants of Health Screening Social Determinants of health last assessed in clinic: 06/30/25 Will the Patient Participate in the Screening?: Yes Do you worry about having a steady place to live?: no Problems where you live: pests such as bugs, ants or mice In the past 12 months, have you had to go without electric, gas, oil or water in your home?: no 1. Within the past 12 months, we worried whether our food would run out before we got money to buy more.: Don't know/refused 2. Within the past 12 months, the food we bought just didn't last and we didn't have money to get more.: Don't know/refused Has lack of transportation kept you from medical appointments or from doing things needed for daily living?: no Has anyone in your life made you feel unsafe or unsupported?: choose not to answer How hard is it for you to pay for the very basics like food, housing, medical care, and heating? Would you say it is:: Somewhat hard Do you want help finding or keeping work or a job?: I do not need or want help If for any reason you need help with day-to-day activities such as bathing, preparing meals, shopping, managing finances, etc., do you get the help you need?: I get all the help I need How often do you feel lonely or isolated from those around you?: Never Do you speak a language other than Nepali at home?: No Does the patient want assistance with any of the above?: No Health Related Social Needs Health related social needs: inadequate housing (Z59.1) and problems related to housing/economic circumstances (Z59.89) Health related social needs details: bedbugs COUNTS INCLUDE 234 BEDS AT THE [facility] All Active Problems Seizure (Acute) Pleuritic chest pain (Acute) Encounter for screening for other viral diseases (Acute) Anxiety disorder (Chronic) Chronic urticaria (Acute) Rash (Acute) History of abnormal cervical Pap smear (Acute) Women's annual routine gynecological examination (Acute) Normal colonoscopy (Acute) Chest pain (Acute) Chest pressure (Acute) DVT prophylaxis (Acute) Middle insomnia (Chronic 04/28/15) Diabetes mellitus (Chronic) Osteoarthritis of knee (Acute 12/21/13) Mixed incontinence (Acute 10/01/17) Menopausal symptoms (Acute 04/28/15) Morbid obesity (Acute 03/12/13) Heartburn (Acute 03/12/13) Essential hypertension (Acute 03/12/13) Disease related peripheral neuropathy (Acute 11/03/13) DM--with intact sensation Candidal skin infection (Acute 12/30/17) Benign paroxysmal positional vertigo (Acute 02/25/13) Meclizine & PT Asthma (Acute 06/02/15) ACT 07/2015 = 15 PFTs with methacholine challenge 07/2015 showed decreased FEV1 with challenge HPV (human papilloma virus) anogenital infection (Acute 07/13/13) Women's Wellness/Rl: 06/2013 Large breasts (Chronic) Viral URI (Acute) Adult BMI > 30 (Chronic) Atypical squamous cells of undetermined significance (ASC-US) on cervical Pap smear (Chronic 07/30/16) Depressive disorder (Chronic 05/02/12) Hyperlipidemia (Chronic 11/29/11) LIPITOR 80MG CAUSED MUSCLE CRAMPS, 40MG NOT AT GOAL, TRYING 60MG 02/2013 Papanicolaou smear of cervix with positive high risk human papilloma virus (HPV) test (Chronic 07/30/16) Recurrent UTI (Chronic 10/01/17) 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 Naresh Cooper Diabetic peripheral neuropathy associated with type 2 diabetes mellitus (Chronic) Asthma (Chronic) Osteoarthritis of knee (Chronic 07/21/14) Chronic hypertension (Chronic) Morbid obesity with body mass index of 40.0-49.9 (Chronic) GERD (gastroesophageal reflux disease) (Chronic) History of surgery (Chronic) 1980. Lap cholecystectomy iin 2004. Left TKA iun Jun 2010 Bilateral cataract extraction and rell implantation. 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) Medical History (Updated 06/30/25 @ 12:47 by Vikash Guzman) Vascular dementia Asthma HTN (hypertension) Type 2 diabetes mellitus Surgical History S/P colonoscopy 05/26/19 History of total bilateral knee replacement (TKR) bilateral Hysterectomy, Total Laparoscopic 2017 Cholecystectomy Extraction of cataract B/L section (~1980) Family History Mother Neoplasm Stroke Father , [place] Myocardial infarction Social History Smoking/Tobacco Use Status: Never Smoking risk assessment performed?: Yes Alcohol Intake: current Alcohol Intake frequency: holidays/special occasions only Alcohol type: wine Drug use: Never Substance use type: does not use Household members: spouse, children and other Housing: house Number of Children: 1 number of grandchildren: 2 Seatbelt use: always Do you feel safe at home: Yes Do you feel safe in your relationship?: Yes History History 1 Para 1 Hx # Term Pregnancies 1 Multiple births Hx # Pregnancies Ectopic pregnancies AB induced Hx Number of Living Children AB spontaneous Anticipated HH Services Anticipated HH Services at Discharge [facility] Needed, MARINE PIPE WELDER, OT, PT and RN Anticipated Date of Discharge: 07/01/25. Following Provider: Foster Belle.
[2025-06-30] MEDS: Torsemide 20 MG TAB 40 MG PO (10:22)
[2025-06-30] MEDS: metFORMIN 500 MG TAB PO ×2 (10:22→17:51)
--- NOTE | 2025-06-30 11:56 | W.PM.PROGNOT ---
Date of Service Date of service: 06/30/25 Time of Service: 11:56 Assessment and Plan Assessment and plan (1) Seizure: Status: Acute Assessment and plan: Exact etiology is unknown. It is somewhat rare to have a seizure at [address]. [address] scan does not show any mass occupying lesions but she is at risk for stroke, MRI is more sensitive, pending. An EEG most likely be done in the outpatient setting. No clear infection, u/a mildly positive so in setting of seziure will treat with fosphomycin. Procal <0.1, CPK normal. She was given loading of levateracetam, will await further neurology recommendations about continuing this. Will cut buproprion dose from 300mg to 150mg, could consider stopping if depression stable. She is also prescribed donepezil and memantine, both of which slightly increase seizure risk. Hold these for now. (2) Chronic hypertension: Status: Chronic Assessment and plan: Continue with oral medications. (3) Depressive disorder: Status: Chronic Assessment and plan: I corrected sertraline to 100mg on PCP record. Also cut (4) Type II diabetes mellitus with neurological manifestations: Status: Chronic Assessment and plan: A1c 7.9. She did not get contrast CT so can resume metformin (5) GERD (gastroesophageal reflux disease): Status: Chronic Assessment and plan: on PPI and h2, will continue (6) Vascular dementia: Assessment and plan: Holding meds as above, will have to consider if these are helping enough to consider restarting. (7) DVT prophylaxis: Status: Acute Assessment and plan: enoxaparin, dose adjusted for BMI Subjective Subjective Patient reports: no new complaints, tolerating a regular diet and voiding w/o difficulty (she does urinate frequently, no big change); denies nausea, vomiting, shortness of breath or fever Interval history since last seen: No additional seizures. Per there were no medication changes prior to seizure. She was eating and sleeping normally. No signs of infection or acute stress. Had been on buproprion for years, was on higher dose of 450mg before. He thinks they should decrease the total number of medictions. She has vascular dementia at baseline. Per PCP records also on donepezil and memantine. Exam Narrative Exam Narrative: Gen: Alert, oriented to self and hospital, not the town she lives in, year Cardiovascular-regular rate rhythm no murmurs gallops Lungs-clear to auscultation bilaterally with good air exchange Abdomen-protuberant, soft, no tenderness to palpation Extremities-no sinus clubbing or edema bilaterally Neurologic-cranial nerves II through XII are intact, symmetric strength, gross sensation, and DTRs in bilateral extremities. Objective Last Vital Signs Temp 36.5 C 06/30/25 08:39 Pulse 71 06/30/25 08:39 Resp 16 06/30/25 08:39 BP 121/67 06/30/25 08:39 Pulse Ox 100 06/30/25 08:39 Laboratory Results - last 24 hr 06/29/25 06/29/25 06/29/25 17:20 21:13 22:15 WBC 6.39 RBC 3.74 L Hgb 9.2 L Hct 31.1 L MCV 83 MCH 24.6 L MCHC 29.6 L RDW 17.7 H Plt Count 378 MPV 8.8 Immature Gran % 0.5 Neutrophils % 66.4 Lymphocytes % 18.6 Monocytes % 8.8 Eosinophils % 4.9 Basophils % 0.8 Nucleated RBC % 0.0 Absolute Neutrophils 4.25 Absolute Lymphocytes 1.19 L Absolute Monocytes 0.56 Absolute Eosinophils 0.31 Absolute Basophils 0.05 PT 11.2 H INR 1.1 VBG Lactate 3.0 H* Sodium 141 Potassium 3.3 L Chloride 101 Carbon Dioxide 29.8 Anion Gap 10.2 BUN 14 Creatinine 1.2 H Est GFR (CKD-EPI 2020) 49.92 Glucose 186 H Hemoglobin A1c 7.9 H Calcium 9.0 Magnesium 1.4 L Total Bilirubin 0.8 AST 29 ALT 26 Alkaline Phosphatase 143 H Creatine Kinase 174 Total Protein 7.3 Albumin 3.0 L Procalcitonin < 0.10 TSH 3.05 Urine Color Yellow Urine Clarity Clear Urine pH 5.5 Ur Specific [place] 1.020 Urine Protein Negative Urine Ketones Negative Urine Blood Trace-intact H Urine Nitrite Positive H Urine Bilirubin Negative Urine Urobilinogen 0.2 Ur Leukocyte Esterase Trace H Urine RBC 0-2 Urine WBC 10-20 H Ur Epithelial Cells Few Urine Crystals Negative Urine Bacteria Packed Urine Casts 0-2 Hyaline Urine Mucus Moderate Ur Culture Indicated? Yes Urine Glucose Negative Urine Opiates Screen Negative Urine Methadone Screen Negative Ur Barbiturates Screen Negative Ur Tricyclics Screen Negative Ur Amphetamines Screen Negative U Benzodiazepines Scrn Negative Urine Cocaine Screen Negative Ur THC Screen Negative Ethyl Alcohol < 3.0 06/30/25 06:15 WBC 4.64 RBC 3.46 L Hgb 8.7 L Hct 28.6 L MCV 83 MCH 25.1 L MCHC 30.4 L RDW 17.9 H Plt Count 321 MPV 9.0 Immature Gran % 0.6 Neutrophils % 57.8 Lymphocytes % 28.2 Monocytes % 8.0 Eosinophils % 4.5 Basophils % 0.9 Nucleated RBC % 0.0 Absolute Neutrophils 2.68 Absolute Lymphocytes 1.31 Absolute Monocytes 0.37 Absolute Eosinophils 0.21 Absolute Basophils 0.04 PT INR VBG Lactate Sodium 142 Potassium 2.9 L* Chloride 104 Carbon Dioxide 29.6 Anion Gap 8.4 BUN 13 Creatinine 1.0 Est GFR (CKD-EPI 2020) 62.13 Glucose 110 H Hemoglobin A1c Calcium 8.7 Magnesium Total Bilirubin 0.7 AST 33 ALT 24 Alkaline Phosphatase 126 H Creatine Kinase Total Protein 6.6 Albumin 2.6 L Procalcitonin TSH 1.72 Urine Color Urine Clarity Urine pH Ur Specific [place] Urine Protein Urine Ketones Urine Blood Urine Nitrite Urine Bilirubin Urine Urobilinogen Ur Leukocyte Esterase Urine RBC Urine WBC Ur Epithelial Cells Urine Crystals Urine Bacteria Urine Casts Urine Mucus Ur Culture Indicated? Urine Glucose Urine Opiates Screen Urine Methadone Screen Ur Barbiturates Screen Ur Tricyclics Screen Ur Amphetamines Screen U Benzodiazepines Scrn Urine Cocaine Screen Ur THC Screen Ethyl Alcohol PAWSS Have you Been Recently Intoxicated or Drunk Within the Last 30 days?: No Have you Ever Experienced Previous Episodes of Alcohol Withdrawal?: No Have you ever Experienced Withdrawal Seizures?: No Have you ever Experienced Delirium Tremens(DT)s?: No Have you ever undergone Alcohol Rehabilitation Treatment (i.e, inpt ot outpatient treatment programs)?: No Have you ever Experienced Blackouts?: No Have you ever Combined Alcohol with other Downers within the last 90 days?: No Have you ever Combined Alcohol with any other Substance of Abuse during the last 90 days?: No Positive Blood Alcohol level on Presentation? [PCS.BAL]: No Evidence of Increased Autonomic Activity (i.e. HR>120, tremor, sweating, agitation, nausea)?: No Result: 0 Time Spent with Patient Time Spent with Patient: 35-49 minutes Time was spent: preparing to see the patient(eg.review tests), obtaining and/or [facility], ordering medications,tests, procedures, referring, communicating with other health toddler caregiver, indepentently interpreting results, counseling the patient and care coordination
[2025-06-30 12:15] LABS: Lab Add On Test DONE
[2025-06-30 12:25] LABS: Magnesium 2.1 mg/dL (1.8-2.4)
[2025-06-30] MEDS: Fosfomycin Tromethamine 3 GM PACKET PO (13:18)
[2025-06-30] MEDS: Potassium Chloride 20 MEQ TABCR 40 MEQ PO ×2 (13:19→20:28)
[2025-06-30] MEDS: Gadoterate meglumine 20 ML VIAL IVP (15:32)
--- NOTE | 2025-06-30 15:50 | DI.MRI_ITS ---
Exam(s) MR BRAIN WO/W EXAM: MR BRAIN WO/W CLINICAL HISTORY: seizure TECHNIQUE: Multiplanar multisequence MRI of the brain was performed. CONTRAST MATERIAL: IV Contrast: 20 mL of Dotarem contrast administered. COMPARISON: MR MR BRAIN WO from 05/21/[address] HEAD WO from 06/29/2025 FINDINGS: The examination is limited due to patient motion artifact. VENTRICLES AND EXTRA AXIAL SPACES: Normal in size and morphology for the patient's age. HEMORRHAGE: None. CEREBRAL PARENCHYMA: No focus of restricted diffusion to suggest acute infarct. No space-occupying lesion identified. There are multiple areas of hyperintense signal seen on the T2 weighted images in the periventricular white matter most consistent with chronic microvascular ischemic disease. MIDLINE SHIFT: None. BRAINSTEM/CEREBELLUM: Normal. CALVARIUM: Normal. ENHANCEMENT: No suspicious enhancement identified. VISUALIZED PARANASAL SINUSES/MASTOIDS: There is a mucous retention cyst in the right maxillary sinus. The remaining visualized paranasal sinuses are clear. ABSENTEE-SHAWNEE OF KIMBLE: Normal flow void. PITUITARY GLAND: Unremarkable. OTHER FINDINGS: IMPRESSION: 1. The examination is limited due to patient motion artifact. 2. There is unchanged marked prominence of the ventricles and sulci and hyperintense T2 signal on the FLAIR and T2 weighted images in the white matter consistent with chronic microvascular ischemic disease. 3. There is no evidence of an acute infarct, intracranial mass or enhancing lesion. DATA REPOSITORY:
[2025-06-30 20:24] VITALS: BP 114/98; PULSE 72; RESP 18; TEMP 36.2; O2SAT 95
[2025-06-30] MEDS: levETIRAcetam 500 MG TAB PO (20:28)
[2025-06-30] MEDS: Enoxaparin 60 MG/0.6 ML SYR SC (20:29)
[2025-06-30] MEDS: Nystatin CREAM 15 GM TUBE TP (20:29)
[2025-06-30] MEDS: Nystatin POWDER 15 GM JAR (20:30)
[2025-07-01] MEDS: Cyclobenzaprine 10 MG TAB 5 MG PO (06:13)
[2025-07-01] MEDS: Acetaminophen 325 MG TAB PO (06:24)
[2025-07-01 06:54] LABS: HCT 31.5 % (36.0-46.0); HGB 9.5 g/dL (11.2-15.7)
[2025-07-01 07:20] LABS: Anion Gap 6.1 mmol/L (3-11); BUN 11 mg/dL (7-18); CO2 31.9 mmol/L (21.0-32.0); Calcium 8.9 mg/dL (8.5-10.1); Chloride 105 mmol/L (98-107); Estimated GFR 70.51 (mL/min/1.73m2); Glucose 103 mg/dL (74-106); Magnesium 1.9 mg/dL (1.8-2.4); Potassium 3.8 mmol/L (3.5-5.1); Sodium 143 mmol/L (136-145)
[2025-07-01 07:25] LABS: Iron 27 ug/dL (50-170); Total Iron Binding Capacity 336 ug/dL (250-450); Transferrin Sat 8 % (15-50)
[2025-07-01] MEDS: metFORMIN 500 MG TAB PO (07:47)
[2025-07-01] MEDS: Aspirin 81 MG CHEW CH (07:47)
[2025-07-01] MEDS: Magnesium Oxide 400 MG TAB PO (07:47)
[2025-07-01] MEDS: levETIRAcetam 500 MG TAB PO (07:48)
[2025-07-01] MEDS: buPROPion-XL 150 MG TABCR PO (07:48)
[2025-07-01] MEDS: Cyanocobalamin 500 MCG TAB 1000 MCG PO (07:48)
[2025-07-01] MEDS: Sertraline 25 MG TAB 100 MG PO (07:48)
[2025-07-01] MEDS: Potassium Chloride 20 MEQ TABCR 40 MEQ PO (07:49)
[2025-07-01] MEDS: Atorvastatin 40 MG TAB 60 MG PO (07:49)
[2025-07-01] MEDS: Torsemide 20 MG TAB PO (07:49)
[2025-07-01] MEDS: Pantoprazole 40 MG TABCR PO (07:49)
[2025-07-01] MEDS: Enoxaparin 60 MG/0.6 ML SYR SC (07:50)
[2025-07-01] MEDS: Famotidine 20 MG TAB PO (07:50)
[2025-07-01] MEDS: Pregabalin 50 MG CAP PO (07:50)
[2025-07-01] MEDS: Lisinopril 5 MG TAB 10 MG PO (07:50)
[2025-07-01] MEDS: Nystatin CREAM 15 GM TUBE TP (07:50)
[2025-07-01] MEDS: Normal Saline Flush 10 ML SYR (08:08)
--- NOTE | 2025-07-01 09:36 | IN_ITS ---
Date of service: 07/01/25 PT Notes Visit Reasons: Seizure Physical Therapy Inpatient Initial Evaluation Date: 07/01/2025 Referring Doctor: Dr. Sheffield PT Orders: PT CONSULT: PT evaluation and treatment Precautions: Standard, seizure precautions Patient Profile/Admitting Diagnosis: Kathrine is a 64-year-old female with known history of vascular dementia who follows with a outpatient neurologist in [place]. Patient was sitting on her porch this afternoon and had what appeared to be a seizure. Family states that seizure lasted approximately 10 minutes and appeared to be a grand mal type seizure including some foaming at the mouth. She did not have bowel or bladder incontinence minor tongue. Patient does have a significant postictal phase and is still more confused than her baseline according to her family. Patient was seen by teleneurology who recommended a MRI as well as an EEG monitoring overnight. Patient did get a CT scan of her head which was negative for any pathology including his space- occupying lesion. PMHX: Seizure (Acute) Pleuritic chest pain (Acute) Encounter for screening for other viral diseases (Acute) Anxiety disorder (Chronic) Chronic urticaria (Acute) Rash (Acute) History of abnormal cervical Pap smear (Acute) Women's annual routine gynecological examination (Acute) Normal colonoscopy (Acute) Chest pain (Acute) Chest pressure (Acute) DVT prophylaxis (Acute) Middle insomnia (Chronic 04/28/15) Diabetes mellitus (Chronic) Osteoarthritis of knee (Acute 12/21/13) Mixed incontinence (Acute 10/01/17) Menopausal symptoms (Acute 04/28/15) Morbid obesity (Acute 03/12/13) Heartburn (Acute 03/12/13) Essential hypertension (Acute 03/12/13) Disease related peripheral neuropathy (Acute 11/03/13) DM--with intact sensation Candidal skin infection (Acute 12/30/17) Benign paroxysmal positional vertigo (Acute 02/25/13) Meclizine & PT Asthma (Acute 06/02/15) ACT 07/2015 = 15 PFTs with methacholine challenge 07/2015 showed decreased FEV1 with challenge HPV (human papilloma virus) anogenital infection (Acute 07/13/13) Women's Wellness/Rl: 06/2013 Large breasts (Chronic) Viral URI (Acute) Adult BMI > 30 (Chronic) Atypical squamous cells of undetermined significance (ASC-US) on cervical Pap smear (Chronic 07/30/16) Depressive disorder (Chronic 05/02/12) Hyperlipidemia (Chronic 11/29/11) LIPITOR 80MG CAUSED MUSCLE CRAMPS, 40MG NOT AT GOAL, TRYING 60MG 02/2013 Papanicolaou smear of cervix with positive high risk human papilloma virus (HPV) test (Chronic 07/30/16) Recurrent UTI (Chronic 10/01/17) 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 Naresh Cooper Diabetic peripheral neuropathy associated with type 2 diabetes mellitus (Chronic) Asthma (Chronic) Osteoarthritis of knee (Chronic 07/21/14) Chronic hypertension (Chronic) Morbid obesity with body mass index of 40.0-49.9 (Chronic) GERD (gastroesophageal reflux disease) (Chronic) History of surgery (Chronic) 1980. Lap cholecystectomy in [place] 2004. Left TKA iun Jun 2010 Bilateral cataract extraction and rell implantation. 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) Medical History (Updated 06/29/25 @ 21:55 by Celio Sheffield MD) Asthma HTN (hypertension) Type 2 diabetes mellitus Surgical History S/P colonoscopy05/26/19 History of total bilateral knee replacement (TKR) bilateralHysterectomy, Total [id number] Cholecystectomy Extraction of cataractB/L section (~1980) Social History/Home Situation: Patient resides with her , daughter, son-in-law and 2 grandsons. Patient has no services at home. She is independent with ambulation and ADLs. 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 Objective: [] General Observation: Patient presented semireclined in bed increase weight shift to left present at bedside. Patient with flat affect Mental Status: Alert and oriented to person. Some word finding deficits patient defers to but able to answer when 2 choices are given pain: Denied ROM: [] Right Upper Extremity: WFL Left Upper Extremity: WFL Right Lower Extremity: WFL with hip flexion limited by abdominal girth Left Lower Extremity: WFL with hip flexion limited by abdominal girth Strength: Patient with impaired motor coordination right greater than left Right Upper Extremity: 3/5 Left Upper Extremity: 3/5 Right Lower Extremity: Hips 3 -/5, knees 3/5 ankles 3/5 Left Lower Extremity: Hips 3 -/5 knees 3/5 ankle 3/5 Sensation: Intact to light touch deep pressure Bed Mobility/Transfers: [] Supine to sit [] min assist Sit to stand min assist Stand to sit min assist with cues for hand placement Bed to chair min assist with FWW and tactile and verbal cues for FWW management Gait: Ambulated 25 feet with FWW, shuffle gait pattern min assist for FWW management Balance: [] Static Sitting: Good Dynamic Sitting: Fair Static Standing: Fair with FWW Dynamic Standing: Fair minus with FWW Special Tests: [] Mobility Limitations Standardized Measure [] [facility]-PAC 6 clicks Basic Mobility Inpatient Short Form: [] Raw Score: 16 CMS Score: 54.16% Informed Consent/Education: Patient instructed in purpose of PT consult. Assessment: Ankita demonstrates impaired motor coordination and difficulty motor planning tasks such as stepping backwards with FWW to safely approach to chair and perform safe hand placement for transfers sit to stand. demonstrates ability to provide appropriate cueing to facilitate safe transfers and ambulati on with FWW. Patient remains at high risk for falls and readmission with current AM-PAC score. Patient is a 64-year-old female who presents with clinical signs and symptoms consistent with current/admitting diagnoses that have resulted to mobility limitations, gait instability, generalized weakness, and impairment of motor control as demonstrated by the following impairment level findings: 1. Decreased strength/motor control to BUE/BLE major muscle groups 2. Impaired standing balance 3. Limitation of joint range of motion in 4. Impaired functional activity tolerance 5. Cognitive deficits related to vascular dementia limiting her ability to motor plan Impairments are contributing to the following functional limitations: 1. Inability to safely ambulate without assistive device 2. Increase completion time for mobility ADL performance 3. Increased fall risk 4. Decline in transfer skills 5. Decline in bed mobility skills 6. Difficulty performing stairs without assistance Despite above deficits and functional impairments patient to be discharged to home with her family and home health PT at this time therefore goals not established. Patient would benefit from lift assist into home as they were unable to be assessed at this time. Patient is assessed as a moderate complexity based on the following: History: 64-year-old female with impairment level findings, functional dinh itations, and past medical history as indicated above Examination: Demonstrable impairment in strength, balance, and mobility level with underlying impairments and functional limitations as documented above Presentation:evolving Decision Making: moderate Goals: N/A. PT evaluation and 1-2 treatment sessions only for functional mobility training using recommended AD and for HEP instruction. Plan of Care/Treatment Plan: N/A. PT evaluation and 1-2 treatment session only for functional mobility training using recommended AD and for HEP instruction. DISCHARGE RECOMMENDATIONS:Home with HHPT when medically appropriate with lift assist into home TREATMENT CODE/TIME:[id number], [id number] Thank you for the opportunity to participate in the care of this patient. Gabriella Garcia PT [facility] Please sign an return this page within 30 days if you agree with the above POC. Thank you! Physician Signature Date [facility]
--- NOTE | 2025-07-01 09:49 | PDOC.CMPRO ---
Date of service: 07/01/25 Time of Service: 09:49 Care Management Progress Note Discharge Potential Discharge Needs: PCP F/U Appt Anticipated Barriers to Discharge: None Identified Patient/Family Education Needs: Review discharge instructions, discuss Ask Me Three Transportation: Private vehicle Plan: Ktahrine will discharge home with new [facility] services of RN, PT, OT and [employer]. She will f/u with her PCP and her neurologist and continue per her plan of care. Kathrine will transport home with family. CM will follow and continue to assess for discharge needs.. Social Determinants of Health Screening Social Determinants of health last assessed in clinic: 06/30/25 Will the Patient Participate in the Screening?: Yes Do you worry about having a steady place to live?: no Problems where you live: pests such as bugs, ants or mice In the past 12 months, have you had to go without electric, gas, oil or water in your home?: no Has lack of transportation kept you from medical appointments or from doing things needed for daily living?: no Has anyone in your life made you feel unsafe or unsupported?: choose not to answer How hard is it for you to pay for the very basics like food, housing, medical care, and heating? Would you say it is:: Somewhat hard Do you want help finding or keeping work or a job?: I do not need or want help If for any reason you need help with day-to-day activities such as bathing, preparing meals, shopping, managing finances, etc., do you get the help you need?: I get all the help I need How often do you feel lonely or isolated from those around you?: Never Do you speak a language other than [place] at home?: No Does the patient want assistance with any of the above?: No Health Related Social Needs Health related social needs: inadequate housing (Z59.1) and problems related to housing/economic circumstances (Z59.89) Health related social needs details: kenyatta
[2025-07-01 10:07] VITALS: BP 121/64; PULSE 67; RESP 16; TEMP 36.6; O2SAT 96
--- NOTE | 2025-07-01 12:21 | DSE_ITS ---
Date of service: 07/01/25 Time of Service: 12:21 DS: Diagnosis Discharge Diagnosis (1) Seizure: Status: Acute (2) Chronic hypertension: Status: Chronic (3) Depressive disorder: Status: Chronic (4) Type II diabetes mellitus with neurological manifestations: Status: Chronic (5) GERD (gastroesophageal reflux disease): Status: Chronic (6) Vascular dementia: (7) DVT prophylaxis: Status: Acute Discharge Plan Disposition Patient Disposition: Home W/Home Health Services Condition: Stable Discharge Details Reason For Visit: Seizure Admit Date/Time: 06/29/25 21:42 Admit Provider: Celio Sheffield Attending Provider: Celio Sheffield Primary Care Provider: [facility] Hospital Course: 64-year-old female with known history of vascular dementia, type 2 DM, BMI 52 who was sitting on her porch when she had a 10 minute tonic/clonic seizure witnessed by her . She had no history of seizures and no recent medication changes or stresses. Her CT head was negative and teleneurology recommneded starting Keppra and observing and getting MRI. She did not have further events. MRI did not show a stroke or other new pathology. On the morning of discharged she seemed to have a hard time moving her right leg, but with mobilization she was clear not weak, and this seemed to be related to her back pain. She was taking buproprion, though this was not a new medication. She and her were interested in cutting her overall pill burden. We decided to cut the buproprion in half to 150mg and consider stopping this in the future. Donepezil and memantidine have both been associated with seizure risk, and they felt like there has not clearly been a benefit on these medications, so we decided to stop them. Her oxybutynin was stopped in favor or trospium, which has the same mechanism but does not cross the blood-brain barrier. Pregablin was not changed, but she may consider cutting this to improve cognition and LE edema She was evaluated by PT who recommended ongoing therapy. She was sent home on Keppra with orders for outpatient EEG. Recommendations for Follow Up Recommended tests to be ordered by follow up provider: EEG (ordrered) Follow up on mood, possible discontinuation of buproprion Home Meds and New Rx's Prescriptions: New levetiracetam 500 mg Tablet 500 mg PO BID Qty: 180 0RF bupropion HCl 150 mg Tablet Extended Release 24 Hr 150 mg PO DAILY Qty: 30 0RF trospium 20 mg Tablet 20 mg PO HS Qty: 30 2RF Continued cyanocobalamin (vitamin B-12) 1,000 mcg capsule 1,000 mcg PO DAILY meclizine 25 mg tablet,chewable 25 mg PO TID PRN (Reason: dizziness) Qty: 60 3RF ibuprofen 600 MG tablet 600 mg PO TID PRNQty: 90 Rx Instructions: 1 tab q6 hours PRN. pantoprazole 40 MG tablet,delayed release (DR/EC) 40 mg PO DAILY AM Qty: 90 3RF Rx Instructions: FOR GERD Take 1 pill daily in the morning at least 30 minutes before first meal atorvastatin 40 MG tablet 60 mg PO DAILY Qty: 135 3RF Rx Instructions: 1.5 tabs daily of 40 mg to total 60 mg for cholesterol PROVENTIL HFA 18 GM HFA.AER.AD 2 puff Inhalation Q4H PRN Qty: 1 2RF nitroglycerin 0.4 mg tablet, sublingual 0.4 mg Sublingual Q5M PRN (Reason: chest pain) Qty: 25 5RF aspirin 81 MG tablet,chewable 81 mg CH DAILY cetirizine [Zyrtec] 10 mg tablet 10 mg PO DAILY PRN potassium chloride 10 mEq capsule, extended release 10 meq PO DAILY Patient Comments: TAKE ONE CAPSULE BY MOUTH EVERY DAY torsemide 20 mg tablet 40 mg PO DAILY Patient Comments: TAKE TWO TABLETS BY MOUTH EVERY MORNING famotidine 20 mg tablet 20 mg PO BID Qty: 28 0RF metformin 850 MG tablet 500 mg PO BID Rx Instructions: FOR DIABETES Changed fluconazole 150 mg tablet 150 mg PO QWEEK Qty: 0 0RF Patient Comments: TAKE ONE TABLET BY MOUTH ONCE WEEKLY FOR 4 WEEKS sertraline 25 MG tablet 100 mg PO DAILY Qty: 90 3RF lisinopril 5 mg tablet 10 mg PO DAILY Qty: 90 3RF pregabalin [Lyrica] 50 mg capsule 75 mg PO BID Qty: 60 0RF Discontinued bupropion HCl 300 MG tablet extended release 24 hr 300 mg PO DAILY Qty: 90 3RF meclizine 25 mg tablet 25 mg PO DAILY PRN (Reason: dizziness) Qty: 10 0RF cyclobenzaprine 5 mg tablet 5 mg PO TID PRNQty: 10 0RF oxybutynin chloride 5 mg tablet 5 mg PO DAILY donepezil 5 mg tablet 5 mg PO DAILY Patient Comments: TAKE ONE TABLET BY MOUTH EVERY DAY Discharge Instructions Instructions: Seizures Additional Instructions: You have a new medication to prevent seizures, levetiracetam (also called K eppra) We cut the dose of Bupropion in half because this can increase risk of seizures We also decided to stop the two medications for dementia becuase it is not clear they are helping and they also can rarely trigger seizures. You can follow up with this with your PCP We changed the oxybutynin to trospium to help with the overactive bladder. This is because the oxybutynin can make the dementia worse. Cyclobenzaprine and meclizine also can make dementia worse. You should use these only if you really need them. The other changes above are not changes, they are just corrections of the doses based on your current prescriptions Activity:: Activity as Tolerated Equipment/Supplies:: No Equipment Needed Diet:: Carb Counting Discharge Orders Other Ambulatory Orders: EEG(Regular) (Routine) Timeframe: 1 Week Facility: [facility] - Location: Respiratory Therapy Ordered By: Vikash Guzman DS: Summary Time Spent with Patient providing and/or coordinating discharge services: Greater than 30 minutes Status at Discharge Functional status at discharge: uses cane/walker Overall status at discharge: patient is back to baseline Mental Status: mental status grossly normal (baseline dementia) Speech and Movement: speech and movement normal Mood: congruent mood Affect: normal affect Quality:SDOH Health Related Social Needs: Health related social needs inadequate housing house/e con circumstance Health related social needs details bedbugs Health related social needs details: bedbugs Exam Narrative Exam Narrative: Gen: Alert, oriented to self and place, not time/year (stable) Cardiovascular-regular rate rhythm no murmurs gallops Lungs-clear to auscultation bilaterally with good air exchange Abdomen-protuberant, soft, no tenderness to palpation Extremities-no sinus clubbing. 1+ ankle edema bilaterally Neurologic-cranial nerves II through XII are intact, symmetric strength, gross sensation Psych Mental Status: mental status grossly normal (baseline dementia) Speech and Movement: speech and movement normal Mood: congruent mood Affect: normal affect DS: Data Vitals/I&O Vitals and I&O: Vital Signs Temperature 36.6 C 07/01/25 10:07 Temperature Source Temporal Artery Scan 07/01/25 10:07 Pulse 67 07/01/25 10:07 Pulse Rhythm Regular 06/29/25 22:47 Pulse 75 06/29/25 19:40 Respiratory Rate 16 07/01/25 10:07 Respiratory Effort Normal, Non-Labored 06/29/25 22:47 Respiratory Depth Normal 06/29/25 22:47 Respiratory Pattern Normal 06/29/25 22:47 Blood Pressure 121/64 07/01/25 10:07 Blood Pressure Mean 83 07/01/25 10:07 Pulse Oximetry 96 07/01/25 10:07 Oxygen Delivery Method Room Air 07/01/25 10:07 Oxygen Flow Rate 0 07/01/25 10:07 Pain Level 8 07/01/25 06:24 Intake & Output 06/30/25 07/01/25 07/01/25 23:59 11:59 23:59 Intake Total 115 / 115 230 / 230 Output Total 0 / 0 Balance 115 / 115 230 / 230 Weight 125 kg Intake: IV 115 / 115 230 / 230 Output: Urine 0 / 0 Other: Urine Color Yellow Urine Appearance Clear Urine Odor Normal Comment Pt felt like she had to urinate, she was put on commode for about 5 minutes but didnt go. She went back into the bed. Stool Size Moderate Stool Characteristics Soft Brown Data Completed and Pending Labs on day of discharge: Labs from last 24 hours 07/01/25 06/30/25 06:20 06:15 Hgb 9.5 L Hct 31.5 L Sodium 143 Potassium 3.8 Chloride 105 Carbon Dioxide 31.9 Anion Gap 6.1 BUN 11 Creatinine 0.9 Est GFR (CKD-EPI 2020) 70.51 Glucose 103 Calcium 8.9 Magnesium 1.9 2.1 Iron 27 L TIBC 336 Transferrin % Sat 8 L 06/29/25 22:15 Urine - Reflex from Ua Urine Culture - Pending Preliminary micro results at discharge 06/29/25 22:15 Urine - Reflex from Ua Urine Culture - Pending [facility] All Active Problems (Updated 06/30/25 @ 12:47 by Vikash Guzman) Seizure (Acute) Pleuritic chest pain (Acute) Encounter for screening for other viral diseases (Acute) Chronic urticaria (Acute) Rash (Acute) History of abnormal cervical Pap smear (Acute) Women's annual routine gynecological examination (Acute) Normal colonoscopy (Acute) Viral URI (Acute) Large breasts (Chronic) HPV (human papilloma virus) anogenital infection (Acute 07/13/13) Women's Wellness/Rl: 06/2013 Asthma (Acute 06/02/15) ACT 07/2015 = 15 PFTs with methacholine challenge 07/2015 showed decreased FEV1 with challenge Benign paroxysmal positional vertigo (Acute 02/25/13) Meclizine & PT Candidal skin infection (Acute 12/30/17) Disease related peripheral neuropathy (Acute 11/03/13) DM--with intact sensation Essential hypertension (Acute 03/12/13) Heartburn (Acute 03/12/13) Morbid obesity (Acute 03/12/13) Menopausal symptoms (Acute 04/28/15) Mixed incontinence (Acute 10/01/17) Osteoarthritis of knee (Acute 12/21/13) Diabetes mellitus (Chronic) Adult BMI > 30 (Chronic) Atypical squamous cells of undetermined significance (ASC-US) on cervical Pap smear (Chronic 07/30/16) Depressive disorder (Chronic 05/02/12) Hyperlipidemia (Chronic 11/29/11) LIPITOR 80MG CAUSED MUSCLE CRAMPS, 40MG NOT AT GOAL, TRYING 60MG 02/2013 Papanicolaou smear of cervix with positive high risk human papilloma virus (HPV) test (Chronic 07/30/16) Recurrent UTI (Chronic 10/01/17) 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 Naresh Cooper Middle insomnia (Chronic 04/28/15) DVT prophylaxis (Acute) Chest pressure (Acute) Anxiety disorder (Chronic) Diabetic peripheral neuropathy associated with type 2 diabetes mellitus (Chronic) Asthma (Chronic) 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) History of surgery (Chronic) 1980. Lap cholecystectomy [place] 2004. Left TKA iun Jun 2010 Bilateral cataract extraction and rell implantation. Chest pain (Acute) GERD (gastroesophageal reflux disease) (Chronic) Morbid obesity with body mass index of 40.0-49.9 (Chronic) Chronic hypertension (Chronic) Osteoarthritis of knee (Chronic 07/21/14) Medical History (Updated 06/30/25 @ 12:47 by Vikash Guzman) Vascular dementia Asthma HTN (hypertension) Type 2 diabetes mellitus Surgical History S/P colonoscopy 05/26/19 History of total bilateral knee replacement (TKR) bilateral Hysterectomy, Total Laparoscopic 2017 Cholecystectomy Extraction of cataract B/L section (~1980) Family History Mother Neoplasm Stroke Father , [place] Myocardial infarction Social History Smoking/Tobacco Use Status: Never Smoking risk assessment performed?: Yes Alcohol Intake: current Alcohol Intake frequency: holidays/special occasions only Alcohol type: wine Drug use: Never Substance use type: does not use Household members: spouse, children and other Housing: house Number of Children: 1 number of grandchildren: 2 Seatbelt use: always Do you feel safe at home: Yes Do you feel safe in your relationship?: Yes History History 1 Para 1 Hx # Term Pregnancies 1 Multiple births Hx # Pregnancies Ectopic pregnancies AB induced Hx Number of Living Children AB spontaneous Time Spent with Patient Time Spent with Patient: 45-69 minutes Time was spent: preparing to see the patient(eg.review tests), obtaining and/or reviewing separately otained hiistory, ordering medications,tests, procedures, referring, communicating with other health medicare compliance auditor, indepentently interpreting results, counseling the patient and care coordination
--- NOTE | 2025-07-01 12:39 | CHAPLAIN ---
I visited with Kathrine and her . 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 She lives with her , daughter and two 15 year old twin grandsons. Kathrine was pleasant and responded engaged in conversation to a small degree.
--- NOTE | 2025-07-01 14:03 | PDOC.HHF2F ---
Home Health Referral Home Health Orders Clinical synopsis of why skilled professionals are needed: 64-year-old female with known history of vascular dementia, type 2 DM, BMI 52 who was sitting on her porch when she had a 10 minute tonic/clonic seizure witnessed by her . She had no history of seizures and no recent medication changes or stresses. Her CT head was negative and teleneurology recommneded starting Keppra and observing and getting MRI. She did not have further events. MRI did not show a stroke or other new pathology. On the morning of discharged she seemed to have a hard time moving her right leg, but with mobilization she was clear not weak, and this seemed to be related to her back pain. She was taking buproprion, though this was not a new medication. She and her were interested in cutting her overall pill burden. We decided to cut the buproprion in half to 150mg and consider stopping this in the future. Donepezil and memantidine have both been associated with seizure risk, and they felt like there has not clearly been a benefit on these medications, so we decided to stop them. Her oxybutynin was stopped in favor or trospium, which has the same mechanism but does not cross the blood-brain barrier. Pregablin was not changed, but she may consider cutting this to improve cognition and LE edema She was evaluated by PT who recommended ongoing therapy. She was sent home on Keppra with orders for outpatient EEG. Medical diagnosis necessitation home health referral: dementia, seizures, ambulatory disfunction Registered Nurse: Check all that apply Instruct on new or changed medication(s)/assess compliance: Ordered Assess for exacerbation of medical condition, instruct patient/caregivers on signs and symptoms to report for early detection: Ordered Physical Therapist: Check all that apply Increase strength & endurance for safe mobility at home: Ordered To design/establish home maintenance program: Ordered Home safety evaluation and teaching/gait training including stair management (if applicable): Ordered Chief Business Officer: Assist with community resources: Ordered Assist with termite treater care planning: Ordered Home Bound Status Requires the aid of supportive device (check all that apply): Cane and Walker Describe why leaving home would require a considerable and taxing effort: Incontinence and Confusion Encounter Date and Reason: I certify that a FTF encounter for this patient was performed on July 01, 2025 and that such encounter was related to the primary reason the patient requires home health services. The encounter was conducted in the following manner: By me as the certifying physician, E[employer]S SALES REPRESENTATIVE, PA or By an inpatient physician, ELECTRON[employer]S SALES REPRESENTATIVE or PA during an inpatient stay who communicated findings to me, Certification And Authentication I certify that I composed the above information based on my clinical judgment relating to this patient's medical condition and, if applicable, clinical findings communicated to me by the NPP or inpatient physician who performed the FTF encounter. Name of Provider that will be monitoring home health services: Foster Belle
--- NOTE | 2025-07-01 16:46 | CMDISCH_ITS ---
Date of service: 07/01/25 Time of Service: 16:47 LACE Index Scoring Tool Questions: Length of Stay (in days): 2 Was the patient admitted via the E.D.?: Yes Comorbidities: Diabetes w/o Complication E.D. Visits: 4 Answers: Total Score: 10 Risk of Readmission: High Risk Care Management Discharge Plan Reason for Hospitalization: seizure Discharge Plan: Kathrine will be discharged home with new home health services for RN, PT and IMPLEMENTATION SERVICES ANALYST. She will follow up with her community providers and plan of care and transport with family. Patient/Family Education Needs: [place] Services Needed at Discharge: Home Health Care Services SDOH Health Related Social Needs: Health related social needs inadequate housing house/e con circumstance Health related social needs details bedbugs Health related social needs details: bedbugs
== END 2025-07-01 15:00 | disposition home health service (06) ==
LOC: ER 16:44 → MS 22:38
PROVIDERS: Admitting Provider Hospitalist; Emergency Provider Emergency Medicine; PCP Physician Assistant; Responsible Provider Family Medicine; Visit Provider Hospitalist
DX: R56.9 Unspecified convulsions (principal); I10 Essential (primary) hypertension; E78.5 Hyperlipidemia, unspecified; F41.9 Anxiety disorder, unspecified; E66.01 Morbid (severe) obesity due to excess calories; Z68.43 Body mass index [BMI] 50.0-59.9, adult; F01.50 Vascular dementia, unspecified severity, without behavioral disturbance, psychotic disturbance, mood disturbance, and anxiety; E83.42 Hypomagnesemia; E87.6 Hypokalemia; N39.46 Mixed incontinence; E11.42 Type 2 diabetes mellitus with diabetic polyneuropathy; J45.909 Unspecified asthma, uncomplicated; F32.A Depression, unspecified; K21.9 Gastro-esophageal reflux disease without esophagitis; Z96.653 Presence of artificial knee joint, bilateral
CPT/HCPCS: 00123; 36415; 51701; 70553; 80048; 80053; 80307; 82550; 84145; 87077; 93005; 96365; 96366; 96367; 96372; 97162; 97530; 99285; 70450; 80320; 81003; 81015; 83036; 83540; 83550; 83605; 83735; 84443; 85014; 85018; 85025; 85610; 87086; 87186; 93010; 99222; 99232; 99239; G0378; J1650; J1953; J3475; J3490

== ENCOUNTER 2025-07-13 03:20 | Outpatient (CLI) | payer MEDICARE, SELFPAY ==
--- NOTE | 2025-07-13 10:30 | PDOC.EEG ---
Neurology EEG EEG: [facility] Department of Neurology EEG REPORT Date of Recordin07/13/25 Interpreting Physician: Dr. Suzan Shea PCP/Referring Provider: Dr. Vikash Guzman Reason for study: Kathrine Zaragoza is a 64 year-old with known vascular dementia who had an apparent GTC on 06/29/25. Current Medications: METHODS: A 21 channel digitized electroencephalogram was performed in the [facility] Clinical Neurophysiology Laboratory. The 10/20 international system of electrode placement was used and bipolar and referential electrode montages were recorded. In addition to EEG the patient was monitored for EKG and lateral/vertical eye movements. Activation procedures of photic stimulation and hyperventilation were performed if applicable. Video was used during activation procedures and during events where applicable. The duration of the recording was 30 minutes. DESCRIPTION OF EEG: The patient was noted to be awake and drowsy during the recording. During maximal wakefulness a 6-7 Hz posterior background rhythm was present which was poorly-modulated, symmetrical, reactive to eye opening, and of moderate voltage. With eye opening the background activity changed to a low voltage mixture of alpha, beta, and occasional theta range frequencies. Faster frequencies were present in the bilateral anterior head regions. There was a normal anterior-posterior voltage gradient. During drowsiness, there was attenuation of the posterior dominant background rhythm and vertex waves. No stage II sleep was recorded. During wakefulness, there was frequent, non-rhythmic, moderate-amplitude, generalized delta and theta slowing. Activating Procedures: Photic stimulation was performed which produced a symmetrical posterior driving response at various flash frequencies. Hyperventilation was not performed. EKG: EKG revealed normal sinus rhythm. INTERPRETATION: This EEG is abnormal due to: #1. Slowing of the posterior dominant rhythm. #2. Generalized, non-rhythmic, theta and delta slowing. PRIOR EEG: none CLINICAL CORRELATION: The above slowing is suggestive of a mild diffuse cerebral encephalopathy of broad differential including toxic-metabolic etiology. No focal regions of cerebral dysfunction or epileptiform activity was present. Clinical correlation is advised. Suzan Shea MD Date of service: 07/13/25
== END 2025-07-13 03:21 | disposition home or self-care (01) ==
LOC: RT 03:20
PROVIDERS: PCP Physician Assistant; Visit Provider Family Medicine
DX: R94.31 Abnormal electrocardiogram [ECG] [EKG] (principal)
CPT/HCPCS: 95816

== ENCOUNTER 2025-07-28 10:58 | Outpatient (REF) | payer MEDICARE, SELFPAY ==
[2025-07-28 16:25] LABS: HCT 32.5 % (36.0-46.0); HGB 10.0 g/dL (11.2-15.7); MCH 26.3 pg (27.0-33.0); MCHC 30.8 % (32.0-36.0); MCV 86 fL (80-95); MPV 10.0 fL (8.0-11.0); Platelet Count 325 10^3/uL (130-400); RBC 3.80 10^6/uL (3.93-5.22); RDW 18.0 % (11.7-14.6); RDW-SD 56.9 fL; WBC 4.64 10^3/uL (4.4-10.8)
[2025-07-28 17:11] LABS: Anion Gap 12.7 mmol/L (3-11); BUN 12 mg/dL (7-18); CO2 26.3 mmol/L (21.0-32.0); Calcium 9.4 mg/dL (8.5-10.1); Chloride 101 mmol/L (98-107); Estimated GFR 62.13 (mL/min/1.73m2); Glucose 153 mg/dL (74-106); Potassium 4.0 mmol/L (3.5-5.1); Sodium 140 mmol/L (136-145)
[2025-07-28 17:17] LABS: Iron 54 ug/dL (50-170)
== END 2025-07-28 10:59 | disposition home or self-care (01) ==
LOC: NCHCN 10:58
PROVIDERS: PCP Physician Assistant; Visit Provider Physician Assistant
DX: D50.8 Other iron deficiency anemias (principal); I10 Essential (primary) hypertension
CPT/HCPCS: 80048; 85027; 83540

== ENCOUNTER → 2025-09-02 06:09 | Outpatient (CLI) | payer MEDICARE, SELFPAY ==
--- NOTE | 2025-09-02 | DI.MAMMO_ITS ---
Exam(s) MAMMO DIAGNOSTIC UNI EXAM: MAMMO DIAGNOSTIC UNI CLINICAL HISTORY: [facility] MAMMO, R92.8, INCONCLUSIVE FINDINGS ON DIAGNOSTIC IMAGING BREAST TECHNIQUE: Right cc and MLO mammogram images were performed according to the usual protocol including computer analysis with CAD system, tomosynthesis and C- view imaging. COMPARISON: 2015 through 26 Feb 2025 FINDINGS: The right breast is composed fatty density, Breast Density category A. No suspicious masses or suspicious microcalcifications are seen. Previously noted area of increased density is no longer present. This corresponded to the skin findings on the previous exam. No skin thickening or abnormal axillary lymph nodes are seen. IMPRESSION: BI-RADS Category 1, Negative mammogram Yearly screening mammography is recommended. Breast Density - Category A - The breast are almost entirely fatty. Breast density Category C or D implies that the patient has dense breast tissue. Dense breast tissue can make it harder to find cancer on a mammogram. Dense breast tissue is also associated with an increased risk of breast cancer. This information about the result of the mammogram report was provided to the patient to raise their awareness. Use this report when you speak with the patient about their risks for breast cancer, which includes their family history. At that time, you may recommend additional screening tests (Ultrasound or MRI) as these tests may add significant information. A negative radiographic report should not delay biopsy if a dominant or clinically suspicious mass is present. Up to ten percent of cancers are not identified on mammography. A negative report may reinforce clinical impression. Adenosis and dense breasts may obscure an underlying neoplasm. False positive reports average 6 to 10%. Patient will receive a letter notifying them of these results.
== END ==
LOC: DI 06:12
PROVIDERS: PCP Physician Assistant; Visit Provider Nurse Practitioner Family
DX: Z12.31 Encounter for screening mammogram for malignant neoplasm of breast (principal); R92.8 Other abnormal and inconclusive findings on diagnostic imaging of breast
CPT/HCPCS: 77061; 77065; G0279